=== PATIENT | female | born 1935 | race Two or more races ===

== ENCOUNTER 2017-08-23 20:08 | Inpatient (IN) | payer MEDICARE, MEDICAID ==
[~2017-08-23] VITALS: Ht 157.5 cm; Wt 79.8 kg
[2017-08-23] MEDS ORDERED: Solu-MEDROL 125mg Inj IVP ONE (20:15)
[2017-08-23] MEDS ORDERED: EPINEPHrine 1mg/1ml Amp SUBQ ONE (20:15)
[2017-08-23] MEDS ORDERED: Etomidate 40mg/20ml Inj IV ONE ×2 (20:39→21:15)
--- NOTE | 2017-08-23 20:59 | Emergency Room Report ---
History of Present Illness General Chief Complaint: Allergic Reaction Source: EMS Present Illness HPI Patient is an 82-year-old female who presented after increased tongue swelling and difficulty breathing. Patient had gradual onset of symptoms. Patient was noted to have been taking Coumadin. She was noted by EMS to have profuse bruising to her face as well as discoloration of her tongue. This happened while patient was receiving a treatment with C Pap. Patient had been given Subcutaneous epi as well as IV Benadryl by EMS. Allergies: Coded Allergies: IBUPROFEN (Verified Allergy, Unknown, 08/23/17) Patient History Past Medical History: see triage record Now: No Reviewed Nursing Documentation: PMH: Agreed, PSxH: Agreed Review of Systems All Other Systems: limited - by acuity Physical Exam Vital Signs Date Time Temp Pulse Resp B/P (MAP) Pulse Ox O2 Delivery O2 Flow Rate FiO2 08/23/17 20:10 97.8 113 28 164/47 100 Non-Rebreather 10.0 97.9 General Appearance: severe distress, Chronically Ill Head: normocephalic Eyes: bilateral eye PERRL ENT: other - tongue purple discoloration Neck: other - bruising to area beneath mandible, per EMS occurred en route Respiratory: accessory muscle use, stridor Cardiovascular #1: normal peripheral pulses, regular rate, rhythm, no edema Procedures Critical Care Time Critical Care Time Patient had a critical medical condition which untreated could potentially result in life or limb threatening injury. Total critical care time excluding procedures approximately 45 minutes. Intubation Intubation : Consent: Emergent Time of Intubation: 20:59 Intubation Method: orotracheal Tube Size (cm): 6.0 Medications: Etomidate Breath Sounds after Intubation: equal Intubation Complications: no complications, oral-unsuccessful attempt Post Intubation Xray: Yes Attempts: Other - three Patient Tolerated: Well Complications: None Medical Decision Making Diagnostic Impression: Primary Impression: Angioedema Additional Impressions: Anemia Airway compromise ER Course Patient presented for shortness of breath. Differential diagnosis included was not limited to angioedema, Puma's angina, bacterial tracheitis, anemia, pneumonia among others. Because of complexity of patient's case laboratory testing and imaging studies were ordered.The patient was noted to have initial somewhat difficulty breathing. She was given IV Benadryl as well as Pepcid. The patient was noted to have some increased difficulty breathing and was given epi subcutaneous. Patient was subsequentlyNoted to have partial airway obstruction and was intubated emergently. Initially an LMA was placed. Patient was given IV etomidate. The patient was excessively intubated with Glidescope but was unable to pass tube past cords, but maintained ventillation. The patient was subsequently intubated with a 6-0 ET tube at 21 cm's at the lip. Post procedure cxr showed adequate ETT. Patient was started on a Diprivan drip. Patient was noted to have marked bruising and edema near vocal cords and partially obstructing them. Dr. Vik Hernandez was contacted for primary care physician and stated he would contact Dr. Villagran for inpatient management . CT of neck is currently pending Labs Test 08/23/17 20:40 White Blood Count 18.1 K/UL (4.8-10.8) Red Blood Count 2.26 M/UL (4.20-5.40) Hemoglobin 6.6 G/DL (12.0-16.0) Hematocrit 20.4 % (37.0-47.0) Mean Corpuscular Volume 90 FL (80-99) Mean Corpuscular Hemoglobin 29.4 PG (27.0-31.0) Mean Corpuscular Hemoglobin Concent 32.6 G/DL (32.0-36.0) Red Cell Distribution Width 15.4 % (11.6-14.8) Platelet Count 257 K/UL (150-450) Mean Platelet Volume 7.0 FL (6.5-10.1) Neutrophils (%) (Auto) % (45.0-75.0) Lymphocytes (%) (Auto) % (20.0-45.0) Monocytes (%) (Auto) % (1.0-10.0) Eosinophils (%) (Auto) % (0.0-3.0) Basophils (%) (Auto) % (0.0-2.0) Differential Total Cells Counted 100 Neutrophils % (Manual) 87 % (45-75) Lymphocytes % (Manual) 11 % (20-45) Monocytes % (Manual) 2 % (1-10) Eosinophils % (Manual) 0 % (0-3) Basophils % (Manual) 0 % (0-2) Band Neutrophils 0 % (0-8) Platelet Estimate Adequate Platelet Morphology Normal Polychromasia 1+ Hypochromasia 2+ Anisocytosis 1+ Sodium Level 145 MMOL/L (136-145) Potassium Level 4.4 MMOL/L (3.5-5.1) Chloride Level 107 MMOL/L (98-107) Carbon Dioxide Level 29 MMOL/L (21-32) Anion Gap 9 mmol/L (5-15) Blood Urea Nitrogen 41 mg/dL (7-18) Creatinine 1.3 MG/DL (0.55-1.30) Estimat Glomerular Filtration Rate mL/min (>60) Glucose Level 170 MG/DL (74-106) Calcium Level 8.3 MG/DL (8.5-10.1) Total Bilirubin 1.2 MG/DL (0.2-1.0) Direct Bilirubin 0.3 MG/DL (0.0-0.3) Aspartate Amino Transf (AST/SGOT) 23 U/L (15-37) Alanine Aminotransferase (ALT/SGPT) 16 U/L (12-78) Alkaline Phosphatase 66 U/L (46-116) Troponin I 0.000 ng/mL (0.000-0.056) Total Protein 6.9 G/DL (6.4-8.2) Albumin 2.8 G/DL (3.4-5.0) Globulin 4.1 g/dL Albumin/Globulin Ratio 0.7 (1.0-2.7) EKG Diagnostic Results Rate: normal Rhythm: NSR ST Segments: no acute changes Last Vital Signs Date Time Temp Pulse Resp B/P (MAP) Pulse Ox O2 Delivery O2 Flow Rate FiO2 08/23/17 20:10 97.8 113 28 164/47 100 Non-Rebreather 10.0 97.9 Status: improved Disposition: ADMITTED INPATIENT Condition: Critical Referrals: SHARRON HERNANDEZ (PCP) Pradip Green Aug 23, 2017 20:59
[2017-08-23 21:05] LABS: HEMATOCRIT 20.4 % (37.0-47.0); MEAN CORPUSCULAR VOLUME 90 FL (80-99); PLATELET COUNT 257 K/UL (150-450); RED BLOOD COUNT 2.26 M/UL (4.20-5.40); RED CELL DISTRIBUTION WIDTH 15.4 % (11.6-14.8); WHITE BLOOD COUNT 18.1 K/UL (4.8-10.8)
[2017-08-23 21:16] LABS: ANION GAP 9 mmol/L (5-15); BLOOD UREA NITROGEN 41 mg/dL (7-18); CALCIUM 8.3 MG/DL (8.5-10.1); CARBON DIOXIDE 29 MMOL/L (21-32); CHLORIDE 107 MMOL/L (98-107); CREATININE 1.3 MG/DL (0.55-1.30); POTASSIUM 4.4 MMOL/L (3.5-5.1); SODIUM 145 MMOL/L (136-145)
[2017-08-23 21:24] LABS: HEMOGLOBIN 6.6 G/DL (12.0-16.0)
[2017-08-23 21:25] VITALS: BP 174/70
[2017-08-23 21:27] LABS: ALANINE AMINOTRANSFERASE 16 U/L (12-78); ALBUMIN 2.8 G/DL (3.4-5.0); ALBUMIN/GLOBULIN RATIO 0.7 (1.0-2.7); ALKALINE PHOSPHATASE 66 U/L (46-116); ASPARTATE AMINO TRANSFERASE 23 U/L (15-37); BILIRUBIN,TOTAL 1.2 MG/DL (0.2-1.0)
[2017-08-23 21:40] VITALS: BP 157/50
[2017-08-23 21:41] LABS: BILIRUBIN,DIRECT 0.3 MG/DL (0.0-0.3)
[2017-08-23] MEDS ORDERED: NORCO 5-325 TA1 EACH ORAL (21:43)
[2017-08-23] MEDS ORDERED: COUMADIN6 MG ORAL (21:43)
[2017-08-23] MEDS ORDERED: DUONEB 0.5-3(2.53 ML HHN (21:43)
[2017-08-23] MEDS ORDERED: clindamycin PO (21:43)
[2017-08-23] MEDS ORDERED: SULFAMETHOXAZO480 ML ORAL (21:43)
[2017-08-23] MEDS ORDERED: LIPITOR10 MG ORAL (21:43)
[2017-08-23] MEDS ORDERED: LEVOTHYROXINE88 MCG ORAL (21:43)
[2017-08-23] MEDS ORDERED: GABAPENTIN300 MG ORAL (21:43)
[2017-08-23] MEDS ORDERED: AMLODIPINE BESY10 MG ORAL (21:43)
[2017-08-23] MEDS ORDERED: DOCUSATE SODIU100 MG ORAL (21:43)
[2017-08-23] MEDS ORDERED: ASPIRIN81 MG ORAL (21:43)
[2017-08-23] MEDS ORDERED: WARFARIN SODIUM5 MG ORAL (21:43)
[2017-08-23] MEDS ORDERED: ACID CONTROLLER20 MG ORAL (21:43)
[2017-08-23] MEDS ORDERED: MEDROL4 MG ORAL (21:43)
[2017-08-23 21:55] VITALS: BP 166/40
[2017-08-23] MEDS ORDERED: Ampicillin/Sulbactam Sod 3 GM in NS 110 ML IVPB ONE (22:00)
[2017-08-23 22:10] VITALS: BP 135/46
[2017-08-23 22:45] VITALS: BP 110/22
[2017-08-24] VITALS (22 sets, daily range): BP systolic 78–154; BP diastolic 31–77
--- NOTE | 2017-08-24 00:26 | Emergency Room Report ---
History of Present Illness General Chief Complaint: Allergic Reaction Source: EMS Present Illness Allergies: Coded Allergies: IBUPROFEN (Verified Allergy, Unknown, 08/23/17) Patient History Now: No Nursing Documentation-PMH Hx Hypertension: Yes - Hyperlipidemia, Cellulitis Hx Gastrointestinal Problems: Yes - GERD Physical Exam Vital Signs Date Time Temp Pulse Resp B/P (MAP) Pulse Ox O2 Delivery O2 Flow Rate FiO2 08/22/17 21:55 16 166/40 08/23/17 20:10 97.8 113 100 Non-Rebreather 10.0 97.9 08/23/17 21:13 100 Procedures Central Line Central Line : Consent: Emergent Central Line Lumen: triple Maximal Sterile Barrier Tech: yes cap, yes mask, yes sterile gown, yes sterile gloves, yes large sterile sheet, yes hand hygiene, yes chlorhexidine prep Central Line Postion: femoral (R) Complications: none Central Line Post Position: sutured, good blood return Attempts: One Patient Tolerated: Well Complications: None Medical Decision Making Diagnostic Impression: Primary Impression: Angioedema Additional Impressions: Airway compromise Anemia ER Course Patient becoming hypotensive while on propofol. Only one IV access obtainable. I placed a right femoral central line. IV fluids and Levophed started Last Vital Signs Date Time Temp Pulse Resp B/P (MAP) Pulse Ox O2 Delivery O2 Flow Rate FiO2 08/23/17 23:31 40 08/23/17 23:30 96 24 08/23/17 22:45 110/22 100 08/23/17 21:55 Mechanical Ventilator 08/23/17 21:25 97.9 10.0 97.9 Status: improved Disposition: ADMITTED INPATIENT Condition: Critical Referrals: SHARRON HERNANDEZ (PCP) SHANON MONTIEL M.D. Aug 24, 2017 00:26
[2017-08-24] MEDS ORDERED: Levophed 4mg/4mL Inj IV ONE ×2 (00:30→00:53)
[2017-08-24] MEDS ORDERED: Unasyn 3gm Inj ONE (00:30)
[2017-08-24] MEDS ORDERED: Phytonadione 10 MG in D5W 55 ML IVPB ONE (01:30)
[2017-08-24] MEDS ORDERED: Phytonadione 10 mg/mL 1ml amp ONE (01:33)
[2017-08-24] MEDS: D5NS 1,000 ML IV SCH ×2 (06:58→20:25)
[2017-08-24] MEDS: Pantoprazole Inj IVP SCH (08:57)
--- NOTE | 2017-08-24 09:46 | Diagnostic Imaging Report ---
Indication: Post intubation Technique: One view of the chest Comparison: none Findings: There is an endotracheal tube in place, tip projected being approximately 5 cm above the howard. Lungs and pleural spaces are clear. The heart size is normal. The aorta is calcified. There is mild thoracic scoliotic deformity Impression: Satisfactory endotracheal intubation No acute cardiopulmonary process
--- NOTE | 2017-08-24 11:16 | Diagnostic Imaging Report ---
Indication: Neck swelling Technique: IV administration nonionic contrast. Spiral acquisitions obtained through the neck. Multiplanar reconstructions were generated. Total dose length product 702.11 mGycm. CTDIvol(s) 21.21 mGy. Dose reduction achieved using automated exposure control Comparison: none Findings: There is an endotracheal tube in place, tip in the mid to distal trachea in good position. There is also an oral airway in place, the distal lumen of which appears to be filled with secretions. This somewhat limits assessment of the airway. Is abnormal material in the posterior nasopharynx likely represents secretions. There is diffuse thickening of the soft tissue surrounding the hypopharynx and oropharynx. This is particularly prominent on the right. There is thickening of the right-sided tonsils. No definite abscess demonstrated. There is also stranding of the fat extending from the right peritonsillar region to the superficial soft tissues inferior to the right parotid gland there is within the area of inflammation but does not appear enlarged.. The right submandibular gland. There is also some edema of the anterior facial soft tissues. No cervical mass or adenopathy. The included thyroid appears small but otherwise unremarkable. The lungs demonstrate diffuse patchy groundglass and confluent opacities as well as nodular opacities. Small amount of fluid is seen within the thoracic esophagus. There is near complete opacification of both maxillary sinuses. There is some ethmoid sinus disease. The included intracranial structures appear unremarkable. There is suggestion of trace pleural fluid on the right. Impression: Swelling of the upper airway, somewhat circumferential but predominantly involving the right palatine tonsils, with evidence of soft tissue cellulitis extending laterally through the submandibular gland and involving the right lateral neck superficial soft tissues inferior to the parotid gland. Edema also extends into the anterior facial soft tissues. No definite abscess demonstrated Secretions in the posterior nasopharynx No definite cervical mass or adenopathy Endotracheal tube and oral airway device was present, the distal lumen of the latter appearing to be filled with secretions Bilateral pulmonary groundglass opacities, confluent opacities, and nodularity suspicious for infectious process Bilateral sinus disease Small amount of fluid within the thoracic esophagus, nonspecific This agrees with the preliminary interpretation provided overnight by [employer] teleradiology service. The CT scanner at [facility] is accredited by the [employer] and the scans are performed using protocols designed to limit radiation exposure to as low as reasonably achievable to attain images of sufficient resolution adequate for diagnostic evaluation.
--- NOTE | 2017-08-24 15:50 | GI Initial Consult Note ---
Lawler,Mae Bacilio N.P. 08/24/17 1550: History of Present Illness General Date patient seen: Aug 24, 2017 Time patient seen: 15:49 Reason for Hospitalization: Allergic Reaction Referring physician: CULLEN CATALAN Reason for Consultation: ANEMIA Present Illness HPI Patient is an 82-year-old female who presented after increased tongue swelling and difficulty breathing. Patient had gradual onset of symptoms. Patient was noted to have been taking Coumadin. She was noted by EMS to have profuse bruising to her face as well as discoloration of her tongue. This happened while patient was receiving a treatment with C Pap. Patient had been given Subcutaneous epi as well as IV Benadryl by EMS. GI consulted for anemia. ROS limited, all information obtained from medical record. Discussion with RN. Pt seen in ICU, lethargic, intubated on restraints. Sleeping NAD with no active s/sx of N/VD. Per report had an allergic reaction with compromised her airway. Abdomen soft, non distended. Ecchymosis noted on body, see deckhand. Pt presents today with anemia low Hgb and elevated total bilirubin. Unknown history of endoscopy / colonoscopy. Home Meds Reported Medications Warfarin Sod* (WARFARIN SOD*) 5 Mg Tablet, 5 MG ORAL DAILY, TAB 08/23/17 Sulfamethoxazole/Trimethoprim (Sulfamethoxazole-Tmp Susp) 473 Ml Oral.susp, 20 ML ORAL TWICE A DAY, ML 08/23/17 Hydrocodone Bit/Acetaminophen 5-325* (NORCO 5-325*) 1 Each Tablet, 1 TAB ORAL Q6H PRN for For Pain, #10 TAB 0 Refills 08/23/17 Atorvastatin Calcium* (LIPITOR*) 10 Mg Tablet, 10 MG ORAL BEDTIME, TAB 08/23/17 Levothyroxine Sodium* (LEVOTHYROXINE SODIUM*) 88 Mcg Tablet, 88 MCG ORAL DAILY, TAB Take in the morning on an empty stomach, at least 30 minutes before food. 08/23/17 Famotidine (ACID CONTROLLER) 20 Mg Tablet, 20 MG ORAL TWICE A DAY, TAB 08/23/17 Docusate Sodium* (DOCUSATE SODIUM*) 100 Mg Capsule, 100 MG ORAL TWICE A DAY, CAP 08/23/17 Aspirin* (ASPIRIN*) 81 Mg Tab.chew, 81 MG ORAL DAILY, TAB 08/23/17 Amlodipine Besylate* (AMLODIPINE BESYLATE*) 10 Mg Tablet, 10 MG ORAL DAILY, TAB 08/23/17 Gabapentin* (GABAPENTIN*) 300 Mg Capsule, 300 MG ORAL THREE TIMES A DAY, CAP 0 Refills 08/23/17 Warfarin Sod* (COUMADIN*) 6 Mg Tablet, 6 MG ORAL DAILY, TAB 08/23/17 [clindamycin] No Conflict Check, 300 MG PO BID for 7 Days 08/23/17 Ipratropium/Albuterol Sulfate (DuoNeb 0.5-3(2.5)mg/3ml) 3 Ml Ampul.neb, 3 ML HHN Q4HR, EA 08/23/17 Methylprednisolone* (MEDROL*) 4 Mg Tablet, 4 MG ORAL DAILY, #10 TAB 0 Refills 08/23/17 Med list reviewed/reconciled: Yes Allergies: Coded Allergies: IBUPROFEN (Verified Allergy, Unknown, 08/23/17) Patient History Limited by: medical condition History Provided By: Medical Record PMH Narrative Past Medical History: see triage record Now: No Reviewed Nursing Documentation: PMH: Agreed, PSxH: Agreed Review of Systems All Other Systems: limited Physical Exam Vital Signs Date Time Temp Pulse Resp B/P (MAP) Pulse Ox O2 Delivery O2 Flow Rate FiO2 08/22/17 21:55 16 166/40 08/23/17 20:10 97.8 113 100 Non-Rebreather 10.0 97.9 08/23/17 21:13 100 Labs Laboratory Tests Test 08/23/17 20:40 08/23/17 23:35 08/23/17 23:59 White Blood Count 18.1 K/UL (4.8-10.8) H Red Blood Count 2.26 M/UL (4.20-5.40) L Hemoglobin 6.6 G/DL (12.0-16.0) *L Hematocrit 20.4 % (37.0-47.0) L Mean Corpuscular Volume 90 FL (80-99) Mean Corpuscular Hemoglobin 29.4 PG (27.0-31.0) Mean Corpuscular Hemoglobin Concent 32.6 G/DL (32.0-36.0) Red Cell Distribution Width 15.4 % (11.6-14.8) H Platelet Count 257 K/UL (150-450) Mean Platelet Volume 7.0 FL (6.5-10.1) Neutrophils (%) (Auto) % (45.0-75.0) Lymphocytes (%) (Auto) % (20.0-45.0) Monocytes (%) (Auto) % (1.0-10.0) Eosinophils (%) (Auto) % (0.0-3.0) Basophils (%) (Auto) % (0.0-2.0) Differential Total Cells Counted 100 Neutrophils % (Manual) 87 % (45-75) H Lymphocytes % (Manual) 11 % (20-45) L Monocytes % (Manual) 2 % (1-10) Eosinophils % (Manual) 0 % (0-3) Basophils % (Manual) 0 % (0-2) Band Neutrophils 0 % (0-8) Platelet Estimate Adequate Platelet Morphology Normal Polychromasia 1+ Hypochromasia 2+ Anisocytosis 1+ Sodium Level 145 MMOL/L (136-145) Potassium Level 4.4 MMOL/L (3.5-5.1) Chloride Level 107 MMOL/L (98-107) Carbon Dioxide Level 29 MMOL/L (21-32) Anion Gap 9 mmol/L (5-15) Blood Urea Nitrogen 41 mg/dL (7-18) H Creatinine 1.3 MG/DL (0.55-1.30) Estimat Glomerular Filtration Rate mL/min (>60) Glucose Level 170 MG/DL (74-106) H Calcium Level 8.3 MG/DL (8.5-10.1) L Total Bilirubin 1.2 MG/DL (0.2-1.0) H Direct Bilirubin 0.3 MG/DL (0.0-0.3) Aspartate Amino Transf (AST/SGOT) 23 U/L (15-37) Alanine Aminotransferase (ALT/SGPT) 16 U/L (12-78) Alkaline Phosphatase 66 U/L (46-116) Troponin I 0.000 ng/mL (0.000-0.056) Total Protein 6.9 G/DL (6.4-8.2) Albumin 2.8 G/DL (3.4-5.0) L Globulin 4.1 g/dL Albumin/Globulin Ratio 0.7 (1.0-2.7) L Triglycerides Level 102 MG/DL (30-150) Arterial Blood pH 7.308 (7.350-7.450) Arterial Blood Partial Pressure CO2 34.8 mmHg (35.0-45.0) L Arterial Blood Partial Pressure O2 132.8 mmHg (75.0-100.0) H Arterial Blood HCO3 17.0 mmol/L (22.0-26.0) L Arterial Blood Oxygen Saturation 97.7 % (92.0-98.0) Arterial Blood Base Excess -8.5 Chuy Test Positive Activated Partial Thromboplast Time 117 SEC (23-33) H General Appearance: no apparent distress Neck: supple Respiratory: other - intubated Cardiovascular: normal rate Gastrointestinal: soft Neurologic: alert Skin: normal color, no rash Lymphatic: normal inspection, no adenopathy Current Medications Current Medications Medications (Trade) Dose Ordered Sig/[place] Route PRN Reason Start Time Stop Time Status Last Admin Dose Admin Dextrose/Sodium Chloride 1,000 ml @ 60 mls/hr [id number] IV 08/24/17 04:45 09/23/17 04:44 08/24/17 06:58 Norepinephrine Bitartrate 8 mg/ Dextrose 250 ml @ 0 mls/hr Q24H IV 08/24/17 00:30 09/23/17 00:29 08/24/17 01:10 Pantoprazole (Protonix) 40 mg DAILY IVP 08/24/17 09:00 09/23/17 08:59 08/24/17 08:57 Propofol 100 ml @ 0 mls/hr Q24H IV 08/23/17 21:15 08/25/17 21:14 08/23/17 21:44 GI: Plan Problems: (1) Angioedema (2) Anemia (3) Allergic reaction caused by a drug Plan will consider GI procedures pending work up anemia work up maintain NPO + IVFs hold blood thinners >> fu coags OB stool r/o GI bleed monitor H&H, prn transfusions >> 1 unit today ppi fu labs will follow with additional recs Discussed with Dr. Hernandez. Thank you for this patient referral, we will follow. RAJ HERNANDEZ 08/26/17 1018: History of Present Illness General Reason for Hospitalization: Allergic Reaction Present Illness Home Meds Reported Medications Warfarin Sod* (WARFARIN SOD*) 5 Mg Tablet, 5 MG ORAL DAILY, TAB 08/23/17 Sulfamethoxazole/Trimethoprim (Sulfamethoxazole-Tmp Susp) 473 Ml Oral.susp, 20 ML ORAL TWICE A DAY, ML 08/23/17 Hydrocodone Bit/Acetaminophen 5-325* (NORCO 5-325*) 1 Each Tablet, 1 TAB ORAL Q6H PRN for For Pain, #10 TAB 0 Refills 08/23/17 Atorvastatin Calcium* (LIPITOR*) 10 Mg Tablet, 10 MG ORAL BEDTIME, TAB 08/23/17 Levothyroxine Sodium* (LEVOTHYROXINE SODIUM*) 88 Mcg Tablet, 88 MCG ORAL DAILY, TAB Take in the morning on an empty stomach, at least 30 minutes before food. 08/23/17 Famotidine (ACID CONTROLLER) 20 Mg Tablet, 20 MG ORAL TWICE A DAY, TAB 08/23/17 Docusate Sodium* (DOCUSATE SODIUM*) 100 Mg Capsule, 100 MG ORAL TWICE A DAY, CAP 08/23/17 Aspirin* (ASPIRIN*) 81 Mg Tab.chew, 81 MG ORAL DAILY, TAB 08/23/17 Amlodipine Besylate* (AMLODIPINE BESYLATE*) 10 Mg Tablet, 10 MG ORAL DAILY, TAB 08/23/17 Gabapentin* (GABAPENTIN*) 300 Mg Capsule, 300 MG ORAL THREE TIMES A DAY, CAP 0 Refills 08/23/17 Warfarin Sod* (COUMADIN*) 6 Mg Tablet, 6 MG ORAL DAILY, TAB 08/23/17 [clindamycin] No Conflict Check, 300 MG PO BID for 7 Days 08/23/17 Ipratropium/Albuterol Sulfate (DuoNeb 0.5-3(2.5)mg/3ml) 3 Ml Ampul.neb, 3 ML HHN Q4HR, EA 08/23/17 Methylprednisolone* (MEDROL*) 4 Mg Tablet, 4 MG ORAL DAILY, #10 TAB 0 Refills 08/23/17 Allergies: Coded Allergies: IBUPROFEN (Verified Allergy, Unknown, 08/23/17) GI: Plan Plan The patient was seen and examined at bedside and all new and available data was reviewed in the patients chart. I agree with the above findings, impression and plan. (Patient seen earlier today. Signature stamp does not reflect patient encounter time.). - MD Nuris Alvarez Anh Bacilio N.PNicola Aug 24, 2017 15:50 RAJ HERNANDEZ Aug 26, 2017 10:18
--- NOTE | 2017-08-24 16:47 | Cardiology Report ---
APPROVED REPORT EKG Measurement Heart [id number] Normal sinus rhythm Normal ECG
[2017-08-24 17:12] LABS: HEMATOCRIT 12.7 % (37.0-47.0); MEAN CORPUSCULAR VOLUME 89 FL (80-99); PLATELET COUNT 215 K/UL (150-450); RED BLOOD COUNT 1.42 M/UL (4.20-5.40); RED CELL DISTRIBUTION WIDTH 16.2 % (11.6-14.8); WHITE BLOOD COUNT 19.9 K/UL (4.8-10.8)
[2017-08-24 17:21] LABS: ANION GAP 10 mmol/L (5-15); BLOOD UREA NITROGEN 55 mg/dL (7-18); CALCIUM 7.9 MG/DL (8.5-10.1); CARBON DIOXIDE 23 MMOL/L (21-32); CHLORIDE 113 MMOL/L (98-107); CREATININE 1.3 MG/DL (0.55-1.30); POTASSIUM 4.4 MMOL/L (3.5-5.1); SODIUM 146 MMOL/L (136-145)
[2017-08-24 17:27] LABS: HEMOGLOBIN 4.2 G/DL (12.0-16.0)
[2017-08-24 17:36] LABS: INR 1.4 (0.9-1.1)
[2017-08-24 17:39] LABS: ALANINE AMINOTRANSFERASE 27 U/L (12-78); ALBUMIN 2.1 G/DL (3.4-5.0); ALBUMIN/GLOBULIN RATIO 0.7 (1.0-2.7); ALKALINE PHOSPHATASE 45 U/L (46-116); ASPARTATE AMINO TRANSFERASE 87 U/L (15-37); BILIRUBIN,TOTAL 1.1 MG/DL (0.2-1.0); FERRITIN 50 NG/ML (8-388)
[2017-08-24 17:50] LABS: % IRON SATURATION 11 % (15-50); IRON 26 ug/dL (50-175); TOTAL IRON BINDING CAPACITY 228 ug/dL (250-450)
[2017-08-24 18:08] LABS: BILIRUBIN,DIRECT 0.3 MG/DL (0.0-0.3)
[2017-08-24] MEDS: Acetaminophen 650 MG SUPP RECTAL PRN (18:13)
--- NOTE | 2017-08-24 18:30 | Infectious Diseases Prog Note ---
Assessment/Plan Problems: (1) HCAP (healthcare-associated pneumonia) Assessment & Plan: will start zosyn and vancomycin, and send sputum culture , monitor CXR (2) Cellulitis of neck Assessment & Plan: with no evidence of neck abcsess, will start zosyn empiric coverage , recommend ENT consult (3) Sepsis Assessment & Plan: with leukocytosis due to the above, will start vancomycin and zosyn, pending blood culture (4) Acute respiratory failure Assessment & Plan: due to the above, intubated on mechanical ventilation, monitor ABG and CXR , consult shaper and presser (5) Fever Assessment & Plan: due to the above, will start wide spectrum antibiotics, continue tylenol PRN (6) Coagulopathy Assessment & Plan: with diffuse bleeding , suspect due to Coumadin, on hold, transfused PRBC as needed, check DIC profile (7) 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 Assessment & Plan: with MSSA and gram negative rods, recommend music engraver consult and vascular study for further eval , already on vancomycin and zosyn Subjective Allergies: Coded Allergies: IBUPROFEN (Verified Allergy, Unknown, 08/23/17) Objective Vital Signs Last 24 Hour Vital Signs Date Time Temp Pulse Resp B/P (MAP) Pulse Ox O2 Delivery O2 Flow Rate FiO2 08/24/17 18:13 100.5 08/24/17 17:00 100.5 107 18 135/43 100 Mechanical Ventilator 40 100.5 08/24/17 16:55 99 18 40 08/24/17 16:00 40 08/24/17 16:00 95 18 143/48 100 Mechanical Ventilator 40 08/24/17 16:00 93 08/24/17 15:00 94 18 150/40 100 Mechanical Ventilator 40 08/24/17 14:48 97 18 40 08/24/17 14:00 93 18 133/41 100 Mechanical Ventilator 40 08/24/17 13:10 106 18 40 08/24/17 13:00 96 18 141/47 96 Mechanical Ventilator 40 08/24/17 12:00 40 08/24/17 12:00 98.6 99 22 138/45 100 Mechanical Ventilator 40 98.6 08/24/17 12:00 95 08/24/17 11:27 108 18 40 08/24/17 11:00 102 21 145/54 100 Mechanical Ventilator 40 08/24/17 10:00 96 21 132/39 100 Mechanical Ventilator 40 08/24/17 09:29 100 20 40 08/24/17 09:00 98 21 139/39 100 Mechanical Ventilator 40 08/24/17 08:00 97.9 96 24 139/43 100 Mechanical Ventilator 40 97.9 08/24/17 08:00 89 08/24/17 08:00 40 08/24/17 06:51 75 18 40 08/24/17 04:53 78 18 40 08/24/17 04:00 72 08/24/17 03:10 97.6 68 18 83/31 100 Mechanical Ventilator 97.6 08/24/17 03:10 67 08/24/17 03:10 40 08/24/17 03:00 97.9 76 21 115/44 100 Mechanical Ventilator 08/24/17 02:45 76 21 115/44 100 Mechanical Ventilator 08/24/17 02:33 80 22 40 08/24/17 02:08 75 18 142/47 100 Mechanical Ventilator 08/24/17 01:50 73 12 126/48 100 Mechanical Ventilator 08/24/17 01:18 97.9 73 18 118/43 100 Mechanical Ventilator 97.9 08/24/17 01:10 106/39 08/24/17 00:47 90 22 40 08/24/17 00:15 18 78/40 08/24/17 00:10 78 18 78/40 100 18 23:31 40 18 23:30 96 24 100 18 22:45 95 20 110/22 100 18 22:10 86 20 135/46 100 18 22:10 20 135/46 18 21:55 90 16 166/40 99 Mechanical Ventilator 08/23/17 21:44 19 174/70 18 21:40 101 25 157/50 100 18 21:40 25 157/50 18 21:25 19 174/70 18 21:25 97.9 95 19 174/70 100 Non-Rebreather 10.0 100 97.9 18 21:13 99 25 100 18 20:10 97.8 113 28 164/47 100 Non-Rebreather 10.0 97.9 Height (Feet): 5 Height (Inches): 2.00 Weight (Pounds): 169 Laboratory Tests Test 08/23/17 20:40 08/23/17 23:35 08/23/17 23:59 08/24/17 16:10 White Blood Count 18.1 K/UL (4.8-10.8) H 19.9 K/UL (4.8-10.8) H Red Blood Count 2.26 M/UL (4.20-5.40) L 1.42 M/UL (4.20-5.40) L Hemoglobin 6.6 G/DL (12.0-16.0) *L 4.2 G/DL (12.0-16.0) Hematocrit 20.4 % (37.0-47.0) L 12.7 % (37.0-47.0) #L Mean Corpuscular Volume 90 FL (80-99) 89 FL (80-99) Mean Corpuscular Hemoglobin 29.4 PG (27.0-31.0) 29.6 PG (27.0-31.0) Mean Corpuscular Hemoglobin Concent 32.6 G/DL (32.0-36.0) 33.1 G/DL (32.0-36.0) Red Cell Distribution Width 15.4 % (11.6-14.8) H 16.2 % (11.6-14.8) H Platelet Count 257 K/UL (150-450) 215 K/UL (150-450) Mean Platelet Volume 7.0 FL (6.5-10.1) 7.5 FL (6.5-10.1) Neutrophils (%) (Auto) % (45.0-75.0) % (45.0-75.0) Lymphocytes (%) (Auto) % (20.0-45.0) % (20.0-45.0) Monocytes (%) (Auto) % (1.0-10.0) % (1.0-10.0) Eosinophils (%) (Auto) % (0.0-3.0) % (0.0-3.0) Basophils (%) (Auto) % (0.0-2.0) % (0.0-2.0) Differential Total Cells Counted 100 Neutrophils % (Manual) 87 % (45-75) H Pending Lymphocytes % (Manual) 11 % (20-45) L Pending Monocytes % (Manual) 2 % (1-10) Eosinophils % (Manual) 0 % (0-3) Basophils % (Manual) 0 % (0-2) Band Neutrophils 0 % (0-8) Platelet Estimate Adequate Pending Platelet Morphology Normal Pending Polychromasia 1+ Hypochromasia 2+ Anisocytosis 1+ Sodium Level 145 MMOL/L (136-145) 146 MMOL/L (136-145) H Potassium Level 4.4 MMOL/L (3.5-5.1) 4.4 MMOL/L (3.5-5.1) Chloride Level 107 MMOL/L (98-107) 113 MMOL/L (98-107) H Carbon Dioxide Level 29 MMOL/L (21-32) 23 MMOL/L (21-32) Anion Gap 9 mmol/L (5-15) 10 mmol/L (5-15) Blood Urea Nitrogen 41 mg/dL (7-18) H 55 mg/dL (7-18) H Creatinine 1.3 MG/DL (0.55-1.30) 1.3 MG/DL (0.55-1.30) Estimat Glomerular Filtration Rate mL/min (>60) mL/min (>60) Glucose Level 170 MG/DL (74-106) H 177 MG/DL (74-106) H Calcium Level 8.3 MG/DL (8.5-10.1) L 7.9 MG/DL (8.5-10.1) L Total Bilirubin 1.2 MG/DL (0.2-1.0) H 1.1 MG/DL (0.2-1.0) H Direct Bilirubin 0.3 MG/DL (0.0-0.3) 0.3 MG/DL (0.0-0.3) Aspartate Amino Transf (AST/SGOT) 23 U/L (15-37) 87 U/L (15-37) H Alanine Aminotransferase (ALT/SGPT) 16 U/L (12-78) 27 U/L (12-78) Alkaline Phosphatase 66 U/L (46-116) 45 U/L (46-116) L Troponin I 0.000 ng/mL (0.000-0.056) Total Protein 6.9 G/DL (6.4-8.2) 5.3 G/DL (6.4-8.2) L Albumin 2.8 G/DL (3.4-5.0) L 2.1 G/DL (3.4-5.0) L Globulin 4.1 g/dL 3.2 g/dL Albumin/Globulin Ratio 0.7 (1.0-2.7) L 0.7 (1.0-2.7) L Triglycerides Level 102 MG/DL (30-150) Arterial Blood pH 7.308 (7.350-7.450) Arterial Blood Partial Pressure CO2 34.8 mmHg (35.0-45.0) L Arterial Blood Partial Pressure O2 132.8 mmHg (75.0-100.0) H Arterial Blood HCO3 17.0 mmol/L (22.0-26.0) L Arterial Blood Oxygen Saturation 97.7 % (92.0-98.0) Arterial Blood Base Excess -8.5 Chuy Test Positive Activated Partial Thromboplast Time 117 SEC (23-33) H 26 SEC (23-33) Reticulocyte Count Pending Prothrombin Time 14.2 SEC (9.30-11.50) H Prothromb Time International Ratio 1.4 (0.9-1.1) H Iron Level 26 ug/dL (50-175) L Total Iron Binding Capacity 228 ug/dL (250-450) L Percent Iron Saturation 11 % (15-50) L Unsaturated Iron Binding 202 ug/dL (112-346) Ferritin 50 NG/ML (8-388) Vitamin B12 Level 377 PG/ML (193-986) Folate 11.9 NG/ML (8.6-58.9) Thyroid Stimulating Hormone (TSH) 0.399 uiU/mL (0.358-3.740) Free Thyroxine 1.24 NG/DL (0.76-1.46) Current Medications Medications (Trade) Dose Ordered Sig/Chester Route PRN Reason Start Time Stop Time Status Last Admin Dose Admin Acetaminophen (Tylenol) 500 mg Q6H PRN RECTAL Mild Pain/Temp > 100.5 08/24/17 18:30 09/23/17 18:29 08/24/17 18:13 Dextrose/Sodium Chloride 1,000 ml @ 60 mls/hr [id number] IV 08/24/17 04:45 09/23/17 04:44 08/24/17 06:58 Pantoprazole (Protonix) 40 mg DAILY IVP 08/24/17 09:00 09/23/17 08:59 08/24/17 08:57 Noni Gonzalez M.D. Aug 24, 2017 18:30
[2017-08-24] MEDS ORDERED: Vancomycin 1.5 GM/D5W 250ML IVPB ONE (20:00)
[2017-08-24] MEDS: Piperacillin/Tazobactam 3.375 GM in D5W 110 ML IVPB SCH (22:00)
--- NOTE | 2017-08-24 23:06 | History and Physical ---
History of Present Illness General Date patient seen: Aug 24, 2017 Reason for Hospitalization: Allergic Reaction Present Illness HPI This is an 82-year-old female who presented after increased tongue swelling and difficulty breathing. Patient had gradual onset of symptoms. Patient was noted to have been taking Coumadin. She was noted by EMS to have profuse bruising to her face as well as discoloration of her tongue. This happened while patient was on CPAP at her SNF. Patient had been given Subcutaneous epi as well as IV Benadryl by EMS and brought to the ED. She was then subsequently intubated for airway protection and admitted to the ICU. Allergies: Coded Allergies: IBUPROFEN (Verified Allergy, Unknown, 08/23/17) Medication History Scheduled Amlodipine Besylate* (Amlodipine Besylate*), 10 MG ORAL DAILY, (Reported) Aspirin* (Aspirin*), 81 MG ORAL DAILY, (Reported) Atorvastatin Calcium* (Lipitor*), 10 MG ORAL BEDTIME, (Reported) Docusate Sodium* (Docusate Sodium*), 100 MG ORAL TWICE A DAY, (Reported) Famotidine (Acid Controller), 20 MG ORAL TWICE A DAY, (Reported) Gabapentin* (Gabapentin*), 300 MG ORAL THREE TIMES A DAY, (Reported) Ipratropium/Albuterol Sulfate (DuoNeb 0.5-3(2.5)mg/3ml), 3 ML HHN Q4HR, ( Reported) Levothyroxine Sodium* (Levothyroxine Sodium*), 88 MCG ORAL DAILY, (Reported) Methylprednisolone* (Medrol*), 4 MG ORAL DAILY, (Reported) Sulfamethoxazole/Trimethoprim (Sulfamethoxazole-Tmp Susp), 20 ML ORAL TWICE A DAY, (Reported) Warfarin Sod* (Coumadin*), 6 MG ORAL DAILY, (Reported) Warfarin Sod* (Warfarin Sod*), 5 MG ORAL DAILY, (Reported) [clindamycin], 300 MG PO BID, (Reported) Scheduled PRN Hydrocodone Bit/Acetaminophen 5-325* ([place] 5-325*), 1 TAB ORAL Q6H PRN for For Pain, (Reported) Patient History History Provided By: Medical Record Healthcare decision maker pt herself Resuscitation status Full Code Advanced Directive on File No Review of Systems ROS Narrative unable to obtain given patient's condition Physical Exam General Appearance: WD/WN, lethargic HEENT: normocephalic, atraumatic Neck: supple Respiratory/Chest: on vent Cardiovascular/Chest: normal rate, regular rhythm Abdomen: non tender, soft Neurologic: disoriented Last 24 Hour Vital Signs Date Time Temp Pulse Resp B/P (MAP) Pulse Ox O2 Delivery O2 Flow Rate FiO2 08/24/17 21:02 108 18 30 08/24/17 19:21 93 16 40 08/24/17 19:00 100.2 98 18 151/48 100 Mechanical Ventilator 40 100.2 08/24/17 18:43 100.4 08/24/17 18:13 100.5 08/24/17 18:00 97 18 154/55 100 Mechanical Ventilator 40 08/24/17 17:00 100.5 107 18 135/43 100 Mechanical Ventilator 40 100.5 08/24/17 16:55 99 18 40 08/24/17 16:00 40 08/24/17 16:00 95 18 143/48 100 Mechanical Ventilator 40 08/24/17 16:00 93 08/24/17 15:00 94 18 150/40 100 Mechanical Ventilator 40 08/24/17 14:48 97 18 40 08/24/17 14:00 93 18 133/41 100 Mechanical Ventilator 40 08/24/17 13:10 106 18 40 08/24/17 13:00 96 18 141/47 96 Mechanical Ventilator 40 08/24/17 12:00 40 08/24/17 12:00 98.6 99 22 138/45 100 Mechanical Ventilator 40 98.6 08/24/17 12:00 95 08/24/17 11:27 108 18 40 08/24/17 11:00 102 21 145/54 100 Mechanical Ventilator 40 08/24/17 10:00 96 21 132/39 100 Mechanical Ventilator 40 08/24/17 09:29 100 20 40 08/24/17 09:00 98 21 139/39 100 Mechanical Ventilator 40 08/24/17 08:00 97.9 96 24 139/43 100 Mechanical Ventilator 40 97.9 08/24/17 08:00 89 08/24/17 08:00 40 08/24/17 06:51 75 18 40 08/24/17 04:53 78 18 40 08/24/17 04:00 72 08/24/17 03:10 97.6 68 18 83/31 100 Mechanical Ventilator 97.6 08/24/17 03:10 67 08/24/17 03:10 40 08/24/17 03:00 97.9 76 21 115/44 100 Mechanical Ventilator 08/24/17 02:45 76 21 115/44 100 Mechanical Ventilator 08/24/17 02:33 80 22 40 08/24/17 02:08 75 18 142/47 100 Mechanical Ventilator 08/24/17 01:50 73 12 126/48 100 Mechanical Ventilator 08/24/17 01:18 97.9 73 18 118/43 100 Mechanical Ventilator 97.9 08/24/17 01:10 106/39 08/24/17 00:47 90 22 40 08/24/17 00:15 18 78/40 08/24/17 00:10 78 18 78/40 100 08/23/17 23:31 40 08/23/17 23:30 96 24 100 Intake and Output 08/23/17 08/24/17 19:00 07:00 Intake Total 0 ml Output Total 10 ml Balance -10 ml Intake Oral 0 ml Output Urine Total 10 ml Laboratory Tests Test 08/23/17 23:35 08/23/17 23:59 08/24/17 16:10 08/24/17 19:00 Arterial Blood pH 7.308 (7.350-7.450) Arterial Blood Partial Pressure CO2 34.8 mmHg (35.0-45.0) L Arterial Blood Partial Pressure O2 132.8 mmHg (75.0-100.0) H Arterial Blood HCO3 17.0 mmol/L (22.0-26.0) L Arterial Blood Oxygen Saturation 97.7 % (92.0-98.0) Arterial Blood Base Excess -8.5 Chuy Test Positive Activated Partial Thromboplast Time 117 SEC (23-33) H 26 SEC (23-33) White Blood Count 19.9 K/UL (4.8-10.8) H Red Blood Count 1.42 M/UL (4.20-5.40) L Hemoglobin 4.2 G/DL (12.0-16.0) Hematocrit 12.7 % (37.0-47.0) #L Mean Corpuscular Volume 89 FL (80-99) Mean Corpuscular Hemoglobin 29.6 PG (27.0-31.0) Mean Corpuscular Hemoglobin Concent 33.1 G/DL (32.0-36.0) Red Cell Distribution Width 16.2 % (11.6-14.8) H Platelet Count 215 K/UL (150-450) Mean Platelet Volume 7.5 FL (6.5-10.1) Neutrophils (%) (Auto) % (45.0-75.0) Lymphocytes (%) (Auto) % (20.0-45.0) Monocytes (%) (Auto) % (1.0-10.0) Eosinophils (%) (Auto) % (0.0-3.0) Basophils (%) (Auto) % (0.0-2.0) Differential Total Cells Counted 100 Neutrophils % (Manual) 89 % (45-75) H Lymphocytes % (Manual) 8 % (20-45) L Monocytes % (Manual) 3 % (1-10) Eosinophils % (Manual) 0 % (0-3) Basophils % (Manual) 0 % (0-2) Band Neutrophils 0 % (0-8) Platelet Estimate Adequate Platelet Morphology Normal Polychromasia 1+ Hypochromasia 3+ Anisocytosis 2+ Reticulocyte Count 2.4 % (0.0-2.0) H Prothrombin Time 14.2 SEC (9.30-11.50) H Prothromb Time International Ratio 1.4 (0.9-1.1) H Sodium Level 146 MMOL/L (136-145) H Potassium Level 4.4 MMOL/L (3.5-5.1) Chloride Level 113 MMOL/L (98-107) H Carbon Dioxide Level 23 MMOL/L (21-32) Anion Gap 10 mmol/L (5-15) Blood Urea Nitrogen 55 mg/dL (7-18) H Creatinine 1.3 MG/DL (0.55-1.30) Estimat Glomerular Filtration Rate mL/min (>60) Glucose Level 177 MG/DL (74-106) H Calcium Level 7.9 MG/DL (8.5-10.1) L Iron Level 26 ug/dL (50-175) L Total Iron Binding Capacity 228 ug/dL (250-450) L Percent Iron Saturation 11 % (15-50) L Unsaturated Iron Binding 202 ug/dL (112-346) Ferritin 50 NG/ML (8-388) Total Bilirubin 1.1 MG/DL (0.2-1.0) H Direct Bilirubin 0.3 MG/DL (0.0-0.3) Aspartate Amino Transf (AST/SGOT) 87 U/L (15-37) H Alanine Aminotransferase (ALT/SGPT) 27 U/L (12-78) Alkaline Phosphatase 45 U/L (46-116) L Total Protein 5.3 G/DL (6.4-8.2) L Albumin 2.1 G/DL (3.4-5.0) L Globulin 3.2 g/dL Albumin/Globulin Ratio 0.7 (1.0-2.7) L Vitamin B12 Level 377 PG/ML (193-986) Folate 11.9 NG/ML (8.6-58.9) Thyroid Stimulating Hormone (TSH) 0.399 uiU/mL (0.358-3.740) Free Thyroxine 1.24 NG/DL (0.76-1.46) Fibrinogen 371 mg/dL (200-400) Fibrin Degradation Products, Quant Pending Test 08/24/17 19:44 08/24/17 22:50 Arterial Blood pH 7.446 (7.350-7.450) Arterial Blood Partial Pressure CO2 32.0 mmHg (35.0-45.0) L Arterial Blood Partial Pressure O2 101.8 mmHg (75.0-100.0) H Arterial Blood HCO3 21.5 mmol/L (22.0-26.0) L Arterial Blood Oxygen Saturation 96.9 % (92.0-98.0) Arterial Blood Base Excess -2.5 Chuy Test Positive Lactic Acid Level Pending Height (Feet): 5 Height (Inches): 2.00 Weight (Pounds): 169 Medications Current Medications Medications (Trade) Dose Ordered Sig/Chester Route PRN Reason Start Time Stop Time Status Last Admin Dose Admin Acetaminophen (Tylenol) 500 mg Q6H PRN RECTAL Mild Pain/Temp > 100.5 08/24/17 18:30 09/23/17 18:29 08/24/17 18:13 Dextrose/Sodium Chloride 1,000 ml @ 60 mls/hr [id number] IV 08/24/17 04:45 09/23/17 04:44 08/24/17 20:25 Pantoprazole (Protonix) 40 mg DAILY IVP 08/24/17 09:00 09/23/17 08:59 08/24/17 08:57 Piperacillin Sod/ Tazobactam Sod 3.375 gm/Dextrose 110 ml @ 27.5 mls/hr EVERY 8 HOURS IVPB 08/24/17 22:00 08/29/17 23:59 08/24/17 22:00 Vancomycin HCl (Vanco rx to dose) 1 ea DAILY PRN MISC Per rx protocol 08/24/17 18:30 09/23/17 18:29 Vancomycin HCl 750 mg/Dextrose 275 ml @ 183.708 mls/hr Q24H IVPB 08/25/17 20:00 08/30/17 23:59 Assessment/Plan Problem List: (1) Angioedema ICD Codes: T78.3XXA - Angioneurotic edema, initial encounter SNOMED: 90823640 (2) Airway compromise ICD Codes: J98.8 - Other specified respiratory disorders SNOMED: 81392380 (3) Cellulitis of neck ICD Codes: L03.221 - Cellulitis of neck SNOMED: 82799543 (4) Acute respiratory failure ICD Codes: J96.00 - Acute respiratory failure, unspecified whether with hypoxia or hypercapnia SNOMED: 49107214 (5) Coagulopathy ICD Codes: D68.9 - Coagulation defect, unspecified SNOMED: 40729499 (6) HCAP (healthcare-associated pneumonia) ICD Codes: J18.9 - Pneumonia, unspecified organism SNOMED: 182722311 (7) Sepsis ICD Codes: A41.9 - Sepsis, unspecified organism SNOMED: 99551742 (8) Anemia ICD Codes: D64.9 - Anemia, unspecified SNOMED: 670500771 Assessment/Plan pulmonary consulted. Cardio following. ID consulted. abx per ID. cont ICU care. DVT ppx. already on anticoagulation. CULLEN ZUNIGA Aug 24, 2017 23:06
[2017-08-25] VITALS (24 sets, daily range): BP systolic 116–161; BP diastolic 42–124
--- NOTE | 2017-08-25 00:16 | Progress Note ---
DATE: 08/24/2017 HISTORY: This is an 82-year-old female, came to the emergency room for having dysphagia, unable to swallow, having epiglottis and and feeling short of breath and generalized weakness. The patient is currently awake, intubated last night in the ER. The patient unable to swallow, claims allergic to ibuprofen. She has no fever. No chills. PAST MEDICAL HISTORY: Significant for atrial fibrillation and hypertension. ALLERGIES: NKA. MEDICATIONS: See the list. PHYSICAL EXAMINATION: GENERAL: This is an elderly female, who is currently in bed, has bruises on the right side of the neck because of Coumadin. VITAL SIGNS: Blood pressure is , pulse 102, saturation 100% and respirations 18. SKIN: Good skin turgor. HEENT: Eyes are open. NECK: Supple. She has bruises on the neck. CHEST: Bilateral few crackles. CARDIOVASCULAR: Regular rhythm, tachycardia. ABDOMEN: Soft. Positive bowel sounds. EXTREMITIES: No swelling. GENITOURINARY: Deferred. LABORATORY AND DIAGNOSTIC DATA: White count is 18,000. BUN 18 and creatinine 1.3, glucose is normal, sodium 140, and potassium is 4.4. ASSESSMENT AND PLAN: 1. Epiglottitis secondary to allergic reaction, possible allergic reaction. 2. Pneumonia. 3. Sepsis. 4. Hypercoagulable state. 5. Hypertension. We will currently hold Coumadin. Discussed with charge nurse. Continue ventilator. Consider ENT consult. Continue antibiotics. Nephrology is also on case. Vik Maria M.D. DR: OTILIA JOB#: [id number] CC:
--- NOTE | 2017-08-25 01:16 | Consultation ---
DATE OF CONSULTATION: 08/24/2017 INFECTIOUS DISEASES CONSULTATION CONSULTING PHYSICIAN: Noni Gonzalez M.D. REQUESTING PHYSICIAN: Allen Barreto M.D. REASON FOR CONSULTATION: Bilateral pneumonia with sepsis, leukocytosis, and possible neck cellulitis. Recommendation for antibiotics treatment and further management HISTORY OF PRESENT ILLNESS: The patient is an 82-year-old female who was recently at the custodial facility was sent to [facility] for increased tongue and throat swelling with difficulty breathing. The patient is on Coumadin for long time and she was noted to have significant bruises in the submandibular area and her left neck site with discoloration of her tongue so she was intubated on the scene by paramedics and was brought into the emergency room. She received subcutaneous epinephrine and IV Benadryl on the way to the ER. The patient had a CT scan of the neck and chest which showed significant subcutaneous tissue swelling involving the submandibular area and the left neck deep tissue side. She also had bilateral ground-glass infiltration in both lungs morrison so Infectious Diseases consultation was requested for antibiotics treatment of her pneumonia and sepsis since she had significant leukocytosis and possible neck cellulitis. As of note, the patient is intubated and cannot provide any history. History was mainly obtained from the medical record and the nursing staff. REVIEW OF SYSTEMS: Unable to obtain at this point. The patient is poor historian, cannot provide any history. PAST MEDICAL HISTORY: Unclear from the record yet. FAMILY HISTORY: Unable to obtain. PAST SURGICAL HISTORY: Not on record. SOCIAL HISTORY: The patient was recently at the custodial. No recent drugs, tobacco, or alcohol. ALLERGIES: She is allergic to ibuprofen only. MEDICATIONS: The patient received epinephrine in the field, prednisolone, and Unasyn in the emergency room. For the rest of her medications, please refer to MAR. PHYSICAL EXAMINATION: VITAL SIGNS: Temperature 100.5, pulse 107, respirations 18, blood / 80 , saturation 100% on FiO2 of 40 on mechanical ventilation. GENERAL: Elderly female, lying in bed, pale looking and lethargic, intubated on mechanical ventilation, alert and responsive to verbal commands, not in acute distress. HEENT: She had facial bruises and swelling mainly on the left side and submandibular area. Pupils reactive to light equally. Pale sclera. Unable to assess oral mucosa due to ET tube. NECK: Swollen with significant hematoma and bruises involving the right and left side of the neck which seems to be bigger than the right side with bruises and hematoma. Unable to appreciate lymphadenopathy. No restriction in range of motion. CARDIOVASCULAR: She is tachycardic. S1 and S2 normal. No murmur LUNGS: Diminished breathing sound on the bases with crackles. No wheezing. Normal breathing effort. ABDOMEN: Soft, nontender, nondistended. Multiple bruises on the skin. Right femoral central line in place. No hematoma around it. EXTREMITIES: She had significant ulceration on the left foot big toe and the second and third toe dry ulcers with no drainage or foul smell. No significant edema or cyanosis. LABORATORY DATA: White count of 19.9, hemoglobin 4.2, and platelet count of 215. BUN of 55 and creatinine 1.3. IMAGING: Chest x-ray showed satisfactory endotracheal intubation, no acute cardiopulmonary process. CT scan of the chest showed swelling of the upper airway circumferential predominantly involving the right palatine tonsils with evidence of soft tissue cellulitis extending laterally through the submandibular gland and involving the right lateral neck superficial soft tissue inferior to the parotid gland, edema also extends into the anterior facial soft tissue, no definite abscess demonstrated, secretion in the posterior nasopharynx, no definite cervical mass or adenopathy, endotracheal tube and oral airway device was present, the distal lumen of the later appearing to be filled with secretion, bilateral pulmonary ground-glass opacities, confluent opacities, and nodularity, suspicious for infectious process with bilateral sinus disease. ASSESSMENT AND RECOMMENDATION: 1. Healthcare-acquired pneumonia with bilateral ground-glass opacities and infiltrates. We will start Zosyn and vancomycin and send sputum culture if she produces any. We will monitor chest x-ray. 2. Possible cellulitis of the neck with no evidence of abscess on CT scan. We will start Zosyn empiric coverage. Recommend ENT consult. The patient was intubated to protect airway. 3. Sepsis due to the above with leukocytosis. We will start vancomycin and Zosyn and send blood culture. 4. Acute respiratory failure due to airway compromise due to hematoma and bruises, intubated on mechanical ventilation. Monitor ABG and chest x-ray. Consult electrical wirer. 5. Fever due to the above. We will start wide-spectrum antibiotics. Continue Tylenol as needed. 6. Coagulopathy with diffuse bleeding, suspect due to Coumadin which is on hold. Transfuse blood as needed. We will check DIC profile. Thank you for the consult. ID will continue to follow. Noni Gonzalez M.D. DR: Percy JOB#: [id number] CC: EVERARDO
[2017-08-25] MEDS: Piperacillin/Tazobactam 3.375 GM in D5W 110 ML IVPB SCH ×3 (06:25→22:00)
[2017-08-25] MEDS: Pantoprazole Inj IVP SCH (08:26)
[2017-08-25 08:36] LABS: HEMATOCRIT 26.9 % (37.0-47.0); HEMOGLOBIN 9.3 G/DL (12.0-16.0); MEAN CORPUSCULAR VOLUME 88 FL (80-99); PLATELET COUNT 179 K/UL (150-450); RED BLOOD COUNT 3.06 M/UL (4.20-5.40); RED CELL DISTRIBUTION WIDTH 13.4 % (11.6-14.8); WHITE BLOOD COUNT 21.4 K/UL (4.8-10.8)
[2017-08-25 08:39] LABS: INR 1.3 (0.9-1.1)
[2017-08-25 08:45] LABS: ANION GAP 8 mmol/L (5-15); BLOOD UREA NITROGEN 46 mg/dL (7-18); CALCIUM 7.8 MG/DL (8.5-10.1); CARBON DIOXIDE 25 MMOL/L (21-32); CHLORIDE 113 MMOL/L (98-107); CREATININE 0.9 MG/DL (0.55-1.30); POTASSIUM 3.5 MMOL/L (3.5-5.1); SODIUM 146 MMOL/L (136-145)
[2017-08-25] MEDS ORDERED: Dyna-Hex 2% Top Sol 2oz TOPIC ONE (10:30)
--- NOTE | 2017-08-25 12:01 | Diagnostic Imaging Report ---
Indication: Dyspnea Technique: One view of the chest Comparison: 08/23/2017 Findings: There is interim development of interstitial and airspace disease in the left perihilar region and left midlung periphery. Stable satisfactory position of endotracheal tube. The heart size is normal. Impression: Developing left lung infiltrates versus edema, over one day Other findings as noted
--- NOTE | 2017-08-25 13:04 | GI Progress Note ---
Assessment/Plan Problems: (1) Coagulopathy ICD Codes: D68.9 - Coagulation defect, unspecified SNOMED: 73265184 (2) Allergic reaction caused by a drug ICD Codes: T78.40XA - Allergy, unspecified, initial encounter SNOMED: 450315768 (3) Anemia ICD Codes: D64.9 - Anemia, unspecified SNOMED: 231344129 (4) Airway compromise ICD Codes: J98.8 - Other specified respiratory disorders SNOMED: 78771975 Status: unchanged Status Narrative Discussed with Dr. Dyson. Assessment/Plan anemia work up >> iron deficiency >> venofer maintain NPO + IVFs no NGT per primary hold blood thinners >> fu coags OB stool r/o GI bleed monitor H&H, prn transfusions ppi fu labs The patient was seen and examined at bedside and all new and available data was reviewed in the patients chart. I agree with the above findings, impression and plan. (Patient seen earlier today. Signature stamp does not reflect patient encounter time.). - Nelly Dyson MD Subjective Subjective limited Objective Last 24 Hour Vital Signs Date Time Temp Pulse Resp B/P (MAP) Pulse Ox O2 Delivery O2 Flow Rate FiO2 08/25/17 12:00 98.9 98 20 153/79 98 Mechanical Ventilator 30 98.9 08/25/17 11:00 75 17 155/60 98 Mechanical Ventilator 30 08/25/17 10:42 77 13 30 08/25/17 10:00 89 16 156/71 100 Mechanical Ventilator 30 08/25/17 09:58 99 08/25/17 09:58 78 20 30 08/25/17 09:58 30 08/25/17 09:05 81 18 30 08/25/17 09:00 79 16 148/50 100 Mechanical Ventilator 30 08/25/17 08:31 73 08/25/17 08:00 30 08/25/17 08:00 86 18 150/58 98 Mechanical Ventilator 30 08/25/17 07:00 98.6 71 18 136/58 98 Mechanical Ventilator 30 98.6 08/25/17 07:00 79 11 144/59 98 Mechanical Ventilator 30 08/25/17 06:46 79 18 30 08/25/17 06:00 82 18 149/54 96 Mechanical Ventilator 30 08/25/17 05:21 101 21 30 08/25/17 05:00 93 18 155/94 95 Mechanical Ventilator 30 08/25/17 04:00 88 08/25/17 04:00 98.6 93 19 116/94 96 Mechanical Ventilator 30 98.6 08/25/17 04:00 30 08/25/17 03:00 88 18 143/48 96 Mechanical Ventilator 30 08/25/17 02:23 95 18 30 08/25/17 02:00 93 18 127/46 95 Mechanical Ventilator 30 08/25/17 01:24 109 25 30 08/25/17 01:00 104 21 140/45 99 Mechanical Ventilator 30 08/25/17 00:00 112 08/25/17 00:00 30 08/25/17 00:00 99.0 110 16 136/43 98 Mechanical Ventilator 30 99.0 08/24/17 23:09 111 19 30 08/24/17 23:00 109 16 145/49 98 Mechanical Ventilator 30 08/24/17 22:00 99.8 106 16 94/77 98 Mechanical Ventilator 30 99.8 08/24/17 21:02 108 18 30 08/24/17 21:00 103 16 148/48 98 Mechanical Ventilator 30 08/24/17 20:00 30 08/24/17 20:00 96 08/24/17 20:00 100.1 103 18 153/50 100 Mechanical Ventilator 40 100.1 08/24/17 19:21 93 16 40 08/24/17 19:00 100.2 98 18 151/48 100 Mechanical Ventilator 40 100.2 08/24/17 18:43 100.4 08/24/17 18:13 100.5 08/24/17 18:00 97 18 154/55 100 Mechanical Ventilator 40 08/24/17 17:00 100.5 107 18 135/43 100 Mechanical Ventilator 40 100.5 08/24/17 16:55 99 18 40 08/24/17 16:00 40 08/24/17 16:00 95 18 143/48 100 Mechanical Ventilator 40 08/24/17 16:00 93 08/24/17 15:00 94 18 150/40 100 Mechanical Ventilator 40 08/24/17 14:48 97 18 40 08/24/17 14:00 93 18 133/41 100 Mechanical Ventilator 40 08/24/17 13:10 106 18 40 Intake and Output 08/24/17 08/25/17 19:00 07:00 Intake Total 720 ml 847.5 ml Output Total 355 ml 600 ml Balance 365 ml 247.5 ml IV Total 720 ml 847.5 ml Output Urine Total 355 ml 600 ml Laboratory Tests Test 08/24/17 16:10 08/24/17 19:00 08/24/17 19:44 08/24/17 22:50 White Blood Count 19.9 K/UL (4.8-10.8) H Red Blood Count 1.42 M/UL (4.20-5.40) L Hemoglobin 4.2 G/DL (12.0-16.0) Hematocrit 12.7 % (37.0-47.0) #L Mean Corpuscular Volume 89 FL (80-99) Mean Corpuscular Hemoglobin 29.6 PG (27.0-31.0) Mean Corpuscular Hemoglobin Concent 33.1 G/DL (32.0-36.0) Red Cell Distribution Width 16.2 % (11.6-14.8) H Platelet Count 215 K/UL (150-450) Mean Platelet Volume 7.5 FL (6.5-10.1) Neutrophils (%) (Auto) % (45.0-75.0) Lymphocytes (%) (Auto) % (20.0-45.0) Monocytes (%) (Auto) % (1.0-10.0) Eosinophils (%) (Auto) % (0.0-3.0) Basophils (%) (Auto) % (0.0-2.0) Differential Total Cells Counted 100 Neutrophils % (Manual) 89 % (45-75) H Lymphocytes % (Manual) 8 % (20-45) L Monocytes % (Manual) 3 % (1-10) Eosinophils % (Manual) 0 % (0-3) Basophils % (Manual) 0 % (0-2) Band Neutrophils 0 % (0-8) Platelet Estimate Adequate Platelet Morphology Normal Polychromasia 1+ Hypochromasia 3+ Anisocytosis 2+ Reticulocyte Count 2.4 % (0.0-2.0) H Prothrombin Time 14.2 SEC (9.30-11.50) H Prothromb Time International Ratio 1.4 (0.9-1.1) H Activated Partial Thromboplast Time 26 SEC (23-33) Sodium Level 146 MMOL/L (136-145) H Potassium Level 4.4 MMOL/L (3.5-5.1) Chloride Level 113 MMOL/L (98-107) H Carbon Dioxide Level 23 MMOL/L (21-32) Anion Gap 10 mmol/L (5-15) Blood Urea Nitrogen 55 mg/dL (7-18) H Creatinine 1.3 MG/DL (0.55-1.30) Estimat Glomerular Filtration Rate mL/min (>60) Glucose Level 177 MG/DL (74-106) H Calcium Level 7.9 MG/DL (8.5-10.1) L Iron Level 26 ug/dL (50-175) L Total Iron Binding Capacity 228 ug/dL (250-450) L Percent Iron Saturation 11 % (15-50) L Unsaturated Iron Binding 202 ug/dL (112-346) Ferritin 50 NG/ML (8-388) Total Bilirubin 1.1 MG/DL (0.2-1.0) H Direct Bilirubin 0.3 MG/DL (0.0-0.3) Aspartate Amino Transf (AST/SGOT) 87 U/L (15-37) H Alanine Aminotransferase (ALT/SGPT) 27 U/L (12-78) Alkaline Phosphatase 45 U/L (46-116) L Total Protein 5.3 G/DL (6.4-8.2) L Albumin 2.1 G/DL (3.4-5.0) L Globulin 3.2 g/dL Albumin/Globulin Ratio 0.7 (1.0-2.7) L Vitamin B12 Level 377 PG/ML (193-986) Folate 11.9 NG/ML (8.6-58.9) Thyroid Stimulating Hormone (TSH) 0.399 uiU/mL (0.358-3.740) Free Thyroxine 1.24 NG/DL (0.76-1.46) Fibrinogen 371 mg/dL (200-400) Fibrin Degradation Products, Quant Pending Arterial Blood pH 7.446 (7.350-7.450) Arterial Blood Partial Pressure CO2 32.0 mmHg (35.0-45.0) L Arterial Blood Partial Pressure O2 101.8 mmHg (75.0-100.0) H Arterial Blood HCO3 21.5 mmol/L (22.0-26.0) L Arterial Blood Oxygen Saturation 96.9 % (92.0-98.0) Arterial Blood Base Excess -2.5 Chuy Test Positive Lactic Acid Level 3.10 mmol/L (0.66-2.22) H Test 08/25/17 08:00 08/25/17 09:11 White Blood Count 21.4 K/UL (4.8-10.8) H Red Blood Count 3.06 M/UL (4.20-5.40) L Hemoglobin 9.3 G/DL (12.0-16.0) #L Hematocrit 26.9 % (37.0-47.0) #L Mean Corpuscular Volume 88 FL (80-99) Mean Corpuscular Hemoglobin 30.4 PG (27.0-31.0) Mean Corpuscular Hemoglobin Concent 34.6 G/DL (32.0-36.0) Red Cell Distribution Width 13.4 % (11.6-14.8) Platelet Count 179 K/UL (150-450) Mean Platelet Volume 7.5 FL (6.5-10.1) Neutrophils (%) (Auto) % (45.0-75.0) Lymphocytes (%) (Auto) % (20.0-45.0) Monocytes (%) (Auto) % (1.0-10.0) Eosinophils (%) (Auto) % (0.0-3.0) Basophils (%) (Auto) % (0.0-2.0) Differential Total Cells Counted 100 Neutrophils % (Manual) 99 % (45-75) H Lymphocytes % (Manual) 1 % (20-45) L Monocytes % (Manual) 0 % (1-10) L Eosinophils % (Manual) 0 % (0-3) Basophils % (Manual) 0 % (0-2) Band Neutrophils 0 % (0-8) Nucleated Red Blood Cells 2 /100 WBC Platelet Estimate Adequate Platelet Morphology Normal Macrocytosis 1+ Prothrombin Time 13.4 SEC (9.30-11.50) H Prothromb Time International Ratio 1.3 (0.9-1.1) H Sodium Level 146 MMOL/L (136-145) H Potassium Level 3.5 MMOL/L (3.5-5.1) Chloride Level 113 MMOL/L (98-107) H Carbon Dioxide Level 25 MMOL/L (21-32) Anion Gap 8 mmol/L (5-15) Blood Urea Nitrogen 46 mg/dL (7-18) H Creatinine 0.9 MG/DL (0.55-1.30) Estimat Glomerular Filtration Rate mL/min (>60) Glucose Level 160 MG/DL (74-106) H Lactic Acid Level 1.50 mmol/L (0.66-2.22) Calcium Level 7.8 MG/DL (8.5-10.1) L Arterial Blood pH 7.506 (7.350-7.450) Arterial Blood Partial Pressure CO2 27.8 mmHg (35.0-45.0) L Arterial Blood Partial Pressure O2 71.5 mmHg (75.0-100.0) L Arterial Blood HCO3 21.5 mmol/L (22.0-26.0) L Arterial Blood Oxygen Saturation 94.9 % (92.0-98.0) Arterial Blood Base Excess -0.9 Chuy Test Positive Height (Feet): 5 Height (Inches): 2.00 Weight (Pounds): 174 General Appearance: no apparent distress Cardiovascular: normal rate Respiratory/Chest: normal breath sounds, no respiratory distress, other - mech vent Abdominal Exam: normal bowel sounds, non tender, soft Extremities: non-tender Mae Lawler NFrancisco Aug 25, 2017 13:04 RAJ DYSON Aug 26, 2017 10:19
[2017-08-25] MEDS: D5NS 1,000 ML IV SCH (13:24)
--- NOTE | 2017-08-25 16:07 | Cardiac Electrophysiology PN ---
Subjective Subjective [id number] Objective Last 24 Hour Vital Signs Date Time Temp Pulse Resp B/P (MAP) Pulse Ox O2 Delivery O2 Flow Rate FiO2 08/25/17 15:00 84 18 154/42 98 Mechanical Ventilator 30 08/25/17 14:45 75 20 30 08/25/17 14:00 97 17 154/124 97 Mechanical Ventilator 30 08/25/17 13:53 30 08/25/17 13:00 92 17 159/61 97 Mechanical Ventilator 30 08/25/17 12:30 80 16 30 08/25/17 12:00 98.9 98 20 153/79 98 Mechanical Ventilator 30 98.9 08/25/17 12:00 89 08/25/17 11:00 75 17 155/60 98 Mechanical Ventilator 30 08/25/17 10:42 77 13 30 08/25/17 10:00 89 16 156/71 100 Mechanical Ventilator 30 08/25/17 09:58 99 08/25/17 09:58 78 20 30 08/25/17 09:58 30 08/25/17 09:05 81 18 30 08/25/17 09:00 79 16 148/50 100 Mechanical Ventilator 30 08/25/17 08:31 73 08/25/17 08:00 30 08/25/17 08:00 86 18 150/58 98 Mechanical Ventilator 30 08/25/17 07:00 98.6 71 18 136/58 98 Mechanical Ventilator 30 98.6 08/25/17 07:00 79 11 144/59 98 Mechanical Ventilator 30 08/25/17 06:46 79 18 30 08/25/17 06:00 82 18 149/54 96 Mechanical Ventilator 30 08/25/17 05:21 101 21 30 08/25/17 05:00 93 18 155/94 95 Mechanical Ventilator 30 08/25/17 04:00 88 08/25/17 04:00 98.6 93 19 116/94 96 Mechanical Ventilator 30 98.6 08/25/17 04:00 30 08/25/17 03:00 88 18 143/48 96 Mechanical Ventilator 30 08/25/17 02:23 95 18 30 08/25/17 02:00 93 18 127/46 95 Mechanical Ventilator 30 08/25/17 01:24 109 25 30 08/25/17 01:00 104 21 140/45 99 Mechanical Ventilator 30 08/25/17 00:00 112 08/25/17 00:00 30 08/25/17 00:00 99.0 110 16 136/43 98 Mechanical Ventilator 30 99.0 08/24/17 23:09 111 19 30 08/24/17 23:00 109 16 145/49 98 Mechanical Ventilator 30 08/24/17 22:00 99.8 106 16 94/77 98 Mechanical Ventilator 30 99.8 08/24/17 21:02 108 18 30 08/24/17 21:00 103 16 148/48 98 Mechanical Ventilator 30 08/24/17 20:00 30 08/24/17 20:00 96 08/24/17 20:00 100.1 103 18 153/50 100 Mechanical Ventilator 40 100.1 08/24/17 19:21 93 16 40 08/24/17 19:00 100.2 98 18 151/48 100 Mechanical Ventilator 40 100.2 08/24/17 18:43 100.4 08/24/17 18:13 100.5 08/24/17 18:00 97 18 154/55 100 Mechanical Ventilator 40 08/24/17 17:00 100.5 107 18 135/43 100 Mechanical Ventilator 40 100.5 08/24/17 16:55 99 18 40 Intake and Output 08/24/17 08/25/17 19:00 07:00 Intake Total 720 ml 847.5 ml Output Total 355 ml 600 ml Balance 365 ml 247.5 ml IV Total 720 ml 847.5 ml Output Urine Total 355 ml 600 ml Laboratory Tests Test 08/24/17 16:10 08/24/17 19:00 08/24/17 19:44 08/24/17 22:50 White Blood Count 19.9 K/UL (4.8-10.8) H Red Blood Count 1.42 M/UL (4.20-5.40) L Hemoglobin 4.2 G/DL (12.0-16.0) Hematocrit 12.7 % (37.0-47.0) #L Mean Corpuscular Volume 89 FL (80-99) Mean Corpuscular Hemoglobin 29.6 PG (27.0-31.0) Mean Corpuscular Hemoglobin Concent 33.1 G/DL (32.0-36.0) Red Cell Distribution Width 16.2 % (11.6-14.8) H Platelet Count 215 K/UL (150-450) Mean Platelet Volume 7.5 FL (6.5-10.1) Neutrophils (%) (Auto) % (45.0-75.0) Lymphocytes (%) (Auto) % (20.0-45.0) Monocytes (%) (Auto) % (1.0-10.0) Eosinophils (%) (Auto) % (0.0-3.0) Basophils (%) (Auto) % (0.0-2.0) Differential Total Cells Counted 100 Neutrophils % (Manual) 89 % (45-75) H Lymphocytes % (Manual) 8 % (20-45) L Monocytes % (Manual) 3 % (1-10) Eosinophils % (Manual) 0 % (0-3) Basophils % (Manual) 0 % (0-2) Band Neutrophils 0 % (0-8) Platelet Estimate Adequate Platelet Morphology Normal Polychromasia 1+ Hypochromasia 3+ Anisocytosis 2+ Reticulocyte Count 2.4 % (0.0-2.0) H Prothrombin Time 14.2 SEC (9.30-11.50) H Prothromb Time International Ratio 1.4 (0.9-1.1) H Activated Partial Thromboplast Time 26 SEC (23-33) Sodium Level 146 MMOL/L (136-145) H Potassium Level 4.4 MMOL/L (3.5-5.1) Chloride Level 113 MMOL/L (98-107) H Carbon Dioxide Level 23 MMOL/L (21-32) Anion Gap 10 mmol/L (5-15) Blood Urea Nitrogen 55 mg/dL (7-18) H Creatinine 1.3 MG/DL (0.55-1.30) Estimat Glomerular Filtration Rate mL/min (>60) Glucose Level 177 MG/DL (74-106) H Calcium Level 7.9 MG/DL (8.5-10.1) L Iron Level 26 ug/dL (50-175) L Total Iron Binding Capacity 228 ug/dL (250-450) L Percent Iron Saturation 11 % (15-50) L Unsaturated Iron Binding 202 ug/dL (112-346) Ferritin 50 NG/ML (8-388) Total Bilirubin 1.1 MG/DL (0.2-1.0) H Direct Bilirubin 0.3 MG/DL (0.0-0.3) Aspartate Amino Transf (AST/SGOT) 87 U/L (15-37) H Alanine Aminotransferase (ALT/SGPT) 27 U/L (12-78) Alkaline Phosphatase 45 U/L (46-116) L Total Protein 5.3 G/DL (6.4-8.2) L Albumin 2.1 G/DL (3.4-5.0) L Globulin 3.2 g/dL Albumin/Globulin Ratio 0.7 (1.0-2.7) L Vitamin B12 Level 377 PG/ML (193-986) Folate 11.9 NG/ML (8.6-58.9) Thyroid Stimulating Hormone (TSH) 0.399 uiU/mL (0.358-3.740) Free Thyroxine 1.24 NG/DL (0.76-1.46) Fibrinogen 371 mg/dL (200-400) Fibrin Degradation Products, Quant Pending Arterial Blood pH 7.446 (7.350-7.450) Arterial Blood Partial Pressure CO2 32.0 mmHg (35.0-45.0) L Arterial Blood Partial Pressure O2 101.8 mmHg (75.0-100.0) H Arterial Blood HCO3 21.5 mmol/L (22.0-26.0) L Arterial Blood Oxygen Saturation 96.9 % (92.0-98.0) Arterial Blood Base Excess -2.5 Chuy Test Positive Lactic Acid Level 3.10 mmol/L (0.66-2.22) H Test 08/25/17 08:00 08/25/17 09:11 White Blood Count 21.4 K/UL (4.8-10.8) H Red Blood Count 3.06 M/UL (4.20-5.40) L Hemoglobin 9.3 G/DL (12.0-16.0) #L Hematocrit 26.9 % (37.0-47.0) #L Mean Corpuscular Volume 88 FL (80-99) Mean Corpuscular Hemoglobin 30.4 PG (27.0-31.0) Mean Corpuscular Hemoglobin Concent 34.6 G/DL (32.0-36.0) Red Cell Distribution Width 13.4 % (11.6-14.8) Platelet Count 179 K/UL (150-450) Mean Platelet Volume 7.5 FL (6.5-10.1) Neutrophils (%) (Auto) % (45.0-75.0) Lymphocytes (%) (Auto) % (20.0-45.0) Monocytes (%) (Auto) % (1.0-10.0) Eosinophils (%) (Auto) % (0.0-3.0) Basophils (%) (Auto) % (0.0-2.0) Differential Total Cells Counted 100 Neutrophils % (Manual) 99 % (45-75) H Lymphocytes % (Manual) 1 % (20-45) L Monocytes % (Manual) 0 % (1-10) L Eosinophils % (Manual) 0 % (0-3) Basophils % (Manual) 0 % (0-2) Band Neutrophils 0 % (0-8) Nucleated Red Blood Cells 2 /100 WBC Platelet Estimate Adequate Platelet Morphology Normal Macrocytosis 1+ Prothrombin Time 13.4 SEC (9.30-11.50) H Prothromb Time International Ratio 1.3 (0.9-1.1) H Sodium Level 146 MMOL/L (136-145) H Potassium Level 3.5 MMOL/L (3.5-5.1) Chloride Level 113 MMOL/L (98-107) H Carbon Dioxide Level 25 MMOL/L (21-32) Anion Gap 8 mmol/L (5-15) Blood Urea Nitrogen 46 mg/dL (7-18) H Creatinine 0.9 MG/DL (0.55-1.30) Estimat Glomerular Filtration Rate mL/min (>60) Glucose Level 160 MG/DL (74-106) H Lactic Acid Level 1.50 mmol/L (0.66-2.22) Calcium Level 7.8 MG/DL (8.5-10.1) L Arterial Blood pH 7.506 (7.350-7.450) Arterial Blood Partial Pressure CO2 27.8 mmHg (35.0-45.0) L Arterial Blood Partial Pressure O2 71.5 mmHg (75.0-100.0) L Arterial Blood HCO3 21.5 mmol/L (22.0-26.0) L Arterial Blood Oxygen Saturation 94.9 % (92.0-98.0) Arterial Blood Base Excess -0.9 Chuy Test Positive Microbiology Date/Time Source Procedure Growth Status 08/24/17 05:30 Foot Left Gram Stain - Final Resulted 08/24/17 05:30 Wound Culture - Preliminary Staphylococcus Aureus Resulted Hao Edmondson MD Aug 25, 2017 16:07
[2017-08-25] MEDS: Acetaminophen 650 MG SUPP RECTAL PRN (16:35)
--- NOTE | 2017-08-25 16:46 | Consultation ---
DATE OF CONSULTATION: 08/25/2017 PULMONARY CONSULTATION HISTORY OF PRESENT ILLNESS: This is an 82-year-old female, who was admitted to this hospital night before last with complaints of tongue swelling and difficulty breathing. The patient is a [place] [facility] resident and has been taking Coumadin. Paramedics were called when the patient was noted to have significant bruising on her submandibular area as well as discoloration of her tongue. The patient was also receiving treatment with a CPAP machine. She was given subcutaneous epinephrine as well as Benadryl by EMS. She was subsequently intubated. PAST MEDICAL HISTORY: Notable for hypertension, GERD, and hyperlipidemia. MEDICATIONS: List of the patient's home medications include Coumadin, Bactrim, [place], Lipitor, Synthroid, Pepcid, Colace, aspirin, Norvasc, Neurontin, Coumadin, and clindamycin. ALLERGIES: Past history notable for allergies to ibuprofen. SOCIAL HISTORY: The patient is a [place] [facility] resident. REVIEW OF SYSTEMS: Not obtainable. PHYSICAL EXAMINATION: GENERAL: Reveals an obese 82-year-old female. HEENT: Remarkable for bruising noted in the submandibular area and midline over the trachea. The patient also has enlarged and discolored tongue. The patient is intubated. CHEST: Clear breath sounds bilaterally. ABDOMEN: Soft. NEUROLOGIC: Nonfocal. DIAGNOSTIC DATA: CT of the neck shows swelling of the upper airway involving the right palatine tonsil. X-ray of chest is normal. LABORATORY DATA: Lab testing shows hemoglobin initially of 6.6, now it is 9.3 and white count 21,000. Platelet count is normal. ABG shows pH 7.44, pCO2 32, and pO2 101. Chemistries unremarkable except sodium 146 and creatinine of 0.9. Coags show INR 1.3. IMPRESSION: 1. Soft tissue swelling in the neck area with compromised airway. 2. Respiratory failure with airway compromise. 3. Marked subcutaneous bruising. 4. Coumadin use. 5. Hypertension. 6. GERD. 7. senior care resident. 8. Anemia. 9. Leukocytosis. DISCUSSION: I am unclear as to the etiology of her compromised airway. I suspect she had bleeding in the neck area, possibly due to trauma due to CPAP in the presence of Coumadin. At this time, I will keep her intubated and begin the weaning process. She is awake and responsive she will wean. However, I recommend ENT evaluation before extubation given her compromised airway. We will follow carefully. Toño Underwood M.D. DR: JONNIE JOB#: [id number] CC:
[2017-08-25] MEDS: Vancomycin 1gm/D5W 275ml IVPB SCH ×2 (19:39)
[2017-08-25] MEDS ORDERED: Vancomycin 750mg/D5W 275ml IVPB SCH ×2 (20:00)
--- NOTE | 2017-08-25 20:39 | Infectious Diseases Prog Note ---
Assessment/Plan Problems: (1) HCAP (healthcare-associated pneumonia) Assessment & Plan: with left lung infiltrates and B/L ground glass opacities , continue zosyn and vancomycin, monitor CXR (2) Cellulitis of neck Assessment & Plan: with no evidence of neck abcsess, already on zosyn empiric coverage , recommend ENT consult (3) Sepsis Assessment & Plan: with leukocytosis due to the above, and possible steroids related , continue vancomycin and zosyn, pending blood culture, monitor CBC (4) Acute respiratory failure Assessment & Plan: due to the above, intubated on mechanical ventilation, monitor ABG and CXR , 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 (5) Fever Assessment & Plan: due to the above, continue wide spectrum antibiotics, and tylenol PRN (6) Coagulopathy Assessment & Plan: with diffuse bleeding , suspect due to Coumadin, on hold, transfused PRBC as needed, check DIC profile (7) 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 Assessment & Plan: with MSSA and gram negative rods, recommend duct cleaner consult and vascular study for further eval , already on vancomycin and zosyn Subjective ROS Limited/Unobtainable: Yes Allergies: Coded Allergies: IBUPROFEN (Verified Allergy, Unknown, 08/23/17) Subjective she is still intubated on mechanical ventilation, alert, and responsive, had low grade fever. Objective Vital Signs Last 24 Hour Vital Signs Date Time Temp Pulse Resp B/P (MAP) Pulse Ox O2 Delivery O2 Flow Rate FiO2 08/25/17 19:30 69 18 30 08/25/17 19:00 73 19 155/54 99 Mechanical Ventilator 30 08/25/17 18:00 75 18 141/53 98 Mechanical Ventilator 30 08/25/17 17:00 78 17 158/53 98 Mechanical Ventilator 30 08/25/17 16:49 94 19 30 08/25/17 16:00 99.3 77 18 148/45 100 Mechanical Ventilator 30 99.3 08/25/17 16:00 30 08/25/17 15:23 81 08/25/17 15:00 84 18 154/42 98 Mechanical Ventilator 30 08/25/17 14:45 75 20 30 08/25/17 14:00 97 17 154/124 97 Mechanical Ventilator 30 08/25/17 13:53 30 08/25/17 13:00 92 17 159/61 97 Mechanical Ventilator 30 08/25/17 12:30 80 16 30 08/25/17 12:00 98.9 98 20 153/79 98 Mechanical Ventilator 30 98.9 08/25/17 12:00 89 08/25/17 11:00 75 17 155/60 98 Mechanical Ventilator 30 08/25/17 10:42 77 13 30 08/25/17 10:00 89 16 156/71 100 Mechanical Ventilator 30 08/25/17 09:58 99 08/25/17 09:58 78 20 30 08/25/17 09:58 30 08/25/17 09:05 81 18 30 08/25/17 09:00 79 16 148/50 100 Mechanical Ventilator 30 08/25/17 08:31 73 08/25/17 08:00 30 08/25/17 08:00 86 18 150/58 98 Mechanical Ventilator 30 08/25/17 07:00 98.6 71 18 136/58 98 Mechanical Ventilator 30 98.6 08/25/17 07:00 79 11 144/59 98 Mechanical Ventilator 30 08/25/17 06:46 79 18 30 08/25/17 06:00 82 18 149/54 96 Mechanical Ventilator 30 08/25/17 05:21 101 21 30 08/25/17 05:00 93 18 155/94 95 Mechanical Ventilator 30 08/25/17 04:00 88 08/25/17 04:00 98.6 93 19 116/94 96 Mechanical Ventilator 30 98.6 08/25/17 04:00 30 08/25/17 03:00 88 18 143/48 96 Mechanical Ventilator 30 08/25/17 02:23 95 18 30 08/25/17 02:00 93 18 127/46 95 Mechanical Ventilator 30 08/25/17 01:24 109 25 30 08/25/17 01:00 104 21 140/45 99 Mechanical Ventilator 30 08/25/17 00:00 112 08/25/17 00:00 30 08/25/17 00:00 99.0 110 16 136/43 98 Mechanical Ventilator 30 99.0 08/24/17 23:09 111 19 30 08/24/17 23:00 109 16 145/49 98 Mechanical Ventilator 30 08/24/17 22:00 99.8 106 16 94/77 98 Mechanical Ventilator 30 99.8 08/24/17 21:02 108 18 30 08/24/17 21:00 103 16 148/48 98 Mechanical Ventilator 30 Height (Feet): 5 Height (Inches): 2.00 Weight (Pounds): 174 General Appearance: no acute distress, other - neck hematoma with bruises HEENT: normocephalic, anicteric, mucous membranes moist, PERRL, supple, no JVD , other - tongue swelling, with submandibular hematoma Respiratory/Chest: chest wall non-tender, no respiratory distress, no accessory muscle use, decreased breath sounds, crackles/rales Cardiovascular: normal peripheral pulses, normal rate, regular rhythm, no gallop/murmur, no JVD Abdomen: normal bowel sounds, soft, non tender, no organomegaly, non distended , no mass, no scars Genitourinary: normal external genitalia Extremities: no cyanosis, no clubbing, other - left toes tips wounds , poor pulse Skin: no rash, no lesions, ulcers - hematoma and bruises on the neck Neurologic/Psychiatric: alert, responsive Lymphatic: no neck adenopathy, no groin adenopathy Microbiology Date/Time Source Procedure Growth Status 08/24/17 05:30 Foot Left Gram Stain - Final Resulted 08/24/17 05:30 Wound Culture - Preliminary Staphylococcus Aureus Resulted Laboratory Tests Test 08/24/17 22:50 08/25/17 08:00 08/25/17 09:11 08/25/17 18:59 Lactic Acid Level 3.10 mmol/L (0.66-2.22) H 1.50 mmol/L (0.66-2.22) White Blood Count 21.4 K/UL (4.8-10.8) H Red Blood Count 3.06 M/UL (4.20-5.40) L Hemoglobin 9.3 G/DL (12.0-16.0) #L Hematocrit 26.9 % (37.0-47.0) #L Mean Corpuscular Volume 88 FL (80-99) Mean Corpuscular Hemoglobin 30.4 PG (27.0-31.0) Mean Corpuscular Hemoglobin Concent 34.6 G/DL (32.0-36.0) Red Cell Distribution Width 13.4 % (11.6-14.8) Platelet Count 179 K/UL (150-450) Mean Platelet Volume 7.5 FL (6.5-10.1) Neutrophils (%) (Auto) % (45.0-75.0) Lymphocytes (%) (Auto) % (20.0-45.0) Monocytes (%) (Auto) % (1.0-10.0) Eosinophils (%) (Auto) % (0.0-3.0) Basophils (%) (Auto) % (0.0-2.0) Differential Total Cells Counted 100 Neutrophils % (Manual) 99 % (45-75) H Lymphocytes % (Manual) 1 % (20-45) L Monocytes % (Manual) 0 % (1-10) L Eosinophils % (Manual) 0 % (0-3) Basophils % (Manual) 0 % (0-2) Band Neutrophils 0 % (0-8) Nucleated Red Blood Cells 2 /100 WBC Platelet Estimate Adequate Platelet Morphology Normal Macrocytosis 1+ Prothrombin Time 13.4 SEC (9.30-11.50) H Prothromb Time International Ratio 1.3 (0.9-1.1) H Sodium Level 146 MMOL/L (136-145) H Potassium Level 3.5 MMOL/L (3.5-5.1) Chloride Level 113 MMOL/L (98-107) H Carbon Dioxide Level 25 MMOL/L (21-32) Anion Gap 8 mmol/L (5-15) Blood Urea Nitrogen 46 mg/dL (7-18) H Creatinine 0.9 MG/DL (0.55-1.30) Estimat Glomerular Filtration Rate mL/min (>60) Glucose Level 160 MG/DL (74-106) H Calcium Level 7.8 MG/DL (8.5-10.1) L Arterial Blood pH 7.506 (7.350-7.450) Arterial Blood Partial Pressure CO2 27.8 mmHg (35.0-45.0) L Arterial Blood Partial Pressure O2 71.5 mmHg (75.0-100.0) L Arterial Blood HCO3 21.5 mmol/L (22.0-26.0) L Arterial Blood Oxygen Saturation 94.9 % (92.0-98.0) Arterial Blood Base Excess -0.9 Chuy Test Positive Troponin I 0.952 ng/mL (0.000-0.056) Current Medications Medications (Trade) Dose Ordered Sig/Chester Route PRN Reason Start Time Stop Time Status Last Admin Dose Admin Acetaminophen (Tylenol) 500 mg Q6H PRN RECTAL Mild Pain/Temp > 100.5 08/24/17 18:30 09/23/17 18:29 08/25/17 16:35 Chlorhexidine Gluconate (Caroline-Hex 2%) 1 applic DAILY@2000 TOPIC 08/25/17 20:00 09/24/17 19:59 Dextrose/Sodium Chloride 1,000 ml @ 60 mls/hr [id number] IV 08/24/17 04:45 09/23/17 04:44 08/25/17 13:24 Hydralazine HCl (Apresoline) 10 mg Q2H PRN IV SBP > 170 08/25/17 16:15 09/24/17 16:14 Iron Sucrose 100 mg/Sodium Chloride 60 ml @ 240 mls/hr BEDTIME IV 08/25/17 21:00 08/27/17 21:14 Pantoprazole (Protonix) 40 mg DAILY IVP 08/24/17 09:00 09/23/17 08:59 08/25/17 08:26 Piperacillin Sod/ Tazobactam Sod 3.375 gm/Dextrose 110 ml @ 27.5 mls/hr EVERY 8 HOURS IVPB 08/24/17 22:00 08/29/17 23:59 08/25/17 13:23 Vancomycin HCl (Vanco rx to dose) 1 ea DAILY PRN MISC Per rx protocol 08/24/17 18:30 09/23/17 18:29 Vancomycin HCl 1 gm/Dextrose 275 ml @ 183.708 mls/hr Q24H IVPB 08/25/17 20:00 08/30/17 19:59 08/25/17 19:39 Noni Gonzalez M.D. Aug 25, 2017 20:39
[2017-08-25] MEDS: Dyna-Hex 2% Top Sol 2oz TOPIC SCH (21:08)
[2017-08-25] MEDS: Iron Sucrose 100 MG in NS 55 ML IV SCH (21:08)
--- NOTE | 2017-08-25 23:31 | Progress Note ---
DATE: 08/25/2017 SUBJECTIVE: This is an 82 years old female, who is in the intensive care unit on ventilator. Opening her eyes, looks comfortable. The patient is clinically better. OBJECTIVE: VITAL SIGNS: Her blood pressure is 112/70, pulse 60, respirations, no fever. HEENT: NAD. CHEST: Bilateral few crackles. CARDIOVASCULAR: Regular rhythm. No gallop. No murmur. ABDOMEN: Soft. EXTREMITIES: CCE. NEUROLOGICAL: No focal deficit. ASSESSMENT AND PLAN: 1. Acute epiglottitis. 2. Allergic reaction. 3. Pneumonia. 4. Sepsis. 5. Coagulopathy. We will currently continue current treatment. Weaning protocols. Continue oxygen, bronchodilator treatments. Pulmonary and Cardiology on case. Vik Maria M.D. DR: ZOIE JOB#: [id number] CC:
--- NOTE | 2017-08-25 23:31 | Consultation ---
DATE OF CONSULTATION: 08/25/2017 CARDIOLOGY CONSULTATION CONSULTING PHYSICIAN: Hao Edmondson M.D. REFERRING PHYSICIAN: Allen Barreto M.D. REASON FOR CONSULTATION: Management of hypertension and atrial fibrillation. HISTORY OF PRESENT ILLNESS: The patient is an 82-year-old lady with history of hypertension and paroxysmal atrial fibrillation, who was sent to [facility] for increased tongue and throat swelling with difficulty breathing. The patient was on Coumadin and was noted to have significant bruise in submandibular area as well as neck as well as discoloration of the tongue. The patient was intubated at the scene by the paramedics to protect her airway and brought to the emergency room. The patient received epinephrine and IV Benadryl on the way to the emergency room and CT of the neck and chest showed significant subcutaneous tissue swelling especially of submandibular area and left neck deep tissue area. She however was in sinus rhythm. The patient also had ground-glass infiltration bilaterally on both sides and started on IV antibiotic after she was evaluated by Dr. Gonzalez, the Infectious Diseases. PAST MEDICAL HISTORY: Per records include hypertension and atrial fibrillation from the notes from Dr. Maria as well as history of dysphagia and hyperlipidemia from the patient's [facility] as well as cellulitis of lower extremities. Her INR on 08/12/2017 was 4.58. Her INR on 08/05/2017 was 1.55. ALLERGIES: She is allergic to ibuprofen. SOCIAL HISTORY: She lives in [facility]. Does not smoke or drink alcohol. FAMILY HISTORY: Noncontributory. REVIEW OF SYSTEMS: Cannot be obtained as the patient is on the vent in ICU. PHYSICAL EXAMINATION: VITAL SIGNS: Show blood pressure of 154/42, pulse 84, respirations 18, and she is afebrile. HEAD AND NECK: Showed no JVD. She is orally intubated with significant ecchymosis on the tongue as well as her upper chest and submandibular area. LUNGS: Coarse rhonchi. ABDOMEN: Obese. EXTREMITIES: A 1+ pitting edema as well as significant ecchymosis in both arms. LABORATORY DATA: Her labs show hemoglobin as low as 4.2 yesterday and after 3 units of blood transfusion, today it is 9.3, white count is 21.4, and platelet count is 179,000. Sodium 142, potassium 3.5, BUN of 46, and creatinine of 0.9. Her initial troponin was negative. ASSESSMENT AND PLAN: 1. Paroxysmal atrial fibrillation. Her EKG showed normal sinus rhythm and she has remained in normal sinus rhythm while in the hospital. I did not see the diagnosis of atrial fibrillation in her [facility] records, however, the patient has also been on Coumadin for that reason. Lower extremity Doppler showed no evidence of DVT. Keep the patient off antihypertensives at this time. 2. Hypertension. Blood pressure is as high as 154/124. Right now, it is 154/42. Hold off on blood pressure medication as the patient is at risk of septic shock. 3. Elevated INR with significant bleeding . The patient received 3 units of blood transfusion. Her INR on 08/24/2017 was 1.4 and currently it is 1.3. 4. Respiratory failure. The patient is on a ventilator to protect her airway. 5. Pneumonia, on IV antibiotic per Dr. Gonzalez. Thank you very much, Dr. Barreto, for allowing me to participate in the care of this patient. Please do not hesitate to contact me for any questions regarding my evaluation. Hao Edmonsdon M.D. DR: Jessica JOB#: [id number] CC:
[2017-08-26] VITALS (24 sets, daily range): BP systolic 137–171; BP diastolic 41–95
[2017-08-26 03:48] LABS: HEMATOCRIT 25.7 % (37.0-47.0); HEMOGLOBIN 9.1 G/DL (12.0-16.0); MEAN CORPUSCULAR VOLUME 88 FL (80-99); PLATELET COUNT 167 K/UL (150-450); RED BLOOD COUNT 2.91 M/UL (4.20-5.40); RED CELL DISTRIBUTION WIDTH 14.2 % (11.6-14.8); WHITE BLOOD COUNT 19.1 K/UL (4.8-10.8)
[2017-08-26 04:14] LABS: ALANINE AMINOTRANSFERASE 58 U/L (12-78); ALBUMIN 2.4 G/DL (3.4-5.0); ALBUMIN/GLOBULIN RATIO 0.6 (1.0-2.7); ALKALINE PHOSPHATASE 59 U/L (46-116); ANION GAP 7 mmol/L (5-15); ASPARTATE AMINO TRANSFERASE 153 U/L (15-37); BILIRUBIN,TOTAL 2.2 MG/DL (0.2-1.0); BLOOD UREA NITROGEN 26 mg/dL (7-18); CALCIUM 7.9 MG/DL (8.5-10.1); CARBON DIOXIDE 30 MMOL/L (21-32); CHLORIDE 106 MMOL/L (98-107); CREATININE 0.9 MG/DL (0.55-1.30); POTASSIUM 3.1 MMOL/L (3.5-5.1); SODIUM 143 MMOL/L (136-145)
[2017-08-26 04:32] LABS: BILIRUBIN,DIRECT 0.4 MG/DL (0.0-0.3)
[2017-08-26] MEDS: Piperacillin/Tazobactam 3.375 GM in D5W 110 ML IVPB SCH ×3 (06:02→21:48)
[2017-08-26] MEDS: D5NS 1,000 ML IV SCH ×2 (06:03→22:24)
[2017-08-26] MEDS: Pantoprazole Inj IVP SCH (09:44)
--- NOTE | 2017-08-26 09:44 | Nephrology Progress Note ---
Assessment/Plan Problem List: (1) Angioedema (2) Airway compromise (3) Cellulitis of neck (4) Acute respiratory failure (5) Coagulopathy (6) HCAP (healthcare-associated pneumonia) (7) Sepsis (8) Anemia Plan cont vent settings per pulmonary recs. f/u abg. abx per ID. monitor closely in icu. Subjective Subjective late entry for 08/25 - remains on vent. Had low grade fever. Alert. Objective Objective Last 24 Hour Vital Signs Date Time Temp Pulse Resp B/P (MAP) Pulse Ox O2 Delivery O2 Flow Rate FiO2 08/26/17 09:00 75 16 154/51 98 Mechanical Ventilator 30 08/26/17 08:57 80 18 30 08/26/17 08:22 97 08/26/17 08:17 30 08/26/17 08:00 69 08/26/17 08:00 98.9 65 16 152/49 100 Mechanical Ventilator 30 98.9 08/26/17 08:00 30 08/26/17 07:11 88 18 30 08/26/17 07:00 55 16 149/66 100 Mechanical Ventilator 30 08/26/17 06:00 68 16 153/50 100 Mechanical Ventilator 30 08/26/17 05:10 78 18 30 08/26/17 05:00 98.7 74 19 143/49 98 Mechanical Ventilator 30 98.7 08/26/17 04:00 76 19 169/57 98 Mechanical Ventilator 30 08/26/17 04:00 75 08/26/17 04:00 30 08/26/17 03:28 96 23 30 08/26/17 03:00 79 19 160/55 100 Mechanical Ventilator 30 08/26/17 02:00 71 17 139/41 98 Mechanical Ventilator 30 08/26/17 01:11 64 18 30 08/26/17 01:00 78 19 162/50 97 Mechanical Ventilator 30 08/26/17 00:00 72 21 137/44 98 Mechanical Ventilator 30 08/25/17 23:09 67 18 30 08/25/17 23:00 74 18 151/61 100 Mechanical Ventilator 30 08/25/17 22:00 70 18 145/47 98 Mechanical Ventilator 30 08/25/17 21:24 103 24 30 08/25/17 21:00 89 19 161/52 98 Mechanical Ventilator 30 08/25/17 20:00 98.9 84 18 156/49 98 Mechanical Ventilator 30 98.9 08/25/17 20:00 73 08/25/17 20:00 30 08/25/17 19:30 69 18 30 08/25/17 19:00 73 19 155/54 99 Mechanical Ventilator 30 08/25/17 18:00 75 18 141/53 98 Mechanical Ventilator 30 08/25/17 17:00 78 17 158/53 98 Mechanical Ventilator 30 08/25/17 16:49 94 19 30 08/25/17 16:00 99.3 77 18 148/45 100 Mechanical Ventilator 30 99.3 08/25/17 16:00 30 08/25/17 15:23 81 08/25/17 15:00 84 18 154/42 98 Mechanical Ventilator 30 08/25/17 14:45 75 20 30 08/25/17 14:00 97 17 154/124 97 Mechanical Ventilator 30 08/25/17 13:53 30 08/25/17 13:00 92 17 159/61 97 Mechanical Ventilator 30 08/25/17 12:30 80 16 30 08/25/17 12:00 98.9 98 20 153/79 98 Mechanical Ventilator 30 98.9 08/25/17 12:00 89 08/25/17 11:00 75 17 155/60 98 Mechanical Ventilator 30 08/25/17 10:42 77 13 30 08/25/17 10:00 89 16 156/71 100 Mechanical Ventilator 30 08/25/17 09:58 99 08/25/17 09:58 78 20 30 08/25/17 09:58 30 Intake and Output 08/25/17 08/26/17 19:00 07:00 Intake Total 912.5 ml 1645.0 ml Output Total 840 ml 1400 ml Balance 72.5 ml 245.0 ml IV Total 912.5 ml 1645.0 ml Output Urine Total 840 ml 1400 ml # Bowel Movements 4 Laboratory Tests 08/25/17 18:59: Troponin I 0.952H 08/25/17 21:30: Stool Occult Blood [Pending] 08/26/17 03:00: Troponin I 0.846H, White Blood Count 19.1H, Red Blood Count 2.91L, Hemoglobin 9.1L, Hematocrit 25.7L, Mean Corpuscular Volume 88, Mean Corpuscular Hemoglobin 31.2H, Mean Corpuscular Hemoglobin Concent 35.3, Red Cell Distribution Width 14.2, Platelet Count 167, Mean Platelet Volume 7.5, Neutrophils (%) (Auto) , Lymphocytes (%) (Auto) , Monocytes (%) (Auto) , Eosinophils (%) (Auto) , Basophils (%) (Auto) , Prothrombin Time 20.8H, Prothromb Time International Ratio 2.0H, Sodium Level 143, Potassium Level 3.1L, Chloride Level 106, Carbon Dioxide Level 30, Anion Gap 7, Blood Urea Nitrogen 26H, Creatinine 0.9, Estimat Glomerular Filtration Rate , Glucose Level 134H, Calcium Level 7.9L, Total Bilirubin 2.2H, Direct Bilirubin 0.4H, Aspartate Amino Transf (AST/SGOT) 153H, Alanine Aminotransferase (ALT/SGPT) 58, Alkaline Phosphatase 59, Pro-B-Type Natriuretic Peptide 1544H, Total Protein 6.2L, Albumin 2.4L, Globulin 3.8, Albumin/Globulin Ratio 0.6L, Thyroid Stimulating Hormone (TSH) 1.016, Free Thyroxine 1.03 Height (Feet): 5 Height (Inches): 2.00 Weight (Pounds): 172 General Appearance: no apparent distress Cardiovascular: normal rate, regular rhythm Respiratory/Chest: decreased breath sounds Abdomen: non tender, soft Extremities: trace edema Neurologic: alert CULLEN ZUNIGA Aug 26, 2017 09:44
--- NOTE | 2017-08-26 10:31 | Pulmonology Progress Note ---
Assessment/Plan Assessment/Plan 1. Soft tissue swelling in the neck area with compromised airway. 2. Respiratory failure with airway compromise. 3. Marked subcutaneous bruising. 4. Coumadin use. 5. Hypertension. 6. GERD. 7. detention resident. 8. Anemia. 9. Leukocytosis. DISCUSSION: I am unclear as to the etiology of her compromised airway. I suspect she had bleeding in the neck area, possibly due to trauma due to CPAP in the presence of Coumadin. At this time, I will keep her intubated and begin the weaning process. She is awake and responsive. I recommend ENT evaluation before extubation given her compromised airway. I will follow carefully. Subjective Interval Events: Remains intubated. Tongue remains swollen Constitutional: Reports: no symptoms HEENT: Repors: no symptoms Respiratory: Reports: no symptoms Cardiovascular: Reports: no symptoms Gastrointestinal/Abdominal: Reports: no symptoms Genitourinary: Reports: no symptoms Allergies: Coded Allergies: IBUPROFEN (Verified Allergy, Unknown, 08/23/17) Objective Last 24 Hour Vital Signs Date Time Temp Pulse Resp B/P (MAP) Pulse Ox O2 Delivery O2 Flow Rate FiO2 08/26/17 10:00 68 16 160/49 98 Mechanical Ventilator 30 08/26/17 09:00 75 16 154/51 98 Mechanical Ventilator 30 08/26/17 08:57 80 18 30 08/26/17 08:22 97 08/26/17 08:17 30 08/26/17 08:00 69 08/26/17 08:00 98.9 65 16 152/49 100 Mechanical Ventilator 30 98.9 08/26/17 08:00 30 08/26/17 07:11 88 18 30 08/26/17 07:00 55 16 149/66 100 Mechanical Ventilator 30 08/26/17 06:00 68 16 153/50 100 Mechanical Ventilator 30 08/26/17 05:10 78 18 30 08/26/17 05:00 98.7 74 19 143/49 98 Mechanical Ventilator 30 98.7 08/26/17 04:00 76 19 169/57 98 Mechanical Ventilator 30 08/26/17 04:00 75 08/26/17 04:00 30 08/26/17 03:28 96 23 30 08/26/17 03:00 79 19 160/55 100 Mechanical Ventilator 30 08/26/17 02:00 71 17 139/41 98 Mechanical Ventilator 30 08/26/17 01:11 64 18 30 08/26/17 01:00 78 19 162/50 97 Mechanical Ventilator 30 08/26/17 00:00 72 21 137/44 98 Mechanical Ventilator 30 08/25/17 23:09 67 18 30 08/25/17 23:00 74 18 151/61 100 Mechanical Ventilator 30 08/25/17 22:00 70 18 145/47 98 Mechanical Ventilator 30 08/25/17 21:24 103 24 30 08/25/17 21:00 89 19 161/52 98 Mechanical Ventilator 30 08/25/17 20:00 98.9 84 18 156/49 98 Mechanical Ventilator 30 98.9 08/25/17 20:00 73 08/25/17 20:00 30 08/25/17 19:30 69 18 30 08/25/17 19:00 73 19 155/54 99 Mechanical Ventilator 30 08/25/17 18:00 75 18 141/53 98 Mechanical Ventilator 30 08/25/17 17:00 78 17 158/53 98 Mechanical Ventilator 30 08/25/17 16:49 94 19 30 08/25/17 16:00 99.3 77 18 148/45 100 Mechanical Ventilator 30 99.3 08/25/17 16:00 30 08/25/17 15:23 81 08/25/17 15:00 84 18 154/42 98 Mechanical Ventilator 30 08/25/17 14:45 75 20 30 08/25/17 14:00 97 17 154/124 97 Mechanical Ventilator 30 08/25/17 13:53 30 08/25/17 13:00 92 17 159/61 97 Mechanical Ventilator 30 08/25/17 12:30 80 16 30 08/25/17 12:00 98.9 98 20 153/79 98 Mechanical Ventilator 30 98.9 08/25/17 12:00 89 08/25/17 11:00 75 17 155/60 98 Mechanical Ventilator 30 08/25/17 10:42 77 13 30 Intake and Output 08/25/17 08/26/17 19:00 07:00 Intake Total 912.5 ml 1645.0 ml Output Total 840 ml 1400 ml Balance 72.5 ml 245.0 ml IV Total 912.5 ml 1645.0 ml Output Urine Total 840 ml 1400 ml # Bowel Movements 4 General Appearance: no acute distress HEENT: normocephalic, mucous membranes moist, other - Has swelling of the tongue And bruising in the sub mandibular area Respiratory/Chest: chest wall non-tender, lungs clear Cardiovascular: normal peripheral pulses, normal rate Abdomen: normal bowel sounds, soft, non tender Extremities: no cyanosis Microbiology Date/Time Source Procedure Growth Status 08/24/17 18:30 Blood Blood Culture - Preliminary NO GROWTH AFTER 24 HOURS Resulted 08/24/17 17:30 Blood Blood Culture - Preliminary NO GROWTH AFTER 24 HOURS Resulted 08/24/17 00:18 Nasal Nares MRSA Culture - Final NO METHICILLIN RESISTANT STAPH AUREUS... Complete 08/24/17 05:30 Foot Left Gram Stain - Final Resulted 08/24/17 05:30 Wound Culture - Preliminary Staphylococcus Aureus Resulted Laboratory Tests 08/25/17 18:59: Troponin I 0.952H 08/25/17 21:30: Stool Occult Blood [Pending] 08/26/17 03:00: Troponin I 0.846H, White Blood Count 19.1H, Red Blood Count 2.91L, Hemoglobin 9.1L, Hematocrit 25.7L, Mean Corpuscular Volume 88, Mean Corpuscular Hemoglobin 31.2H, Mean Corpuscular Hemoglobin Concent 35.3, Red Cell Distribution Width 14.2, Platelet Count 167, Mean Platelet Volume 7.5, Neutrophils (%) (Auto) , Lymphocytes (%) (Auto) , Monocytes (%) (Auto) , Eosinophils (%) (Auto) , Basophils (%) (Auto) , Prothrombin Time 20.8H, Prothromb Time International Ratio 2.0H, Sodium Level 143, Potassium Level 3.1L, Chloride Level 106, Carbon Dioxide Level 30, Anion Gap 7, Blood Urea Nitrogen 26H, Creatinine 0.9, Estimat Glomerular Filtration Rate , Glucose Level 134H, Calcium Level 7.9L, Total Bilirubin 2.2H, Direct Bilirubin 0.4H, Aspartate Amino Transf (AST/SGOT) 153H, Alanine Aminotransferase (ALT/SGPT) 58, Alkaline Phosphatase 59, Pro-B-Type Natriuretic Peptide 1544H, Total Protein 6.2L, Albumin 2.4L, Globulin 3.8, Albumin/Globulin Ratio 0.6L, Thyroid Stimulating Hormone (TSH) 1.016, Free Thyroxine 1.03 Current Medications Medications (Trade) Dose Ordered Sig/Chester Route PRN Reason Start Time Stop Time Status Last Admin Dose Admin Acetaminophen (Tylenol) 500 mg Q6H PRN RECTAL Mild Pain/Temp > 100.5 08/24/17 18:30 09/23/17 18:29 08/25/17 16:35 Chlorhexidine Gluconate (Caroline-Hex 2%) 1 applic DAILY@2000 TOPIC 08/25/17 20:00 09/24/17 19:59 08/25/17 21:08 Dextrose/Sodium Chloride 1,000 ml @ 60 mls/hr [id number] IV 08/24/17 04:45 09/23/17 04:44 08/26/17 06:03 Hydralazine HCl (Apresoline) 10 mg Q2H PRN IV SBP > 170 08/25/17 16:15 09/24/17 16:14 Iron Sucrose 100 mg/Sodium Chloride 60 ml @ 240 mls/hr BEDTIME IV 08/25/17 21:00 08/27/17 21:14 08/25/17 21:08 Pantoprazole (Protonix) 40 mg DAILY IVP 08/24/17 09:00 09/23/17 08:59 08/26/17 09:44 Piperacillin Sod/ Tazobactam Sod 3.375 gm/Dextrose 110 ml @ 27.5 mls/hr EVERY 8 HOURS IVPB 08/24/17 22:00 08/29/17 23:59 08/26/17 06:02 Vancomycin HCl (Vanco rx to dose) 1 ea DAILY PRN MISC Per rx protocol 08/24/17 18:30 09/23/17 18:29 Vancomycin HCl 1 gm/Dextrose 275 ml @ 183.708 mls/hr Q24H IVPB 08/25/17 20:00 08/30/17 19:59 08/25/17 19:39 Toño Underwood MD Aug 26, 2017 10:31
--- NOTE | 2017-08-26 11:41 | Diagnostic Imaging Report ---
Indication: Dyspnea Technique: One view of the chest Comparison: 08/25/2017 Findings: Bilateral left greater than right interstitial and airspace opacities appear minimally improved. Endotracheal tube remains. Heart size is normal. Pleural spaces remain clear. Impression: Slight improvement of bilateral left greater than right interstitial and airspace opacities, over one day
--- NOTE | 2017-08-26 11:47 | GI Progress Note ---
Assessment/Plan Problems: (1) Coagulopathy ICD Codes: D68.9 - Coagulation defect, unspecified SNOMED: 92016272 (2) Allergic reaction caused by a drug ICD Codes: T78.40XA - Allergy, unspecified, initial encounter SNOMED: 679638994 (3) Anemia ICD Codes: D64.9 - Anemia, unspecified SNOMED: 943207080 (4) Airway compromise ICD Codes: J98.8 - Other specified respiratory disorders SNOMED: 84748636 Status: stable Status Narrative Discussed with Dr. Dyson. Assessment/Plan anemia work up >> iron deficiency >> venofer maintain NPO + IVFs no NGT per primary hold blood thinners >> fu coags OB stool r/o GI bleed pending x 3 monitor H&H, prn transfusions ppi fu labs will require EGD/colonoscopy when respiratory status stable The patient was seen and examined at bedside and all new and available data was reviewed in the patients chart. I agree with the above findings, impression and plan. (Patient seen earlier today. Signature stamp does not reflect patient encounter time.). - Nelly Dyson MD Subjective Subjective limited Objective Last 24 Hour Vital Signs Date Time Temp Pulse Resp B/P (MAP) Pulse Ox O2 Delivery O2 Flow Rate FiO2 08/26/17 11:30 30 08/26/17 11:24 87 18 30 08/26/17 11:00 77 16 155/55 98 Mechanical Ventilator 30 08/26/17 10:00 68 16 160/49 98 Mechanical Ventilator 30 08/26/17 09:00 75 16 154/51 98 Mechanical Ventilator 30 08/26/17 08:57 80 18 30 08/26/17 08:22 97 08/26/17 08:17 30 08/26/17 08:00 69 08/26/17 08:00 98.9 65 16 152/49 100 Mechanical Ventilator 30 98.9 08/26/17 08:00 30 08/26/17 07:11 88 18 30 08/26/17 07:00 55 16 149/66 100 Mechanical Ventilator 30 08/26/17 06:00 68 16 153/50 100 Mechanical Ventilator 30 08/26/17 05:10 78 18 30 08/26/17 05:00 98.7 74 19 143/49 98 Mechanical Ventilator 30 98.7 08/26/17 04:00 76 19 169/57 98 Mechanical Ventilator 30 08/26/17 04:00 75 08/26/17 04:00 30 08/26/17 03:28 96 23 30 08/26/17 03:00 79 19 160/55 100 Mechanical Ventilator 30 08/26/17 02:00 71 17 139/41 98 Mechanical Ventilator 30 08/26/17 01:11 64 18 30 08/26/17 01:00 78 19 162/50 97 Mechanical Ventilator 30 08/26/17 00:00 72 21 137/44 98 Mechanical Ventilator 30 08/25/17 23:09 67 18 30 08/25/17 23:00 74 18 151/61 100 Mechanical Ventilator 30 08/25/17 22:00 70 18 145/47 98 Mechanical Ventilator 30 08/25/17 21:24 103 24 30 08/25/17 21:00 89 19 161/52 98 Mechanical Ventilator 30 08/25/17 20:00 98.9 84 18 156/49 98 Mechanical Ventilator 30 98.9 08/25/17 20:00 73 08/25/17 20:00 30 08/25/17 19:30 69 18 30 08/25/17 19:00 73 19 155/54 99 Mechanical Ventilator 30 08/25/17 18:00 75 18 141/53 98 Mechanical Ventilator 30 08/25/17 17:00 78 17 158/53 98 Mechanical Ventilator 30 08/25/17 16:49 94 19 30 08/25/17 16:00 99.3 77 18 148/45 100 Mechanical Ventilator 30 99.3 08/25/17 16:00 30 08/25/17 15:23 81 08/25/17 15:00 84 18 154/42 98 Mechanical Ventilator 30 08/25/17 14:45 75 20 30 08/25/17 14:00 97 17 154/124 97 Mechanical Ventilator 30 08/25/17 13:53 30 08/25/17 13:00 92 17 159/61 97 Mechanical Ventilator 30 08/25/17 12:30 80 16 30 08/25/17 12:00 98.9 98 20 153/79 98 Mechanical Ventilator 30 98.9 08/25/17 12:00 89 Intake and Output 08/25/17 08/26/17 19:00 07:00 Intake Total 912.5 ml 1645.0 ml Output Total 840 ml 1400 ml Balance 72.5 ml 245.0 ml IV Total 912.5 ml 1645.0 ml Output Urine Total 840 ml 1400 ml # Bowel Movements 4 Laboratory Tests Test 08/25/17 18:59 08/25/17 21:30 08/26/17 03:00 08/26/17 10:50 Troponin I 0.952 ng/mL (0.000-0.056) 0.846 ng/mL (0.000-0.056) Stool Occult Blood Pending White Blood Count 19.1 K/UL (4.8-10.8) H Red Blood Count 2.91 M/UL (4.20-5.40) L Hemoglobin 9.1 G/DL (12.0-16.0) L Hematocrit 25.7 % (37.0-47.0) L Mean Corpuscular Volume 88 FL (80-99) Mean Corpuscular Hemoglobin 31.2 PG (27.0-31.0) H Mean Corpuscular Hemoglobin Concent 35.3 G/DL (32.0-36.0) Red Cell Distribution Width 14.2 % (11.6-14.8) Platelet Count 167 K/UL (150-450) Mean Platelet Volume 7.5 FL (6.5-10.1) Neutrophils (%) (Auto) % (45.0-75.0) Lymphocytes (%) (Auto) % (20.0-45.0) Monocytes (%) (Auto) % (1.0-10.0) Eosinophils (%) (Auto) % (0.0-3.0) Basophils (%) (Auto) % (0.0-2.0) Prothrombin Time 20.8 SEC (9.30-11.50) H Prothromb Time International Ratio 2.0 (0.9-1.1) H Sodium Level 143 MMOL/L (136-145) Potassium Level 3.1 MMOL/L (3.5-5.1) L Chloride Level 106 MMOL/L (98-107) Carbon Dioxide Level 30 MMOL/L (21-32) Anion Gap 7 mmol/L (5-15) Blood Urea Nitrogen 26 mg/dL (7-18) H Creatinine 0.9 MG/DL (0.55-1.30) Estimat Glomerular Filtration Rate mL/min (>60) Glucose Level 134 MG/DL (74-106) H Calcium Level 7.9 MG/DL (8.5-10.1) L Total Bilirubin 2.2 MG/DL (0.2-1.0) H Direct Bilirubin 0.4 MG/DL (0.0-0.3) H Aspartate Amino Transf (AST/SGOT) 153 U/L (15-37) H Alanine Aminotransferase (ALT/SGPT) 58 U/L (12-78) Alkaline Phosphatase 59 U/L (46-116) Pro-B-Type Natriuretic Peptide 1544 pg/mL (0-125) H Total Protein 6.2 G/DL (6.4-8.2) L Albumin 2.4 G/DL (3.4-5.0) L Globulin 3.8 g/dL Albumin/Globulin Ratio 0.6 (1.0-2.7) L Thyroid Stimulating Hormone (TSH) 1.016 uiU/mL (0.358-3.740) Free Thyroxine 1.03 NG/DL (0.76-1.46) Arterial Blood pH 7.480 (7.350-7.450) Arterial Blood Partial Pressure CO2 36.9 mmHg (35.0-45.0) Arterial Blood Partial Pressure O2 59.4 mmHg (75.0-100.0) L Arterial Blood HCO3 26.9 mmol/L (22.0-26.0) H Arterial Blood Oxygen Saturation 91.9 % (92.0-98.0) L Arterial Blood Base Excess 3.3 Chuy Test Positive Height (Feet): 5 Height (Inches): 2.00 Weight (Pounds): 172 General Appearance: WD/WN, no apparent distress, alert Cardiovascular: normal rate Respiratory/Chest: normal breath sounds, no respiratory distress Abdominal Exam: normal bowel sounds, non tender, soft Extremities: non-tender Mae Lawler N.P. Aug 26, 2017 11:46 RAJ DYSON Aug 30, 2017 13:16
--- NOTE | 2017-08-26 13:08 | Infectious Diseases Prog Note ---
Assessment/Plan Problems: (1) HCAP (healthcare-associated pneumonia) Assessment & Plan: with left lung infiltrates and B/L ground glass opacities , improving on zosyn and vancomycin, will continue current treatment and monitor CXR (2) Cellulitis of neck Assessment & Plan: with no evidence of neck abcsess, already on zosyn empiric coverage , recommend ENT consult , keep intubated to prevent airway compromise (3) Sepsis Assessment & Plan: with leukocytosis due to the above, and possible steroids related , continue vancomycin and zosyn, pending blood culture, monitor CBC (4) Acute respiratory failure Assessment & Plan: due to the above, intubated on mechanical ventilation, monitor ABG and CXR , lead technical writer is following (5) Fever Assessment & Plan: due to the above, improving , continue wide spectrum antibiotics, and tylenol PRN (6) Coagulopathy Assessment & Plan: with diffuse bleeding , suspect due to Coumadin, on hold, transfused PRBC as needed, check DIC profile (7) 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 Assessment & Plan: with MSSA and gram negative rods, recommend sheeting puller consult and vascular study for further eval , already on vancomycin and zosyn Subjective ROS Limited/Unobtainable: Yes Allergies: Coded Allergies: IBUPROFEN (Verified Allergy, Unknown, 08/23/17) Subjective she is still intubated on mechanical ventilation, more awake and alert, responsive to verbal commands , no fever or chills , no diarrhea Objective Vital Signs Last 24 Hour Vital Signs Date Time Temp Pulse Resp B/P (MAP) Pulse Ox O2 Delivery O2 Flow Rate FiO2 08/26/17 13:00 30 08/26/17 12:36 93 18 30 08/26/17 12:00 72 08/26/17 11:30 30 08/26/17 11:24 87 18 30 08/26/17 11:00 77 16 155/55 98 Mechanical Ventilator 30 08/26/17 10:00 68 16 160/49 98 Mechanical Ventilator 30 08/26/17 09:00 75 16 154/51 98 Mechanical Ventilator 30 08/26/17 08:57 80 18 30 08/26/17 08:22 97 08/26/17 08:17 30 08/26/17 08:00 69 08/26/17 08:00 98.9 65 16 152/49 100 Mechanical Ventilator 30 98.9 08/26/17 08:00 30 08/26/17 07:11 88 18 30 08/26/17 07:00 55 16 149/66 100 Mechanical Ventilator 30 08/26/17 06:00 68 16 153/50 100 Mechanical Ventilator 30 08/26/17 05:10 78 18 30 08/26/17 05:00 98.7 74 19 143/49 98 Mechanical Ventilator 30 98.7 08/26/17 04:00 76 19 169/57 98 Mechanical Ventilator 30 08/26/17 04:00 75 08/26/17 04:00 30 08/26/17 03:28 96 23 30 08/26/17 03:00 79 19 160/55 100 Mechanical Ventilator 30 08/26/17 02:00 71 17 139/41 98 Mechanical Ventilator 30 08/26/17 01:11 64 18 30 08/26/17 01:00 78 19 162/50 97 Mechanical Ventilator 30 08/26/17 00:00 72 21 137/44 98 Mechanical Ventilator 30 08/25/17 23:09 67 18 30 08/25/17 23:00 74 18 151/61 100 Mechanical Ventilator 30 08/25/17 22:00 70 18 145/47 98 Mechanical Ventilator 30 08/25/17 21:24 103 24 30 08/25/17 21:00 89 19 161/52 98 Mechanical Ventilator 30 08/25/17 20:00 98.9 84 18 156/49 98 Mechanical Ventilator 30 98.9 08/25/17 20:00 73 08/25/17 20:00 30 08/25/17 19:30 69 18 30 08/25/17 19:00 73 19 155/54 99 Mechanical Ventilator 30 08/25/17 18:00 75 18 141/53 98 Mechanical Ventilator 30 08/25/17 17:00 78 17 158/53 98 Mechanical Ventilator 30 08/25/17 16:49 94 19 30 08/25/17 16:00 99.3 77 18 148/45 100 Mechanical Ventilator 30 99.3 08/25/17 16:00 30 08/25/17 15:23 81 08/25/17 15:00 84 18 154/42 98 Mechanical Ventilator 30 08/25/17 14:45 75 20 30 08/25/17 14:00 97 17 154/124 97 Mechanical Ventilator 30 08/25/17 13:53 30 Height (Feet): 5 Height (Inches): 2.00 Weight (Pounds): 172 General Appearance: WD/WN, no acute distress HEENT: anicteric, mucous membranes moist, PERRL, other - neck hematoma with bruises Respiratory/Chest: chest wall non-tender, no respiratory distress, no accessory muscle use, decreased breath sounds, crackles/rales Cardiovascular: normal peripheral pulses, normal rate, regular rhythm, no gallop/murmur, no JVD Abdomen: normal bowel sounds, soft, non tender, no organomegaly, non distended , no mass, no scars Extremities: no cyanosis, no clubbing, other - left foot toes tip ulcers with necrosis Skin: no rash, no lesions, ulcers, other Microbiology Date/Time Source Procedure Growth Status 08/24/17 18:30 Blood Blood Culture - Preliminary NO GROWTH AFTER 24 HOURS Resulted 08/24/17 17:30 Blood Blood Culture - Preliminary NO GROWTH AFTER 24 HOURS Resulted 08/24/17 00:18 Nasal Nares MRSA Culture - Final NO METHICILLIN RESISTANT STAPH AUREUS... Complete 08/24/17 05:30 Foot Left Gram Stain - Final Resulted 08/24/17 05:30 Wound Culture - Preliminary Staphylococcus Aureus Gram Negative Rasheed Resulted 08/24/17 00:18 Rectum VRE Culture - Final Enterococcus Faecalis - Vre Complete Laboratory Tests Test 08/25/17 18:59 08/25/17 21:30 08/26/17 03:00 08/26/17 10:50 Troponin I 0.952 ng/mL (0.000-0.056) 0.846 ng/mL (0.000-0.056) Stool Occult Blood Positive (NEGATIVE) White Blood Count 19.1 K/UL (4.8-10.8) H Red Blood Count 2.91 M/UL (4.20-5.40) L Hemoglobin 9.1 G/DL (12.0-16.0) L Hematocrit 25.7 % (37.0-47.0) L Mean Corpuscular Volume 88 FL (80-99) Mean Corpuscular Hemoglobin 31.2 PG (27.0-31.0) H Mean Corpuscular Hemoglobin Concent 35.3 G/DL (32.0-36.0) Red Cell Distribution Width 14.2 % (11.6-14.8) Platelet Count 167 K/UL (150-450) Mean Platelet Volume 7.5 FL (6.5-10.1) Neutrophils (%) (Auto) % (45.0-75.0) Lymphocytes (%) (Auto) % (20.0-45.0) Monocytes (%) (Auto) % (1.0-10.0) Eosinophils (%) (Auto) % (0.0-3.0) Basophils (%) (Auto) % (0.0-2.0) Prothrombin Time 20.8 SEC (9.30-11.50) H Prothromb Time International Ratio 2.0 (0.9-1.1) H Sodium Level 143 MMOL/L (136-145) Potassium Level 3.1 MMOL/L (3.5-5.1) L Chloride Level 106 MMOL/L (98-107) Carbon Dioxide Level 30 MMOL/L (21-32) Anion Gap 7 mmol/L (5-15) Blood Urea Nitrogen 26 mg/dL (7-18) H Creatinine 0.9 MG/DL (0.55-1.30) Estimat Glomerular Filtration Rate mL/min (>60) Glucose Level 134 MG/DL (74-106) H Calcium Level 7.9 MG/DL (8.5-10.1) L Total Bilirubin 2.2 MG/DL (0.2-1.0) H Direct Bilirubin 0.4 MG/DL (0.0-0.3) H Aspartate Amino Transf (AST/SGOT) 153 U/L (15-37) H Alanine Aminotransferase (ALT/SGPT) 58 U/L (12-78) Alkaline Phosphatase 59 U/L (46-116) Pro-B-Type Natriuretic Peptide 1544 pg/mL (0-125) H Total Protein 6.2 G/DL (6.4-8.2) L Albumin 2.4 G/DL (3.4-5.0) L Globulin 3.8 g/dL Albumin/Globulin Ratio 0.6 (1.0-2.7) L Thyroid Stimulating Hormone (TSH) 1.016 uiU/mL (0.358-3.740) Free Thyroxine 1.03 NG/DL (0.76-1.46) Arterial Blood pH 7.480 (7.350-7.450) Arterial Blood Partial Pressure CO2 36.9 mmHg (35.0-45.0) Arterial Blood Partial Pressure O2 59.4 mmHg (75.0-100.0) L Arterial Blood HCO3 26.9 mmol/L (22.0-26.0) H Arterial Blood Oxygen Saturation 91.9 % (92.0-98.0) L Arterial Blood Base Excess 3.3 Chuy Test Positive Test 08/26/17 11:20 Troponin I 0.590 ng/mL (0.000-0.056) Current Medications Medications (Trade) Dose Ordered Sig/[place] Route PRN Reason Start Time Stop Time Status Last Admin Dose Admin Acetaminophen (Tylenol) 500 mg Q6H PRN RECTAL Mild Pain/Temp > 100.5 08/24/17 18:30 09/23/17 18:29 08/25/17 16:35 Chlorhexidine Gluconate (Caroline-Hex 2%) 1 applic DAILY@2000 TOPIC 08/25/17 20:00 09/24/17 19:59 08/25/17 21:08 Dextrose/Sodium Chloride 1,000 ml @ 60 mls/hr [id number] IV 08/24/17 04:45 09/23/17 04:44 08/26/17 06:03 Hydralazine HCl (Apresoline) 10 mg Q2H PRN IV SBP > 170 08/25/17 16:15 09/24/17 16:14 Iron Sucrose 100 mg/Sodium Chloride 60 ml @ 240 mls/hr BEDTIME IV 08/25/17 21:00 08/27/17 21:14 08/25/17 21:08 Pantoprazole (Protonix) 40 mg BID IVP 08/26/17 18:00 09/23/17 08:59 Piperacillin Sod/ Tazobactam Sod 3.375 gm/Dextrose 110 ml @ 27.5 mls/hr EVERY 8 HOURS IVPB 08/24/17 22:00 08/29/17 23:59 08/26/17 06:02 Vancomycin HCl (Vanco rx to dose) 1 ea DAILY PRN MISC Per rx protocol 08/24/17 18:30 09/23/17 18:29 Vancomycin HCl 1 gm/Dextrose 275 ml @ 183.708 mls/hr Q24H IVPB 08/25/17 20:00 08/30/17 19:59 08/25/17 19:39 Noni Gonzalez M.D. Aug 26, 2017 13:07
--- NOTE | 2017-08-26 13:43 | Wound Care Consultation ---
Wound Assessment Wound Assessment #1: Wound Number: 1 Wound Present on Admission: Yes New Wound: No Status Change of Wound: No Wound Location Body Site Modif: mid Wound Location Body Site: other - sacrococcygeal Wound Type: pressure ulcer Zev Test: Does not Zev Pressure Ulcer Stage: I Wound Length: 4.5 Wound Width: 4.0 Percent of Wound [place]/Red: 100 Wound Drainage Amount: None Wound Drainage Odor: None/Absent Tissue Surrounding Wound: Intact Wound General Appearance: Reddened Wound Assessment #2: Wound Number: 2 Wound Present on Admission: Yes New Wound: No Status Change of Wound: No Wound Location Body Site Modif: left Wound Location Body Site: toe - 1st Wound Type: pressure ulcer Zev Test: Does not Zev Pressure Ulcer Stage: II Wound Thickness: Partial Thickness Wound Length: 2.0 Wound Width: 3.5 Wound Depth: less than 0.1 Percent of Wound [place]/Red: 100 Wound Drainage Amount: None Wound Drainage Odor: None/Absent Tissue Surrounding Wound: Erythemic Wound General Appearance: Reddened, Draining Wound Assessment #3: Wound Number: 3 Wound Present on Admission: Yes New Wound: No Status Change of Wound: No Wound Location Body Site Modif: left Wound Location Body Site: toe - 2nd Wound Type: pressure ulcer Zev Test: Does not Zev Pressure Ulcer Stage: Unstageable Wound Thickness: Full Thickness Wound Length: 1.5 Wound Width: 1.5 Wound Depth: utd Percent of Wound [place]/Red: 30 Percent of Wound Bed Yellow/Wh: 20 Percent of Wound Black/Brown: 50 Wound Drainage Description: Serosanguineous Wound Drainage Amount: Scant Wound Drainage Odor: None/Absent Tissue Surrounding Wound: Macerated Wound General Appearance: Reddened - yellow, black, Draining Wound Assessment #4: Wound Number: 4 Wound Present on Admission: Yes New Wound: No Status Change of Wound: No Wound Location Body Site Modif: left Wound Location Body Site: toe - 3rd Wound Type: pressure ulcer Zev Test: Does not Zev Pressure Ulcer Stage: Unstageable Wound Thickness: Full Thickness Wound Length: 1.5 Wound Width: 1.5 Wound Depth: utd Percent of Wound [place]/Red: 30 Percent of Wound Bed Yellow/Wh: 70 Wound Drainage Description: Serosanguineous Wound Drainage Amount: Scant Wound Drainage Odor: None/Absent Tissue Surrounding Wound: Macerated Wound General Appearance: Reddened - yellow, Draining Wound Comment #1 Left 1st toe stage II pressure ulcer #2 Left 2nd toe unstageable pressure ulcer #3 Left 3rd toe unstageable pressure ulcer #4 Sacrococcygeal stage I pressure ulcer Recommendation -Local wound care per protocol -Keep clean and dry -Turn and reposition -Optimize nutrition -Low air loss mattress -Offload both heels -Heel protector on both heels -Assess and f/u accordingly for any changes ARCHANA CAIN RN Aug 26, 2017 13:43
--- NOTE | 2017-08-26 16:13 | Cardiac Electrophysiology PN ---
Assessment/Plan Assessment/Plan 1. Paroxysmal atrial fibrillation per records. In sinus rhythm. Was on Coumadin. Lower extremity Doppler showed no evidence of DVT. Keep the patient off antihypertensives at this time. 2. Hypertension. Blood pressure was as high as 154/124. 3. Elevated INR with significant bleeding The patient received 3 units of blood transfusion. Her INR on 08/24/2017 was 1.4 and currently it is 1.3. 4. Respiratory failure. The patient is on a ventilator to protect her airway.Extubation pending ENT clearance 5. Pneumonia, on IV antibiotic per Dr. Gonzalez. DW RN at bedside Subjective Subjective In ICU alert and responsive on the vent. RN at bedside. Got total of 3 units of prbc Objective Last 24 Hour Vital Signs Date Time Temp Pulse Resp B/P (MAP) Pulse Ox O2 Delivery O2 Flow Rate FiO2 08/26/17 16:00 80 08/26/17 14:58 173/85 08/26/17 14:55 86 18 30 08/26/17 14:00 73 17 145/44 98 Mechanical Ventilator 30 08/26/17 13:00 30 08/26/17 13:00 71 16 142/42 98 Mechanical Ventilator 30 08/26/17 12:36 93 18 30 08/26/17 12:00 98.8 70 16 144/42 98 Mechanical Ventilator 30 98.8 08/26/17 12:00 72 08/26/17 11:30 30 08/26/17 11:24 87 18 30 08/26/17 11:00 77 16 155/55 98 Mechanical Ventilator 30 08/26/17 10:00 68 16 160/49 98 Mechanical Ventilator 30 08/26/17 09:00 75 16 154/51 98 Mechanical Ventilator 30 08/26/17 08:57 80 18 30 08/26/17 08:22 97 08/26/17 08:17 30 08/26/17 08:00 69 08/26/17 08:00 98.9 65 16 152/49 100 Mechanical Ventilator 30 98.9 08/26/17 08:00 30 08/26/17 07:11 88 18 30 08/26/17 07:00 55 16 149/66 100 Mechanical Ventilator 30 08/26/17 06:00 68 16 153/50 100 Mechanical Ventilator 30 08/26/17 05:10 78 18 30 08/26/17 05:00 98.7 74 19 143/49 98 Mechanical Ventilator 30 98.7 08/26/17 04:00 76 19 169/57 98 Mechanical Ventilator 30 08/26/17 04:00 75 08/26/17 04:00 30 08/26/17 03:28 96 23 30 08/26/17 03:00 79 19 160/55 100 Mechanical Ventilator 30 08/26/17 02:00 71 17 139/41 98 Mechanical Ventilator 30 08/26/17 01:11 64 18 30 08/26/17 01:00 78 19 162/50 97 Mechanical Ventilator 30 08/26/17 00:00 72 21 137/44 98 Mechanical Ventilator 30 08/25/17 23:09 67 18 30 08/25/17 23:00 74 18 151/61 100 Mechanical Ventilator 30 08/25/17 22:00 70 18 145/47 98 Mechanical Ventilator 30 08/25/17 21:24 103 24 30 08/25/17 21:00 89 19 161/52 98 Mechanical Ventilator 30 08/25/17 20:00 98.9 84 18 156/49 98 Mechanical Ventilator 30 98.9 08/25/17 20:00 73 08/25/17 20:00 30 08/25/17 19:30 69 18 30 08/25/17 19:00 73 19 155/54 99 Mechanical Ventilator 30 08/25/17 18:00 75 18 141/53 98 Mechanical Ventilator 30 08/25/17 17:00 78 17 158/53 98 Mechanical Ventilator 30 08/25/17 16:49 94 19 30 Intake and Output 08/25/17 08/26/17 19:00 07:00 Intake Total 912.5 ml 1645.0 ml Output Total 840 ml 1400 ml Balance 72.5 ml 245.0 ml IV Total 912.5 ml 1645.0 ml Output Urine Total 840 ml 1400 ml # Bowel Movements 4 Laboratory Tests Test 08/25/17 18:59 08/25/17 21:30 08/26/17 03:00 08/26/17 10:50 Troponin I 0.952 ng/mL (0.000-0.056) 0.846 ng/mL (0.000-0.056) Stool Occult Blood Positive (NEGATIVE) White Blood Count 19.1 K/UL (4.8-10.8) H Red Blood Count 2.91 M/UL (4.20-5.40) L Hemoglobin 9.1 G/DL (12.0-16.0) L Hematocrit 25.7 % (37.0-47.0) L Mean Corpuscular Volume 88 FL (80-99) Mean Corpuscular Hemoglobin 31.2 PG (27.0-31.0) H Mean Corpuscular Hemoglobin Concent 35.3 G/DL (32.0-36.0) Red Cell Distribution Width 14.2 % (11.6-14.8) Platelet Count 167 K/UL (150-450) Mean Platelet Volume 7.5 FL (6.5-10.1) Neutrophils (%) (Auto) % (45.0-75.0) Lymphocytes (%) (Auto) % (20.0-45.0) Monocytes (%) (Auto) % (1.0-10.0) Eosinophils (%) (Auto) % (0.0-3.0) Basophils (%) (Auto) % (0.0-2.0) Prothrombin Time 20.8 SEC (9.30-11.50) H Prothromb Time International Ratio 2.0 (0.9-1.1) H Sodium Level 143 MMOL/L (136-145) Potassium Level 3.1 MMOL/L (3.5-5.1) L Chloride Level 106 MMOL/L (98-107) Carbon Dioxide Level 30 MMOL/L (21-32) Anion Gap 7 mmol/L (5-15) Blood Urea Nitrogen 26 mg/dL (7-18) H Creatinine 0.9 MG/DL (0.55-1.30) Estimat Glomerular Filtration Rate mL/min (>60) Glucose Level 134 MG/DL (74-106) H Calcium Level 7.9 MG/DL (8.5-10.1) L Total Bilirubin 2.2 MG/DL (0.2-1.0) H Direct Bilirubin 0.4 MG/DL (0.0-0.3) H Aspartate Amino Transf (AST/SGOT) 153 U/L (15-37) H Alanine Aminotransferase (ALT/SGPT) 58 U/L (12-78) Alkaline Phosphatase 59 U/L (46-116) Pro-B-Type Natriuretic Peptide 1544 pg/mL (0-125) H Total Protein 6.2 G/DL (6.4-8.2) L Albumin 2.4 G/DL (3.4-5.0) L Globulin 3.8 g/dL Albumin/Globulin Ratio 0.6 (1.0-2.7) L Thyroid Stimulating Hormone (TSH) 1.016 uiU/mL (0.358-3.740) Free Thyroxine 1.03 NG/DL (0.76-1.46) Arterial Blood pH 7.480 (7.350-7.450) Arterial Blood Partial Pressure CO2 36.9 mmHg (35.0-45.0) Arterial Blood Partial Pressure O2 59.4 mmHg (75.0-100.0) L Arterial Blood HCO3 26.9 mmol/L (22.0-26.0) H Arterial Blood Oxygen Saturation 91.9 % (92.0-98.0) L Arterial Blood Base Excess 3.3 Chuy Test Positive Test 08/26/17 11:20 Troponin I 0.590 ng/mL (0.000-0.056) Microbiology Date/Time Source Procedure Growth Status 08/24/17 18:30 Blood Blood Culture - Preliminary NO GROWTH AFTER 24 HOURS Resulted 08/24/17 17:30 Blood Blood Culture - Preliminary NO GROWTH AFTER 24 HOURS Resulted 08/24/17 00:18 Nasal Nares MRSA Culture - Final NO METHICILLIN RESISTANT STAPH AUREUS... Complete 08/24/17 05:30 Foot Left Gram Stain - Final Resulted 08/24/17 05:30 Wound Culture - Preliminary Staphylococcus Aureus Gram Negative Rasheed Resulted 08/24/17 00:18 Rectum VRE Culture - Final Enterococcus Faecalis - Vre Complete Objective HEAD AND NECK: No JVD. She is orally intubated with significant ecchymosis on the tongue as well as her upper chest and submandibular area. LUNGS: Coarse rhonchi. ABDOMEN: Obese. EXTREMITIES: 1+ pitting edema as well as significant ecchymosis in both arms. Hao Edmondson MD Aug 26, 2017 16:13
--- NOTE | 2017-08-26 16:14 | Consultation ---
DATE OF CONSULTATION: 08/25/2017 NOTE: POOR AUDIO HEMATOLOGY/ONCOLOGY CONSULTATION CONSULTING PHYSICIAN: Cristiano Roberts M.D. REQUESTING PHYSICIAN: Allen Barreto M.D. REASON FOR CONSULTATION: Evaluation of anemia. IDENTIFYING DATA: Dear Dr. Barreto, The patient is a pleasant 82-year-old female with past medical history significant for [facility] resident who has been having tongue swelling, at this time presents with bilateral pneumonia, sepsis, leukocytosis, possible at this time presents for antibiotic treatment. She has been seen by ID Service, Dr. Gonzalez as well as Pulmonary team and Dr. Maria. The patient is a poor historian, unable to obtain further history. submandibular area. She has since been intubated. She received subcutaneous epinephrine had bilateral ground-glass opacifications. She has been on antibiotics, noted to be anemic with hemoglobin between 4 and 5, and Hematology Service was consulted for further evaluation and treatment. PAST MEDICAL HISTORY: As noted above. PAST SURGICAL HISTORY: Difficult to obtain. MEDICATIONS: Reviewed. ALLERGIES: Ibuprofen only. FAMILY HISTORY: Difficult to obtain. SOCIAL HISTORY: She is a [facility] resident. No alcohol, tobacco, or illicit drug use. REVIEW OF SYSTEMS: Difficult to obtain. Poor historian. PHYSICAL EXAMINATION: VITAL SIGNS: Reviewed. GENERAL: No distress. PULMONARY: Decreased breath sounds. Some crackles at the bases. CARDIOVASCULAR: Regular rate. No S3 or S4. ABDOMEN: Soft, nontender, and nondistended. EXTREMITIES: No cyanosis, swelling, or edema noted. NEUROLOGICAL: Grossly nonfocal. LABORATORY DATA: WBC of 21,000, hemoglobin 9.8, hematocrit 27, platelet count 179,000, and neutrophils 99%. Nucleated RBCs 2%. INR 1.3. Chemistry reviewed. BUN 46 and creatinine 0.9. Iron level of 26. Ferritin . Total bilirubin 1.1. Troponin 0.95. IMAGING: Neck CT reviewed shows bilateral gross opacities. Endotracheal tube in place. ASSESSMENT AND RECOMMENDATIONS: 1. Anemia, potentially secondary to gastrointestinal bleed. The patient has been on Coumadin with coagulopathy, therefore, causing exacerbating any potential bleed. Coumadin has since been discontinued. Continue to closely monitor. 2. Anemia of iron deficiency. Continue iron for five days. 3. Coagulopathy due to Coumadin use in the past. It has since been discontinued. Coumadin currently on hold. INR goal less than 1 at this moment. 4. 5. Respiratory failure, status post intubation. Currently intubated. epinephrine. 6. Bilateral pneumonia. She is on broad-spectrum antibiotics. 7. Gastroesophageal reflux disease, on antacids as needed. 8. Subcutaneous bruising, likely due to Coumadin. I appreciate the consultation. Cristiano Roberts M.D. DR: LIZ JOB#: [id number] CC:
[2017-08-26] MEDS ORDERED: Pantoprazole Inj IVP SCH (18:00)
[2017-08-26] MEDS ORDERED: Potassium Chloride 40 MEQ in Sodium Chloride 500ML 550 ML IVPB ONE (19:30)
[2017-08-26] MEDS: Dyna-Hex 2% Top Sol 2oz TOPIC SCH (20:22)
[2017-08-26] MEDS: Iron Sucrose 100 MG in NS 55 ML IV SCH (20:24)
[2017-08-26] MEDS: Vancomycin 1gm/D5W 275ml IVPB SCH ×2 (20:24)
[2017-08-26] MEDS: Acetaminophen 650 MG SUPP RECTAL PRN (23:50)
[2017-08-27] VITALS (24 sets, daily range): BP systolic 100–181; BP diastolic 40–102
--- NOTE | 2017-08-27 00:30 | Progress Note ---
DATE: 08/27/2017 SUBJECTIVE: This is an 82-year-old female. Currently, physically doing fine. More awake, tolerating weaning protocols. The patient on CPAP. OBJECTIVE: VITAL SIGNS: Stable. Blood pressure is 130/70, pulse 60, and respirations 18. No fever. HEENT: NAD. CHEST: Bilaterally clear. CARDIOVASCULAR: Regular rhythm. No gallop. No murmur. ABDOMEN: Soft. EXTREMITIES: CCE. ASSESSMENT AND PLAN: 1. Acute epiglottitis. 2. Acute pharyngitis. 3. Chronic respiratory failure. 4. Allergic to bupropion. 5. Possible pneumonia. Continue antibiotics. Continue weaning protocols. Continue pulmonary treatment. Vik Maria M.D. DR: Susannah JOB#: [id number] CC:
[2017-08-27 04:33] LABS: BASOPHILS % (AUTO) 0.6 % (0.0-2.0); EOSINOPHILS % (AUTO) 0.3 % (0.0-3.0); HEMATOCRIT 29.5 % (37.0-47.0); HEMOGLOBIN 10.4 G/DL (12.0-16.0); LYMPHOCYTES % (AUTO) 11.2 % (20.0-45.0); MEAN CORPUSCULAR VOLUME 89 FL (80-99); MONOCYTES % (AUTO) 7.1 % (1.0-10.0); NEUTROPHILS % (AUTO) 80.8 % (45.0-75.0); PLATELET COUNT 206 K/UL (150-450); RED BLOOD COUNT 3.33 M/UL (4.20-5.40); RED CELL DISTRIBUTION WIDTH 14.6 % (11.6-14.8); WHITE BLOOD COUNT 16.1 K/UL (4.8-10.8)
[2017-08-27 04:41] LABS: INR 2.7 (0.9-1.1)
[2017-08-27 05:21] LABS: ALANINE AMINOTRANSFERASE 65 U/L (12-78); ALBUMIN 2.5 G/DL (3.4-5.0); ALBUMIN/GLOBULIN RATIO 0.7 (1.0-2.7); ALKALINE PHOSPHATASE 65 U/L (46-116); ANION GAP 6 mmol/L (5-15); ASPARTATE AMINO TRANSFERASE 116 U/L (15-37); BILIRUBIN,TOTAL 2.7 MG/DL (0.2-1.0); BLOOD UREA NITROGEN 12 mg/dL (7-18); CALCIUM 8.3 MG/DL (8.5-10.1); CARBON DIOXIDE 31 MMOL/L (21-32); CHLORIDE 105 MMOL/L (98-107); CREATININE 0.8 MG/DL (0.55-1.30); POTASSIUM 3.2 MMOL/L (3.5-5.1); SODIUM 142 MMOL/L (136-145)
[2017-08-27 05:27] LABS: BILIRUBIN,DIRECT 0.3 MG/DL (0.0-0.3)
[2017-08-27] MEDS: Piperacillin/Tazobactam 3.375 GM in D5W 110 ML IVPB SCH ×3 (05:39→22:24)
[2017-08-27] MEDS ORDERED: Vancomycin 750mg/D5W 275ml IVPB SCH ×2 (08:00)
[2017-08-27] MEDS: Pantoprazole Inj IVP SCH ×2 (08:08→20:50)
--- NOTE | 2017-08-27 09:41 | Pulmonology Progress Note ---
Assessment/Plan Assessment/Plan 1. Soft tissue swelling in the neck area with compromised airway. 2. Respiratory failure with airway compromise. 3. Marked subcutaneous bruising. 4. Coumadin use. 5. Hypertension. 6. GERD. 7. assisted resident. 8. Anemia. 9. Leukocytosis. DISCUSSION: I am unclear as to the etiology of her compromised airway. I suspect she had bleeding in the neck area, possibly due to trauma due to CPAP in the presence of Coumadin. At this time, I will keep her intubated and begin the weaning process. She is awake and responsive. I recommend ENT evaluation before extubation given her compromised airway. I will follow carefully. Will place on T-tube/T-piece Will need airway exchange catheter for safe extubation Subjective Interval Events: Better; weaning Constitutional: Reports: no symptoms HEENT: Repors: no symptoms Respiratory: Reports: no symptoms Gastrointestinal/Abdominal: Reports: no symptoms Allergies: Coded Allergies: IBUPROFEN (Verified Allergy, Unknown, 08/23/17) Objective Last 24 Hour Vital Signs Date Time Temp Pulse Resp B/P (MAP) Pulse Ox O2 Delivery O2 Flow Rate FiO2 08/27/17 09:02 67 14 30 08/27/17 09:00 71 19 135/49 99 Mechanical Ventilator 30 08/27/17 08:00 98.7 81 18 148/47 97 Mechanical Ventilator 30 98.7 08/27/17 08:00 30 08/27/17 08:00 85 08/27/17 07:00 78 19 155/54 97 Mechanical Ventilator 30 08/27/17 06:40 80 15 30 08/27/17 06:00 71 19 136/40 97 Mechanical Ventilator 30 08/27/17 05:11 90 21 30 08/27/17 05:00 85 19 164/53 97 Mechanical Ventilator 30 08/27/17 04:00 88 08/27/17 04:00 30 08/27/17 04:00 99.1 85 19 164/53 97 Mechanical Ventilator 30 99.1 08/27/17 03:30 91 21 30 08/27/17 03:00 88 20 181/102 98 Mechanical Ventilator 30 08/27/17 02:00 80 18 158/50 98 Mechanical Ventilator 30 08/27/17 01:30 90 20 30 08/27/17 01:00 89 19 157/55 98 Mechanical Ventilator 30 08/27/17 00:20 99.5 08/27/17 00:00 74 08/27/17 00:00 99.5 85 17 145/56 98 Mechanical Ventilator 30 99.5 08/26/17 23:50 99.8 08/26/17 23:30 88 21 30 08/26/17 23:00 85 20 140/94 99 Mechanical Ventilator 30 08/26/17 22:00 90 18 164/61 99 Mechanical Ventilator 30 08/26/17 21:30 104 22 30 08/26/17 21:00 98 21 171/95 99 Mechanical Ventilator 30 08/26/17 20:00 99.8 97 18 164/61 98 Mechanical Ventilator 30 99.8 08/26/17 20:00 75 08/26/17 20:00 30 08/26/17 19:28 107 23 30 08/26/17 19:00 77 16 144/55 99 Mechanical Ventilator 30 08/26/17 18:00 76 17 143/53 99 Mechanical Ventilator 30 08/26/17 17:00 74 17 145/50 99 Mechanical Ventilator 30 08/26/17 16:57 125 18 30 08/26/17 16:00 80 08/26/17 16:00 98.6 80 17 156/55 98 Mechanical Ventilator 30 98.6 08/26/17 15:00 77 17 150/50 98 Mechanical Ventilator 30 08/26/17 14:58 173/85 08/26/17 14:55 86 18 30 08/26/17 14:00 73 17 145/44 98 Mechanical Ventilator 30 08/26/17 13:00 30 08/26/17 13:00 71 16 142/42 98 Mechanical Ventilator 30 08/26/17 12:36 93 18 30 08/26/17 12:00 98.8 70 16 144/42 98 Mechanical Ventilator 30 98.8 08/26/17 12:00 72 08/26/17 11:30 30 08/26/17 11:24 87 18 30 08/26/17 11:00 77 16 155/55 98 Mechanical Ventilator 30 08/26/17 10:00 68 16 160/49 98 Mechanical Ventilator 30 Intake and Output 08/26/17 08/27/17 19:00 07:00 Intake Total 830.0 ml 1890.0 ml Output Total 950 ml 1600 ml Balance -120.0 ml 290.0 ml IV Total 830.0 ml 1890.0 ml Output Urine Total 950 ml 1600 ml # Bowel Movements 3 4 General Appearance: no acute distress HEENT: normocephalic Respiratory/Chest: chest wall non-tender, lungs clear Cardiovascular: normal peripheral pulses Microbiology Date/Time Source Procedure Growth Status 08/24/17 18:30 Blood Blood Culture - Preliminary NO GROWTH AFTER 48 HOURS Resulted 08/24/17 17:30 Blood Blood Culture - Preliminary NO GROWTH AFTER 48 HOURS Resulted Laboratory Tests 08/26/17 10:50: Arterial Blood pH 7.480H, Arterial Blood Partial Pressure CO2 36.9, Arterial Blood Partial Pressure O2 59.4L, Arterial Blood HCO3 26.9H, Arterial Blood Oxygen Saturation 91.9L, Arterial Blood Base Excess 3.3, Chuy Test Positive 08/26/17 11:20: Troponin I 0.590H 08/26/17 16:00: Arterial Blood pH 7.510H, Arterial Blood Partial Pressure CO2 32.3L, Arterial Blood Partial Pressure O2 81.8, Arterial Blood HCO3 25.7, Arterial Blood Oxygen Saturation 96.1, Arterial Blood Base Excess 3.0, Chuy Test Positive 08/26/17 19:30: Vancomycin Level Trough 6.4 08/27/17 03:00: White Blood Count 16.1H, Red Blood Count 3.33L, Hemoglobin 10.4L, Hematocrit 29.5L, Mean Corpuscular Volume 89, Mean Corpuscular Hemoglobin 31.4H, Mean Corpuscular Hemoglobin Concent 35.4, Red Cell Distribution Width 14.6, Platelet Count 206, Mean Platelet Volume 7.2, Neutrophils (%) (Auto) 80.8H, Lymphocytes ( %) (Auto) 11.2L, Monocytes (%) (Auto) 7.1, Eosinophils (%) (Auto) 0.3, Basophils (%) (Auto) 0.6, Prothrombin Time 28.1H, Prothromb Time International Ratio 2.7H, Sodium Level 142, Potassium Level 3.2L, Chloride Level 105, Carbon Dioxide Level 31, Anion Gap 6, Blood Urea Nitrogen 12, Creatinine 0.8, Estimat Glomerular Filtration Rate , Glucose Level 116H, Calcium Level 8.3L, Total Bilirubin 2.7H, Direct Bilirubin 0.3, Aspartate Amino Transf (AST/SGOT) 116H, Alanine Aminotransferase (ALT/SGPT) 65, Alkaline Phosphatase 65, Total Protein 6.3L, Albumin 2.5L, Globulin 3.8, Albumin/Globulin Ratio 0.7L Current Medications Medications (Trade) Dose Ordered Sig/Chester Route PRN Reason Start Time Stop Time Status Last Admin Dose Admin Acetaminophen (Tylenol) 500 mg Q6H PRN RECTAL Mild Pain/Temp > 100.5 08/24/17 18:30 09/23/17 18:29 08/26/17 23:50 Chlorhexidine Gluconate (Caroline-Hex 2%) 1 applic DAILY@2000 TOPIC 08/25/17 20:00 09/24/17 19:59 08/26/17 20:22 Dextrose/Sodium Chloride 1,000 ml @ 60 mls/hr [id number] IV 08/24/17 04:45 09/23/17 04:44 08/26/17 22:24 Hydralazine HCl (Apresoline) 10 mg Q2H PRN IV SBP > 170 08/25/17 16:15 09/24/17 16:14 08/26/17 14:58 Iron Sucrose 100 mg/Sodium Chloride 60 ml @ 240 mls/hr BEDTIME IV 08/25/17 21:00 08/27/17 21:14 08/26/17 20:24 Pantoprazole (Protonix) 40 mg EVERY 12 HOURS IVP 08/27/17 09:00 09/23/17 08:59 08/27/17 08:08 Piperacillin Sod/ Tazobactam Sod 3.375 gm/Dextrose 110 ml @ 27.5 mls/hr EVERY 8 HOURS IVPB 08/24/17 22:00 08/29/17 23:59 08/27/17 05:39 Vancomycin HCl (Vanco rx to dose) 1 ea DAILY PRN MISC Per rx protocol 08/24/17 18:30 09/23/17 18:29 Vancomycin HCl 750 mg/Dextrose 275 ml @ 183.708 mls/hr Q12H IVPB 08/27/17 08:00 09/01/17 23:59 08/27/17 08:07 Toño Underwood MD Aug 27, 2017 09:41
--- NOTE | 2017-08-27 09:44 | Cardiac Electrophysiology PN ---
Assessment/Plan Assessment/Plan 1. Paroxysmal atrial fibrillation per records. In sinus rhythm. Was on Coumadin that was DCed Lower extremity Doppler showed no evidence of DVT. Keep off antihypertensives at this time. 2. Hypertension. Blood pressure was as high as 154/124. Better on prn hydralazine only 3. Elevated INR with significant bleeding The patient received 3 units of blood transfusion. Her INR on 08/24/2017 was 1.4 and currently it is 1.3. 4. Respiratory failure. The patient is on a ventilator to protect her airway.Extubation pending ENT clearance per Dr Underwood 5. Pneumonia, on IV antibiotic per Dr. Gonzalez. VENITA RN and Dr Underwood at bedside Subjective Subjective In ICU alert and responsive on the vent. Dr Underwood at bedside. Objective Last 24 Hour Vital Signs Date Time Temp Pulse Resp B/P (MAP) Pulse Ox O2 Delivery O2 Flow Rate FiO2 08/27/17 09:02 67 14 30 08/27/17 09:00 71 19 135/49 99 Mechanical Ventilator 30 08/27/17 08:00 98.7 81 18 148/47 97 Mechanical Ventilator 30 98.7 08/27/17 08:00 30 08/27/17 08:00 85 08/27/17 07:00 78 19 155/54 97 Mechanical Ventilator 30 08/27/17 06:40 80 15 30 08/27/17 06:00 71 19 136/40 97 Mechanical Ventilator 30 08/27/17 05:11 90 21 30 08/27/17 05:00 85 19 164/53 97 Mechanical Ventilator 30 08/27/17 04:00 88 08/27/17 04:00 30 08/27/17 04:00 99.1 85 19 164/53 97 Mechanical Ventilator 30 99.1 08/27/17 03:30 91 21 30 08/27/17 03:00 88 20 181/102 98 Mechanical Ventilator 30 08/27/17 02:00 80 18 158/50 98 Mechanical Ventilator 30 08/27/17 01:30 90 20 30 08/27/17 01:00 89 19 157/55 98 Mechanical Ventilator 30 08/27/17 00:20 99.5 08/27/17 00:00 74 08/27/17 00:00 99.5 85 17 145/56 98 Mechanical Ventilator 30 99.5 08/26/17 23:50 99.8 08/26/17 23:30 88 21 30 08/26/17 23:00 85 20 140/94 99 Mechanical Ventilator 30 08/26/17 22:00 90 18 164/61 99 Mechanical Ventilator 30 08/26/17 21:30 104 22 30 08/26/17 21:00 98 21 171/95 99 Mechanical Ventilator 30 08/26/17 20:00 99.8 97 18 164/61 98 Mechanical Ventilator 30 99.8 08/26/17 20:00 75 08/26/17 20:00 30 08/26/17 19:28 107 23 30 08/26/17 19:00 77 16 144/55 99 Mechanical Ventilator 30 08/26/17 18:00 76 17 143/53 99 Mechanical Ventilator 30 08/26/17 17:00 74 17 145/50 99 Mechanical Ventilator 30 08/26/17 16:57 125 18 30 08/26/17 16:00 80 08/26/17 16:00 98.6 80 17 156/55 98 Mechanical Ventilator 30 98.6 08/26/17 15:00 77 17 150/50 98 Mechanical Ventilator 30 08/26/17 14:58 173/85 08/26/17 14:55 86 18 30 08/26/17 14:00 73 17 145/44 98 Mechanical Ventilator 30 08/26/17 13:00 30 08/26/17 13:00 71 16 142/42 98 Mechanical Ventilator 30 08/26/17 12:36 93 18 30 08/26/17 12:00 98.8 70 16 144/42 98 Mechanical Ventilator 30 98.8 08/26/17 12:00 72 08/26/17 11:30 30 08/26/17 11:24 87 18 30 08/26/17 11:00 77 16 155/55 98 Mechanical Ventilator 30 08/26/17 10:00 68 16 160/49 98 Mechanical Ventilator 30 Intake and Output 08/26/17 08/27/17 19:00 07:00 Intake Total 830.0 ml 1890.0 ml Output Total 950 ml 1600 ml Balance -120.0 ml 290.0 ml IV Total 830.0 ml 1890.0 ml Output Urine Total 950 ml 1600 ml # Bowel Movements 3 4 Laboratory Tests Test 08/26/17 10:50 08/26/17 11:20 08/26/17 16:00 08/26/17 19:30 Arterial Blood pH 7.480 (7.350-7.450) 7.510 (7.350-7.450) Arterial Blood Partial Pressure CO2 36.9 mmHg (35.0-45.0) 32.3 mmHg (35.0-45.0) L Arterial Blood Partial Pressure O2 59.4 mmHg (75.0-100.0) L 81.8 mmHg (75.0-100.0) Arterial Blood HCO3 26.9 mmol/L (22.0-26.0) H 25.7 mmol/L (22.0-26.0) Arterial Blood Oxygen Saturation 91.9 % (92.0-98.0) L 96.1 % (92.0-98.0) Arterial Blood Base Excess 3.3 3.0 Chuy Test Positive Positive Troponin I 0.590 ng/mL (0.000-0.056) Vancomycin Level Trough 6.4 ug/mL (5.0-12.0) Test 08/27/17 03:00 White Blood Count 16.1 K/UL (4.8-10.8) H Red Blood Count 3.33 M/UL (4.20-5.40) L Hemoglobin 10.4 G/DL (12.0-16.0) L Hematocrit 29.5 % (37.0-47.0) L Mean Corpuscular Volume 89 FL (80-99) Mean Corpuscular Hemoglobin 31.4 PG (27.0-31.0) H Mean Corpuscular Hemoglobin Concent 35.4 G/DL (32.0-36.0) Red Cell Distribution Width 14.6 % (11.6-14.8) Platelet Count 206 K/UL (150-450) Mean Platelet Volume 7.2 FL (6.5-10.1) Neutrophils (%) (Auto) 80.8 % (45.0-75.0) H Lymphocytes (%) (Auto) 11.2 % (20.0-45.0) L Monocytes (%) (Auto) 7.1 % (1.0-10.0) Eosinophils (%) (Auto) 0.3 % (0.0-3.0) Basophils (%) (Auto) 0.6 % (0.0-2.0) Prothrombin Time 28.1 SEC (9.30-11.50) H Prothromb Time International Ratio 2.7 (0.9-1.1) H Sodium Level 142 MMOL/L (136-145) Potassium Level 3.2 MMOL/L (3.5-5.1) L Chloride Level 105 MMOL/L (98-107) Carbon Dioxide Level 31 MMOL/L (21-32) Anion Gap 6 mmol/L (5-15) Blood Urea Nitrogen 12 mg/dL (7-18) Creatinine 0.8 MG/DL (0.55-1.30) Estimat Glomerular Filtration Rate mL/min (>60) Glucose Level 116 MG/DL (74-106) H Calcium Level 8.3 MG/DL (8.5-10.1) L Total Bilirubin 2.7 MG/DL (0.2-1.0) H Direct Bilirubin 0.3 MG/DL (0.0-0.3) Aspartate Amino Transf (AST/SGOT) 116 U/L (15-37) H Alanine Aminotransferase (ALT/SGPT) 65 U/L (12-78) Alkaline Phosphatase 65 U/L (46-116) Total Protein 6.3 G/DL (6.4-8.2) L Albumin 2.5 G/DL (3.4-5.0) L Globulin 3.8 g/dL Albumin/Globulin Ratio 0.7 (1.0-2.7) L Microbiology Date/Time Source Procedure Growth Status 08/24/17 18:30 Blood Blood Culture - Preliminary NO GROWTH AFTER 48 HOURS Resulted 08/24/17 17:30 Blood Blood Culture - Preliminary NO GROWTH AFTER 48 HOURS Resulted Objective HEAD AND NECK: No JVD. Orally intubated.Ecchymosis on the tongue as well as her upper chest and submandibular area better. LUNGS: Coarse rhonchi. CVS: RRR. No G/R/M ABDOMEN: Obese. EXTREMITIES: 1+ pitting edema as well as significant ecchymosis in both arms. Hao Edmondson MD Aug 27, 2017 09:44
[2017-08-27] MEDS ORDERED: Potassium Chloride 40 MEQ in Sodium Chloride 500ML 550 ML IVPB ONE (12:00)
[2017-08-27] MEDS ORDERED: LORazepam Inj 2mg/ml 1ml IV PRN (13:30)
--- NOTE | 2017-08-27 13:40 | Infectious Diseases Prog Note ---
Assessment/Plan Problems: (1) HCAP (healthcare-associated pneumonia) Assessment & Plan: continue zosyn and vancomycin, empiric coverage , await sputum culture , monitor CXR (2) Cellulitis of neck Assessment & Plan: with no evidence of neck abcsess, continue zosyn empiric coverage , recommend ENT consult (3) Sepsis Assessment & Plan: with leukocytosis due to the above, on vancomycin and zosyn , pending blood culture (4) Acute respiratory failure Assessment & Plan: due to the above, intubated on mechanical ventilation, monitor ABG and CXR , consult timing machine operator (5) Fever Assessment & Plan: due to the above, continue wide spectrum antibiotics, and tylenol PRN (6) Coagulopathy Assessment & Plan: with diffuse bleeding , suspect due to Coumadin, on hold, transfused PRBC as needed, check DIC profile (7) 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 Assessment & Plan: with MSSA and Providencia rettgeri , recommend court usher consult and vascular study for further eval , already on vancomycin and zosyn Subjective Constitutional: Reports: no symptoms HEENT: Reports: no symptoms Respiratory: Reports: productive cough Breasts: Reports: no symptoms Cardiovascular: Reports: chest pain Gastrointestinal/Abdominal: Reports: no symptoms Genitourinary: Reports: no symptoms Neurologic: Reports: no symptoms Psychiatric: Reports: no symptoms Skin: Reports: no symptoms Endocrine: Reports: no symptoms Hematologic: Reports: no symptoms Musculoskeletal: Reports: no symptoms Allergies: Coded Allergies: IBUPROFEN (Verified Allergy, Unknown, 08/23/17) Subjective she is still intubated on mechanical ventilation, more awake and alert, responsive to verbal commands , no fever or chills , no diarrhea Objective Vital Signs Last 24 Hour Vital Signs Date Time Temp Pulse Resp B/P (MAP) Pulse Ox O2 Delivery O2 Flow Rate FiO2 08/27/17 12:50 124 28 30 08/27/17 12:00 80 08/27/17 12:00 98.5 78 17 163/52 98 T-piece 30 98.5 08/27/17 12:00 30 08/27/17 11:00 98 30 162/50 95 T-piece 30 08/27/17 11:00 30 08/27/17 10:15 97 08/27/17 10:00 76 20 151/57 97 Mechanical Ventilator 30 08/27/17 09:02 67 14 30 3/24/18 09:00 71 19 135/49 99 Mechanical Ventilator 30 08/27/17 08:00 98.7 81 18 148/47 97 Mechanical Ventilator 30 98.7 08/27/17 08:00 30 08/27/17 08:00 85 08/27/17 07:00 78 19 155/54 97 Mechanical Ventilator 30 08/27/17 06:40 80 15 30 08/27/17 06:00 71 19 136/40 97 Mechanical Ventilator 30 08/27/17 05:11 90 21 30 08/27/17 05:00 85 19 164/53 97 Mechanical Ventilator 30 08/27/17 04:00 88 08/27/17 04:00 30 08/27/17 04:00 99.1 85 19 164/53 97 Mechanical Ventilator 30 99.1 08/27/17 03:30 91 21 30 08/27/17 03:00 88 20 181/102 98 Mechanical Ventilator 30 08/27/17 02:00 80 18 158/50 98 Mechanical Ventilator 30 08/27/17 01:30 90 20 30 08/27/17 01:00 89 19 157/55 98 Mechanical Ventilator 30 08/27/17 00:20 99.5 08/27/17 00:00 74 08/27/17 00:00 99.5 85 17 145/56 98 Mechanical Ventilator 30 99.5 08/26/17 23:50 99.8 08/26/17 23:30 88 21 30 08/26/17 23:00 85 20 140/94 99 Mechanical Ventilator 30 08/26/17 22:00 90 18 164/61 99 Mechanical Ventilator 30 08/26/17 21:30 104 22 30 08/26/17 21:00 98 21 171/95 99 Mechanical Ventilator 30 08/26/17 20:00 99.8 97 18 164/61 98 Mechanical Ventilator 30 99.8 08/26/17 20:00 75 08/26/17 20:00 30 08/26/17 19:28 107 23 30 08/26/17 19:00 77 16 144/55 99 Mechanical Ventilator 30 08/26/17 18:00 76 17 143/53 99 Mechanical Ventilator 30 08/26/17 17:00 74 17 145/50 99 Mechanical Ventilator 30 08/26/17 16:57 125 18 30 08/26/17 16:00 80 08/26/17 16:00 98.6 80 17 156/55 98 Mechanical Ventilator 30 98.6 08/26/17 15:00 77 17 150/50 98 Mechanical Ventilator 30 08/26/17 14:58 173/85 08/26/17 14:55 86 18 30 08/26/17 14:00 73 17 145/44 98 Mechanical Ventilator 30 Height (Feet): 5 Height (Inches): 2.00 Weight (Pounds): 168 General Appearance: WD/WN, no acute distress HEENT: normocephalic, atraumatic, anicteric, mucous membranes moist, PERRL Respiratory/Chest: chest wall non-tender, no respiratory distress, no accessory muscle use, decreased breath sounds, crackles/rales Cardiovascular: normal peripheral pulses, normal rate, regular rhythm, no gallop/murmur, no JVD Abdomen: normal bowel sounds, soft, non tender, no organomegaly, non distended , no mass, no scars Extremities: no cyanosis, no clubbing Skin: no rash, no lesions, no ulcers Neurologic/Psychiatric: alert, oriented x 3, responsive Lymphatic: no neck adenopathy, no groin adenopathy Musculoskeletal: normal muscle bulk Microbiology Date/Time Source Procedure Growth Status 08/24/17 18:30 Blood Blood Culture - Preliminary NO GROWTH AFTER 48 HOURS Resulted 08/24/17 17:30 Blood Blood Culture - Preliminary NO GROWTH AFTER 48 HOURS Resulted Laboratory Tests Test 08/26/17 16:00 08/26/17 19:30 08/27/17 03:00 08/27/17 11:44 Arterial Blood pH 7.510 (7.350-7.450) 7.450 (7.350-7.450) Arterial Blood Partial Pressure CO2 32.3 mmHg (35.0-45.0) L 35.5 mmHg (35.0-45.0) Arterial Blood Partial Pressure O2 81.8 mmHg (75.0-100.0) 70.9 mmHg (75.0-100.0) L Arterial Blood HCO3 25.7 mmol/L (22.0-26.0) 24.3 mmol/L (22.0-26.0) Arterial Blood Oxygen Saturation 96.1 % (92.0-98.0) 94.7 % (92.0-98.0) Arterial Blood Base Excess 3.0 0.7 Chuy Test Positive Positive Vancomycin Level Trough 6.4 ug/mL (5.0-12.0) White Blood Count 16.1 K/UL (4.8-10.8) H Red Blood Count 3.33 M/UL (4.20-5.40) L Hemoglobin 10.4 G/DL (12.0-16.0) L Hematocrit 29.5 % (37.0-47.0) L Mean Corpuscular Volume 89 FL (80-99) Mean Corpuscular Hemoglobin 31.4 PG (27.0-31.0) H Mean Corpuscular Hemoglobin Concent 35.4 G/DL (32.0-36.0) Red Cell Distribution Width 14.6 % (11.6-14.8) Platelet Count 206 K/UL (150-450) Mean Platelet Volume 7.2 FL (6.5-10.1) Neutrophils (%) (Auto) 80.8 % (45.0-75.0) H Lymphocytes (%) (Auto) 11.2 % (20.0-45.0) L Monocytes (%) (Auto) 7.1 % (1.0-10.0) Eosinophils (%) (Auto) 0.3 % (0.0-3.0) Basophils (%) (Auto) 0.6 % (0.0-2.0) Prothrombin Time 28.1 SEC (9.30-11.50) H Prothromb Time International Ratio 2.7 (0.9-1.1) H Sodium Level 142 MMOL/L (136-145) Potassium Level 3.2 MMOL/L (3.5-5.1) L Chloride Level 105 MMOL/L (98-107) Carbon Dioxide Level 31 MMOL/L (21-32) Anion Gap 6 mmol/L (5-15) Blood Urea Nitrogen 12 mg/dL (7-18) Creatinine 0.8 MG/DL (0.55-1.30) Estimat Glomerular Filtration Rate mL/min (>60) Glucose Level 116 MG/DL (74-106) H Calcium Level 8.3 MG/DL (8.5-10.1) L Total Bilirubin 2.7 MG/DL (0.2-1.0) H Direct Bilirubin 0.3 MG/DL (0.0-0.3) Aspartate Amino Transf (AST/SGOT) 116 U/L (15-37) H Alanine Aminotransferase (ALT/SGPT) 65 U/L (12-78) Alkaline Phosphatase 65 U/L (46-116) Total Protein 6.3 G/DL (6.4-8.2) L Albumin 2.5 G/DL (3.4-5.0) L Globulin 3.8 g/dL Albumin/Globulin Ratio 0.7 (1.0-2.7) L Current Medications Medications (Trade) Dose Ordered Sig/Chester Route PRN Reason Start Time Stop Time Status Last Admin Dose Admin Acetaminophen (Tylenol) 500 mg Q6H PRN RECTAL Mild Pain/Temp > 100.5 08/24/17 18:30 09/23/17 18:29 08/26/17 23:50 Chlorhexidine Gluconate (Caroline-Hex 2%) 1 applic DAILY@2000 TOPIC 08/25/17 20:00 09/24/17 19:59 08/26/17 20:22 Dextrose/Sodium Chloride 1,000 ml @ 60 mls/hr [id number] IV 08/24/17 04:45 09/23/17 04:44 08/26/17 22:24 Hydralazine HCl (Apresoline) 10 mg Q2H PRN IV SBP > 170 08/25/17 16:15 09/24/17 16:14 08/26/17 14:58 Iron Sucrose 100 mg/Sodium Chloride 115 ml @ 460 mls/hr BEDTIME IV 08/27/17 21:00 08/27/17 21:14 Lorazepam (Ativan 2mg/ml 1ml) 0.5 mg Q6H PRN IV For Anxiety 08/27/17 13:30 09/03/17 13:29 Pantoprazole (Protonix) 40 mg EVERY 12 HOURS IVP 08/27/17 09:00 09/23/17 08:59 08/27/17 08:08 Piperacillin Sod/ Tazobactam Sod 3.375 gm/Dextrose 110 ml @ 27.5 mls/hr EVERY 8 HOURS IVPB 08/24/17 22:00 08/29/17 23:59 08/27/17 05:39 Potassium Chloride 40 meq/ Sodium Chloride 570 ml @ 285 mls/hr ONCE ONCE IVPB 08/27/17 12:00 08/27/17 13:59 08/27/17 12:39 Vancomycin HCl (Vanco rx to dose) 1 ea DAILY PRN MISC Per rx protocol 08/24/17 18:30 09/23/17 18:29 Vancomycin HCl 750 mg/Dextrose 275 ml @ 183.708 mls/hr Q12H IVPB 08/27/17 08:00 09/01/17 23:59 08/27/17 08:07 Noni Gonzalez M.D. Aug 27, 2017 13:40
[2017-08-27] MEDS: D5NS 1,000 ML IV SCH (15:33)
--- NOTE | 2017-08-27 18:48 | General Progress Note ---
Assessment/Plan Assessment/Plan Assessment - GI Bleed - Resp failure - Anemia - neck ecchymosis Recommendations - Vent care - monitor labs - correct INR - vitamin K 5 mg - endoscopy Tuesday - PPI Subjective Allergies: Coded Allergies: IBUPROFEN (Verified Allergy, Unknown, 08/23/17) Subjective Seen in ICU intubated, awake d/w RN (+) dark stools Objective Last 24 Hour Vital Signs Date Time Temp Pulse Resp B/P (MAP) Pulse Ox O2 Delivery O2 Flow Rate FiO2 08/27/17 17:02 91 21 30 08/27/17 17:00 84 18 119/54 97 Mechanical Ventilator 30 08/27/17 16:00 98.2 85 20 100/80 99 Mechanical Ventilator 30 98.2 08/27/17 16:00 79 08/27/17 15:00 82 18 138/48 99 Mechanical Ventilator 30 08/27/17 14:45 79 18 30 08/27/17 14:00 30 08/27/17 14:00 82 18 137/55 96 Mechanical Ventilator 30 08/27/17 13:00 98 30 145/50 95 T-piece 30 08/27/17 12:50 124 28 30 08/27/17 12:00 80 08/27/17 12:00 98.5 78 17 163/52 98 T-piece 30 98.5 08/27/17 12:00 30 08/27/17 11:00 98 30 162/50 95 T-piece 30 08/27/17 11:00 30 08/27/17 10:15 97 08/27/17 10:00 76 20 151/57 97 Mechanical Ventilator 30 08/27/17 09:02 67 14 30 08/27/17 09:00 71 19 135/49 99 Mechanical Ventilator 30 08/27/17 08:00 98.7 81 18 148/47 97 Mechanical Ventilator 30 98.7 08/27/17 08:00 30 08/27/17 08:00 85 08/27/17 07:00 78 19 155/54 97 Mechanical Ventilator 30 08/27/17 06:40 80 15 30 08/27/17 06:00 71 19 136/40 97 Mechanical Ventilator 30 08/27/17 05:11 90 21 30 08/27/17 05:00 85 19 164/53 97 Mechanical Ventilator 30 08/27/17 04:00 88 3/24/18 04:00 30 08/27/17 04:00 99.1 85 19 164/53 97 Mechanical Ventilator 30 99.1 08/27/17 03:30 91 21 30 08/27/17 03:00 88 20 181/102 98 Mechanical Ventilator 30 08/27/17 02:00 80 18 158/50 98 Mechanical Ventilator 30 08/27/17 01:30 90 20 30 08/27/17 01:00 89 19 157/55 98 Mechanical Ventilator 30 08/27/17 00:20 99.5 08/27/17 00:00 74 08/27/17 00:00 99.5 85 17 145/56 98 Mechanical Ventilator 30 99.5 08/26/17 23:50 99.8 08/26/17 23:30 88 21 30 08/26/17 23:00 85 20 140/94 99 Mechanical Ventilator 30 08/26/17 22:00 90 18 164/61 99 Mechanical Ventilator 30 08/26/17 21:30 104 22 30 08/26/17 21:00 98 21 171/95 99 Mechanical Ventilator 30 08/26/17 20:00 99.8 97 18 164/61 98 Mechanical Ventilator 30 99.8 08/26/17 20:00 75 08/26/17 20:00 30 08/26/17 19:28 107 23 30 08/26/17 19:00 77 16 144/55 99 Mechanical Ventilator 30 Intake and Output 08/26/17 08/27/17 19:00 07:00 Intake Total 830.0 ml 1890.0 ml Output Total 950 ml 1600 ml Balance -120.0 ml 290.0 ml IV Total 830.0 ml 1890.0 ml Output Urine Total 950 ml 1600 ml # Bowel Movements 3 4 Laboratory Tests 08/26/17 19:30: Vancomycin Level Trough 6.4 08/27/17 03:00: White Blood Count 16.1H, Red Blood Count 3.33L, Hemoglobin 10.4L, Hematocrit 29.5L, Mean Corpuscular Volume 89, Mean Corpuscular Hemoglobin 31.4H, Mean Corpuscular Hemoglobin Concent 35.4, Red Cell Distribution Width 14.6, Platelet Count 206, Mean Platelet Volume 7.2, Neutrophils (%) (Auto) 80.8H, Lymphocytes ( %) (Auto) 11.2L, Monocytes (%) (Auto) 7.1, Eosinophils (%) (Auto) 0.3, Basophils (%) (Auto) 0.6, Prothrombin Time 28.1H, Prothromb Time International Ratio 2.7H, Sodium Level 142, Potassium Level 3.2L, Chloride Level 105, Carbon Dioxide Level 31, Anion Gap 6, Blood Urea Nitrogen 12, Creatinine 0.8, Estimat Glomerular Filtration Rate , Glucose Level 116H, Calcium Level 8.3L, Total Bilirubin 2.7H, Direct Bilirubin 0.3, Aspartate Amino Transf (AST/SGOT) 116H, Alanine Aminotransferase (ALT/SGPT) 65, Alkaline Phosphatase 65, Total Protein 6.3L, Albumin 2.5L, Globulin 3.8, Albumin/Globulin Ratio 0.7L 08/27/17 11:44: Arterial Blood pH 7.450, Arterial Blood Partial Pressure CO2 35.5, Arterial Blood Partial Pressure O2 70.9L, Arterial Blood HCO3 24.3, Arterial Blood Oxygen Saturation 94.7, Arterial Blood Base Excess 0.7, Chuy Test Positive Height (Feet): 5 Height (Inches): 2.00 Weight (Pounds): 168 Objective Obese woman NCAT Neck (+) ecchymosis CTA RRR abd soft no edema EDU NUR Aug 27, 2017 18:48
[2017-08-27] MEDS ORDERED: Phytonadione 5 MG in D5W 55 ML IVPB ONE (19:45)
[2017-08-27] MEDS ORDERED: Phytonadione 10 mg/mL 1ml amp SUBQ ONE (19:45)
[2017-08-27] MEDS: Dyna-Hex 2% Top Sol 2oz TOPIC SCH (20:14)
[2017-08-27] MEDS: Vancomycin 750mg/NS 250ml IVPB SCH (20:15)
[2017-08-27] MEDS ORDERED: Iron Sucrose 100 MG in NS 110 ML IV SCH (21:00)
--- NOTE | 2017-08-27 22:10 | General Progress Note ---
Assessment/Plan Assessment/Plan 1. Anemia, potentially secondary to gastrointestinal bleed. --> The patient has been on Coumadin with coagulopathy, therefore exacerbating any potential bleed. Coumadin has since been discontinued. --> Continue to closely monitor. --> Anemia workup reviewed. --> Iron 26, TIBC 228, Ferritin 50, B12 377, Folate 11.9, TSH 0.4 --> Transfuse if hgb <7 2. Anemia of iron deficiency. Continue iron for five days. --> Dark stool found. ++Occult blood --> Monitor closely 3. Coagulopathy due to Coumadin use in the past. --> It has since been discontinued. --> Coumadin currently on hold. INR goal less than 1 at this moment. 4. Respiratory failure, status post intubation. Currently intubated. --> Give epinephrine as needed. 6. Bilateral pneumonia. She is on broad-spectrum antibiotics. 7. Gastroesophageal reflux disease, on antacids as needed. 8. Subcutaneous bruising, likely due to Coumadin. Subjective Date patient seen: Aug 26, 2017 Constitutional: Denies: no symptoms, chills, diaphoresis, fever, malaise, weakness, other HEENT: Denies: no symptoms, eye pain, blurred vision, tearing, double vision, ear pain, ear discharge, nose pain, nose congestion, throat pain, throat swelling, mouth pain, mouth swelling, other Cardiovascular: Denies: no symptoms, chest pain, edema, irregular heart rate, lightheadedness, palpitations, syncope, other Respiratory: Denies: no symptoms, cough, orthopnea, shortness of breath, SOB with excertion, SOB at rest, sputum, stridor, wheezing, other Gastrointestinal/Abdominal: Denies: no symptoms, abdomen distended, abdominal pain, black stools, tarry stools, blood in stool, constipated, diarrhea, difficulty swallowing, nausea, poor appetite, poor fluid intake, rectal bleeding , vomiting, other Genitourinary: Denies: no symptoms, burning, discharge, frequency, flank pain, hematuria, incontinence, pain, urgency, other Neurologic/Psychiatric: Denies: no symptoms, anxiety, depressed, emotional problems, headache, numbness, paresthesia, pre-existing deficit, seizure, tingling, tremors, weakness, other Hematologic/Lymphatic: Reports: anemia Allergies: Coded Allergies: IBUPROFEN (Verified Allergy, Unknown, 08/23/17) Subjective Intubated. Resting in ICU. Dark stool found. On vancomycin Objective Last 24 Hour Vital Signs Date Time Temp Pulse Resp B/P (MAP) Pulse Ox O2 Delivery O2 Flow Rate FiO2 08/27/17 21:30 79 13 30 08/27/17 20:00 30 08/27/17 19:30 81 20 30 08/27/17 19:00 75 18 140/47 100 Mechanical Ventilator 30 08/27/17 18:00 86 18 131/49 98 Mechanical Ventilator 30 08/27/17 17:02 91 21 30 08/27/17 17:00 84 18 119/54 97 Mechanical Ventilator 30 08/27/17 16:00 98.2 85 20 100/80 99 Mechanical Ventilator 30 98.2 08/27/17 16:00 79 08/27/17 15:00 82 18 138/48 99 Mechanical Ventilator 30 08/27/17 14:45 79 18 30 08/27/17 14:00 30 08/27/17 14:00 82 18 137/55 96 Mechanical Ventilator 30 08/27/17 13:00 98 30 145/50 95 T-piece 30 08/27/17 12:50 124 28 30 08/27/17 12:00 80 08/27/17 12:00 98.5 78 17 163/52 98 T-piece 30 98.5 08/27/17 12:00 30 08/27/17 11:00 98 30 162/50 95 T-piece 30 08/27/17 11:00 30 08/27/17 10:15 97 08/27/17 10:00 76 20 151/57 97 Mechanical Ventilator 30 08/27/17 09:02 67 14 30 08/27/17 09:00 71 19 135/49 99 Mechanical Ventilator 30 08/27/17 08:00 98.7 81 18 148/47 97 Mechanical Ventilator 30 98.7 08/27/17 08:00 30 08/27/17 08:00 85 08/27/17 07:00 78 19 155/54 97 Mechanical Ventilator 30 08/27/17 06:40 80 15 30 08/27/17 06:00 71 19 136/40 97 Mechanical Ventilator 30 08/27/17 05:11 90 21 30 08/27/17 05:00 85 19 164/53 97 Mechanical Ventilator 30 08/27/17 04:00 88 08/27/17 04:00 30 08/27/17 04:00 99.1 85 19 164/53 97 Mechanical Ventilator 30 99.1 08/27/17 03:30 91 21 30 08/27/17 03:00 88 20 181/102 98 Mechanical Ventilator 30 08/27/17 02:00 80 18 158/50 98 Mechanical Ventilator 30 08/27/17 01:30 90 20 30 08/27/17 01:00 89 19 157/55 98 Mechanical Ventilator 30 08/27/17 00:20 99.5 08/27/17 00:00 74 08/27/17 00:00 99.5 85 17 145/56 98 Mechanical Ventilator 30 99.5 08/26/17 23:50 99.8 08/26/17 23:30 88 21 30 08/26/17 23:00 85 20 140/94 99 Mechanical Ventilator 30 Intake and Output 08/26/17 08/27/17 19:00 07:00 Intake Total 830.0 ml 1890.0 ml Output Total 950 ml 1600 ml Balance -120.0 ml 290.0 ml IV Total 830.0 ml 1890.0 ml Output Urine Total 950 ml 1600 ml # Bowel Movements 3 4 Laboratory Tests 08/27/17 03:00: White Blood Count 16.1H, Red Blood Count 3.33L, Hemoglobin 10.4L, Hematocrit 29.5L, Mean Corpuscular Volume 89, Mean Corpuscular Hemoglobin 31.4H, Mean Corpuscular Hemoglobin Concent 35.4, Red Cell Distribution Width 14.6, Platelet Count 206, Mean Platelet Volume 7.2, Neutrophils (%) (Auto) 80.8H, Lymphocytes ( %) (Auto) 11.2L, Monocytes (%) (Auto) 7.1, Eosinophils (%) (Auto) 0.3, Basophils (%) (Auto) 0.6, Prothrombin Time 28.1H, Prothromb Time International Ratio 2.7H, Sodium Level 142, Potassium Level 3.2L, Chloride Level 105, Carbon Dioxide Level 31, Anion Gap 6, Blood Urea Nitrogen 12, Creatinine 0.8, Estimat Glomerular Filtration Rate , Glucose Level 116H, Calcium Level 8.3L, Total Bilirubin 2.7H, Direct Bilirubin 0.3, Aspartate Amino Transf (AST/SGOT) 116H, Alanine Aminotransferase (ALT/SGPT) 65, Alkaline Phosphatase 65, Total Protein 6.3L, Albumin 2.5L, Globulin 3.8, Albumin/Globulin Ratio 0.7L 08/27/17 11:44: Arterial Blood pH 7.450, Arterial Blood Partial Pressure CO2 35.5, Arterial Blood Partial Pressure O2 70.9L, Arterial Blood HCO3 24.3, Arterial Blood Oxygen Saturation 94.7, Arterial Blood Base Excess 0.7, Chuy Test Positive Height (Feet): 5 Height (Inches): 2.00 Weight (Pounds): 168 General Appearance: confused Respiratory/Chest: decreased breath sounds Abdomen: soft Cristiano Roberts MD Aug 27, 2017 22:10
--- NOTE | 2017-08-27 22:12 | General Progress Note ---
Assessment/Plan Assessment/Plan 1. Anemia, potentially secondary to gastrointestinal bleed. --> The patient has been on Coumadin with coagulopathy, therefore exacerbating any potential bleed. Coumadin has since been discontinued. --> Continue to closely monitor. --> Anemia workup reviewed. --> Iron 26, TIBC 228, Ferritin 50, B12 377, Folate 11.9, TSH 0.4 --> Transfuse if hgb <7 --> Hemoglobin levels have improved. 2. Anemia of iron deficiency. Continue iron for five days. --> Dark stool found. ++Occult blood. Consider GI recs. --> Monitor closely --> Blood transfusion not required unless symptomatic or hgb below goal. 3. Coagulopathy due to Coumadin use in the past. --> It has since been discontinued. --> Coumadin currently on hold. INR goal less than 1 at this moment. 4. Respiratory failure, status post intubation. Currently intubated. --> Give epinephrine as needed. 6. Bilateral pneumonia. She is on broad-spectrum antibiotics. 7. Gastroesophageal reflux disease, on antacids as needed. 8. Subcutaneous bruising, likely due to Coumadin. Subjective Date patient seen: Aug 27, 2017 Constitutional: Denies: no symptoms, chills, diaphoresis, fever, malaise, weakness, other HEENT: Denies: no symptoms, eye pain, blurred vision, tearing, double vision, ear pain, ear discharge, nose pain, nose congestion, throat pain, throat swelling, mouth pain, mouth swelling, other Cardiovascular: Denies: no symptoms, chest pain, edema, irregular heart rate, lightheadedness, palpitations, syncope, other Respiratory: Denies: no symptoms, cough, orthopnea, shortness of breath, SOB with excertion, SOB at rest, sputum, stridor, wheezing, other Gastrointestinal/Abdominal: Denies: no symptoms, abdomen distended, abdominal pain, black stools, tarry stools, blood in stool, constipated, diarrhea, difficulty swallowing, nausea, poor appetite, poor fluid intake, rectal bleeding , vomiting, other Genitourinary: Denies: no symptoms, burning, discharge, frequency, flank pain, hematuria, incontinence, pain, urgency, other Neurologic/Psychiatric: Denies: no symptoms, anxiety, depressed, emotional problems, headache, numbness, paresthesia, pre-existing deficit, seizure, tingling, tremors, weakness, other Hematologic/Lymphatic: Reports: anemia Allergies: Coded Allergies: IBUPROFEN (Verified Allergy, Unknown, 08/23/17) Subjective Intubated. Hemoglobin improved. ++Occult blood. On vancomycin Objective Last 24 Hour Vital Signs Date Time Temp Pulse Resp B/P (MAP) Pulse Ox O2 Delivery O2 Flow Rate FiO2 08/27/17 21:30 79 13 30 08/27/17 20:00 30 08/27/17 19:30 81 20 30 08/27/17 19:00 75 18 140/47 100 Mechanical Ventilator 30 08/27/17 18:00 86 18 131/49 98 Mechanical Ventilator 30 08/27/17 17:02 91 21 30 08/27/17 17:00 84 18 119/54 97 Mechanical Ventilator 30 08/27/17 16:00 98.2 85 20 100/80 99 Mechanical Ventilator 30 98.2 08/27/17 16:00 79 08/27/17 15:00 82 18 138/48 99 Mechanical Ventilator 30 08/27/17 14:45 79 18 30 08/27/17 14:00 30 08/27/17 14:00 82 18 137/55 96 Mechanical Ventilator 30 08/27/17 13:00 98 30 145/50 95 T-piece 30 08/27/17 12:50 124 28 30 08/27/17 12:00 80 08/27/17 12:00 98.5 78 17 163/52 98 T-piece 30 98.5 08/27/17 12:00 30 08/27/17 11:00 98 30 162/50 95 T-piece 30 08/27/17 11:00 30 08/27/17 10:15 97 08/27/17 10:00 76 20 151/57 97 Mechanical Ventilator 30 08/27/17 09:02 67 14 30 08/27/17 09:00 71 19 135/49 99 Mechanical Ventilator 30 08/27/17 08:00 98.7 81 18 148/47 97 Mechanical Ventilator 30 98.7 08/27/17 08:00 30 08/27/17 08:00 85 08/27/17 07:00 78 19 155/54 97 Mechanical Ventilator 30 08/27/17 06:40 80 15 30 08/27/17 06:00 71 19 136/40 97 Mechanical Ventilator 30 08/27/17 05:11 90 21 30 08/27/17 05:00 85 19 164/53 97 Mechanical Ventilator 30 08/27/17 04:00 88 08/27/17 04:00 30 08/27/17 04:00 99.1 85 19 164/53 97 Mechanical Ventilator 30 99.1 08/27/17 03:30 91 21 30 08/27/17 03:00 88 20 181/102 98 Mechanical Ventilator 30 08/27/17 02:00 80 18 158/50 98 Mechanical Ventilator 30 08/27/17 01:30 90 20 30 08/27/17 01:00 89 19 157/55 98 Mechanical Ventilator 30 08/27/17 00:20 99.5 08/27/17 00:00 74 08/27/17 00:00 99.5 85 17 145/56 98 Mechanical Ventilator 30 99.5 08/26/17 23:50 99.8 08/26/17 23:30 88 21 30 08/26/17 23:00 85 20 140/94 99 Mechanical Ventilator 30 Intake and Output 08/26/17 08/27/17 19:00 07:00 Intake Total 830.0 ml 1890.0 ml Output Total 950 ml 1600 ml Balance -120.0 ml 290.0 ml IV Total 830.0 ml 1890.0 ml Output Urine Total 950 ml 1600 ml # Bowel Movements 3 4 Laboratory Tests 08/27/17 03:00: White Blood Count 16.1H, Red Blood Count 3.33L, Hemoglobin 10.4L, Hematocrit 29.5L, Mean Corpuscular Volume 89, Mean Corpuscular Hemoglobin 31.4H, Mean Corpuscular Hemoglobin Concent 35.4, Red Cell Distribution Width 14.6, Platelet Count 206, Mean Platelet Volume 7.2, Neutrophils (%) (Auto) 80.8H, Lymphocytes ( %) (Auto) 11.2L, Monocytes (%) (Auto) 7.1, Eosinophils (%) (Auto) 0.3, Basophils (%) (Auto) 0.6, Prothrombin Time 28.1H, Prothromb Time International Ratio 2.7H, Sodium Level 142, Potassium Level 3.2L, Chloride Level 105, Carbon Dioxide Level 31, Anion Gap 6, Blood Urea Nitrogen 12, Creatinine 0.8, Estimat Glomerular Filtration Rate , Glucose Level 116H, Calcium Level 8.3L, Total Bilirubin 2.7H, Direct Bilirubin 0.3, Aspartate Amino Transf (AST/SGOT) 116H, Alanine Aminotransferase (ALT/SGPT) 65, Alkaline Phosphatase 65, Total Protein 6.3L, Albumin 2.5L, Globulin 3.8, Albumin/Globulin Ratio 0.7L 08/27/17 11:44: Arterial Blood pH 7.450, Arterial Blood Partial Pressure CO2 35.5, Arterial Blood Partial Pressure O2 70.9L, Arterial Blood HCO3 24.3, Arterial Blood Oxygen Saturation 94.7, Arterial Blood Base Excess 0.7, Chuy Test Positive Height (Feet): 5 Height (Inches): 2.00 Weight (Pounds): 168 General Appearance: confused Respiratory/Chest: decreased breath sounds Edema: trace edema Cristiano Roberts MD Aug 27, 2017 22:12
[2017-08-28] VITALS (24 sets, daily range): BP systolic 124–195; BP diastolic 44–100
--- NOTE | 2017-08-28 04:30 | Progress Note ---
DATE: 08/27/2017 SUBJECTIVE: This is an 82-year-old female, who came to the emergency room for acute epiglottis. The patient is currently in the ICU. Slowly improving now. OBJECTIVE: GENERAL: This is an elderly female, who is currently awake. VITAL SIGNS: Blood pressure is 132/90, pulse 68, and respirations 18. No fever. SKIN: Good skin turgor. CHEST: Bilaterally few crackles. CARDIOVASCULAR: Regular rhythm. No gallop. No murmur. ABDOMEN: Soft. EXTREMITIES: No swelling. GENITOURINARY: Deferred. ASSESSMENT: 1. Epiglottis. 2. Pneumonia. 3. Sepsis. 4. Generalized weakness. PLAN: We will currently continue antibiotics and bronchodilator treatment. Continue supportive treatment. Vik Maria M.D. DR: SALOME JOB#: [id number] CC:
[2017-08-28 05:20] LABS: BASOPHILS % (AUTO) 0.4 % (0.0-2.0); HEMATOCRIT 26.7 % (37.0-47.0); HEMOGLOBIN 9.5 G/DL (12.0-16.0); LYMPHOCYTES % (AUTO) 11.7 % (20.0-45.0); MEAN CORPUSCULAR VOLUME 89 FL (80-99); MONOCYTES % (AUTO) 8.8 % (1.0-10.0); NEUTROPHILS % (AUTO) 77.2 % (45.0-75.0); PLATELET COUNT 200 K/UL (150-450); RED CELL DISTRIBUTION WIDTH 14.8 % (11.6-14.8); WHITE BLOOD COUNT 13.1 K/UL (4.8-10.8)
[2017-08-28 05:50] LABS: ALANINE AMINOTRANSFERASE 60 U/L (12-78); ALBUMIN 2.2 G/DL (3.4-5.0); ALBUMIN/GLOBULIN RATIO 0.6 (1.0-2.7); ALKALINE PHOSPHATASE 55 U/L (46-116); ANION GAP 8 mmol/L (5-15); ASPARTATE AMINO TRANSFERASE 73 U/L (15-37); BILIRUBIN,TOTAL 2.4 MG/DL (0.2-1.0); BLOOD UREA NITROGEN 9 mg/dL (7-18); CALCIUM 7.7 MG/DL (8.5-10.1); CARBON DIOXIDE 28 MMOL/L (21-32); CHLORIDE 105 MMOL/L (98-107); CREATININE 0.8 MG/DL (0.55-1.30); POTASSIUM 2.8 MMOL/L (3.5-5.1); SODIUM 141 MMOL/L (136-145)
[2017-08-28] MEDS: Piperacillin/Tazobactam 3.375 GM in D5W 110 ML IVPB SCH ×3 (06:07→21:08)
[2017-08-28 06:52] LABS: BILIRUBIN,DIRECT 0.4 MG/DL (0.0-0.3)
[2017-08-28] MEDS: Vancomycin 750mg/NS 250ml IVPB SCH ×2 (08:05→21:06)
--- NOTE | 2017-08-28 09:33 | Diagnostic Imaging Report ---
Indication: Abnormal chest sounds Technique: XRAY Chest 1v Comparison: 08/26/2017 Findings: Endotracheal tube is present with tip again at the level of the clavicles. Cardiac mediastinal silhouette is stable. Mild bilateral interstitial opacities are again seen. Osseous structures are stable. Atherosclerotic changes are seen. Impression: Grossly stable appearance from 08/26/2017 as above.
--- NOTE | 2017-08-28 09:42 | Pulmonology Progress Note ---
Assessment/Plan Assessment/Plan 1. Soft tissue swelling in the neck area with compromised airway. Resolved 2. Respiratory failure with airway compromise. Now extubated. 3. Marked subcutaneous bruising. Improving. 4. Coumadin use. 5. Hypertension. 6. GERD. 7. jail resident. 8. Anemia. 9. Leukocytosis. DISCUSSION: I am unclear as to the etiology of her compromised airway. I suspect she had bleeding in the neck area, possibly due to trauma due to CPAP in the presence of Coumadin. She is awake and responsive. Bedisde bronchoscopy done Airwyas clear CXR clear this Am Cuff deflated; pt able to phonate Sao2 100 on t tube Will extubate Subjective Interval Events: Extubated today after bedisde bronchoscopy Constitutional: Reports: no symptoms HEENT: Repors: no symptoms Respiratory: Reports: no symptoms Cardiovascular: Reports: no symptoms Gastrointestinal/Abdominal: Reports: no symptoms Genitourinary: Reports: no symptoms Allergies: Coded Allergies: IBUPROFEN (Verified Allergy, Unknown, 08/23/17) Objective Last 24 Hour Vital Signs Date Time Temp Pulse Resp B/P (MAP) Pulse Ox O2 Delivery O2 Flow Rate FiO2 08/28/17 09:14 98 08/28/17 08:00 89 15 164/57 97 T-piece 35 08/28/17 08:00 85 08/28/17 08:00 35 08/28/17 07:24 97 T-piece 10.0 35 08/28/17 07:23 T-piece 10.0 35 08/28/17 07:18 66 13 30 08/28/17 07:00 98.8 86 20 161/55 97 Mechanical Ventilator 30 98.8 08/28/17 06:00 83 15 159/50 99 Mechanical Ventilator 30 08/28/17 05:16 78 15 30 08/28/17 05:00 76 15 169/74 99 Mechanical Ventilator 30 08/28/17 04:00 98.3 80 14 172/58 98 Mechanical Ventilator 30 98.3 08/28/17 04:00 99 08/28/17 04:00 30 08/28/17 03:30 86 19 30 08/28/17 03:00 75 15 168/58 99 Mechanical Ventilator 30 08/28/17 02:00 74 13 172/64 99 Mechanical Ventilator 30 08/28/17 01:30 88 21 30 08/28/17 01:00 64 13 161/52 99 Mechanical Ventilator 30 08/28/17 00:00 98.1 67 14 162/62 98 Mechanical Ventilator 30 98.1 08/28/17 00:00 30 08/28/17 00:00 76 08/27/17 23:30 82 16 30 08/27/17 23:00 74 14 160/45 100 Mechanical Ventilator 30 08/27/17 22:00 70 13 134/46 100 Mechanical Ventilator 30 08/27/17 21:30 79 13 30 08/27/17 21:00 74 15 152/49 100 Mechanical Ventilator 30 08/27/17 20:00 98.3 78 15 161/60 98 Mechanical Ventilator 30 98.3 08/27/17 20:00 80 08/27/17 20:00 30 08/27/17 19:30 81 20 30 08/27/17 19:00 75 18 140/47 100 Mechanical Ventilator 30 08/27/17 18:00 86 18 131/49 98 Mechanical Ventilator 30 08/27/17 17:02 91 21 30 08/27/17 17:00 84 18 119/54 97 Mechanical Ventilator 30 08/27/17 16:00 98.2 85 20 100/80 99 Mechanical Ventilator 30 98.2 08/27/17 16:00 79 08/27/17 15:00 82 18 138/48 99 Mechanical Ventilator 30 08/27/17 14:45 79 18 30 08/27/17 14:00 30 08/27/17 14:00 82 18 137/55 96 Mechanical Ventilator 30 08/27/17 13:00 98 30 145/50 95 T-piece 30 08/27/17 12:50 124 28 30 08/27/17 12:00 80 08/27/17 12:00 98.5 78 17 163/52 98 T-piece 30 98.5 08/27/17 12:00 30 08/27/17 11:00 98 30 162/50 95 T-piece 30 08/27/17 11:00 30 08/27/17 10:15 97 08/27/17 10:00 76 20 151/57 97 Mechanical Ventilator 30 Intake and Output 08/27/17 08/28/17 19:00 07:00 Intake Total 1236.416 ml 916.167 ml Output Total 1150 ml 1350 ml Balance 86.416 ml -433.833 ml IV Total 1236.416 ml 916.167 ml Output Urine Total 1150 ml 1350 ml # Voids 2 # Bowel Movements 3 General Appearance: no acute distress HEENT: normocephalic Respiratory/Chest: chest wall non-tender, lungs clear Cardiovascular: normal peripheral pulses, normal rate Abdomen: normal bowel sounds Laboratory Tests 08/27/17 11:44: Arterial Blood pH 7.450, Arterial Blood Partial Pressure CO2 35.5, Arterial Blood Partial Pressure O2 70.9L, Arterial Blood HCO3 24.3, Arterial Blood Oxygen Saturation 94.7, Arterial Blood Base Excess 0.7, Chuy Test Positive 08/28/17 05:00: White Blood Count 13.1H, Red Blood Count 3.00L, Hemoglobin 9.5L, Hematocrit 26.7L, Mean Corpuscular Volume 89, Mean Corpuscular Hemoglobin 31.6H, Mean Corpuscular Hemoglobin Concent 35.4, Red Cell Distribution Width 14.8, Platelet Count 200, Mean Platelet Volume 7.2, Neutrophils (%) (Auto) 77.2H, Lymphocytes ( %) (Auto) 11.7L, Monocytes (%) (Auto) 8.8, Eosinophils (%) (Auto) 2.0, Basophils (%) (Auto) 0.4, Prothrombin Time 31.7H, Prothromb Time International Ratio 3.0H, Activated Partial Thromboplast Time 44H, Sodium Level 141, Potassium Level 2.8L, Chloride Level 105, Carbon Dioxide Level 28, Anion Gap 8, Blood Urea Nitrogen 9, Creatinine 0.8, Estimat Glomerular Filtration Rate , Glucose Level 100, Calcium Level 7.7L, Total Bilirubin 2.4H, Direct Bilirubin 0.4H, Aspartate Amino Transf (AST/SGOT) 73H, Alanine Aminotransferase (ALT/SGPT ) 60, Alkaline Phosphatase 55, Total Protein 5.8L, Albumin 2.2L, Globulin 3.6, Albumin/Globulin Ratio 0.6L Current Medications Medications (Trade) Dose Ordered Sig/Chester Route PRN Reason Start Time Stop Time Status Last Admin Dose Admin Acetaminophen (Tylenol) 500 mg Q6H PRN RECTAL Mild Pain/Temp > 100.5 08/24/17 18:30 09/23/17 18:29 08/26/17 23:50 Chlorhexidine Gluconate (Caroline-Hex 2%) 1 applic DAILY@1999 TOPIC 08/25/17 20:00 09/24/17 19:59 08/27/17 20:14 Dextrose/Sodium Chloride 1,000 ml @ 60 mls/hr [id number] IV 08/24/17 04:45 09/23/17 04:44 08/27/17 15:33 Hydralazine HCl (Apresoline) 10 mg Q2H PRN IV SBP > 170 08/25/17 16:15 09/24/17 16:14 08/26/17 14:58 Lorazepam (Ativan 2mg/ml 1ml) 0.5 mg Q6H PRN IV For Anxiety 08/27/17 13:30 09/03/17 13:29 08/27/17 15:33 Pantoprazole (Protonix) 40 mg EVERY 12 HOURS IVP 08/27/17 09:00 09/23/17 08:59 08/27/17 20:50 Piperacillin Sod/ Tazobactam Sod 3.375 gm/Dextrose 110 ml @ 27.5 mls/hr EVERY 8 HOURS IVPB 08/24/17 22:00 09/02/17 21:59 08/28/17 06:07 Racepinephrine (S2) 0.5 ml ONCE ONCE HHN 08/28/17 09:45 08/28/17 09:46 UNV Vancomycin HCl (Vanco rx to dose) 1 ea DAILY PRN MISC Per rx protocol 08/24/17 18:30 09/23/17 18:29 Vancomycin/Sodium Chloride 250 ml @ 166.667 mls/hr Q12H IVPB 08/27/17 20:00 09/01/17 19:59 08/28/17 08:05 Toño Underwood MD Aug 28, 2017 09:42
--- NOTE | 2017-08-28 09:43 | Pre-Procedure Note/Attestation ---
Pre-Procedure Note/Attestation Complete Prior to Procedure Planned Procedure: bilateral Procedure Narrative: Bronchsocopy Indications for Procedure Pre-Operative Diagnosis: Upper airway compromise Attestation I attest that I discussed the nature of the procedure; its benefits; risks and complications; and alternatives (and the risks and benefits of such alternatives ), prior to the procedure, with the patient (or the patient's legal veterans contact representative). I attest that, if there was a reasonable possibility of needing a blood transfusion, the patient (or the patient's legal veterans contact representative) was given the [facility] standardized written summary, pursuant to the [place] Blood Safety Act ([place] Health and Safety Code # 1645, as amended). I attest that I re-evaluated the patient just prior to the surgery and that there has been no change in the patient's H&P, except as documented below: Toño Underwood MD Aug 28, 2017 09:43
[2017-08-28] MEDS ORDERED: Racemic EPINEPHrine 2.25% 0.5ml HHN ONE ×2 (09:45→09:50)
[2017-08-28] MEDS ORDERED: Hydrocortisone 100mg Inj IV ONE (09:52)
[2017-08-28] MEDS ORDERED: DiphenhydrAMINE 50mg/ml Inj IVP ONE (09:52)
[2017-08-28] MEDS: Pantoprazole Inj IVP SCH ×2 (10:32→21:05)
[2017-08-28] MEDS: D5NS 1,000 ML IV SCH (10:34)
[2017-08-28] MEDS ORDERED: D5NS 1000ml IV ONE ×2 (10:40→10:47)
[2017-08-28] MEDS ORDERED: Tubing IV Secondary IV ONE ×2 (10:40→10:47)
[2017-08-28] MEDS ORDERED: NS 275ml ONE ×3 (10:40→11:00)
[2017-08-28] MEDS ORDERED: D5W 275ml ONE (10:47)
--- NOTE | 2017-08-28 12:15 | Progress Note ---
DATE: 08/28/2017 NOTE: "POOR AUDIO QUALITY" SUBJECTIVE: This is an elderly 82-year-old female, intubated, doing fine, in no distress. The patient was supposed to be extubated yesterday, but she failed. She will need bronchoscopy. Pulmonary consult was coming today for bronchoscopy and the patient is otherwise alert, awake, and doing fine. She is on CPAP. OBJECTIVE: GENERAL: She is in no distress. VITAL SIGNS: Her current vital signs, blood pressure is 164/57, pulse 85, respiration is about 10 on T-piece. CHEST: Bilateral few crackles. CARDIOVASCULAR: Regular rhythm. No gallop. No murmur. ABDOMEN: Soft. EXTREMITIES: No swelling. GENITOURINARY: Deferred. LABORATORY EXAMINATION: White counts are 13 from 21,000 to 13,000. Hemoglobin is 9.5, hematocrit 27, platelets are 200,000. ASSESSMENT AND PLAN: 1. Sepsis. 2. Acute epiglottitis. 3. Aspiration pneumonia. 4. Encephalopathy. Potassium was low today at 2.8, we will also replace potassium 40 mEq IV x2. Consider G-tube feeding per GI. We will continue vancomycin. Continue vitamin K, lorazepam. Continue iron . Continue rest of the treatment and weaning protocols and bronchoscopy today . Dr. Underwood is for pulmonary consult. Vik Maria M.D. DR: Yogesh JOB#: [id number] CC:
--- NOTE | 2017-08-28 13:21 | General Progress Note ---
Progress Note Progress Note ENT Initial consult note dictated #[id number] Pt is stable post Pulmonary scope and extubation. RONNELL TERRY Aug 28, 2017 13:21
--- NOTE | 2017-08-28 16:15 | Operative Note - Dictated ---
DATE OF OPERATION: 08/28/2017 BRONCHOSCOPY PROCEDURE NOTE SURGEON: Toño Underwood M.D. PROCEDURE: Bronchoscopy. INDICATIONS: Upper airway compromise. PREOPERATIVE DIAGNOSIS: Rule out vocal cord edema or airway obstruction. POSTOPERATIVE DIAGNOSIS: No vocal cord edema noted. Airway is clear. PROCEDURE IN DETAIL: The procedure was discussed with the patient in detail and the patient consented the procedure herself. Using disposable bronchoscope, the bronchoscope was introduced through the right naris down to the level of the vocal cords. The vocal cords are seen to be abutting the endotracheal tube, but there was clear space around them allowing for phonation. Next, the airways were inspected. Right and left endobronchial tubes were found to be patent without obstruction. A bougie was placed into the endotracheal tube. Then, the endotracheal tube was slowly withdrawn. Subsequently, copious suctioning was performed and then bougie was removed. The patient was able to phonate successfully after extubation. O2 saturation was 96% on nasal oxygen after the procedure. Toño Underwood M.D. DR: JOSEFINA JOB#: [id number] CC:
--- NOTE | 2017-08-28 17:12 | General Progress Note ---
Assessment/Plan Assessment/Plan Assessment - GI Bleed - Resp failure - Anemia - neck ecchymosis - (L) foot ischemic changes - abnormal LFT Recommendations - More vitamin K - follow CBC and watch for ongoing bleeding - (L) foot vascular eval - defer to primary team - monitor labs - correct INR - another dose of Vitamin k, now 10 mg - May need to postpone EGD until INR lower - PPI - Check abd ultrasound and hepatitis serologies Subjective Allergies: Coded Allergies: IBUPROFEN (Verified Allergy, Unknown, 08/23/17) Subjective Seen in ICU extubated, awake d/w RN (+) dark stools INR higher, despite vitamin K last night Objective Last 24 Hour Vital Signs Date Time Temp Pulse Resp B/P (MAP) Pulse Ox O2 Delivery O2 Flow Rate FiO2 08/28/17 16:00 98.5 80 18 145/78 100 Nasal Cannula 2.0 98.5 08/28/17 16:00 83 08/28/17 15:00 78 18 124/95 100 Nasal Cannula 2.0 08/28/17 14:00 78 18 160/85 100 Nasal Cannula 2.0 08/28/17 13:32 Nasal Cannula 2.0 08/28/17 13:00 81 18 163/50 99 Nasal Cannula 2.0 08/28/17 12:00 98.9 83 17 153/44 99 Nasal Cannula 2.0 98.9 08/28/17 12:00 79 08/28/17 11:00 80 17 182/55 98 Nasal Cannula 2.0 08/28/17 10:04 68 18 100 Nasal Cannula 2.0 08/28/17 10:00 95 16 160/54 96 Nasal Cannula 2.0 08/28/17 09:54 68 18 98 Nasal Cannula 2.0 08/28/17 09:48 68 18 Nasal Cannula 2.0 08/28/17 09:34 Nasal Cannula 2.0 08/28/17 09:14 98 08/28/17 09:00 96 20 195/80 97 T-piece 35 08/28/17 08:00 89 15 164/57 97 T-piece 35 08/28/17 08:00 85 08/28/17 08:00 35 08/28/17 07:24 97 T-piece 10.0 35 08/28/17 07:23 T-piece 10.0 35 08/28/17 07:18 66 13 30 08/28/17 07:00 98.8 86 20 161/55 97 Mechanical Ventilator 30 98.8 08/28/17 06:00 83 15 159/50 99 Mechanical Ventilator 30 08/28/17 05:16 78 15 30 08/28/17 05:00 76 15 169/74 99 Mechanical Ventilator 30 08/28/17 04:00 98.3 80 14 172/58 98 Mechanical Ventilator 30 98.3 08/28/17 04:00 99 08/28/17 04:00 30 08/28/17 03:30 86 19 30 08/28/17 03:00 75 15 168/58 99 Mechanical Ventilator 30 08/28/17 02:00 74 13 172/64 99 Mechanical Ventilator 30 08/28/17 01:30 88 21 30 08/28/17 01:00 64 13 161/52 99 Mechanical Ventilator 30 08/28/17 00:00 98.1 67 14 162/62 98 Mechanical Ventilator 30 98.1 08/28/17 00:00 30 08/28/17 00:00 76 08/27/17 23:30 82 16 30 08/27/17 23:00 74 14 160/45 100 Mechanical Ventilator 30 08/27/17 22:00 70 13 134/46 100 Mechanical Ventilator 30 08/27/17 21:30 79 13 30 08/27/17 21:00 74 15 152/49 100 Mechanical Ventilator 30 08/27/17 20:00 98.3 78 15 161/60 98 Mechanical Ventilator 30 98.3 08/27/17 20:00 80 08/27/17 20:00 30 08/27/17 19:30 81 20 30 08/27/17 19:00 75 18 140/47 100 Mechanical Ventilator 30 08/27/17 18:00 86 18 131/49 98 Mechanical Ventilator 30 Intake and Output 08/27/17 08/28/17 19:00 07:00 Intake Total 1236.416 ml 916.167 ml Output Total 1150 ml 1350 ml Balance 86.416 ml -433.833 ml IV Total 1236.416 ml 916.167 ml Output Urine Total 1150 ml 1350 ml # Voids 2 # Bowel Movements 3 Laboratory Tests 08/28/17 05:00: White Blood Count 13.1H, Red Blood Count 3.00L, Hemoglobin 9.5L, Hematocrit 26.7L, Mean Corpuscular Volume 89, Mean Corpuscular Hemoglobin 31.6H, Mean Corpuscular Hemoglobin Concent 35.4, Red Cell Distribution Width 14.8, Platelet Count 200, Mean Platelet Volume 7.2, Neutrophils (%) (Auto) 77.2H, Lymphocytes ( %) (Auto) 11.7L, Monocytes (%) (Auto) 8.8, Eosinophils (%) (Auto) 2.0, Basophils (%) (Auto) 0.4, Prothrombin Time 31.7H, Prothromb Time International Ratio 3.0H, Activated Partial Thromboplast Time 44H, Sodium Level 141, Potassium Level 2.8L, Chloride Level 105, Carbon Dioxide Level 28, Anion Gap 8, Blood Urea Nitrogen 9, Creatinine 0.8, Estimat Glomerular Filtration Rate , Glucose Level 100, Calcium Level 7.7L, Total Bilirubin 2.4H, Direct Bilirubin 0.4H, Aspartate Amino Transf (AST/SGOT) 73H, Alanine Aminotransferase (ALT/SGPT ) 60, Alkaline Phosphatase 55, Total Protein 5.8L, Albumin 2.2L, Globulin 3.6, Albumin/Globulin Ratio 0.6L Height (Feet): 5 Height (Inches): 2.00 Weight (Pounds): 169 Objective Obese woman NCAT Neck (+) ecchymosis CTA RRR abd soft no edema, (+) ischemic changes in left toes with red/blue discoloration and digital ischemia EDU NUR Aug 28, 2017 17:12
[2017-08-28] MEDS ORDERED: Phytonadione 10 mg/mL 1ml amp SUBQ ONE (17:15)
--- NOTE | 2017-08-28 19:15 | Consultation ---
DATE OF CONSULTATION: 08/28/2017 HEAD, NECK SURGERY, ENT CONSULT REQUESTING PHYSICIAN: Tank Maria M.D. CONSULTING PHYSICIAN: Carlos Zaragoza M.D. INDICATION FOR CONSULTATION: The patient is an 82-year-old female, who was admitted on the 08/23/2017 with edema of her neck and mouth. It was determined to be angioedema. She was intubated. I have been following her since Tuesday when I was consulted online as to when the proper time to come in and scope her for potential removal of her endotracheal tube. When I arrived at about 1 o'clock today, it has just happened via cottage master, which is fine. She appears stable. She was seen by numerous physicians including Infectious Disease, Cardiology, and GI. She was admitted with a very high INR, which is now being controlled. 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 MEDICATIONS: Benadryl, Solu-Cortef, racemic epinephrine, vancomycin, vitamin K, lorazepam, potassium chloride, pantoprazole, piperacillin sodium, tobramycin, and acetaminophen. PHYSICAL EXAMINATION: VITAL SIGNS: This 82-year-old woman is 157.48 cm, 76.827 kg, and BMI of 31 kg/mt sq. NECK: Neck has purple coloring from some sort of bleed probably related to the over use of Coumadin, but no edema, which was evident on the CT scan a few days ago when she was intubated. Additionally, her mouth is bruised in the soft palate, which would be consistent with a traumatic intubation a few days ago. She has an ulcer on her tip of her left tongue, ventral aspect, approximately a centimeter and a half in diameter. She does not have an enlarged tonsil by palpation, which was noted on the CT scan from 08/23/2017. Neck has no palpable masses at this time and is soft and not fluctuant. She is missing many teeth. ASSESSMENT: It looks like angioedema, in which one notes that may be related to her CPAP and for coagulation control. Whatever the reason, she is more stable now. She is resting comfortably. She appears to have no issues with breathing at 1:20. PLAN: Observation, control her coagulopathy, and please reconsult me as necessary. Thank you very much for asking my opinion in the care and treatment of this patient. Carlos Zaragoza M.D. DR: KARRIE JOB#: [id number] CC:
--- NOTE | 2017-08-28 20:54 | Infectious Diseases Prog Note ---
Assessment/Plan Problems: (1) HCAP (healthcare-associated pneumonia) Assessment & Plan: continue zosyn and vancomycin, empiric coverage , await sputum culture , monitor CXR (2) Cellulitis of neck Assessment & Plan: with no evidence of neck abcsess, continue zosyn empiric coverage , was extubated , and evaluated by ENT . (3) Sepsis Assessment & Plan: with leukocytosis due to the above, on vancomycin and zosyn , pending blood culture (4) Acute respiratory failure Assessment & Plan: due to the above, intubated on mechanical ventilation, monitor ABG and CXR , consult director of database marketing (5) Fever Assessment & Plan: due to the above, continue wide spectrum antibiotics, and tylenol PRN (6) Coagulopathy Assessment & Plan: with diffuse bleeding , suspect due to Coumadin, on hold, transfused PRBC as needed, check DIC profile (7) 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 Assessment & Plan: with MSSA and Providencia rettgeri , recommend indirect sales representative consult and vascular study for further eval , already on vancomycin and zosyn Subjective Constitutional: Reports: no symptoms HEENT: Reports: no symptoms, other - throat edema , with hematoma Respiratory: Reports: no symptoms Breasts: Reports: no symptoms Cardiovascular: Reports: no symptoms Gastrointestinal/Abdominal: Reports: no symptoms Genitourinary: Reports: no symptoms Neurologic: Reports: no symptoms Psychiatric: Reports: no symptoms Skin: Reports: no symptoms Endocrine: Reports: no symptoms Hematologic: Reports: no symptoms Musculoskeletal: Reports: no symptoms Allergies: Coded Allergies: IBUPROFEN (Verified Allergy, Unknown, 08/23/17) Subjective she is still intubated on mechanical ventilation, more awake and alert, responsive to verbal commands , no fever or chills , no diarrhea Objective Vital Signs Last 24 Hour Vital Signs Date Time Temp Pulse Resp B/P (MAP) Pulse Ox O2 Delivery O2 Flow Rate FiO2 08/28/17 20:00 Room Air 21 08/28/17 20:00 95 Room Air 21 08/28/17 19:00 77 18 153/51 95 Room Air 08/28/17 18:00 84 17 167/70 95 Room Air 08/28/17 17:00 82 20 169/92 100 Nasal Cannula 2.0 08/28/17 16:00 98.5 80 18 145/78 100 Nasal Cannula 2.0 98.5 08/28/17 16:00 83 08/28/17 15:00 78 18 124/95 100 Nasal Cannula 2.0 08/28/17 14:00 78 18 160/85 100 Nasal Cannula 2.0 08/28/17 13:32 Nasal Cannula 2.0 08/28/17 13:00 81 18 163/50 99 Nasal Cannula 2.0 08/28/17 12:00 98.9 83 17 153/44 99 Nasal Cannula 2.0 98.9 08/28/17 12:00 79 08/28/17 11:00 80 17 182/55 98 Nasal Cannula 2.0 08/28/17 10:04 68 18 100 Nasal Cannula 2.0 08/28/17 10:00 95 16 160/54 96 Nasal Cannula 2.0 08/28/17 09:54 68 18 98 Nasal Cannula 2.0 08/28/17 09:48 68 18 Nasal Cannula 2.0 08/28/17 09:34 Nasal Cannula 2.0 08/28/17 09:14 98 08/28/17 09:00 96 20 195/80 97 T-piece 35 08/28/17 08:00 89 15 164/57 97 T-piece 35 08/28/17 08:00 85 08/28/17 08:00 35 08/28/17 07:24 97 T-piece 10.0 35 08/28/17 07:23 T-piece 10.0 35 08/28/17 07:18 66 13 30 08/28/17 07:00 98.8 86 20 161/55 97 Mechanical Ventilator 30 98.8 08/28/17 06:00 83 15 159/50 99 Mechanical Ventilator 30 08/28/17 05:16 78 15 30 08/28/17 05:00 76 15 169/74 99 Mechanical Ventilator 30 08/28/17 04:00 98.3 80 14 172/58 98 Mechanical Ventilator 30 98.3 08/28/17 04:00 99 08/28/17 04:00 30 08/28/17 03:30 86 19 30 08/28/17 03:00 75 15 168/58 99 Mechanical Ventilator 30 08/28/17 02:00 74 13 172/64 99 Mechanical Ventilator 30 08/28/17 01:30 88 21 30 08/28/17 01:00 64 13 161/52 99 Mechanical Ventilator 30 08/28/17 00:00 98.1 67 14 162/62 98 Mechanical Ventilator 30 98.1 08/28/17 00:00 30 08/28/17 00:00 76 08/27/17 23:30 82 16 30 08/27/17 23:00 74 14 160/45 100 Mechanical Ventilator 30 08/27/17 22:00 70 13 134/46 100 Mechanical Ventilator 30 08/27/17 21:30 79 13 30 08/27/17 21:00 74 15 152/49 100 Mechanical Ventilator 30 Height (Feet): 5 Height (Inches): 2.00 Weight (Pounds): 169 General Appearance: WD/WN, no acute distress HEENT: normocephalic, anicteric, mucous membranes moist, PERRL Respiratory/Chest: chest wall non-tender, normal breath sounds, no respiratory distress, no accessory muscle use Cardiovascular: normal peripheral pulses, normal rate, regular rhythm, no gallop/murmur, no JVD Abdomen: normal bowel sounds, soft, non tender, no organomegaly, non distended , no mass, no scars Genitourinary: normal external genitalia Extremities: no cyanosis, no clubbing, other - left toes tips ulcers Skin: no rash, no lesions, no ulcers Neurologic/Psychiatric: abnormal gait, alert Laboratory Tests Test 08/28/17 05:00 08/28/17 19:20 White Blood Count 13.1 K/UL (4.8-10.8) H Red Blood Count 3.00 M/UL (4.20-5.40) L Hemoglobin 9.5 G/DL (12.0-16.0) L Hematocrit 26.7 % (37.0-47.0) L Mean Corpuscular Volume 89 FL (80-99) Mean Corpuscular Hemoglobin 31.6 PG (27.0-31.0) H Mean Corpuscular Hemoglobin Concent 35.4 G/DL (32.0-36.0) Red Cell Distribution Width 14.8 % (11.6-14.8) Platelet Count 200 K/UL (150-450) Mean Platelet Volume 7.2 FL (6.5-10.1) Neutrophils (%) (Auto) 77.2 % (45.0-75.0) H Lymphocytes (%) (Auto) 11.7 % (20.0-45.0) L Monocytes (%) (Auto) 8.8 % (1.0-10.0) Eosinophils (%) (Auto) 2.0 % (0.0-3.0) Basophils (%) (Auto) 0.4 % (0.0-2.0) Prothrombin Time 31.7 SEC (9.30-11.50) H Prothromb Time International Ratio 3.0 (0.9-1.1) H Activated Partial Thromboplast Time 44 SEC (23-33) H Sodium Level 141 MMOL/L (136-145) Potassium Level 2.8 MMOL/L (3.5-5.1) L Chloride Level 105 MMOL/L (98-107) Carbon Dioxide Level 28 MMOL/L (21-32) Anion Gap 8 mmol/L (5-15) Blood Urea Nitrogen 9 mg/dL (7-18) Creatinine 0.8 MG/DL (0.55-1.30) Estimat Glomerular Filtration Rate mL/min (>60) Glucose Level 100 MG/DL (74-106) Calcium Level 7.7 MG/DL (8.5-10.1) L Total Bilirubin 2.4 MG/DL (0.2-1.0) H Direct Bilirubin 0.4 MG/DL (0.0-0.3) H Aspartate Amino Transf (AST/SGOT) 73 U/L (15-37) H Alanine Aminotransferase (ALT/SGPT) 60 U/L (12-78) Alkaline Phosphatase 55 U/L (46-116) Total Protein 5.8 G/DL (6.4-8.2) L Albumin 2.2 G/DL (3.4-5.0) L Globulin 3.6 g/dL Albumin/Globulin Ratio 0.6 (1.0-2.7) L Vancomycin Level Trough 12.3 ug/mL (5.0-12.0) H Current Medications Medications (Trade) Dose Ordered Sig/[place] Route PRN Reason Start Time Stop Time Status Last Admin Dose Admin Acetaminophen (Tylenol) 500 mg Q6H PRN RECTAL Mild Pain/Temp > 100.5 08/24/17 18:30 09/23/17 18:29 08/26/17 23:50 Chlorhexidine Gluconate (Caroline-Hex 2%) 1 applic DAILY@1999 TOPIC 08/25/17 20:00 09/24/17 19:59 08/27/17 20:14 Dextrose/Sodium Chloride 1,000 ml @ 60 mls/hr [id number] IV 08/24/17 04:45 09/23/17 04:44 08/28/17 10:34 Hydralazine HCl (Apresoline) 10 mg Q2H PRN IV SBP > 170 08/25/17 16:15 09/24/17 16:14 08/26/17 14:58 Lorazepam (Ativan 2mg/ml 1ml) 0.5 mg Q6H PRN IV For Anxiety 08/27/17 13:30 09/03/17 13:29 08/27/17 15:33 Pantoprazole (Protonix) 40 mg EVERY 12 HOURS IVP 08/27/17 09:00 09/23/17 08:59 08/28/17 10:32 Piperacillin Sod/ Tazobactam Sod 3.375 gm/Dextrose 110 ml @ 27.5 mls/hr EVERY 8 HOURS IVPB 08/24/17 22:00 09/02/17 21:59 08/28/17 13:42 Potassium Chloride 100 ml @ 50 mls/hr Q2H IVPB 08/28/17 17:00 08/28/17 20:59 08/28/17 19:22 Vancomycin HCl (Vanco rx to dose) 1 ea DAILY PRN MISC Per rx protocol 08/24/17 18:30 09/23/17 18:29 Vancomycin/Sodium Chloride 250 ml @ 166.667 mls/hr Q12H IVPB 08/27/17 20:00 09/01/17 19:59 08/28/17 08:05 Noni Gonzalez M.D. Aug 28, 2017 20:54
[2017-08-28] MEDS: Dyna-Hex 2% Top Sol 2oz TOPIC SCH (21:06)
--- NOTE | 2017-08-28 22:14 | Nephrology Progress Note ---
Assessment/Plan Problem List: (1) Angioedema (2) Airway compromise (3) Cellulitis of neck (4) Acute respiratory failure (5) Coagulopathy (6) HCAP (healthcare-associated pneumonia) (7) Sepsis (8) Anemia Plan cont vent settings per pulmonary recs. f/u abg. abx per ID. monitor closely in icu. Subjective Subjective late entry for 08/27 - remains on vent. awake/alert. Objective Objective Last 24 Hour Vital Signs Date Time Temp Pulse Resp B/P (MAP) Pulse Ox O2 Delivery O2 Flow Rate FiO2 08/28/17 20:00 Room Air 21 08/28/17 20:00 95 Room Air 21 08/28/17 19:00 77 18 153/51 95 Room Air 08/28/17 18:00 84 17 167/70 95 Room Air 08/28/17 17:00 82 20 169/92 100 Nasal Cannula 2.0 08/28/17 16:00 98.5 80 18 145/78 100 Nasal Cannula 2.0 98.5 08/28/17 16:00 83 08/28/17 15:00 78 18 124/95 100 Nasal Cannula 2.0 08/28/17 14:00 78 18 160/85 100 Nasal Cannula 2.0 08/28/17 13:32 Nasal Cannula 2.0 08/28/17 13:00 81 18 163/50 99 Nasal Cannula 2.0 08/28/17 12:00 98.9 83 17 153/44 99 Nasal Cannula 2.0 98.9 08/28/17 12:00 79 08/28/17 11:00 80 17 182/55 98 Nasal Cannula 2.0 08/28/17 10:04 68 18 100 Nasal Cannula 2.0 08/28/17 10:00 95 16 160/54 96 Nasal Cannula 2.0 08/28/17 09:54 68 18 98 Nasal Cannula 2.0 08/28/17 09:48 68 18 Nasal Cannula 2.0 08/28/17 09:34 Nasal Cannula 2.0 08/28/17 09:14 98 08/28/17 09:00 96 20 195/80 97 T-piece 35 08/28/17 08:00 89 15 164/57 97 T-piece 35 08/28/17 08:00 85 08/28/17 08:00 35 08/28/17 07:24 97 T-piece 10.0 35 08/28/17 07:23 T-piece 10.0 35 08/28/17 07:18 66 13 30 08/28/17 07:00 98.8 86 20 161/55 97 Mechanical Ventilator 30 98.8 08/28/17 06:00 83 15 159/50 99 Mechanical Ventilator 30 08/28/17 05:16 78 15 30 08/28/17 05:00 76 15 169/74 99 Mechanical Ventilator 30 08/28/17 04:00 98.3 80 14 172/58 98 Mechanical Ventilator 30 98.3 08/28/17 04:00 99 08/28/17 04:00 30 08/28/17 03:30 86 19 30 08/28/17 03:00 75 15 168/58 99 Mechanical Ventilator 30 08/28/17 02:00 74 13 172/64 99 Mechanical Ventilator 30 08/28/17 01:30 88 21 30 08/28/17 01:00 64 13 161/52 99 Mechanical Ventilator 30 08/28/17 00:00 98.1 67 14 162/62 98 Mechanical Ventilator 30 98.1 08/28/17 00:00 30 08/28/17 00:00 76 08/27/17 23:30 82 16 30 08/27/17 23:00 74 14 160/45 100 Mechanical Ventilator 30 Intake and Output 08/27/17 08/28/17 19:00 07:00 Intake Total 1236.416 ml 916.167 ml Output Total 1150 ml 1350 ml Balance 86.416 ml -433.833 ml IV Total 1236.416 ml 916.167 ml Output Urine Total 1150 ml 1350 ml # Voids 2 # Bowel Movements 3 Laboratory Tests 08/28/17 05:00: White Blood Count 13.1H, Red Blood Count 3.00L, Hemoglobin 9.5L, Hematocrit 26.7L, Mean Corpuscular Volume 89, Mean Corpuscular Hemoglobin 31.6H, Mean Corpuscular Hemoglobin Concent 35.4, Red Cell Distribution Width 14.8, Platelet Count 200, Mean Platelet Volume 7.2, Neutrophils (%) (Auto) 77.2H, Lymphocytes ( %) (Auto) 11.7L, Monocytes (%) (Auto) 8.8, Eosinophils (%) (Auto) 2.0, Basophils (%) (Auto) 0.4, Prothrombin Time 31.7H, Prothromb Time International Ratio 3.0H, Activated Partial Thromboplast Time 44H, Sodium Level 141, Potassium Level 2.8L, Chloride Level 105, Carbon Dioxide Level 28, Anion Gap 8, Blood Urea Nitrogen 9, Creatinine 0.8, Estimat Glomerular Filtration Rate , Glucose Level 100, Calcium Level 7.7L, Total Bilirubin 2.4H, Direct Bilirubin 0.4H, Aspartate Amino Transf (AST/SGOT) 73H, Alanine Aminotransferase (ALT/SGPT ) 60, Alkaline Phosphatase 55, Total Protein 5.8L, Albumin 2.2L, Globulin 3.6, Albumin/Globulin Ratio 0.6L 08/28/17 19:20: Vancomycin Level Trough 12.3H Height (Feet): 5 Height (Inches): 2.00 Weight (Pounds): 169 General Appearance: no apparent distress Cardiovascular: normal rate, regular rhythm Respiratory/Chest: decreased breath sounds Abdomen: non tender, soft Extremities: trace edema Neurologic: alert CULLEN ZUNIGA Aug 28, 2017 22:14
--- NOTE | 2017-08-28 22:17 | Nephrology Progress Note ---
Assessment/Plan Problem List: (1) Angioedema (2) Airway compromise (3) Cellulitis of neck (4) Acute respiratory failure (5) Coagulopathy (6) HCAP (healthcare-associated pneumonia) (7) Sepsis (8) Anemia Plan abx per ID. pulmonary following. ENT consulted. monitor labs. Subjective Subjective extubated. doing well. Objective Objective Last 24 Hour Vital Signs Date Time Temp Pulse Resp B/P (MAP) Pulse Ox O2 Delivery O2 Flow Rate FiO2 08/28/17 20:00 Room Air 21 08/28/17 20:00 95 Room Air 21 08/28/17 19:00 77 18 153/51 95 Room Air 08/28/17 18:00 84 17 167/70 95 Room Air 08/28/17 17:00 82 20 169/92 100 Nasal Cannula 2.0 08/28/17 16:00 98.5 80 18 145/78 100 Nasal Cannula 2.0 98.5 08/28/17 16:00 83 08/28/17 15:00 78 18 124/95 100 Nasal Cannula 2.0 08/28/17 14:00 78 18 160/85 100 Nasal Cannula 2.0 08/28/17 13:32 Nasal Cannula 2.0 08/28/17 13:00 81 18 163/50 99 Nasal Cannula 2.0 08/28/17 12:00 98.9 83 17 153/44 99 Nasal Cannula 2.0 98.9 08/28/17 12:00 79 08/28/17 11:00 80 17 182/55 98 Nasal Cannula 2.0 08/28/17 10:04 68 18 100 Nasal Cannula 2.0 08/28/17 10:00 95 16 160/54 96 Nasal Cannula 2.0 08/28/17 09:54 68 18 98 Nasal Cannula 2.0 08/28/17 09:48 68 18 Nasal Cannula 2.0 08/28/17 09:34 Nasal Cannula 2.0 08/28/17 09:14 98 08/28/17 09:00 96 20 195/80 97 T-piece 35 08/28/17 08:00 89 15 164/57 97 T-piece 35 08/28/17 08:00 85 08/28/17 08:00 35 08/28/17 07:24 97 T-piece 10.0 35 08/28/17 07:23 T-piece 10.0 35 08/28/17 07:18 66 13 30 08/28/17 07:00 98.8 86 20 161/55 97 Mechanical Ventilator 30 98.8 08/28/17 06:00 83 15 159/50 99 Mechanical Ventilator 30 08/28/17 05:16 78 15 30 08/28/17 05:00 76 15 169/74 99 Mechanical Ventilator 30 08/28/17 04:00 98.3 80 14 172/58 98 Mechanical Ventilator 30 98.3 08/28/17 04:00 99 08/28/17 04:00 30 08/28/17 03:30 86 19 30 08/28/17 03:00 75 15 168/58 99 Mechanical Ventilator 30 08/28/17 02:00 74 13 172/64 99 Mechanical Ventilator 30 08/28/17 01:30 88 21 30 08/28/17 01:00 64 13 161/52 99 Mechanical Ventilator 30 08/28/17 00:00 98.1 67 14 162/62 98 Mechanical Ventilator 30 98.1 08/28/17 00:00 30 08/28/17 00:00 76 08/27/17 23:30 82 16 30 08/27/17 23:00 74 14 160/45 100 Mechanical Ventilator 30 Intake and Output 08/27/17 08/28/17 19:00 07:00 Intake Total 1236.416 ml 916.167 ml Output Total 1150 ml 1350 ml Balance 86.416 ml -433.833 ml IV Total 1236.416 ml 916.167 ml Output Urine Total 1150 ml 1350 ml # Voids 2 # Bowel Movements 3 Laboratory Tests 08/28/17 05:00: White Blood Count 13.1H, Red Blood Count 3.00L, Hemoglobin 9.5L, Hematocrit 26.7L, Mean Corpuscular Volume 89, Mean Corpuscular Hemoglobin 31.6H, Mean Corpuscular Hemoglobin Concent 35.4, Red Cell Distribution Width 14.8, Platelet Count 200, Mean Platelet Volume 7.2, Neutrophils (%) (Auto) 77.2H, Lymphocytes ( %) (Auto) 11.7L, Monocytes (%) (Auto) 8.8, Eosinophils (%) (Auto) 2.0, Basophils (%) (Auto) 0.4, Prothrombin Time 31.7H, Prothromb Time International Ratio 3.0H, Activated Partial Thromboplast Time 44H, Sodium Level 141, Potassium Level 2.8L, Chloride Level 105, Carbon Dioxide Level 28, Anion Gap 8, Blood Urea Nitrogen 9, Creatinine 0.8, Estimat Glomerular Filtration Rate , Glucose Level 100, Calcium Level 7.7L, Total Bilirubin 2.4H, Direct Bilirubin 0.4H, Aspartate Amino Transf (AST/SGOT) 73H, Alanine Aminotransferase (ALT/SGPT ) 60, Alkaline Phosphatase 55, Total Protein 5.8L, Albumin 2.2L, Globulin 3.6, Albumin/Globulin Ratio 0.6L 08/28/17 19:20: Vancomycin Level Trough 12.3H Height (Feet): 5 Height (Inches): 2.00 Weight (Pounds): 169 General Appearance: no apparent distress Cardiovascular: normal rate, regular rhythm Respiratory/Chest: decreased breath sounds Abdomen: non tender, soft Extremities: non-pitting Neurologic: alert CULLEN ZUNIGA Aug 28, 2017 22:17
--- NOTE | 2017-08-28 23:59 | General Progress Note ---
Assessment/Plan Assessment/Plan 1. Anemia, potentially secondary to gastrointestinal bleed. --> The patient has been on Coumadin with coagulopathy, therefore exacerbating any potential bleed. Coumadin has since been discontinued. --> Continue to closely monitor. --> Anemia workup reviewed. --> Iron 26, TIBC 228, Ferritin 50, B12 377, Folate 11.9, TSH 0.4 --> Transfuse if hgb <7 --> Hemoglobin levels have improved. 2. Anemia of iron deficiency. Continue iron for five days. --> Dark stool found. ++Occult blood. Consider GI recs. --> Monitor closely --> Blood transfusion not required unless symptomatic or hgb below goal. 3. Coagulopathy due to Coumadin use in the past. --> It has since been discontinued. --> Coumadin currently on hold. INR goal less than 1 at this moment. 4. Respiratory failure, currently extubated --> Give epinephrine as needed. 6. Bilateral pneumonia. She is on broad-spectrum antibiotics. 7. Gastroesophageal reflux disease, on antacids as needed. 8. Subcutaneous bruising, likely due to Coumadin. 9. Leukocytosis. --> Improving Subjective Date patient seen: Aug 28, 2017 Constitutional: Denies: no symptoms, chills, diaphoresis, fever, malaise, weakness, other HEENT: Denies: no symptoms, eye pain, blurred vision, tearing, double vision, ear pain, ear discharge, nose pain, nose congestion, throat pain, throat swelling, mouth pain, mouth swelling, other Cardiovascular: Denies: no symptoms, chest pain, edema, irregular heart rate, lightheadedness, palpitations, syncope, other Respiratory: Denies: no symptoms, cough, orthopnea, shortness of breath, SOB with excertion, SOB at rest, sputum, stridor, wheezing, other Gastrointestinal/Abdominal: Denies: no symptoms, abdomen distended, abdominal pain, black stools, tarry stools, blood in stool, constipated, diarrhea, difficulty swallowing, nausea, poor appetite, poor fluid intake, rectal bleeding , vomiting, other Genitourinary: Denies: no symptoms, burning, discharge, frequency, flank pain, hematuria, incontinence, pain, urgency, other Neurologic/Psychiatric: Denies: no symptoms, anxiety, depressed, emotional problems, headache, numbness, paresthesia, pre-existing deficit, seizure, tingling, tremors, weakness, other Hematologic/Lymphatic: Reports: anemia Allergies: Coded Allergies: IBUPROFEN (Verified Allergy, Unknown, 08/23/17) Subjective Extubated. On antibiotics. Leukocytosis improved. Objective Last 24 Hour Vital Signs Date Time Temp Pulse Resp B/P (MAP) Pulse Ox O2 Delivery O2 Flow Rate FiO2 08/28/17 20:00 Nasal Cannula 2.0 28 08/28/17 20:00 95 Nasal Cannula 2.0 28 08/28/17 19:00 77 18 153/51 95 Room Air 08/28/17 18:00 84 17 167/70 95 Room Air 08/28/17 17:00 82 20 169/92 100 Nasal Cannula 2.0 08/28/17 16:00 98.5 80 18 145/78 100 Nasal Cannula 2.0 98.5 08/28/17 16:00 83 08/28/17 15:00 78 18 124/95 100 Nasal Cannula 2.0 08/28/17 14:00 78 18 160/85 100 Nasal Cannula 2.0 08/28/17 13:32 Nasal Cannula 2.0 08/28/17 13:00 81 18 163/50 99 Nasal Cannula 2.0 08/28/17 12:00 98.9 83 17 153/44 99 Nasal Cannula 2.0 98.9 08/28/17 12:00 79 08/28/17 11:00 80 17 182/55 98 Nasal Cannula 2.0 08/28/17 10:04 68 18 100 Nasal Cannula 2.0 08/28/17 10:00 95 16 160/54 96 Nasal Cannula 2.0 08/28/17 09:54 68 18 98 Nasal Cannula 2.0 08/28/17 09:48 68 18 Nasal Cannula 2.0 08/28/17 09:34 Nasal Cannula 2.0 08/28/17 09:14 98 08/28/17 09:00 96 20 195/80 97 T-piece 35 08/28/17 08:00 89 15 164/57 97 T-piece 35 08/28/17 08:00 85 08/28/17 08:00 35 08/28/17 07:24 97 T-piece 10.0 35 08/28/17 07:23 T-piece 10.0 35 08/28/17 07:18 66 13 30 08/28/17 07:00 98.8 86 20 161/55 97 Mechanical Ventilator 30 98.8 08/28/17 06:00 83 15 159/50 99 Mechanical Ventilator 30 08/28/17 05:16 78 15 30 08/28/17 05:00 76 15 169/74 99 Mechanical Ventilator 30 08/28/17 04:00 98.3 80 14 172/58 98 Mechanical Ventilator 30 98.3 08/28/17 04:00 99 08/28/17 04:00 30 08/28/17 03:30 86 19 30 08/28/17 03:00 75 15 168/58 99 Mechanical Ventilator 30 08/28/17 02:00 74 13 172/64 99 Mechanical Ventilator 30 08/28/17 01:30 88 21 30 08/28/17 01:00 64 13 161/52 99 Mechanical Ventilator 30 08/28/17 00:00 98.1 67 14 162/62 98 Mechanical Ventilator 30 98.1 08/28/17 00:00 30 08/28/17 00:00 76 Intake and Output 08/27/17 08/28/17 19:00 07:00 Intake Total 1236.416 ml 916.167 ml Output Total 1150 ml 1350 ml Balance 86.416 ml -433.833 ml IV Total 1236.416 ml 916.167 ml Output Urine Total 1150 ml 1350 ml # Voids 2 # Bowel Movements 3 Laboratory Tests 08/28/17 05:00: White Blood Count 13.1H, Red Blood Count 3.00L, Hemoglobin 9.5L, Hematocrit 26.7L, Mean Corpuscular Volume 89, Mean Corpuscular Hemoglobin 31.6H, Mean Corpuscular Hemoglobin Concent 35.4, Red Cell Distribution Width 14.8, Platelet Count 200, Mean Platelet Volume 7.2, Neutrophils (%) (Auto) 77.2H, Lymphocytes ( %) (Auto) 11.7L, Monocytes (%) (Auto) 8.8, Eosinophils (%) (Auto) 2.0, Basophils (%) (Auto) 0.4, Prothrombin Time 31.7H, Prothromb Time International Ratio 3.0H, Activated Partial Thromboplast Time 44H, Sodium Level 141, Potassium Level 2.8L, Chloride Level 105, Carbon Dioxide Level 28, Anion Gap 8, Blood Urea Nitrogen 9, Creatinine 0.8, Estimat Glomerular Filtration Rate , Glucose Level 100, Calcium Level 7.7L, Total Bilirubin 2.4H, Direct Bilirubin 0.4H, Aspartate Amino Transf (AST/SGOT) 73H, Alanine Aminotransferase (ALT/SGPT ) 60, Alkaline Phosphatase 55, Total Protein 5.8L, Albumin 2.2L, Globulin 3.6, Albumin/Globulin Ratio 0.6L 08/28/17 19:20: Vancomycin Level Trough 12.3H Height (Feet): 5 Height (Inches): 2.00 Weight (Pounds): 169 General Appearance: confused Respiratory/Chest: decreased breath sounds Abdomen: soft Cristiano Roberts MD Aug 28, 2017 23:59
[2017-08-29] VITALS (24 sets, daily range): BP systolic 79–200; BP diastolic 41–118
[2017-08-29] MEDS: D5NS 1,000 ML IV SCH ×2 (01:13→18:15)
[2017-08-29] MEDS: Piperacillin/Tazobactam 3.375 GM in D5W 110 ML IVPB SCH ×3 (05:25→22:26)
[2017-08-29 05:57] LABS: BASOPHILS % (AUTO) 0.3 % (0.0-2.0); EOSINOPHILS % (AUTO) 0.6 % (0.0-3.0); HEMATOCRIT 30.1 % (37.0-47.0); HEMOGLOBIN 10.6 G/DL (12.0-16.0); LYMPHOCYTES % (AUTO) 14.5 % (20.0-45.0); MEAN CORPUSCULAR VOLUME 91 FL (80-99); MONOCYTES % (AUTO) 8.9 % (1.0-10.0); NEUTROPHILS % (AUTO) 75.8 % (45.0-75.0); PLATELET COUNT 257 K/UL (150-450); RED CELL DISTRIBUTION WIDTH 16.8 % (11.6-14.8); WHITE BLOOD COUNT 13.4 K/UL (4.8-10.8)
[2017-08-29 06:16] LABS: INR 1.8 (0.9-1.1)
[2017-08-29 06:18] LABS: ALANINE AMINOTRANSFERASE 61 U/L (12-78); ALBUMIN 2.4 G/DL (3.4-5.0); ALBUMIN/GLOBULIN RATIO 0.6 (1.0-2.7); ALKALINE PHOSPHATASE 59 U/L (46-116); ANION GAP 7 mmol/L (5-15); ASPARTATE AMINO TRANSFERASE 58 U/L (15-37); BLOOD UREA NITROGEN 11 mg/dL (7-18); CALCIUM 8.1 MG/DL (8.5-10.1); CARBON DIOXIDE 29 MMOL/L (21-32); CHLORIDE 106 MMOL/L (98-107); CREATININE 0.8 MG/DL (0.55-1.30); SODIUM 142 MMOL/L (136-145)
[2017-08-29 06:25] LABS: BILIRUBIN,DIRECT 0.5 MG/DL (0.0-0.3)
[2017-08-29] MEDS: Vancomycin 750mg/NS 250ml IVPB SCH ×2 (08:27→22:26)
[2017-08-29] MEDS: Pantoprazole Inj IVP SCH ×2 (08:28→22:26)
--- NOTE | 2017-08-29 10:00 | GI Progress Note ---
Assessment/Plan Problems: (1) Coagulopathy ICD Codes: D68.9 - Coagulation defect, unspecified SNOMED: 31351489 (2) Allergic reaction caused by a drug ICD Codes: T78.40XA - Allergy, unspecified, initial encounter SNOMED: 383912553 (3) Anemia ICD Codes: D64.9 - Anemia, unspecified SNOMED: 684803047 (4) Airway compromise ICD Codes: J98.8 - Other specified respiratory disorders SNOMED: 73496207 Status: progressing Status Narrative Discussed with Dr. Dyson. Assessment/Plan Assessment - GI Bleed - Resp failure - Anemia - neck ecchymosis - (L) foot ischemic changes - abnormal LFT maintain NPO + IVFs no NGT per primary >> now extubated, fu ST evaluation >> consider dobhoff if failed hold blood thinners OB stool r/o GI bleed pending x 3 monitor H&H, prn transfusions ppi fu labs correct coag will require EGD/colonoscopy when respiratory status stable Subjective Subjective limited Objective Last 24 Hour Vital Signs Date Time Temp Pulse Resp B/P (MAP) Pulse Ox O2 Delivery O2 Flow Rate FiO2 08/29/17 08:00 83 20 160/51 97 Room Air 08/29/17 07:00 97.8 84 17 158/48 98 Room Air 97.8 08/29/17 06:00 84 17 159/57 96 Room Air 08/29/17 05:00 86 19 147/48 95 Room Air 08/29/17 04:00 83 19 156/60 94 Room Air 08/29/17 04:00 86 08/29/17 03:00 85 19 147/48 98 Room Air 08/29/17 02:00 87 19 145/42 97 Room Air 08/29/17 01:14 178/60 08/29/17 01:00 97.9 82 18 178/60 94 Room Air 97.9 08/29/17 00:00 78 15 187/67 98 Room Air 08/29/17 00:00 78 08/28/17 23:00 78 21 174/66 99 Room Air 08/28/17 22:00 81 17 177/97 99 Room Air 08/28/17 21:00 83 16 172/97 99 Room Air 08/28/17 20:00 97.7 79 18 153/51 95 Room Air 97.7 08/28/17 20:00 Nasal Cannula 2.0 28 08/28/17 20:00 79 08/28/17 20:00 95 Nasal Cannula 2.0 28 08/28/17 19:00 77 18 153/51 95 Room Air 08/28/17 18:00 84 17 167/70 95 Room Air 08/28/17 17:00 82 20 169/92 100 Nasal Cannula 2.0 08/28/17 16:00 98.5 80 18 145/78 100 Nasal Cannula 2.0 98.5 08/28/17 16:00 83 08/28/17 15:00 78 18 124/95 100 Nasal Cannula 2.0 08/28/17 14:00 78 18 160/85 100 Nasal Cannula 2.0 08/28/17 13:32 Nasal Cannula 2.0 08/28/17 13:00 81 18 163/50 99 Nasal Cannula 2.0 08/28/17 12:00 98.9 83 17 153/44 99 Nasal Cannula 2.0 98.9 08/28/17 12:00 79 08/28/17 11:00 80 17 182/55 98 Nasal Cannula 2.0 08/28/17 10:04 68 18 100 Nasal Cannula 2.0 08/28/17 10:00 95 16 160/54 96 Nasal Cannula 2.0 Intake and Output 08/28/17 08/29/17 19:00 07:00 Intake Total 1415.834 ml 1095.0 ml Output Total 1850 ml 400 ml Balance -434.166 ml 695.0 ml IV Total 1415.834 ml 1095.0 ml Output Urine Total 1850 ml 400 ml Laboratory Tests Test 08/28/17 19:20 08/29/17 05:00 Vancomycin Level Trough 12.3 ug/mL (5.0-12.0) H White Blood Count 13.4 K/UL (4.8-10.8) H Red Blood Count 3.30 M/UL (4.20-5.40) L Hemoglobin 10.6 G/DL (12.0-16.0) L Hematocrit 30.1 % (37.0-47.0) L Mean Corpuscular Volume 91 FL (80-99) Mean Corpuscular Hemoglobin 32.0 PG (27.0-31.0) H Mean Corpuscular Hemoglobin Concent 35.1 G/DL (32.0-36.0) Red Cell Distribution Width 16.8 % (11.6-14.8) H Platelet Count 257 K/UL (150-450) Mean Platelet Volume 7.1 FL (6.5-10.1) Neutrophils (%) (Auto) 75.8 % (45.0-75.0) H Lymphocytes (%) (Auto) 14.5 % (20.0-45.0) L Monocytes (%) (Auto) 8.9 % (1.0-10.0) Eosinophils (%) (Auto) 0.6 % (0.0-3.0) Basophils (%) (Auto) 0.3 % (0.0-2.0) Prothrombin Time 18.7 SEC (9.30-11.50) H Prothromb Time International Ratio 1.8 (0.9-1.1) H Sodium Level 142 MMOL/L (136-145) Potassium Level 3.0 MMOL/L (3.5-5.1) L Chloride Level 106 MMOL/L (98-107) Carbon Dioxide Level 29 MMOL/L (21-32) Anion Gap 7 mmol/L (5-15) Blood Urea Nitrogen 11 mg/dL (7-18) Creatinine 0.8 MG/DL (0.55-1.30) Estimat Glomerular Filtration Rate mL/min (>60) Glucose Level 82 MG/DL (74-106) Calcium Level 8.1 MG/DL (8.5-10.1) L Total Bilirubin 3.0 MG/DL (0.2-1.0) H Direct Bilirubin 0.5 MG/DL (0.0-0.3) H Aspartate Amino Transf (AST/SGOT) 58 U/L (15-37) H Alanine Aminotransferase (ALT/SGPT) 61 U/L (12-78) Alkaline Phosphatase 59 U/L (46-116) Total Protein 6.1 G/DL (6.4-8.2) L Albumin 2.4 G/DL (3.4-5.0) L Globulin 3.7 g/dL Albumin/Globulin Ratio 0.6 (1.0-2.7) L Hepatitis A IgM Antibody Pending Hepatitis B Surface Antigen Pending Hepatitis B Core IgM Antibody Pending Hepatitis C Antibody Pending Height (Feet): 5 Height (Inches): 2.00 Weight (Pounds): 177 General Appearance: WD/WN, no apparent distress, alert, overweight, other - neck edema Cardiovascular: normal rate Respiratory/Chest: normal breath sounds, no respiratory distress Abdominal Exam: normal bowel sounds, non tender, soft Extremities: non-tender Mae Lawler N.P. Aug 29, 2017 10:00
--- NOTE | 2017-08-29 12:05 | Pulmonology Progress Note ---
Assessment/Plan Assessment/Plan 1. Soft tissue swelling in the neck area with compromised airway. Resolved 2. Respiratory failure with airway compromise. Now extubated. 3. Marked subcutaneous bruising. Improving. 4. Coumadin use. 5. Hypertension. 6. GERD. 7. long-term resident. 8. Anemia. 9. Leukocytosis. DISCUSSION: I am unclear as to the etiology of her compromised airway. I suspect she had bleeding in the neck area, possibly due to trauma due to CPAP in the presence of Coumadin. She is awake and responsive. Bedside bronchoscopy done yesterday Airways clear CXR clear allow transfer out of ICU ENT note reviewed Subjective Interval Events: She is doing well post extubation day #1 Constitutional: Reports: no symptoms HEENT: Repors: no symptoms Respiratory: Reports: no symptoms Cardiovascular: Reports: no symptoms Gastrointestinal/Abdominal: Reports: no symptoms Allergies: Coded Allergies: IBUPROFEN (Verified Allergy, Unknown, 08/23/17) Objective Last 24 Hour Vital Signs Date Time Temp Pulse Resp B/P (MAP) Pulse Ox O2 Delivery O2 Flow Rate FiO2 08/29/17 10:00 83 19 160/59 95 Room Air 08/29/17 09:00 86 21 183/78 94 Room Air 08/29/17 08:00 83 20 160/51 97 Room Air 08/29/17 07:10 97 Nasal Cannula 2.0 28 08/29/17 07:10 Nasal Cannula 2.0 28 08/29/17 07:00 97.8 84 17 158/48 98 Room Air 97.8 08/29/17 06:00 84 17 159/57 96 Room Air 08/29/17 05:00 86 19 147/48 95 Room Air 08/29/17 04:00 83 19 156/60 94 Room Air 08/29/17 04:00 86 08/29/17 03:00 85 19 147/48 98 Room Air 08/29/17 02:00 87 19 145/42 97 Room Air 08/29/17 01:14 178/60 08/29/17 01:00 97.9 82 18 178/60 94 Room Air 97.9 08/29/17 00:00 78 15 187/67 98 Room Air 08/29/17 00:00 78 08/28/17 23:00 78 21 174/66 99 Room Air 08/28/17 22:00 81 17 177/97 99 Room Air 08/28/17 21:00 83 16 172/97 99 Room Air 08/28/17 20:00 97.7 79 18 153/51 95 Room Air 97.7 08/28/17 20:00 Nasal Cannula 2.0 28 08/28/17 20:00 79 08/28/17 20:00 95 Nasal Cannula 2.0 28 08/28/17 19:00 77 18 153/51 95 Room Air 08/28/17 18:00 84 17 167/70 95 Room Air 08/28/17 17:00 82 20 169/92 100 Nasal Cannula 2.0 08/28/17 16:00 98.5 80 18 145/78 100 Nasal Cannula 2.0 98.5 08/28/17 16:00 83 08/28/17 15:00 78 18 124/95 100 Nasal Cannula 2.0 08/28/17 14:00 78 18 160/85 100 Nasal Cannula 2.0 08/28/17 13:32 Nasal Cannula 2.0 08/28/17 13:00 81 18 163/50 99 Nasal Cannula 2.0 Intake and Output 08/28/17 08/29/17 19:00 07:00 Intake Total 1415.834 ml 1095.0 ml Output Total 1850 ml 400 ml Balance -434.166 ml 695.0 ml IV Total 1415.834 ml 1095.0 ml Output Urine Total 1850 ml 400 ml General Appearance: no acute distress HEENT: normocephalic Respiratory/Chest: chest wall non-tender, lungs clear Cardiovascular: normal peripheral pulses, normal rate Abdomen: normal bowel sounds, soft, non tender Laboratory Tests 08/28/17 19:20: Vancomycin Level Trough 12.3H 08/29/17 05:00: White Blood Count 13.4H, Red Blood Count 3.30L, Hemoglobin 10.6L, Hematocrit 30.1L, Mean Corpuscular Volume 91, Mean Corpuscular Hemoglobin 32.0H, Mean Corpuscular Hemoglobin Concent 35.1, Red Cell Distribution Width 16.8H, Platelet Count 257, Mean Platelet Volume 7.1, Neutrophils (%) (Auto) 75.8H, Lymphocytes (%) (Auto) 14.5L, Monocytes (%) (Auto) 8.9, Eosinophils (%) (Auto) 0.6, Basophils (%) (Auto) 0.3, Prothrombin Time 18.7H, Prothromb Time International Ratio 1.8H, Sodium Level 142, Potassium Level 3.0L, Chloride Level 106, Carbon Dioxide Level 29, Anion Gap 7, Blood Urea Nitrogen 11, Creatinine 0.8, Estimat Glomerular Filtration Rate , Glucose Level 82, Calcium Level 8.1L, Total Bilirubin 3.0H, Direct Bilirubin 0.5H, Aspartate Amino Transf (AST/SGOT) 58H, Alanine Aminotransferase (ALT/SGPT) 61, Alkaline Phosphatase 59 , Total Protein 6.1L, Albumin 2.4L, Globulin 3.7, Albumin/Globulin Ratio 0.6L, Hepatitis A IgM Antibody [Pending], Hepatitis B Surface Antigen [Pending], Hepatitis B Core IgM Antibody [Pending], Hepatitis C Antibody [Pending] Current Medications Medications (Trade) Dose Ordered Sig/[place] Route PRN Reason Start Time Stop Time Status Last Admin Dose Admin Acetaminophen (Tylenol) 500 mg Q6H PRN RECTAL Mild Pain/Temp > 100.5 08/24/17 18:30 09/23/17 18:29 08/26/17 23:50 Chlorhexidine Gluconate (Caroline-Hex 2%) 1 applic DAILY@2000 TOPIC 08/25/17 20:00 09/24/17 19:59 08/28/17 21:06 Dextrose/Sodium Chloride 1,000 ml @ 60 mls/hr [id number] IV 08/24/17 04:45 09/23/17 04:44 08/29/17 01:13 Hydralazine HCl (Apresoline) 10 mg Q2H PRN IV SBP > 170 08/25/17 16:15 09/24/17 16:14 08/29/17 01:14 Lorazepam (Ativan 2mg/ml 1ml) 0.5 mg Q6H PRN IV For Anxiety 08/27/17 13:30 09/03/17 13:29 08/27/17 15:33 Nystatin (Nystatin) 5 ml QID ORAL 08/29/17 13:00 09/05/17 12:59 UNV Pantoprazole (Protonix) 40 mg EVERY 12 HOURS IVP 08/27/17 09:00 09/23/17 08:59 08/29/17 08:28 Piperacillin Sod/ Tazobactam Sod 3.375 gm/Dextrose 110 ml @ 27.5 mls/hr EVERY 8 HOURS IVPB 08/24/17 22:00 09/02/17 21:59 08/29/17 05:25 Vancomycin HCl (Vanco rx to dose) 1 ea DAILY PRN MISC Per rx protocol 08/24/17 18:30 09/23/17 18:29 Vancomycin/Sodium Chloride 250 ml @ 166.667 mls/hr Q12H IVPB 08/27/17 20:00 09/01/17 19:59 08/29/17 08:27 Toño Underwood MD Aug 29, 2017 12:05
[2017-08-29] MEDS: Nystatin Susp 500,000 units/5ml ORAL SCH ×3 (15:00→22:32)
--- NOTE | 2017-08-29 15:28 | Infectious Diseases Prog Note ---
Assessment/Plan Problems: (1) HCAP (healthcare-associated pneumonia) Assessment & Plan: continue zosyn and vancomycin, empiric coverage for 7-10 days , monitor CXR (2) Cellulitis of neck Assessment & Plan: with no evidence of neck abcsess, continue zosyn empiric coverage for now , was extubated , and bronchoscopy didn't show any hematoma inside , and she was evaluated by ENT . (3) Sepsis Assessment & Plan: with leukocytosis due to the above, improving , on vancomycin and zosyn, blood culture remains negative (4) Acute respiratory failure Assessment & Plan: due to the above, intubated on mechanical ventilation, monitor ABG and CXR , consult building consultant (5) Fever Assessment & Plan: improved, due to the above, continue wide spectrum antibiotics, and tylenol PRN (6) Coagulopathy Assessment & Plan: with diffuse bleeding , suspect due to Coumadin, on hold, transfused PRBC as needed, check DIC profile (7) 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 Assessment & Plan: with MSSA and Providencia rettgeri , recommend pbx technician consult and vascular study for further eval , already on vancomycin and zosyn Subjective Constitutional: Reports: no symptoms HEENT: Reports: no symptoms Respiratory: Reports: productive cough Breasts: Reports: no symptoms Cardiovascular: Reports: no symptoms Gastrointestinal/Abdominal: Reports: no symptoms Genitourinary: Reports: no symptoms Neurologic: Reports: weakness Psychiatric: Reports: no symptoms Skin: Reports: ulcer Endocrine: Reports: no symptoms Hematologic: Reports: no symptoms Musculoskeletal: Reports: no symptoms Allergies: Coded Allergies: IBUPROFEN (Verified Allergy, Unknown, 08/23/17) Subjective she was extubated , more awake and alert, responsive to verbal commands , no fever or chills , no diarrhea, refusing G tube placement Objective Vital Signs Last 24 Hour Vital Signs Date Time Temp Pulse Resp B/P (MAP) Pulse Ox O2 Delivery O2 Flow Rate FiO2 08/29/17 13:00 89 19 177/51 96 Room Air 08/29/17 12:00 98.1 90 19 167/56 94 Room Air 98.1 08/29/17 12:00 88 08/29/17 11:00 81 18 148/55 94 Room Air 08/29/17 10:00 83 19 160/59 95 Room Air 08/29/17 09:00 86 21 183/78 94 Room Air 08/29/17 08:00 85 08/29/17 08:00 83 20 160/51 97 Room Air 08/29/17 07:10 97 Nasal Cannula 2.0 28 08/29/17 07:10 Nasal Cannula 2.0 28 08/29/17 07:00 97.8 84 17 158/48 98 Room Air 97.8 08/29/17 06:00 84 17 159/57 96 Room Air 08/29/17 05:00 86 19 147/48 95 Room Air 08/29/17 04:00 83 19 156/60 94 Room Air 08/29/17 04:00 86 08/29/17 03:00 85 19 147/48 98 Room Air 08/29/17 02:00 87 19 145/42 97 Room Air 08/29/17 01:14 178/60 08/29/17 01:00 97.9 82 18 178/60 94 Room Air 97.9 08/29/17 00:00 78 15 187/67 98 Room Air 08/29/17 00:00 78 08/28/17 23:00 78 21 174/66 99 Room Air 08/28/17 22:00 81 17 177/97 99 Room Air 08/28/17 21:00 83 16 172/97 99 Room Air 08/28/17 20:00 97.7 79 18 153/51 95 Room Air 97.7 08/28/17 20:00 Nasal Cannula 2.0 28 08/28/17 20:00 79 08/28/17 20:00 95 Nasal Cannula 2.0 28 08/28/17 19:00 77 18 153/51 95 Room Air 08/28/17 18:00 84 17 167/70 95 Room Air 08/28/17 17:00 82 20 169/92 100 Nasal Cannula 2.0 08/28/17 16:00 98.5 80 18 145/78 100 Nasal Cannula 2.0 98.5 08/28/17 16:00 83 Height (Feet): 5 Height (Inches): 2.00 Weight (Pounds): 177 General Appearance: WD/WN, no acute distress HEENT: normocephalic, atraumatic, anicteric, mucous membranes moist Respiratory/Chest: chest wall non-tender, no respiratory distress, no accessory muscle use, decreased breath sounds, crackles/rales Cardiovascular: normal peripheral pulses, normal rate, regular rhythm, regularly irregular, no gallop/murmur, no JVD Abdomen: normal bowel sounds, soft, non tender, no organomegaly, non distended , no mass, no scars Extremities: no cyanosis, no clubbing, other - left foot toes tips ulcers Skin: no rash, no lesions, ulcers Neurologic/Psychiatric: alert, responsive Lymphatic: no neck adenopathy, no groin adenopathy Laboratory Tests Test 08/28/17 19:20 08/29/17 05:00 Vancomycin Level Trough 12.3 ug/mL (5.0-12.0) H White Blood Count 13.4 K/UL (4.8-10.8) H Red Blood Count 3.30 M/UL (4.20-5.40) L Hemoglobin 10.6 G/DL (12.0-16.0) L Hematocrit 30.1 % (37.0-47.0) L Mean Corpuscular Volume 91 FL (80-99) Mean Corpuscular Hemoglobin 32.0 PG (27.0-31.0) H Mean Corpuscular Hemoglobin Concent 35.1 G/DL (32.0-36.0) Red Cell Distribution Width 16.8 % (11.6-14.8) H Platelet Count 257 K/UL (150-450) Mean Platelet Volume 7.1 FL (6.5-10.1) Neutrophils (%) (Auto) 75.8 % (45.0-75.0) H Lymphocytes (%) (Auto) 14.5 % (20.0-45.0) L Monocytes (%) (Auto) 8.9 % (1.0-10.0) Eosinophils (%) (Auto) 0.6 % (0.0-3.0) Basophils (%) (Auto) 0.3 % (0.0-2.0) Prothrombin Time 18.7 SEC (9.30-11.50) H Prothromb Time International Ratio 1.8 (0.9-1.1) H Sodium Level 142 MMOL/L (136-145) Potassium Level 3.0 MMOL/L (3.5-5.1) L Chloride Level 106 MMOL/L (98-107) Carbon Dioxide Level 29 MMOL/L (21-32) Anion Gap 7 mmol/L (5-15) Blood Urea Nitrogen 11 mg/dL (7-18) Creatinine 0.8 MG/DL (0.55-1.30) Estimat Glomerular Filtration Rate mL/min (>60) Glucose Level 82 MG/DL (74-106) Calcium Level 8.1 MG/DL (8.5-10.1) L Total Bilirubin 3.0 MG/DL (0.2-1.0) H Direct Bilirubin 0.5 MG/DL (0.0-0.3) H Aspartate Amino Transf (AST/SGOT) 58 U/L (15-37) H Alanine Aminotransferase (ALT/SGPT) 61 U/L (12-78) Alkaline Phosphatase 59 U/L (46-116) Total Protein 6.1 G/DL (6.4-8.2) L Albumin 2.4 G/DL (3.4-5.0) L Globulin 3.7 g/dL Albumin/Globulin Ratio 0.6 (1.0-2.7) L Hepatitis A IgM Antibody Pending Hepatitis B Surface Antigen Pending Hepatitis B Core IgM Antibody Pending Hepatitis C Antibody Pending Current Medications Medications (Trade) Dose Ordered Sig/[place] Route PRN Reason Start Time Stop Time Status Last Admin Dose Admin Acetaminophen (Tylenol) 500 mg Q6H PRN RECTAL Mild Pain/Temp > 100.5 08/24/17 18:30 09/23/17 18:29 08/26/17 23:50 Chlorhexidine Gluconate (Caroline-Hex 2%) 1 applic DAILY@2000 TOPIC 08/25/17 20:00 09/24/17 19:59 08/28/17 21:06 Dextrose/Sodium Chloride 1,000 ml @ 60 mls/hr [id number] IV 08/24/17 04:45 09/23/17 04:44 08/29/17 01:13 Hydralazine HCl (Apresoline) 10 mg Q2H PRN IV SBP > 170 08/25/17 16:15 09/24/17 16:14 08/29/17 01:14 Lorazepam (Ativan 2mg/ml 1ml) 0.5 mg Q6H PRN IV For Anxiety 08/27/17 13:30 09/03/17 13:29 08/27/17 15:33 Nystatin (Nystatin) 5 ml QID ORAL 3/26/18 13:00 09/05/17 12:59 08/29/17 15:00 Pantoprazole (Protonix) 40 mg EVERY 12 HOURS IVP 08/27/17 09:00 09/23/17 08:59 08/29/17 08:28 Piperacillin Sod/ Tazobactam Sod 3.375 gm/Dextrose 110 ml @ 27.5 mls/hr EVERY 8 HOURS IVPB 08/24/17 22:00 09/02/17 21:59 08/29/17 05:25 Vancomycin HCl (Vanco rx to dose) 1 ea DAILY PRN MISC Per rx protocol 08/24/17 18:30 09/23/17 18:29 Vancomycin/Sodium Chloride 250 ml @ 166.667 mls/hr Q12H IVPB 08/27/17 20:00 09/01/17 19:59 08/29/17 08:27 Noni Gonzalez M.D. Aug 29, 2017 15:28
--- NOTE | 2017-08-29 17:04 | Cardiac Electrophysiology PN ---
Assessment/Plan Assessment/Plan 1. Paroxysmal atrial fibrillation per records. In sinus rhythm. Was on Coumadin that was DCed Lower extremity Doppler showed no evidence of DVT. 2. Hypertension. On prn hydralazine only 3. Elevated INR with significant bleeding The patient received 3 units of blood transfusion. Her INR on 08/24/2017 was 1.4 and currently it is 1.3. 4. S/P Respiratory failure. Extubated 5. Pneumonia, on IV antibiotic per Dr. Gonzalez. DW RN at bedside Subjective Subjective In ICU alert and responsive on the vent. Extubated with no SVt or VT Objective Last 24 Hour Vital Signs Date Time Temp Pulse Resp B/P (MAP) Pulse Ox O2 Delivery O2 Flow Rate FiO2 08/29/17 16:00 97.9 91 19 144/57 94 Room Air 97.9 08/29/17 15:00 106 21 184/118 94 Room Air 08/29/17 14:00 91 19 163/56 93 Room Air 08/29/17 13:00 89 19 177/51 96 Room Air 08/29/17 12:00 98.1 90 19 167/56 94 Room Air 98.1 08/29/17 12:00 88 08/29/17 11:00 81 18 148/55 94 Room Air 08/29/17 10:00 83 19 160/59 95 Room Air 08/29/17 09:00 86 21 183/78 94 Room Air 08/29/17 08:00 85 08/29/17 08:00 83 20 160/51 97 Room Air 08/29/17 07:10 97 Nasal Cannula 2.0 28 08/29/17 07:10 Nasal Cannula 2.0 28 08/29/17 07:00 97.8 84 17 158/48 98 Room Air 97.8 08/29/17 06:00 84 17 159/57 96 Room Air 08/29/17 05:00 86 19 147/48 95 Room Air 08/29/17 04:00 83 19 156/60 94 Room Air 08/29/17 04:00 86 08/29/17 03:00 85 19 147/48 98 Room Air 08/29/17 02:00 87 19 145/42 97 Room Air 08/29/17 01:14 178/60 08/29/17 01:00 97.9 82 18 178/60 94 Room Air 97.9 08/29/17 00:00 78 15 187/67 98 Room Air 08/29/17 00:00 78 08/28/17 23:00 78 21 174/66 99 Room Air 08/28/17 22:00 81 17 177/97 99 Room Air 08/28/17 21:00 83 16 172/97 99 Room Air 08/28/17 20:00 97.7 79 18 153/51 95 Room Air 97.7 08/28/17 20:00 Nasal Cannula 2.0 28 08/28/17 20:00 79 08/28/17 20:00 95 Nasal Cannula 2.0 28 08/28/17 19:00 77 18 153/51 95 Room Air 08/28/17 18:00 84 17 167/70 95 Room Air Intake and Output 08/28/17 08/29/17 19:00 07:00 Intake Total 1415.834 ml 1095.0 ml Output Total 1850 ml 400 ml Balance -434.166 ml 695.0 ml IV Total 1415.834 ml 1095.0 ml Output Urine Total 1850 ml 400 ml Laboratory Tests Test 08/28/17 19:20 08/29/17 05:00 Vancomycin Level Trough 12.3 ug/mL (5.0-12.0) H White Blood Count 13.4 K/UL (4.8-10.8) H Red Blood Count 3.30 M/UL (4.20-5.40) L Hemoglobin 10.6 G/DL (12.0-16.0) L Hematocrit 30.1 % (37.0-47.0) L Mean Corpuscular Volume 91 FL (80-99) Mean Corpuscular Hemoglobin 32.0 PG (27.0-31.0) H Mean Corpuscular Hemoglobin Concent 35.1 G/DL (32.0-36.0) Red Cell Distribution Width 16.8 % (11.6-14.8) H Platelet Count 257 K/UL (150-450) Mean Platelet Volume 7.1 FL (6.5-10.1) Neutrophils (%) (Auto) 75.8 % (45.0-75.0) H Lymphocytes (%) (Auto) 14.5 % (20.0-45.0) L Monocytes (%) (Auto) 8.9 % (1.0-10.0) Eosinophils (%) (Auto) 0.6 % (0.0-3.0) Basophils (%) (Auto) 0.3 % (0.0-2.0) Prothrombin Time 18.7 SEC (9.30-11.50) H Prothromb Time International Ratio 1.8 (0.9-1.1) H Sodium Level 142 MMOL/L (136-145) Potassium Level 3.0 MMOL/L (3.5-5.1) L Chloride Level 106 MMOL/L (98-107) Carbon Dioxide Level 29 MMOL/L (21-32) Anion Gap 7 mmol/L (5-15) Blood Urea Nitrogen 11 mg/dL (7-18) Creatinine 0.8 MG/DL (0.55-1.30) Estimat Glomerular Filtration Rate mL/min (>60) Glucose Level 82 MG/DL (74-106) Calcium Level 8.1 MG/DL (8.5-10.1) L Total Bilirubin 3.0 MG/DL (0.2-1.0) H Direct Bilirubin 0.5 MG/DL (0.0-0.3) H Aspartate Amino Transf (AST/SGOT) 58 U/L (15-37) H Alanine Aminotransferase (ALT/SGPT) 61 U/L (12-78) Alkaline Phosphatase 59 U/L (46-116) Total Protein 6.1 G/DL (6.4-8.2) L Albumin 2.4 G/DL (3.4-5.0) L Globulin 3.7 g/dL Albumin/Globulin Ratio 0.6 (1.0-2.7) L Hepatitis A IgM Antibody Pending Hepatitis B Surface Antigen Pending Hepatitis B Core IgM Antibody Pending Hepatitis C Antibody Pending Objective HEAD AND NECK: No JVD. Ecchymosis on her upper chest and submandibular area better. LUNGS: Coarse rhonchi. CVS: RRR. No G/R/M ABDOMEN: Obese. EXTREMITIES: 1+ pitting edema as well as significant ecchymosis in both arms. Hao Edmondson MD Aug 29, 2017 17:04
--- NOTE | 2017-08-29 19:10 | Cardiology Report ---
APPROVED REPORT EXAM: Two-dimensional and M-mode echocardiogram with Doppler and color Doppler. INDICATION Hypertension/HCVD M-Mode DIMENSIONS IVSd1.5 (0.7-1.1cm)Left Atrium (MM)2.9 (1.6-4.0cm) LVDd4.0 (3.5-5.6cm)Aortic Root2.3 (2.0-3.7cm) PWd1.5 (0.7-1.1cm)Aortic Cusp Exc.1.6 (1.5-2.0cm) LVDs2.4 (2.5-4.0cm) PWs1.9 cm Normal left ventricular chamber size, systolic function and wall motion to extent visualized. Left ventricular ejection fraction estimated to be 60-65 %. Study quality precludes accurate assessment of regional wall motion. Moderate left ventricular hypertrophy by 2-D. No evidence of pericardial effusion. All other cardiac chamber sizes are within normal limits. Focal aortic valve sclerosis with adequate cusp excursion. Thickened mitral valve leaflets with normal excursion. Mitral annulus and aortic root calcification. Pulmonic valve not well visualized. Normal tricuspid valve structure. IVC measured at 2.1 cm without physiologic collapse suggestive of increased RA pressure. A color flow and spectral Doppler study was performed and revealed: Mild mitral regurgitation. Mitral diastolic velocities suggest reduced left ventricular relaxation c/w mild LV diastolic dysfunction (Grade I). Mild tricuspid regurgitation. Tricuspid systolic velocities suggests peak right ventricular systolic pressure of 41 mmHg, consistent with mild pulmonary hypertension. Trace pulmonic regurgitation present.
[2017-08-29] MEDS ORDERED: Potassium Chloride 40 MEQ in Sodium Chloride 500ML 550 ML IVPB ONE (19:30)
[2017-08-29] MEDS: Dyna-Hex 2% Top Sol 2oz TOPIC SCH (22:26)
[2017-08-30] VITALS (8 sets, daily range): BP systolic 142–181; BP diastolic 63–86
--- NOTE | 2017-08-30 00:03 | General Progress Note ---
Assessment/Plan Assessment/Plan 1. Anemia, potentially secondary to gastrointestinal bleed. --> The patient has been on Coumadin with coagulopathy, therefore exacerbating any potential bleed. Coumadin has since been discontinued. --> Continue to closely monitor and trend cbc daily. --> Anemia workup reviewed. --> Iron 26, TIBC 228, Ferritin 50, B12 377, Folate 11.9, TSH 0.4 --> Transfuse if hgb <7 2. Anemia of iron deficiency. Continue iron for five days. --> Dark stool found. ++Occult blood. Consider GI recs. --> Monitor closely --> Blood transfusion not required unless symptomatic or hgb below goal. 3. Coagulopathy due to Coumadin use in the past. --> It has since been discontinued. --> Coumadin currently on hold. INR goal less than 1 at this moment. 4. Respiratory failure, currently extubated --> Give epinephrine as needed. 6. Bilateral pneumonia. She is on broad-spectrum antibiotics. 7. Gastroesophageal reflux disease, on antacids as needed. 8. Subcutaneous bruising, likely due to Coumadin. 9. Leukocytosis. --> Improving Subjective Date patient seen: Aug 30, 2017 Constitutional: Denies: no symptoms, chills, diaphoresis, fever, malaise, weakness, other HEENT: Denies: no symptoms, eye pain, blurred vision, tearing, double vision, ear pain, ear discharge, nose pain, nose congestion, throat pain, throat swelling, mouth pain, mouth swelling, other Cardiovascular: Denies: no symptoms, chest pain, edema, irregular heart rate, lightheadedness, palpitations, syncope, other Respiratory: Denies: no symptoms, cough, orthopnea, shortness of breath, SOB with excertion, SOB at rest, sputum, stridor, wheezing, other Gastrointestinal/Abdominal: Denies: no symptoms, abdomen distended, abdominal pain, black stools, tarry stools, blood in stool, constipated, diarrhea, difficulty swallowing, nausea, poor appetite, poor fluid intake, rectal bleeding , vomiting, other Genitourinary: Denies: no symptoms, burning, discharge, frequency, flank pain, hematuria, incontinence, pain, urgency, other Neurologic/Psychiatric: Denies: no symptoms, anxiety, depressed, emotional problems, headache, numbness, paresthesia, pre-existing deficit, seizure, tingling, tremors, weakness, other Hematologic/Lymphatic: Reports: anemia Allergies: Coded Allergies: IBUPROFEN (Verified Allergy, Unknown, 08/23/17) Subjective Ongoing antibiotics. Hypertensive. H/H stable. Objective Last 24 Hour Vital Signs Date Time Temp Pulse Resp B/P (MAP) Pulse Ox O2 Delivery O2 Flow Rate FiO2 08/29/17 23:00 88 22 176/56 97 Room Air 08/29/17 22:57 200/80 08/29/17 22:00 86 19 200/80 96 Room Air 08/29/17 21:00 87 19 185/110 97 Room Air 08/29/17 20:00 85 08/29/17 20:00 98.3 85 20 181/52 97 Room Air 98.3 08/29/17 19:00 88 19 178/72 100 Room Air 08/29/17 18:00 92 21 190/74 100 Room Air 08/29/17 17:00 92 22 79/41 94 Room Air 08/29/17 16:00 97.9 91 19 144/57 94 Room Air 97.9 08/29/17 16:00 90 08/29/17 15:00 106 21 184/118 94 Room Air 08/29/17 14:00 91 19 163/56 93 Room Air 08/29/17 13:00 89 19 177/51 96 Room Air 08/29/17 12:00 98.1 90 19 167/56 94 Room Air 98.1 08/29/17 12:00 88 08/29/17 11:00 81 18 148/55 94 Room Air 08/29/17 10:00 83 19 160/59 95 Room Air 08/29/17 09:00 86 21 183/78 94 Room Air 08/29/17 08:00 85 08/29/17 08:00 83 20 160/51 97 Room Air 08/29/17 07:10 97 Nasal Cannula 2.0 28 08/29/17 07:10 Nasal Cannula 2.0 28 08/29/17 07:00 97.8 84 17 158/48 98 Room Air 97.8 08/29/17 06:00 84 17 159/57 96 Room Air 08/29/17 05:00 86 19 147/48 95 Room Air 08/29/17 04:00 83 19 156/60 94 Room Air 08/29/17 04:00 86 08/29/17 03:00 85 19 147/48 98 Room Air 08/29/17 02:00 87 19 145/42 97 Room Air 08/29/17 01:14 178/60 08/29/17 01:00 97.9 82 18 178/60 94 Room Air 97.9 Intake and Output 08/29/17 08/30/17 19:00 07:00 Intake Total 1663.335 ml 654.167 ml Output Total 400 ml Balance 1263.335 ml 654.167 ml Intake Oral 0 ml IV Total 1663.335 ml 654.167 ml Output Urine Total 400 ml # Voids 1 # Bowel Movements 3 Laboratory Tests 08/29/17 05:00: White Blood Count 13.4H, Red Blood Count 3.30L, Hemoglobin 10.6L, Hematocrit 30.1L, Mean Corpuscular Volume 91, Mean Corpuscular Hemoglobin 32.0H, Mean Corpuscular Hemoglobin Concent 35.1, Red Cell Distribution Width 16.8H, Platelet Count 257, Mean Platelet Volume 7.1, Neutrophils (%) (Auto) 75.8H, Lymphocytes (%) (Auto) 14.5L, Monocytes (%) (Auto) 8.9, Eosinophils (%) (Auto) 0.6, Basophils (%) (Auto) 0.3, Prothrombin Time 18.7H, Prothromb Time International Ratio 1.8H, Sodium Level 142, Potassium Level 3.0L, Chloride Level 106, Carbon Dioxide Level 29, Anion Gap 7, Blood Urea Nitrogen 11, Creatinine 0.8, Estimat Glomerular Filtration Rate , Glucose Level 82, Calcium Level 8.1L, Total Bilirubin 3.0H, Direct Bilirubin 0.5H, Aspartate Amino Transf (AST/SGOT) 58H, Alanine Aminotransferase (ALT/SGPT) 61, Alkaline Phosphatase 59 , Total Protein 6.1L, Albumin 2.4L, Globulin 3.7, Albumin/Globulin Ratio 0.6L, Hepatitis A IgM Antibody [Pending], Hepatitis B Surface Antigen [Pending], Hepatitis B Core IgM Antibody [Pending], Hepatitis C Antibody [Pending] Height (Feet): 5 Height (Inches): 2.00 Weight (Pounds): 177 General Appearance: agitated Respiratory/Chest: decreased breath sounds Abdomen: soft Cristiano Roberts MD Aug 30, 2017 00:03
[2017-08-30] MEDS ORDERED: LORazepam Inj 2mg/ml 1ml IV PRN (01:30)
[2017-08-30] MEDS: D5NS 1,000 ML IV SCH ×2 (03:09→17:16)
--- NOTE | 2017-08-30 03:16 | Progress Note ---
DATE: 08/29/2017 SUBJECTIVE: This is an elderly 82-year-old female, was extubated this morning, doing fine. Failed swallow evaluation. She has an ulcer on the tongue where she probably looks bitter in the tongue and unable to put the NG tube. The patient currently alert and awake. Doing better. Shortness of breath has improved. OBJECTIVE: VITAL SIGNS: Her current blood pressure is 100/40, pulse 60, respirations 18, and no fever. CHEST: Bilateral few crackles and wheezing. CARDIOVASCULAR: Regular rhythm. No gallop. No murmur. ABDOMEN: Soft. Positive bowel sounds. EXTREMITIES: CCE. NEUROLOGIC: Generalized weakness. ASSESSMENT: 1. Epiglottitis. 2. Mouth ulcer. 3. Failure to thrive. 4. Dysphagia. 5. Acute respiratory failure. PLAN: We will continue bronchodilator treatment. Discussed with GI . Continue bronchodilator treatments. Continue antibiotics. iVk Maria M.D. DR: SALOME JOB#: [id number] CC:
[2017-08-30] MEDS: Piperacillin/Tazobactam 3.375 GM in D5W 110 ML IVPB SCH ×3 (06:25→22:26)
[2017-08-30] MEDS ORDERED: Acetaminophen 650 MG SUPP RECTAL PRN (06:30)
[2017-08-30 06:49] LABS: BASOPHILS % (AUTO) 0.3 % (0.0-2.0); EOSINOPHILS % (AUTO) 1.9 % (0.0-3.0); HEMATOCRIT 35.5 % (37.0-47.0); HEMOGLOBIN 12.2 G/DL (12.0-16.0); LYMPHOCYTES % (AUTO) 9.2 % (20.0-45.0); MEAN CORPUSCULAR VOLUME 94 FL (80-99); MONOCYTES % (AUTO) 6.8 % (1.0-10.0); NEUTROPHILS % (AUTO) 81.9 % (45.0-75.0); PLATELET COUNT 328 K/UL (150-450); RED CELL DISTRIBUTION WIDTH 21.2 % (11.6-14.8); WHITE BLOOD COUNT 15.2 K/UL (4.8-10.8)
[2017-08-30 07:03] LABS: ALANINE AMINOTRANSFERASE 79 U/L (12-78); ALBUMIN 2.7 G/DL (3.4-5.0); ALBUMIN/GLOBULIN RATIO 0.7 (1.0-2.7); ALKALINE PHOSPHATASE 68 U/L (46-116); ANION GAP 10 mmol/L (5-15); ASPARTATE AMINO TRANSFERASE 59 U/L (15-37); BILIRUBIN,TOTAL 3.7 MG/DL (0.2-1.0); BLOOD UREA NITROGEN 14 mg/dL (7-18); CALCIUM 8.5 MG/DL (8.5-10.1); CARBON DIOXIDE 27 MMOL/L (21-32); CHLORIDE 106 MMOL/L (98-107); POTASSIUM 3.2 MMOL/L (3.5-5.1); SODIUM 143 MMOL/L (136-145)
[2017-08-30 07:05] LABS: BILIRUBIN,DIRECT 0.8 MG/DL (0.0-0.3)
[2017-08-30 08:25] LABS: INR 1.1 (0.9-1.1)
--- NOTE | 2017-08-30 08:31 | Diagnostic Imaging Report ---
Indication: Abnormal liver function tests Technique: [place]-scale and duplex images of the upper abdomen were obtained Comparison: none Findings: Gallbladder demonstrates multiple gallstones. No gallbladder wall thickening or pericholecystic fluid Sonographic Saavedra's sign is negative. Common bile duct measures 3 mm in diameter. No intrahepatic biliary ductal dilatation. Liver demonstrates normal echogenicity, no focal abnormality. Portal vein and hepatic veins are patent. Pancreas is unremarkable. Spleen is unremarkable. Left kidney measures 9.9 cm in length. Right kidney measures 10.8 cm length. Both kidneys demonstrate normal echogenicity. There is no hydronephrosis. The right kidney demonstrates multiple cysts . Abdominal aorta is partially obscured by bowel gas, visualized portions are non-aneurysmal . Impression: Cholelithiasis. Negative for dilated ducts No other acute or significant abnormality No nonvisualization of portions of the abdominal aorta Incidental finding of right renal cysts
--- NOTE | 2017-08-30 08:32 | Pulmonology Progress Note ---
Assessment/Plan Assessment/Plan 1. Soft tissue swelling in the neck area with compromised airway. Resolved 2. Respiratory failure with airway compromise. Now extubated. 3. Marked subcutaneous bruising. Improving. 4. Coumadin use. 5. Hypertension. 6. GERD. 7. shelter resident. 8. Anemia. 9. Leukocytosis. DISCUSSION: I am unclear as to the etiology of her compromised airway. I suspect she had bleeding in the neck area, possibly due to trauma due to CPAP in the presence of Coumadin. She is awake and responsive. Bedside bronchoscopy done Airways clear CXR clear Resume coumadin or stop? ENT note reviewed Subjective Interval Events: Doing well; now on tele Constitutional: Reports: no symptoms HEENT: Repors: no symptoms Respiratory: Reports: no symptoms Cardiovascular: Reports: no symptoms Gastrointestinal/Abdominal: Reports: no symptoms Allergies: Coded Allergies: IBUPROFEN (Verified Allergy, Unknown, 08/23/17) Objective Last 24 Hour Vital Signs Date Time Temp Pulse Resp B/P (MAP) Pulse Ox O2 Delivery O2 Flow Rate FiO2 08/30/17 04:36 95 167/83 08/30/17 04:00 82 08/30/17 04:00 97.9 87 20 181/70 97 Room Air 97.9 08/30/17 01:00 97.7 96 23 156/72 96 Room Air 97.7 08/30/17 01:00 90 08/30/17 00:07 88 08/30/17 00:05 98.0 88 21 176/86 98 Room Air 98.0 08/29/17 23:00 88 22 176/56 97 Room Air 08/29/17 22:57 200/80 08/29/17 22:00 86 19 200/80 96 Room Air 08/29/17 21:00 87 19 185/110 97 Room Air 08/29/17 20:00 85 08/29/17 20:00 98.3 85 20 181/52 97 Room Air 98.3 08/29/17 19:00 88 19 178/72 100 Room Air 08/29/17 18:00 92 21 190/74 100 Room Air 08/29/17 17:00 92 22 79/41 94 Room Air 08/29/17 16:00 97.9 91 19 144/57 94 Room Air 97.9 08/29/17 16:00 90 08/29/17 15:00 106 21 184/118 94 Room Air 08/29/17 14:00 91 19 163/56 93 Room Air 08/29/17 13:00 89 19 177/51 96 Room Air 08/29/17 12:00 98.1 90 19 167/56 94 Room Air 98.1 08/29/17 12:00 88 08/29/17 11:00 81 18 148/55 94 Room Air 08/29/17 10:00 83 19 160/59 95 Room Air 08/29/17 09:00 86 21 183/78 94 Room Air Intake and Output 08/29/17 08/30/17 19:00 07:00 Intake Total 1663.335 ml 972.667 ml Output Total 400 ml 700 ml Balance 1263.335 ml 272.667 ml Intake Oral 0 ml IV Total 1663.335 ml 972.667 ml Output Urine Total 400 ml 700 ml # Voids 1 2 # Bowel Movements 3 General Appearance: no acute distress HEENT: normocephalic Respiratory/Chest: chest wall non-tender Cardiovascular: normal peripheral pulses Abdomen: normal bowel sounds Laboratory Tests 08/30/17 05:35: White Blood Count 15.2H, Red Blood Count 3.80L, Hemoglobin 12.2, Hematocrit 35.5L, Mean Corpuscular Volume 94, Mean Corpuscular Hemoglobin 32.0H, Mean Corpuscular Hemoglobin Concent 34.3, Red Cell Distribution Width 21.2H, Platelet Count 328, Mean Platelet Volume 6.8, Neutrophils (%) (Auto) 81.9H, Lymphocytes (%) (Auto) 9.2L, Monocytes (%) (Auto) 6.8, Eosinophils (%) (Auto) 1.9, Basophils (%) (Auto) 0.3, Prothrombin Time [Pending], Prothromb Time International Ratio [Pending], Activated Partial Thromboplast Time [Pending], Sodium Level 143, Potassium Level 3.2L, Chloride Level 106, Carbon Dioxide Level 27, Anion Gap 10, Blood Urea Nitrogen 14, Creatinine 1.0, Estimat Glomerular Filtration Rate , Glucose Level 100, Calcium Level 8.5, Total Bilirubin 3.7H, Direct Bilirubin 0.8H, Aspartate Amino Transf (AST/SGOT) 59H, Alanine Aminotransferase (ALT/SGPT) 79H, Alkaline Phosphatase 68, Total Protein 6.8, Albumin 2.7L, Globulin 4.1, Albumin/Globulin Ratio 0.7L Current Medications Medications (Trade) Dose Ordered Sig/Chester Route PRN Reason Start Time Stop Time Status Last Admin Dose Admin Acetaminophen (Tylenol) 500 mg Q6H PRN RECTAL Mild Pain/Temp > 100.5 08/30/17 06:30 09/23/17 18:29 Chlorhexidine Gluconate (Caroline-Hex 2%) 1 applic DAILY@2000 TOPIC 08/30/17 20:00 09/24/17 19:59 Dextrose/Sodium Chloride 1,000 ml @ 60 mls/hr [id number] IV 08/30/17 01:30 09/23/17 04:44 08/30/17 03:09 Hydralazine HCl (Apresoline) 10 mg Q2H PRN IV SBP > 170 08/30/17 02:15 09/24/17 16:14 Lorazepam (Ativan 2mg/ml 1ml) 0.5 mg Q6H PRN IV For Anxiety 08/30/17 01:30 09/03/17 13:29 Nystatin (Nystatin) 5 ml QID ORAL 08/30/17 09:00 09/05/17 12:59 Pantoprazole (Protonix) 40 mg EVERY 12 HOURS IVP 08/30/17 09:00 09/23/17 08:59 Piperacillin Sod/ Tazobactam Sod 3.375 gm/Dextrose 110 ml @ 27.5 mls/hr EVERY 8 HOURS IVPB 08/30/17 06:00 09/02/17 21:59 08/30/17 06:25 Vancomycin HCl (Vanco rx to dose) 1 ea DAILY PRN MISC Per rx protocol 08/30/17 09:00 09/23/17 18:29 Vancomycin/Sodium Chloride 250 ml @ 166.667 mls/hr Q12H IVPB 08/30/17 08:00 09/01/17 19:59 Toño Underwood MD Aug 30, 2017 08:32
[2017-08-30] MEDS: Nystatin Susp 500,000 units/5ml ORAL SCH ×4 (08:39→21:06)
[2017-08-30] MEDS: Pantoprazole Inj IVP SCH ×2 (08:40→21:06)
[2017-08-30] MEDS: Vancomycin 750mg/NS 250ml 250 ML IVPB SCH ×2 (08:40→20:31)
--- NOTE | 2017-08-30 14:00 | GI Progress Note ---
Assessment/Plan Problems: (1) Coagulopathy ICD Codes: D68.9 - Coagulation defect, unspecified SNOMED: 55627451 (2) Allergic reaction caused by a drug ICD Codes: T78.40XA - Allergy, unspecified, initial encounter SNOMED: 025959076 (3) Anemia ICD Codes: D64.9 - Anemia, unspecified SNOMED: 737666195 (4) Airway compromise ICD Codes: J98.8 - Other specified respiratory disorders SNOMED: 89310375 Status: progressing Status Narrative Discussed with Dr. Dyson. Assessment/Plan Assessment - GI Bleed - Resp failure - Anemia - neck ecchymosis - (L) foot ischemic changes - abnormal LFT ST evaluation reviewed OB positive hepatitis panel negative abdominal U/S reviewed >> Cholelithiasis. Negative for dilated ducts dobhoff/NGT refused by patient >> diet per ST strict aspiration precautions hold blood thinners OB stool r/o GI bleed pending x 3 monitor H&H, prn transfusions ppi fu labs correct coag will consider EGD/colonoscopy The patient was seen and examined at bedside and all new and available data was reviewed in the patients chart. I agree with the above findings, impression and plan. (Patient seen earlier today. Signature stamp does not reflect patient encounter time.). - Nelly Dyson MD Subjective Subjective limited Objective Last 24 Hour Vital Signs Date Time Temp Pulse Resp B/P (MAP) Pulse Ox O2 Delivery O2 Flow Rate FiO2 08/30/17 12:00 97.9 90 19 163/74 96 Room Air 97.9 08/30/17 12:00 98 08/30/17 08:00 97.6 87 19 165/82 97 Room Air 97.6 08/30/17 08:00 97 08/30/17 04:36 95 167/83 08/30/17 04:00 82 08/30/17 04:00 97.9 87 20 181/70 97 Room Air 97.9 08/30/17 01:00 97.7 96 23 156/72 96 Room Air 97.7 08/30/17 01:00 90 08/30/17 00:07 88 08/30/17 00:05 98.0 88 21 176/86 98 Room Air 98.0 08/29/17 23:00 88 22 176/56 97 Room Air 08/29/17 22:57 200/80 08/29/17 22:00 86 19 200/80 96 Room Air 08/29/17 21:00 87 19 185/110 97 Room Air 08/29/17 20:00 85 08/29/17 20:00 98.3 85 20 181/52 97 Room Air 98.3 08/29/17 19:00 88 19 178/72 100 Room Air 08/29/17 18:00 92 21 190/74 100 Room Air 08/29/17 17:00 92 22 79/41 94 Room Air 08/29/17 16:00 97.9 91 19 144/57 94 Room Air 97.9 08/29/17 16:00 90 08/29/17 15:00 106 21 184/118 94 Room Air 08/29/17 14:00 91 19 163/56 93 Room Air Intake and Output 08/29/17 08/30/17 19:00 07:00 Intake Total 1663.335 ml 972.667 ml Output Total 400 ml 700 ml Balance 1263.335 ml 272.667 ml Intake Oral 0 ml IV Total 1663.335 ml 972.667 ml Output Urine Total 400 ml 700 ml # Voids 1 2 # Bowel Movements 3 Laboratory Tests Test 08/30/17 05:35 White Blood Count 15.2 K/UL (4.8-10.8) H Red Blood Count 3.80 M/UL (4.20-5.40) L Hemoglobin 12.2 G/DL (12.0-16.0) Hematocrit 35.5 % (37.0-47.0) L Mean Corpuscular Volume 94 FL (80-99) Mean Corpuscular Hemoglobin 32.0 PG (27.0-31.0) H Mean Corpuscular Hemoglobin Concent 34.3 G/DL (32.0-36.0) Red Cell Distribution Width 21.2 % (11.6-14.8) H Platelet Count 328 K/UL (150-450) Mean Platelet Volume 6.8 FL (6.5-10.1) Neutrophils (%) (Auto) 81.9 % (45.0-75.0) H Lymphocytes (%) (Auto) 9.2 % (20.0-45.0) L Monocytes (%) (Auto) 6.8 % (1.0-10.0) Eosinophils (%) (Auto) 1.9 % (0.0-3.0) Basophils (%) (Auto) 0.3 % (0.0-2.0) Prothrombin Time 12.0 SEC (9.30-11.50) H Prothromb Time International Ratio 1.1 (0.9-1.1) Activated Partial Thromboplast Time 28 SEC (23-33) Sodium Level 143 MMOL/L (136-145) Potassium Level 3.2 MMOL/L (3.5-5.1) L Chloride Level 106 MMOL/L (98-107) Carbon Dioxide Level 27 MMOL/L (21-32) Anion Gap 10 mmol/L (5-15) Blood Urea Nitrogen 14 mg/dL (7-18) Creatinine 1.0 MG/DL (0.55-1.30) Estimat Glomerular Filtration Rate mL/min (>60) Glucose Level 100 MG/DL (74-106) Calcium Level 8.5 MG/DL (8.5-10.1) Total Bilirubin 3.7 MG/DL (0.2-1.0) H Direct Bilirubin 0.8 MG/DL (0.0-0.3) H Aspartate Amino Transf (AST/SGOT) 59 U/L (15-37) H Alanine Aminotransferase (ALT/SGPT) 79 U/L (12-78) H Alkaline Phosphatase 68 U/L (46-116) Total Protein 6.8 G/DL (6.4-8.2) Albumin 2.7 G/DL (3.4-5.0) L Globulin 4.1 g/dL Albumin/Globulin Ratio 0.7 (1.0-2.7) L Height (Feet): 5 Height (Inches): 2.00 Weight (Pounds): 139 General Appearance: no apparent distress Cardiovascular: normal rate Respiratory/Chest: normal breath sounds, no respiratory distress Abdominal Exam: normal bowel sounds, non tender, soft Extremities: normal range of motion Mae Lawler N.Jarrett Aug 30, 2017 14:00 RAJ DYSON Sep 01, 2017 14:02
--- NOTE | 2017-08-30 14:14 | Infectious Diseases Prog Note ---
Assessment/Plan Problems: (1) HCAP (healthcare-associated pneumonia) Assessment & Plan: improving on zosyn and vancomycin, will continue empiric coverage for 7-10 days , monitor CXR (2) Cellulitis of neck Assessment & Plan: no evidence of neck abcsess on CT neck, already on zosyn empiric coverage for now , bronchoscopy didn't show any hematoma inside her airway, and she was evaluated by ENT . (3) Sepsis Assessment & Plan: with leukocytosis due to the above, improving , on vancomycin and zosyn, blood culture remains negative (4) Acute respiratory failure Assessment & Plan: due to the above, intubated on mechanical ventilation, monitor ABG and CXR , consult curriculum designer (5) Fever Assessment & Plan: improved, due to the above, continue wide spectrum antibiotics, and tylenol PRN (6) Coagulopathy Assessment & Plan: with diffuse bleeding , suspect due to Coumadin, on hold, transfused PRBC as needed, check DIC profile (7) 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 Assessment & Plan: with MSSA and Providencia rettgeri , recommend sheet metal supervisor consult and vascular study for further eval , already on vancomycin and zosyn Subjective Constitutional: Reports: no symptoms HEENT: Reports: no symptoms Respiratory: Reports: no symptoms Breasts: Reports: no symptoms Cardiovascular: Reports: no symptoms Gastrointestinal/Abdominal: Reports: no symptoms Genitourinary: Reports: no symptoms Neurologic: Reports: no symptoms Psychiatric: Reports: no symptoms Skin: Reports: ulcer, other - bruises Endocrine: Reports: no symptoms Hematologic: Reports: no symptoms Musculoskeletal: Reports: no symptoms Allergies: Coded Allergies: IBUPROFEN (Verified Allergy, Unknown, 08/23/17) Subjective she was extubated , more awake and alert, responsive to verbal commands , no fever or chills , no diarrhea, refusing G tube placement Objective Vital Signs Last 24 Hour Vital Signs Date Time Temp Pulse Resp B/P (MAP) Pulse Ox O2 Delivery O2 Flow Rate FiO2 08/30/17 12:00 97.9 90 19 163/74 96 Room Air 97.9 08/30/17 12:00 98 08/30/17 08:00 97.6 87 19 165/82 97 Room Air 97.6 08/30/17 08:00 97 08/30/17 04:36 95 167/83 08/30/17 04:00 82 08/30/17 04:00 97.9 87 20 181/70 97 Room Air 97.9 08/30/17 01:00 97.7 96 23 156/72 96 Room Air 97.7 08/30/17 01:00 90 08/30/17 00:07 88 08/30/17 00:05 98.0 88 21 176/86 98 Room Air 98.0 08/29/17 23:00 88 22 176/56 97 Room Air 08/29/17 22:57 200/80 08/29/17 22:00 86 19 200/80 96 Room Air 08/29/17 21:00 87 19 185/110 97 Room Air 08/29/17 20:00 85 08/29/17 20:00 98.3 85 20 181/52 97 Room Air 98.3 08/29/17 19:00 88 19 178/72 100 Room Air 08/29/17 18:00 92 21 190/74 100 Room Air 08/29/17 17:00 92 22 79/41 94 Room Air 08/29/17 16:00 97.9 91 19 144/57 94 Room Air 97.9 08/29/17 16:00 90 08/29/17 15:00 106 21 184/118 94 Room Air Height (Feet): 5 Height (Inches): 2.00 Weight (Pounds): 139 General Appearance: WD/WN, no acute distress HEENT: normocephalic, atraumatic, anicteric, mucous membranes moist, PERRL Respiratory/Chest: chest wall non-tender, lungs clear, normal breath sounds, no respiratory distress, no accessory muscle use Cardiovascular: normal peripheral pulses, normal rate, regular rhythm, no gallop/murmur, no JVD Abdomen: normal bowel sounds, soft, non tender, no organomegaly, non distended , no mass, no scars Extremities: no cyanosis, no clubbing Skin: no rash, no lesions, ulcers, other - bruises Neurologic/Psychiatric: alert, responsive Lymphatic: no neck adenopathy, no groin adenopathy Laboratory Tests Test 08/30/17 05:35 White Blood Count 15.2 K/UL (4.8-10.8) H Red Blood Count 3.80 M/UL (4.20-5.40) L Hemoglobin 12.2 G/DL (12.0-16.0) Hematocrit 35.5 % (37.0-47.0) L Mean Corpuscular Volume 94 FL (80-99) Mean Corpuscular Hemoglobin 32.0 PG (27.0-31.0) H Mean Corpuscular Hemoglobin Concent 34.3 G/DL (32.0-36.0) Red Cell Distribution Width 21.2 % (11.6-14.8) H Platelet Count 328 K/UL (150-450) Mean Platelet Volume 6.8 FL (6.5-10.1) Neutrophils (%) (Auto) 81.9 % (45.0-75.0) H Lymphocytes (%) (Auto) 9.2 % (20.0-45.0) L Monocytes (%) (Auto) 6.8 % (1.0-10.0) Eosinophils (%) (Auto) 1.9 % (0.0-3.0) Basophils (%) (Auto) 0.3 % (0.0-2.0) Prothrombin Time 12.0 SEC (9.30-11.50) H Prothromb Time International Ratio 1.1 (0.9-1.1) Activated Partial Thromboplast Time 28 SEC (23-33) Sodium Level 143 MMOL/L (136-145) Potassium Level 3.2 MMOL/L (3.5-5.1) L Chloride Level 106 MMOL/L (98-107) Carbon Dioxide Level 27 MMOL/L (21-32) Anion Gap 10 mmol/L (5-15) Blood Urea Nitrogen 14 mg/dL (7-18) Creatinine 1.0 MG/DL (0.55-1.30) Estimat Glomerular Filtration Rate mL/min (>60) Glucose Level 100 MG/DL (74-106) Calcium Level 8.5 MG/DL (8.5-10.1) Total Bilirubin 3.7 MG/DL (0.2-1.0) H Direct Bilirubin 0.8 MG/DL (0.0-0.3) H Aspartate Amino Transf (AST/SGOT) 59 U/L (15-37) H Alanine Aminotransferase (ALT/SGPT) 79 U/L (12-78) H Alkaline Phosphatase 68 U/L (46-116) Total Protein 6.8 G/DL (6.4-8.2) Albumin 2.7 G/DL (3.4-5.0) L Globulin 4.1 g/dL Albumin/Globulin Ratio 0.7 (1.0-2.7) L Current Medications Medications (Trade) Dose Ordered Sig/Chester Route PRN Reason Start Time Stop Time Status Last Admin Dose Admin Acetaminophen (Tylenol) 500 mg Q6H PRN RECTAL Mild Pain/Temp > 100.5 08/30/17 06:30 09/23/17 18:29 Chlorhexidine Gluconate (Caroline-Hex 2%) 1 applic DAILY@2000 TOPIC 08/30/17 20:00 09/24/17 19:59 Dextrose/Sodium Chloride 1,000 ml @ 60 mls/hr [id number] IV 08/30/17 01:30 09/23/17 04:44 08/30/17 03:09 Hydralazine HCl (Apresoline) 10 mg Q2H PRN IV SBP > 170 08/30/17 02:15 09/24/17 16:14 Lorazepam (Ativan 2mg/ml 1ml) 0.5 mg Q6H PRN IV For Anxiety 08/30/17 01:30 09/03/17 13:29 Nystatin (Nystatin) 5 ml QID ORAL 08/30/17 09:00 09/05/17 12:59 08/30/17 13:05 Pantoprazole (Protonix) 40 mg EVERY 12 HOURS IVP 08/30/17 09:00 09/23/17 08:59 08/30/17 08:40 Piperacillin Sod/ Tazobactam Sod 3.375 gm/Dextrose 110 ml @ 27.5 mls/hr EVERY 8 HOURS IVPB 08/30/17 06:00 09/02/17 21:59 08/30/17 13:13 Vancomycin HCl (Vanco rx to dose) 1 ea DAILY PRN MISC Per rx protocol 08/30/17 09:00 09/23/17 18:29 Vancomycin/Sodium Chloride 250 ml @ 166.667 mls/hr Q12H IVPB 08/30/17 08:00 09/01/17 19:59 08/30/17 08:40 Noni Gonzalez M.D. Aug 30, 2017 14:14
[2017-08-30] MEDS ORDERED: Tubing IV Secondary IV ONE ×2 (15:31→16:30)
[2017-08-30] MEDS ORDERED: NS 275ml ONE (15:31)
[2017-08-30] MEDS ORDERED: D5NS 1000ml IV ONE ×2 (15:31→16:30)
--- NOTE | 2017-08-30 16:19 | Cardiac Electrophysiology PN ---
Assessment/Plan Assessment/Plan 1. Paroxysmal atrial fibrillation per records. In sinus rhythm. Was on Coumadin that was DCed Lower extremity Doppler showed no evidence of DVT. 2. Hypertension. On prn hydralazine only 3. Elevated INR with significant bleeding The patient received 3 units of blood transfusion. Her INR on 08/24/2017 was 1.4 and currently it is 1.3. 4. S/P Respiratory failure. Extubated 5. Pneumonia, on IV antibiotic per Dr. Gonzalez. VENITA RN Subjective Subjective Transferred to tele today. No SVT or VT. Comfortable in NAD Objective Last 24 Hour Vital Signs Date Time Temp Pulse Resp B/P (MAP) Pulse Ox O2 Delivery O2 Flow Rate FiO2 08/30/17 12:00 97.9 90 19 163/74 96 Room Air 97.9 08/30/17 12:00 98 08/30/17 08:00 97.6 87 19 165/82 97 Room Air 97.6 08/30/17 08:00 97 08/30/17 04:36 95 167/83 08/30/17 04:00 82 08/30/17 04:00 97.9 87 20 181/70 97 Room Air 97.9 08/30/17 01:00 97.7 96 23 156/72 96 Room Air 97.7 08/30/17 01:00 90 08/30/17 00:07 88 08/30/17 00:05 98.0 88 21 176/86 98 Room Air 98.0 08/29/17 23:00 88 22 176/56 97 Room Air 08/29/17 22:57 200/80 08/29/17 22:00 86 19 200/80 96 Room Air 08/29/17 21:00 87 19 185/110 97 Room Air 08/29/17 20:00 85 08/29/17 20:00 98.3 85 20 181/52 97 Room Air 98.3 08/29/17 19:00 88 19 178/72 100 Room Air 08/29/17 18:00 92 21 190/74 100 Room Air 08/29/17 17:00 92 22 79/41 94 Room Air Intake and Output 08/29/17 08/30/17 19:00 07:00 Intake Total 1663.335 ml 972.667 ml Output Total 400 ml 700 ml Balance 1263.335 ml 272.667 ml Intake Oral 0 ml IV Total 1663.335 ml 972.667 ml Output Urine Total 400 ml 700 ml # Voids 1 2 # Bowel Movements 3 Laboratory Tests Test 08/30/17 05:35 White Blood Count 15.2 K/UL (4.8-10.8) H Red Blood Count 3.80 M/UL (4.20-5.40) L Hemoglobin 12.2 G/DL (12.0-16.0) Hematocrit 35.5 % (37.0-47.0) L Mean Corpuscular Volume 94 FL (80-99) Mean Corpuscular Hemoglobin 32.0 PG (27.0-31.0) H Mean Corpuscular Hemoglobin Concent 34.3 G/DL (32.0-36.0) Red Cell Distribution Width 21.2 % (11.6-14.8) H Platelet Count 328 K/UL (150-450) Mean Platelet Volume 6.8 FL (6.5-10.1) Neutrophils (%) (Auto) 81.9 % (45.0-75.0) H Lymphocytes (%) (Auto) 9.2 % (20.0-45.0) L Monocytes (%) (Auto) 6.8 % (1.0-10.0) Eosinophils (%) (Auto) 1.9 % (0.0-3.0) Basophils (%) (Auto) 0.3 % (0.0-2.0) Prothrombin Time 12.0 SEC (9.30-11.50) H Prothromb Time International Ratio 1.1 (0.9-1.1) Activated Partial Thromboplast Time 28 SEC (23-33) Sodium Level 143 MMOL/L (136-145) Potassium Level 3.2 MMOL/L (3.5-5.1) L Chloride Level 106 MMOL/L (98-107) Carbon Dioxide Level 27 MMOL/L (21-32) Anion Gap 10 mmol/L (5-15) Blood Urea Nitrogen 14 mg/dL (7-18) Creatinine 1.0 MG/DL (0.55-1.30) Estimat Glomerular Filtration Rate mL/min (>60) Glucose Level 100 MG/DL (74-106) Calcium Level 8.5 MG/DL (8.5-10.1) Total Bilirubin 3.7 MG/DL (0.2-1.0) H Direct Bilirubin 0.8 MG/DL (0.0-0.3) H Aspartate Amino Transf (AST/SGOT) 59 U/L (15-37) H Alanine Aminotransferase (ALT/SGPT) 79 U/L (12-78) H Alkaline Phosphatase 68 U/L (46-116) Total Protein 6.8 G/DL (6.4-8.2) Albumin 2.7 G/DL (3.4-5.0) L Globulin 4.1 g/dL Albumin/Globulin Ratio 0.7 (1.0-2.7) L Objective HEAD AND NECK: No JVD. Ecchymosis on her upper chest and submandibular area better. LUNGS: Coarse rhonchi. CVS: RRR. No G/R/M ABDOMEN: Obese. EXTREMITIES: 1+ pitting edema as well as significant ecchymosis in both arms. Hao Edmondson MD Aug 30, 2017 16:19
[2017-08-30] MEDS: Dyna-Hex 2% Top Sol 2oz TOPIC SCH (21:06)
--- NOTE | 2017-08-30 23:42 | Nephrology Progress Note ---
Assessment/Plan Problem List: (1) Angioedema (2) Airway compromise (3) Cellulitis of neck (4) Acute respiratory failure (5) Coagulopathy (6) HCAP (healthcare-associated pneumonia) (7) Sepsis (8) Anemia Plan abx per ID. pulmonary following. ENT consulted. monitor labs. d/c planning. Subjective Subjective tx'd to tele. comfortable. Objective Objective Last 24 Hour Vital Signs Date Time Temp Pulse Resp B/P (MAP) Pulse Ox O2 Delivery O2 Flow Rate FiO2 08/30/17 20:00 97.7 79 20 142/63 94 Room Air 97.7 08/30/17 16:00 98.1 82 21 155/76 98 Room Air 98.1 08/30/17 16:00 94 08/30/17 12:00 97.9 90 19 163/74 96 Room Air 97.9 08/30/17 12:00 98 08/30/17 08:00 97.6 87 19 165/82 97 Room Air 97.6 08/30/17 08:00 97 08/30/17 04:36 95 167/83 08/30/17 04:00 82 08/30/17 04:00 97.9 87 20 181/70 97 Room Air 97.9 08/30/17 01:00 97.7 96 23 156/72 96 Room Air 97.7 08/30/17 01:00 90 08/30/17 00:07 88 08/30/17 00:05 98.0 88 21 176/86 98 Room Air 98.0 Intake and Output 08/29/17 08/30/17 19:00 07:00 Intake Total 1663.335 ml 972.667 ml Output Total 400 ml 700 ml Balance 1263.335 ml 272.667 ml Intake Oral 0 ml IV Total 1663.335 ml 972.667 ml Output Urine Total 400 ml 700 ml # Voids 1 2 # Bowel Movements 3 Laboratory Tests 08/30/17 05:35: White Blood Count 15.2H, Red Blood Count 3.80L, Hemoglobin 12.2, Hematocrit 35.5L, Mean Corpuscular Volume 94, Mean Corpuscular Hemoglobin 32.0H, Mean Corpuscular Hemoglobin Concent 34.3, Red Cell Distribution Width 21.2H, Platelet Count 328, Mean Platelet Volume 6.8, Neutrophils (%) (Auto) 81.9H, Lymphocytes (%) (Auto) 9.2L, Monocytes (%) (Auto) 6.8, Eosinophils (%) (Auto) 1.9, Basophils (%) (Auto) 0.3, Prothrombin Time 12.0H, Prothromb Time International Ratio 1.1, Activated Partial Thromboplast Time 28, Sodium Level 143, Potassium Level 3.2L, Chloride Level 106, Carbon Dioxide Level 27, Anion Gap 10, Blood Urea Nitrogen 14, Creatinine 1.0, Estimat Glomerular Filtration Rate , Glucose Level 100, Calcium Level 8.5, Total Bilirubin 3.7H, Direct Bilirubin 0.8H, Aspartate Amino Transf (AST/SGOT) 59H, Alanine Aminotransferase (ALT/SGPT) 79H, Alkaline Phosphatase 68, Total Protein 6.8, Albumin 2.7L, Globulin 4.1, Albumin/Globulin Ratio 0.7L Height (Feet): 5 Height (Inches): 2.00 Weight (Pounds): 139 General Appearance: no apparent distress Cardiovascular: normal rate, regular rhythm Respiratory/Chest: lungs clear Abdomen: non tender, soft CULLEN ZUNIGA Aug 30, 2017 23:42
--- NOTE | 2017-08-30 23:42 | Nephrology Progress Note ---
Assessment/Plan Problem List: (1) Angioedema (2) Airway compromise (3) Cellulitis of neck (4) Acute respiratory failure (5) Coagulopathy (6) HCAP (healthcare-associated pneumonia) (7) Sepsis (8) Anemia Plan abx per ID. pulmonary following. ENT following. monitor labs. transfer out of ICU. Subjective Subjective late entry for 08/29 - extubated. alert. Objective Objective Last 24 Hour Vital Signs Date Time Temp Pulse Resp B/P (MAP) Pulse Ox O2 Delivery O2 Flow Rate FiO2 08/30/17 20:00 97.7 79 20 142/63 94 Room Air 97.7 08/30/17 16:00 98.1 82 21 155/76 98 Room Air 98.1 08/30/17 16:00 94 08/30/17 12:00 97.9 90 19 163/74 96 Room Air 97.9 08/30/17 12:00 98 08/30/17 08:00 97.6 87 19 165/82 97 Room Air 97.6 08/30/17 08:00 97 08/30/17 04:36 95 167/83 08/30/17 04:00 82 08/30/17 04:00 97.9 87 20 181/70 97 Room Air 97.9 08/30/17 01:00 97.7 96 23 156/72 96 Room Air 97.7 08/30/17 01:00 90 08/30/17 00:07 88 08/30/17 00:05 98.0 88 21 176/86 98 Room Air 98.0 Intake and Output 08/29/17 08/30/17 19:00 07:00 Intake Total 1663.335 ml 972.667 ml Output Total 400 ml 700 ml Balance 1263.335 ml 272.667 ml Intake Oral 0 ml IV Total 1663.335 ml 972.667 ml Output Urine Total 400 ml 700 ml # Voids 1 2 # Bowel Movements 3 Laboratory Tests 08/30/17 05:35: White Blood Count 15.2H, Red Blood Count 3.80L, Hemoglobin 12.2, Hematocrit 35.5L, Mean Corpuscular Volume 94, Mean Corpuscular Hemoglobin 32.0H, Mean Corpuscular Hemoglobin Concent 34.3, Red Cell Distribution Width 21.2H, Platelet Count 328, Mean Platelet Volume 6.8, Neutrophils (%) (Auto) 81.9H, Lymphocytes (%) (Auto) 9.2L, Monocytes (%) (Auto) 6.8, Eosinophils (%) (Auto) 1.9, Basophils (%) (Auto) 0.3, Prothrombin Time 12.0H, Prothromb Time International Ratio 1.1, Activated Partial Thromboplast Time 28, Sodium Level 143, Potassium Level 3.2L, Chloride Level 106, Carbon Dioxide Level 27, Anion Gap 10, Blood Urea Nitrogen 14, Creatinine 1.0, Estimat Glomerular Filtration Rate , Glucose Level 100, Calcium Level 8.5, Total Bilirubin 3.7H, Direct Bilirubin 0.8H, Aspartate Amino Transf (AST/SGOT) 59H, Alanine Aminotransferase (ALT/SGPT) 79H, Alkaline Phosphatase 68, Total Protein 6.8, Albumin 2.7L, Globulin 4.1, Albumin/Globulin Ratio 0.7L Height (Feet): 5 Height (Inches): 2.00 Weight (Pounds): 139 General Appearance: no apparent distress Cardiovascular: normal rate, regular rhythm Respiratory/Chest: decreased breath sounds Abdomen: non tender, soft EARLENECULLEN CHAPIN Aug 30, 2017 23:42
[2017-08-31] VITALS (7 sets, daily range): BP systolic 141–179; BP diastolic 60–77
--- NOTE | 2017-08-31 05:00 | Progress Note ---
DATE: 08/30/2017 SUBJECTIVE: This is an elderly female, sitting in the bed comfortable, extubated, and short of breath is improved. Waiting for swallow evaluation. was placed. OBJECTIVE: VITAL SIGNS: Blood pressure 130/70, pulse 60, no fever. CHEST: Bilateral few crackles. CARDIOVASCULAR: Regular rhythm. ABDOMEN: Soft. EXTREMITIES: CCE. ASSESSMENT AND PLAN: 1. Acute epiglottitis. 2. . 3. Pneumonia. 4. Depression. Continue NG-tube feeding. Continue treatment, IV antibiotics and bronchodilator treatments. Vik Maria M.D. DR: HARDIK JOB#: [id number] CC:
[2017-08-31] MEDS: Piperacillin/Tazobactam 3.375 GM in D5W 110 ML IVPB SCH ×2 (05:37→13:22)
[2017-08-31] MEDS: Nystatin Susp 500,000 units/5ml ORAL SCH ×4 (08:01→22:00)
[2017-08-31] MEDS: Vancomycin 750mg/NS 250ml 250 ML IVPB SCH (08:01)
[2017-08-31] MEDS: Pantoprazole Inj IVP SCH ×2 (08:02→22:00)
[2017-08-31 08:32] LABS: BASOPHILS % (AUTO) 0.3 % (0.0-2.0); EOSINOPHILS % (AUTO) 2.9 % (0.0-3.0); HEMATOCRIT 31.6 % (37.0-47.0); HEMOGLOBIN 10.7 G/DL (12.0-16.0); LYMPHOCYTES % (AUTO) 6.1 % (20.0-45.0); MEAN CORPUSCULAR VOLUME 95 FL (80-99); NEUTROPHILS % (AUTO) 82.7 % (45.0-75.0); PLATELET COUNT 283 K/UL (150-450); RED BLOOD COUNT 3.33 M/UL (4.20-5.40); RED CELL DISTRIBUTION WIDTH 20.9 % (11.6-14.8); WHITE BLOOD COUNT 14.1 K/UL (4.8-10.8)
[2017-08-31 08:37] LABS: ANION GAP 11 mmol/L (5-15); BLOOD UREA NITROGEN 24 mg/dL (7-18); CARBON DIOXIDE 26 MMOL/L (21-32); CHLORIDE 109 MMOL/L (98-107); CREATININE 2.7 MG/DL (0.55-1.30); POTASSIUM 3.2 MMOL/L (3.5-5.1); SODIUM 145 MMOL/L (136-145)
--- NOTE | 2017-08-31 09:23 | Pulmonology Progress Note ---
Assessment/Plan Assessment/Plan 1. Soft tissue swelling in the neck area with compromised airway. Resolved 2. Respiratory failure with airway compromise. Now extubated. 3. Marked subcutaneous bruising. Improving. 4. Coumadin use. 5. Hypertension. 6. GERD. 7. long term resident. 8. Anemia. 9. Leukocytosis. DISCUSSION: I am unclear as to the etiology of her compromised airway. I suspect she had bleeding in the neck area, possibly due to trauma due to CPAP in the presence of Coumadin. She is awake and responsive. Bedside bronchoscopy done Airways clear CXR clear Resume coumadin or stop? ENT note reviewed Subjective Interval Events: None Constitutional: Reports: no symptoms HEENT: Repors: no symptoms Respiratory: Reports: no symptoms Cardiovascular: Reports: no symptoms Gastrointestinal/Abdominal: Reports: no symptoms Genitourinary: Reports: no symptoms Allergies: Coded Allergies: IBUPROFEN (Verified Allergy, Unknown, 08/23/17) Objective Last 24 Hour Vital Signs Date Time Temp Pulse Resp B/P (MAP) Pulse Ox O2 Delivery O2 Flow Rate FiO2 08/31/17 08:00 97.2 71 21 151/70 98 Room Air 97.2 08/31/17 04:00 86 08/31/17 04:00 97.7 81 20 163/62 96 Room Air 97.7 08/31/17 01:13 84 150/77 08/31/17 00:00 88 08/31/17 00:00 97.9 84 20 179/68 94 Room Air 97.9 08/30/17 20:00 97.7 79 20 142/63 94 Room Air 97.7 08/30/17 20:00 82 08/30/17 16:00 98.1 82 21 155/76 98 Room Air 98.1 08/30/17 16:00 94 08/30/17 12:00 97.9 90 19 163/74 96 Room Air 97.9 08/30/17 12:00 98 Intake and Output 08/30/17 08/31/17 19:00 07:00 Intake Total 1285.834 ml 692.500 ml Balance 1285.834 ml 692.500 ml Intake Oral 280 ml IV Total 1005.834 ml 692.500 ml # Bowel Movements 1 1 General Appearance: no acute distress HEENT: normocephalic Respiratory/Chest: chest wall non-tender, lungs clear Cardiovascular: normal peripheral pulses, normal rate Abdomen: normal bowel sounds Laboratory Tests 08/31/17 06:20: White Blood Count 14.1H, Red Blood Count 3.33L, Hemoglobin 10.7L, Hematocrit 31.6L, Mean Corpuscular Volume 95, Mean Corpuscular Hemoglobin 32.1H, Mean Corpuscular Hemoglobin Concent 33.8, Red Cell Distribution Width 20.9H, Platelet Count 283, Mean Platelet Volume 7.2, Neutrophils (%) (Auto) 82.7H, Lymphocytes (%) (Auto) 6.1L, Monocytes (%) (Auto) 8.0, Eosinophils (%) (Auto) 2.9, Basophils (%) (Auto) 0.3, Sodium Level 145, Potassium Level 3.2L, Chloride Level 109H, Carbon Dioxide Level 26, Anion Gap 11, Blood Urea Nitrogen 24H, Creatinine 2.7#H, Estimat Glomerular Filtration Rate , Glucose Level 103, Calcium Level 8.0L Current Medications Medications (Trade) Dose Ordered Sig/Chester Route PRN Reason Start Time Stop Time Status Last Admin Dose Admin Acetaminophen (Tylenol) 500 mg Q6H PRN RECTAL Mild Pain/Temp > 100.5 08/30/17 06:30 09/23/17 18:29 Chlorhexidine Gluconate (Caroline-Hex 2%) 1 applic DAILY@2000 TOPIC 08/30/17 20:00 09/24/17 19:59 08/30/17 21:06 Dextrose/Sodium Chloride 1,000 ml @ 60 mls/hr [id number] IV 08/30/17 01:30 09/23/17 04:44 08/30/17 17:16 Hydralazine HCl (Apresoline) 10 mg Q2H PRN IV SBP > 170 08/30/17 02:15 09/24/17 16:14 Lorazepam (Ativan 2mg/ml 1ml) 0.5 mg Q6H PRN IV For Anxiety 08/30/17 01:30 09/03/17 13:29 Nystatin (Nystatin) 5 ml QID ORAL 08/30/17 09:00 09/05/17 12:59 08/31/17 08:01 Pantoprazole (Protonix) 40 mg EVERY 12 HOURS IVP 08/30/17 09:00 09/23/17 08:59 08/31/17 08:02 Piperacillin Sod/ Tazobactam Sod 3.375 gm/Dextrose 110 ml @ 27.5 mls/hr EVERY 8 HOURS IVPB 08/30/17 06:00 09/02/17 21:59 08/31/17 05:37 Vancomycin HCl (Vanco rx to dose) 1 ea DAILY PRN MISC Per rx protocol 08/30/17 09:00 09/23/17 18:29 Vancomycin/Sodium Chloride 250 ml @ 166.667 mls/hr Q12H IVPB 08/30/17 08:00 09/01/17 19:59 08/31/17 08:01 Toño Underwood MD Aug 31, 2017 09:23
[2017-08-31] MEDS: D5NS 1,000 ML IV SCH (10:29)
--- NOTE | 2017-08-31 10:52 | GI Progress Note ---
Assessment/Plan Problems: (1) Coagulopathy ICD Codes: D68.9 - Coagulation defect, unspecified SNOMED: 23270194 (2) Allergic reaction caused by a drug ICD Codes: T78.40XA - Allergy, unspecified, initial encounter SNOMED: 724092473 (3) Anemia ICD Codes: D64.9 - Anemia, unspecified SNOMED: 472444754 (4) Airway compromise ICD Codes: J98.8 - Other specified respiratory disorders SNOMED: 54892698 Status: progressing Status Narrative Discussed with Dr. Dyson. Assessment/Plan Assessment - GI Bleed - Resp failure - Anemia - neck ecchymosis - (L) foot ischemic changes - abnormal LFT ST evaluation reviewed OB positive hepatitis panel negative abdominal U/S reviewed >> Cholelithiasis. Negative for dilated ducts dobhoff/NGT refused by patient >> diet per ST strict aspiration precautions hold blood thinners addition OB stool monitor H&H, prn transfusions ppi fu labs correct coag will consider EGD/colonoscopy The patient was seen and examined at bedside and all new and available data was reviewed in the patients chart. I agree with the above findings, impression and plan. (Patient seen earlier today. Signature stamp does not reflect patient encounter time.). - Nelly Dyson MD Subjective Subjective limited Objective Last 24 Hour Vital Signs Date Time Temp Pulse Resp B/P (MAP) Pulse Ox O2 Delivery O2 Flow Rate FiO2 08/31/17 08:00 97.2 71 21 151/70 98 Room Air 97.2 08/31/17 08:00 67 08/31/17 04:00 86 08/31/17 04:00 97.7 81 20 163/62 96 Room Air 97.7 08/31/17 01:13 84 150/77 08/31/17 00:00 88 08/31/17 00:00 97.9 84 20 179/68 94 Room Air 97.9 08/30/17 20:00 97.7 79 20 142/63 94 Room Air 97.7 08/30/17 20:00 82 08/30/17 16:00 98.1 82 21 155/76 98 Room Air 98.1 08/30/17 16:00 94 08/30/17 12:00 97.9 90 19 163/74 96 Room Air 97.9 08/30/17 12:00 98 Intake and Output 3/27/18 3/28/18 19:00 07:00 Intake Total 1285.834 ml 692.500 ml Balance 1285.834 ml 692.500 ml Intake Oral 280 ml IV Total 1005.834 ml 692.500 ml # Bowel Movements 1 1 Laboratory Tests Test 08/31/17 06:20 White Blood Count 14.1 K/UL (4.8-10.8) H Red Blood Count 3.33 M/UL (4.20-5.40) L Hemoglobin 10.7 G/DL (12.0-16.0) L Hematocrit 31.6 % (37.0-47.0) L Mean Corpuscular Volume 95 FL (80-99) Mean Corpuscular Hemoglobin 32.1 PG (27.0-31.0) H Mean Corpuscular Hemoglobin Concent 33.8 G/DL (32.0-36.0) Red Cell Distribution Width 20.9 % (11.6-14.8) H Platelet Count 283 K/UL (150-450) Mean Platelet Volume 7.2 FL (6.5-10.1) Neutrophils (%) (Auto) 82.7 % (45.0-75.0) H Lymphocytes (%) (Auto) 6.1 % (20.0-45.0) L Monocytes (%) (Auto) 8.0 % (1.0-10.0) Eosinophils (%) (Auto) 2.9 % (0.0-3.0) Basophils (%) (Auto) 0.3 % (0.0-2.0) Sodium Level 145 MMOL/L (136-145) Potassium Level 3.2 MMOL/L (3.5-5.1) L Chloride Level 109 MMOL/L (98-107) H Carbon Dioxide Level 26 MMOL/L (21-32) Anion Gap 11 mmol/L (5-15) Blood Urea Nitrogen 24 mg/dL (7-18) H Creatinine 2.7 MG/DL (0.55-1.30) #H Estimat Glomerular Filtration Rate mL/min (>60) Glucose Level 103 MG/DL (74-106) Calcium Level 8.0 MG/DL (8.5-10.1) L Height (Feet): 5 Height (Inches): 2.00 Weight (Pounds): 180 General Appearance: WD/WN, no apparent distress, alert Cardiovascular: normal rate Respiratory/Chest: normal breath sounds, no respiratory distress Abdominal Exam: normal bowel sounds, non tender, soft Extremities: normal range of motion, non-tender Mae Lawler N.P. Aug 31, 2017 10:52 RAJ DYSON Sep 01, 2017 14:05
--- NOTE | 2017-08-31 11:54 | Consultation ---
History of Present Illness General Date patient seen: Aug 30, 2017 Chief Complaint: Allergic Reaction Referring physician: CULLEN CATALAN Reason for Consultation: ANEMIA Present Illness HPI 82-year-old female who presented after increased tongue swelling and difficulty breathing. The pt became progressively more disorganized and confused/ the pt has been refusing wound care and complaining of pain. the pt is spitting out her food. the pts respond time is delaying. the pt is uncooperative and pw memory impairment. She has waxing and waning of consciousness. Allergies: Coded Allergies: IBUPROFEN (Verified Allergy, Unknown, 08/23/17) Medication History Scheduled Amlodipine Besylate* (Amlodipine Besylate*), 10 MG ORAL DAILY, (Reported) Aspirin* (Aspirin*), 81 MG ORAL DAILY, (Reported) Atorvastatin Calcium* (Lipitor*), 10 MG ORAL BEDTIME, (Reported) Docusate Sodium* (Docusate Sodium*), 100 MG ORAL TWICE A DAY, (Reported) Famotidine (Acid Controller), 20 MG ORAL TWICE A DAY, (Reported) Gabapentin* (Gabapentin*), 300 MG ORAL THREE TIMES A DAY, (Reported) Ipratropium/Albuterol Sulfate (DuoNeb 0.5-3(2.5)mg/3ml), 3 ML HHN Q4HR, ( Reported) Levothyroxine Sodium* (Levothyroxine Sodium*), 88 MCG ORAL DAILY, (Reported) Methylprednisolone* (Medrol*), 4 MG ORAL DAILY, (Reported) Sulfamethoxazole/Trimethoprim (Sulfamethoxazole-Tmp Susp), 20 ML ORAL TWICE A DAY, (Reported) Warfarin Sod* (Coumadin*), 6 MG ORAL DAILY, (Reported) Warfarin Sod* (Warfarin Sod*), 5 MG ORAL DAILY, (Reported) [clindamycin], 300 MG PO BID, (Reported) Scheduled PRN Hydrocodone Bit/Acetaminophen 5-325* (Varney 5-325*), 1 TAB ORAL Q6H PRN for For Pain, (Reported) Patient History Limited by: medical condition History Provided By: Patient, Medical Record, PMD Healthcare decision maker pt herself Resuscitation status Full Code Advanced Directive on File No Past Medical/Surgical History Past Medical/Surgical History: (1) Tracheitis (2) Pneumonia (3) Anemia (4) Angioedema (5) Airway compromise (6) Allergic reaction caused by a drug (7) Cellulitis of neck (8) Acute respiratory failure (9) Fever (10) Coagulopathy (11) Sepsis (12) HCAP (healthcare-associated pneumonia) (13) 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 Review of Systems Psychiatric: Reports: prior hx, anxiety, emotional problems - diso ROS Narrative disorganized behavior. Physical Exam General Appearance: no apparent distress, alert, confused - the pt knows the month year and place however she is confused Last 24 Hour Vital Signs Date Time Temp Pulse Resp B/P (MAP) Pulse Ox O2 Delivery O2 Flow Rate FiO2 08/31/17 08:00 97.2 71 21 151/70 98 Room Air 97.2 08/31/17 08:00 67 08/31/17 04:00 86 08/31/17 04:00 97.7 81 20 163/62 96 Room Air 97.7 08/31/17 01:13 84 150/77 08/31/17 00:00 88 08/31/17 00:00 97.9 84 20 179/68 94 Room Air 97.9 08/30/17 20:00 97.7 79 20 142/63 94 Room Air 97.7 08/30/17 20:00 82 08/30/17 16:00 98.1 82 21 155/76 98 Room Air 98.1 08/30/17 16:00 94 08/30/17 12:00 97.9 90 19 163/74 96 Room Air 97.9 08/30/17 12:00 98 Intake and Output 08/30/17 08/31/17 19:00 07:00 Intake Total 1285.834 ml 692.500 ml Balance 1285.834 ml 692.500 ml Intake Oral 280 ml IV Total 1005.834 ml 692.500 ml # Bowel Movements 1 1 Laboratory Tests Test 08/31/17 06:20 White Blood Count 14.1 K/UL (4.8-10.8) H Red Blood Count 3.33 M/UL (4.20-5.40) L Hemoglobin 10.7 G/DL (12.0-16.0) L Hematocrit 31.6 % (37.0-47.0) L Mean Corpuscular Volume 95 FL (80-99) Mean Corpuscular Hemoglobin 32.1 PG (27.0-31.0) H Mean Corpuscular Hemoglobin Concent 33.8 G/DL (32.0-36.0) Red Cell Distribution Width 20.9 % (11.6-14.8) H Platelet Count 283 K/UL (150-450) Mean Platelet Volume 7.2 FL (6.5-10.1) Neutrophils (%) (Auto) 82.7 % (45.0-75.0) H Lymphocytes (%) (Auto) 6.1 % (20.0-45.0) L Monocytes (%) (Auto) 8.0 % (1.0-10.0) Eosinophils (%) (Auto) 2.9 % (0.0-3.0) Basophils (%) (Auto) 0.3 % (0.0-2.0) Sodium Level 145 MMOL/L (136-145) Potassium Level 3.2 MMOL/L (3.5-5.1) L Chloride Level 109 MMOL/L (98-107) H Carbon Dioxide Level 26 MMOL/L (21-32) Anion Gap 11 mmol/L (5-15) Blood Urea Nitrogen 24 mg/dL (7-18) H Creatinine 2.7 MG/DL (0.55-1.30) #H Estimat Glomerular Filtration Rate mL/min (>60) Glucose Level 103 MG/DL (74-106) Calcium Level 8.0 MG/DL (8.5-10.1) L Height (Feet): 5 Height (Inches): 2.00 Weight (Pounds): 180 Medications Current Medications Medications (Trade) Dose Ordered Sig/Chester Route PRN Reason Start Time Stop Time Status Last Admin Dose Admin Acetaminophen (Tylenol) 500 mg Q6H PRN RECTAL Mild Pain/Temp > 100.5 08/30/17 06:30 09/23/17 18:29 Chlorhexidine Gluconate (Caroline-Hex 2%) 1 applic DAILY@2000 TOPIC 08/30/17 20:00 09/24/17 19:59 08/30/17 21:06 Dextrose/Sodium Chloride 1,000 ml @ 60 mls/hr [id number] IV 08/30/17 01:30 09/23/17 04:44 08/31/17 10:29 Hydralazine HCl (Apresoline) 10 mg Q2H PRN IV SBP > 170 08/30/17 02:15 09/24/17 16:14 Lorazepam (Ativan 2mg/ml 1ml) 0.5 mg Q6H PRN IV For Anxiety 08/30/17 01:30 09/03/17 13:29 Nystatin (Nystatin) 5 ml QID ORAL 08/30/17 09:00 09/05/17 12:59 08/31/17 08:01 Olanzapine (ZyPREXA) 2.5 mg BEDTIME ORAL 08/31/17 21:00 09/30/17 20:59 UNV Olanzapine (ZyPREXA) 2.5 mg BID ORAL 08/31/17 18:00 09/30/17 17:59 UNV Pantoprazole (Protonix) 40 mg EVERY 12 HOURS IVP 08/30/17 09:00 09/23/17 08:59 08/31/17 08:02 Piperacillin Sod/ Tazobactam Sod 3.375 gm/Dextrose 110 ml @ 27.5 mls/hr EVERY 8 HOURS IVPB 08/30/17 06:00 09/02/17 21:59 08/31/17 05:37 Vancomycin HCl (Vanco rx to dose) 1 ea DAILY PRN MISC Per rx protocol 08/30/17 09:00 09/23/17 18:29 Vancomycin/Sodium Chloride 250 ml @ 166.667 mls/hr Q12H IVPB 08/30/17 08:00 09/01/17 19:59 08/31/17 08:01 Assessment/Plan Status: unchanged Assessment/Plan encephalopathy psychotic d/o -zyprexa 2.5mg po bid -redirect the pt -the pt needs assistance with feeding -ativan prn please administer prior to wound care Syl Winters M.D. Aug 31, 2017 11:54
[2017-08-31] MEDS ORDERED: LORazepam Inj 2mg/ml 1ml IV PRN (12:00)
[2017-08-31] MEDS: OLANZapine 2.5mg tab ORAL SCH ×2 (13:21→22:00)
--- NOTE | 2017-08-31 14:23 | Infectious Diseases Prog Note ---
Assessment/Plan Problems: (1) HCAP (healthcare-associated pneumonia) Assessment & Plan: improving on zosyn and vancomycin, will continue zosyn empiric coverage for 7-10 days, stop vancomycin since no MRSA in the nares (2) Cellulitis of neck Assessment & Plan: no evidence of neck abcsess on CT neck, already on zosyn empiric coverage for now , bronchoscopy didn't show any hematoma inside her airway, and she was evaluated by ENT . keep off anticoagulation for now (3) Sepsis Assessment & Plan: with leukocytosis due to the above, improving , blood culture remained negative, will stop vancomycin (4) Acute respiratory failure Assessment & Plan: due to the above, intubated on mechanical ventilation, monitor ABG and CXR , consult road packer operator (5) Fever Assessment & Plan: improved, due to the above, continue wide spectrum antibiotics, and tylenol PRN (6) Coagulopathy Assessment & Plan: with diffuse bleeding , suspect due to Coumadin, on hold, transfused PRBC as needed, check DIC profile (7) 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 Assessment & Plan: with MSSA and Providencia rettgeri , recommend crown and bridge technician consult and vascular study for further eval , already on vancomycin and zosyn (8) BESSIE (acute kidney injury) Assessment & Plan: suspect dehydration, will stop vancomycin and order trough level, recommend hydration, and close monitor of renal functions, nephrology team is following Subjective Constitutional: Reports: no symptoms HEENT: Reports: no symptoms Respiratory: Reports: no symptoms Breasts: Reports: no symptoms Cardiovascular: Reports: no symptoms Gastrointestinal/Abdominal: Reports: no symptoms Genitourinary: Reports: no symptoms Neurologic: Reports: no symptoms Psychiatric: Reports: no symptoms Skin: Reports: ulcer Endocrine: Reports: no symptoms Hematologic: Reports: no symptoms Musculoskeletal: Reports: no symptoms Allergies: Coded Allergies: IBUPROFEN (Verified Allergy, Unknown, 08/23/17) Subjective she was extubated , more awake and alert, responsive to verbal commands , no fever or chills , no diarrhea, refusing G tube placement Objective Vital Signs Last 24 Hour Vital Signs Date Time Temp Pulse Resp B/P (MAP) Pulse Ox O2 Delivery O2 Flow Rate FiO2 08/31/17 12:00 97.1 90 22 172/68 98 Room Air 97.1 08/31/17 12:00 88 08/31/17 08:00 97.2 71 21 151/70 98 Room Air 97.2 08/31/17 08:00 67 08/31/17 04:00 86 08/31/17 04:00 97.7 81 20 163/62 96 Room Air 97.7 08/31/17 01:13 84 150/77 08/31/17 00:00 88 08/31/17 00:00 97.9 84 20 179/68 94 Room Air 97.9 08/30/17 20:00 97.7 79 20 142/63 94 Room Air 97.7 08/30/17 20:00 82 08/30/17 16:00 98.1 82 21 155/76 98 Room Air 98.1 08/30/17 16:00 94 Height (Feet): 5 Height (Inches): 2.00 Weight (Pounds): 180 General Appearance: WD/WN, no acute distress HEENT: normocephalic, atraumatic, anicteric, mucous membranes moist, PERRL Respiratory/Chest: chest wall non-tender, lungs clear, normal breath sounds, no respiratory distress, no accessory muscle use Cardiovascular: normal peripheral pulses, normal rate, regular rhythm, no gallop/murmur, no JVD Abdomen: normal bowel sounds, soft, non tender, no organomegaly, non distended , no mass, no scars Extremities: no cyanosis, no clubbing Skin: no rash, no lesions, ulcers - on the left foot toes tip Neurologic/Psychiatric: alert, oriented x 3, responsive Lymphatic: no neck adenopathy, no groin adenopathy Laboratory Tests Test 08/31/17 06:20 White Blood Count 14.1 K/UL (4.8-10.8) H Red Blood Count 3.33 M/UL (4.20-5.40) L Hemoglobin 10.7 G/DL (12.0-16.0) L Hematocrit 31.6 % (37.0-47.0) L Mean Corpuscular Volume 95 FL (80-99) Mean Corpuscular Hemoglobin 32.1 PG (27.0-31.0) H Mean Corpuscular Hemoglobin Concent 33.8 G/DL (32.0-36.0) Red Cell Distribution Width 20.9 % (11.6-14.8) H Platelet Count 283 K/UL (150-450) Mean Platelet Volume 7.2 FL (6.5-10.1) Neutrophils (%) (Auto) 82.7 % (45.0-75.0) H Lymphocytes (%) (Auto) 6.1 % (20.0-45.0) L Monocytes (%) (Auto) 8.0 % (1.0-10.0) Eosinophils (%) (Auto) 2.9 % (0.0-3.0) Basophils (%) (Auto) 0.3 % (0.0-2.0) Sodium Level 145 MMOL/L (136-145) Potassium Level 3.2 MMOL/L (3.5-5.1) L Chloride Level 109 MMOL/L (98-107) H Carbon Dioxide Level 26 MMOL/L (21-32) Anion Gap 11 mmol/L (5-15) Blood Urea Nitrogen 24 mg/dL (7-18) H Creatinine 2.7 MG/DL (0.55-1.30) #H Estimat Glomerular Filtration Rate mL/min (>60) Glucose Level 103 MG/DL (74-106) Calcium Level 8.0 MG/DL (8.5-10.1) L Current Medications Medications (Trade) Dose Ordered Sig/Chester Route PRN Reason Start Time Stop Time Status Last Admin Dose Admin Acetaminophen (Tylenol) 500 mg Q6H PRN RECTAL Mild Pain/Temp > 100.5 08/30/17 06:30 09/23/17 18:29 Chlorhexidine Gluconate (Caroline-Hex 2%) 1 applic DAILY@2000 TOPIC 08/30/17 20:00 09/24/17 19:59 08/30/17 21:06 Dextrose/Sodium Chloride 1,000 ml @ 60 mls/hr [id number] IV 08/30/17 01:30 09/23/17 04:44 08/31/17 10:29 Hydralazine HCl (Apresoline) 10 mg Q2H PRN IV SBP > 170 08/30/17 02:15 09/24/17 16:14 Lorazepam (Ativan 2mg/ml 1ml) 1 mg Q6H PRN IV For Anxiety 08/31/17 12:00 09/07/17 11:59 Nystatin (Nystatin) 5 ml QID ORAL 08/30/17 09:00 4/2/18 12:59 08/31/17 13:21 Olanzapine (ZyPREXA) 2.5 mg BID@0600,1400 ORAL 08/31/17 14:00 09/30/17 13:59 08/31/17 13:21 Olanzapine (ZyPREXA) 2.5 mg QHS ORAL 08/31/17 21:00 09/30/17 20:59 Pantoprazole (Protonix) 40 mg EVERY 12 HOURS IVP 08/30/17 09:00 09/23/17 08:59 08/31/17 08:02 Piperacillin Sod/ Tazobactam Sod 3.375 gm/Dextrose 110 ml @ 27.5 mls/hr EVERY 8 HOURS IVPB 08/30/17 06:00 09/02/17 21:59 08/31/17 13:22 Noni Gonzalez M.D. Aug 31, 2017 14:23
--- NOTE | 2017-08-31 15:22 | Cardiac Electrophysiology PN ---
Assessment/Plan Assessment/Plan 1. Paroxysmal atrial fibrillation. In sinus rhythm. Was on Coumadin that was DCed Lower extremity Doppler showed no evidence of DVT. 2. Hypertension. On prn hydralazine only 3. Elevated INR with significant bleeding s/p 3 units of blood transfusion. Her INR on 08/24/2017 was 1.4 and currently it is 1.3. 4. S/P Respiratory failure. Extubated 5. Pneumonia, on IV antibiotic per Dr. Gonzalez. VENITA RN Subjective Subjective On tele with no events. No SVT or VT Objective Last 24 Hour Vital Signs Date Time Temp Pulse Resp B/P (MAP) Pulse Ox O2 Delivery O2 Flow Rate FiO2 08/31/17 12:00 97.1 90 22 172/68 98 Room Air 97.1 08/31/17 12:00 88 08/31/17 08:00 97.2 71 21 151/70 98 Room Air 97.2 08/31/17 08:00 67 08/31/17 04:00 86 08/31/17 04:00 97.7 81 20 163/62 96 Room Air 97.7 08/31/17 01:13 84 150/77 08/31/17 00:00 88 08/31/17 00:00 97.9 84 20 179/68 94 Room Air 97.9 08/30/17 20:00 97.7 79 20 142/63 94 Room Air 97.7 08/30/17 20:00 82 08/30/17 16:00 98.1 82 21 155/76 98 Room Air 98.1 08/30/17 16:00 94 Intake and Output 08/30/17 08/31/17 19:00 07:00 Intake Total 1285.834 ml 692.500 ml Balance 1285.834 ml 692.500 ml Intake Oral 280 ml IV Total 1005.834 ml 692.500 ml # Bowel Movements 1 1 Laboratory Tests Test 08/31/17 06:20 08/31/17 14:15 White Blood Count 14.1 K/UL (4.8-10.8) H Red Blood Count 3.33 M/UL (4.20-5.40) L Hemoglobin 10.7 G/DL (12.0-16.0) L Hematocrit 31.6 % (37.0-47.0) L Mean Corpuscular Volume 95 FL (80-99) Mean Corpuscular Hemoglobin 32.1 PG (27.0-31.0) H Mean Corpuscular Hemoglobin Concent 33.8 G/DL (32.0-36.0) Red Cell Distribution Width 20.9 % (11.6-14.8) H Platelet Count 283 K/UL (150-450) Mean Platelet Volume 7.2 FL (6.5-10.1) Neutrophils (%) (Auto) 82.7 % (45.0-75.0) H Lymphocytes (%) (Auto) 6.1 % (20.0-45.0) L Monocytes (%) (Auto) 8.0 % (1.0-10.0) Eosinophils (%) (Auto) 2.9 % (0.0-3.0) Basophils (%) (Auto) 0.3 % (0.0-2.0) Sodium Level 145 MMOL/L (136-145) Potassium Level 3.2 MMOL/L (3.5-5.1) L Chloride Level 109 MMOL/L (98-107) H Carbon Dioxide Level 26 MMOL/L (21-32) Anion Gap 11 mmol/L (5-15) Blood Urea Nitrogen 24 mg/dL (7-18) H Creatinine 2.7 MG/DL (0.55-1.30) #H Estimat Glomerular Filtration Rate mL/min (>60) Glucose Level 103 MG/DL (74-106) Calcium Level 8.0 MG/DL (8.5-10.1) L Vancomycin Level Trough Pending Objective HEAD AND NECK: No JVD. Upper chest and submandibular Ecchymosis LUNGS: Coarse rhonchi. CVS: RRR. No G/R/M ABDOMEN: Obese. EXTREMITIES: 1+ pitting edema Hao Edmondson MD Aug 31, 2017 15:22
--- NOTE | 2017-08-31 18:35 | Nephrology Progress Note ---
Assessment/Plan Problem List: (1) Angioedema (2) Airway compromise (3) Cellulitis of neck (4) Acute respiratory failure (5) Coagulopathy (6) HCAP (healthcare-associated pneumonia) (7) Sepsis (8) Anemia Plan abx per ID. pulmonary following. ENT consulted. monitor labs. d[facility]c to [facility]. Subjective Subjective late entry for patient was seen earlier today. Pending discharge to [facility]. No fever. Comfortable. Objective Objective Last 24 Hour Vital Signs Date Time Temp Pulse Resp B/P (MAP) Pulse Ox O2 Delivery O2 Flow Rate FiO2 08/31/17 16:00 78 08/31/17 16:00 97.7 78 20 141/62 97 Room Air 97.7 08/31/17 12:00 97.1 90 22 172/68 98 Room Air 97.1 08/31/17 12:00 88 08/31/17 08:00 97.2 71 21 151/70 98 Room Air 97.2 08/31/17 08:00 67 08/31/17 04:00 86 08/31/17 04:00 97.7 81 20 163/62 96 Room Air 97.7 08/31/17 01:13 84 150/77 08/31/17 00:00 88 08/31/17 00:00 97.9 84 20 179/68 94 Room Air 97.9 08/30/17 20:00 97.7 79 20 142/63 94 Room Air 97.7 08/30/17 20:00 82 Intake and Output 08/30/17 08/31/17 19:00 07:00 Intake Total 1285.834 ml 692.500 ml Balance 1285.834 ml 692.500 ml Intake Oral 280 ml IV Total 1005.834 ml 692.500 ml # Bowel Movements 1 1 Laboratory Tests 08/31/17 06:20: White Blood Count 14.1H, Red Blood Count 3.33L, Hemoglobin 10.7L, Hematocrit 31.6L, Mean Corpuscular Volume 95, Mean Corpuscular Hemoglobin 32.1H, Mean Corpuscular Hemoglobin Concent 33.8, Red Cell Distribution Width 20.9H, Platelet Count 283, Mean Platelet Volume 7.2, Neutrophils (%) (Auto) 82.7H, Lymphocytes (%) (Auto) 6.1L, Monocytes (%) (Auto) 8.0, Eosinophils (%) (Auto) 2.9, Basophils (%) (Auto) 0.3, Sodium Level 145, Potassium Level 3.2L, Chloride Level 109H, Carbon Dioxide Level 26, Anion Gap 11, Blood Urea Nitrogen 24H, Creatinine 2.7#H, Estimat Glomerular Filtration Rate , Glucose Level 103, Calcium Level 8.0L 08/31/17 14:15: Vancomycin Level Trough 38.3H Height (Feet): 5 Height (Inches): 2.00 Weight (Pounds): 180 General Appearance: no apparent distress Cardiovascular: normal rate, regular rhythm Respiratory/Chest: lungs clear Abdomen: non tender, soft Extremities: non-pitting Neurologic: alert CULLEN ZUNIGA Aug 31, 2017 18:35
[2017-08-31] MEDS: Dyna-Hex 2% Top Sol 2oz TOPIC SCH (22:00)
[2017-08-31] MEDS ORDERED: Zosyn 2.25gm inj ONE (22:38)
[2017-08-31] MEDS: Zosyn 2.25 gm in D5W 55ml IV SCH (22:41)
--- NOTE | 2017-08-31 23:42 | General Progress Note ---
Assessment/Plan Assessment/Plan 1. Anemia, potentially secondary to gastrointestinal bleed. --> The patient has been on Coumadin with coagulopathy, therefore exacerbating any potential bleed. Coumadin has since been discontinued. --> Continue to closely monitor and trend cbc daily. --> Anemia workup reviewed. --> Iron 26, TIBC 228, Ferritin 50, B12 377, Folate 11.9, TSH 0.4 --> Transfuse if hgb <7 2. Anemia of iron deficiency. Continue iron for five days. --> Dark stool found. ++Occult blood. Consider GI recs. --> Monitor closely --> Blood transfusion not required unless symptomatic or hgb below goal. 3. Coagulopathy due to Coumadin use in the past. --> It has since been discontinued. --> Coumadin currently on hold. INR goal less than 1 at this moment. 4. Respiratory failure, currently extubated --> Give epinephrine as needed. 6. Bilateral pneumonia. She is on broad-spectrum antibiotics. 7. Gastroesophageal reflux disease, on antacids as needed. 8. Subcutaneous bruising, likely due to Coumadin. 9. Leukocytosis. --> Improving Subjective Date patient seen: Aug 30, 2017 Constitutional: Denies: no symptoms, chills, diaphoresis, fever, malaise, weakness, other HEENT: Denies: no symptoms, eye pain, blurred vision, tearing, double vision, ear pain, ear discharge, nose pain, nose congestion, throat pain, throat swelling, mouth pain, mouth swelling, other Cardiovascular: Denies: no symptoms, chest pain, edema, irregular heart rate, lightheadedness, palpitations, syncope, other Respiratory: Denies: no symptoms, cough, orthopnea, shortness of breath, SOB with excertion, SOB at rest, sputum, stridor, wheezing, other Gastrointestinal/Abdominal: Denies: no symptoms, abdomen distended, abdominal pain, black stools, tarry stools, blood in stool, constipated, diarrhea, difficulty swallowing, nausea, poor appetite, poor fluid intake, rectal bleeding , vomiting, other Genitourinary: Denies: no symptoms, burning, discharge, frequency, flank pain, hematuria, incontinence, pain, urgency, other Neurologic/Psychiatric: Denies: no symptoms, anxiety, depressed, emotional problems, headache, numbness, paresthesia, pre-existing deficit, seizure, tingling, tremors, weakness, other Hematologic/Lymphatic: Reports: anemia Allergies: Coded Allergies: IBUPROFEN (Verified Allergy, Unknown, 08/23/17) Subjective Sob improved. Wbc count downtrending. H/H stable. Objective Last 24 Hour Vital Signs Date Time Temp Pulse Resp B/P (MAP) Pulse Ox O2 Delivery O2 Flow Rate FiO2 08/31/17 16:00 78 08/31/17 16:00 97.7 78 20 141/62 97 Room Air 97.7 08/31/17 12:00 97.1 90 22 172/68 98 Room Air 97.1 08/31/17 12:00 88 08/31/17 08:00 97.2 71 21 151/70 98 Room Air 97.2 08/31/17 08:00 67 08/31/17 04:00 86 08/31/17 04:00 97.7 81 20 163/62 96 Room Air 97.7 08/31/17 01:13 84 150/77 08/31/17 00:00 88 08/31/17 00:00 97.9 84 20 179/68 94 Room Air 97.9 Intake and Output 08/30/17 08/31/17 19:00 07:00 Intake Total 1285.834 ml 692.500 ml Balance 1285.834 ml 692.500 ml Intake Oral 280 ml IV Total 1005.834 ml 692.500 ml # Bowel Movements 1 1 Laboratory Tests 08/31/17 06:20: White Blood Count 14.1H, Red Blood Count 3.33L, Hemoglobin 10.7L, Hematocrit 31.6L, Mean Corpuscular Volume 95, Mean Corpuscular Hemoglobin 32.1H, Mean Corpuscular Hemoglobin Concent 33.8, Red Cell Distribution Width 20.9H, Platelet Count 283, Mean Platelet Volume 7.2, Neutrophils (%) (Auto) 82.7H, Lymphocytes (%) (Auto) 6.1L, Monocytes (%) (Auto) 8.0, Eosinophils (%) (Auto) 2.9, Basophils (%) (Auto) 0.3, Sodium Level 145, Potassium Level 3.2L, Chloride Level 109H, Carbon Dioxide Level 26, Anion Gap 11, Blood Urea Nitrogen 24H, Creatinine 2.7#H, Estimat Glomerular Filtration Rate , Glucose Level 103, Calcium Level 8.0L 08/31/17 14:15: Vancomycin Level Trough 38.3H Height (Feet): 5 Height (Inches): 2.00 Weight (Pounds): 180 General Appearance: confused Respiratory/Chest: decreased breath sounds Abdomen: soft Cristiano Roberts MD Aug 31, 2017 23:42
--- NOTE | 2017-08-31 23:43 | General Progress Note ---
Assessment/Plan Assessment/Plan 1. Anemia, potentially secondary to gastrointestinal bleed. Was on coumadin and now has been discontinued (further anticoag management per cards) --> also need to rule out hemolysis, bili was elevated as was retic count, ldh, we re-order these again --> Continue to closely monitor and trend cbc daily. --> Anemia workup reviewed. --> Iron 26, TIBC 228, Ferritin 50, B12 377, Folate 11.9, TSH 0.4 --> Transfuse if hgb <7 2. Anemia of iron deficiency. s/p iron therapy for total of 5 days --> Dark stool found. ++Occult blood. Consider GI recs. --> Monitor closely --> Blood transfusion not required unless symptomatic or hgb below goal. 3. Coagulopathy due to Coumadin use in the past. --> It has since been discontinued. inr improved --> Coumadin currently on hold. Further management as per cards 4. Respiratory failure, currently extubated 6. Bilateral pneumonia. She is on broad-spectrum antibiotics. 7. Gastroesophageal reflux disease, on antacids as needed. 8. Subcutaneous bruising, likely due to Coumadin. 9. Leukocytosis. --> Improving on antibiotics. Subjective Date patient seen: Aug 31, 2017 Constitutional: Denies: no symptoms, chills, diaphoresis, fever, malaise, weakness, other HEENT: Denies: no symptoms, eye pain, blurred vision, tearing, double vision, ear pain, ear discharge, nose pain, nose congestion, throat pain, throat swelling, mouth pain, mouth swelling, other Cardiovascular: Denies: no symptoms, chest pain, edema, irregular heart rate, lightheadedness, palpitations, syncope, other Respiratory: Denies: no symptoms, cough, orthopnea, shortness of breath, SOB with excertion, SOB at rest, sputum, stridor, wheezing, other Gastrointestinal/Abdominal: Denies: no symptoms, abdomen distended, abdominal pain, black stools, tarry stools, blood in stool, constipated, diarrhea, difficulty swallowing, nausea, poor appetite, poor fluid intake, rectal bleeding , vomiting, other Genitourinary: Denies: no symptoms, burning, discharge, frequency, flank pain, hematuria, incontinence, pain, urgency, other Neurologic/Psychiatric: Denies: no symptoms, anxiety, depressed, emotional problems, headache, numbness, paresthesia, pre-existing deficit, seizure, tingling, tremors, weakness, other Hematologic/Lymphatic: Reports: anemia Allergies: Coded Allergies: IBUPROFEN (Verified Allergy, Unknown, 08/23/17) Subjective Extubated. Afebrile. H/H stable. Leukocytosis. Objective Last 24 Hour Vital Signs Date Time Temp Pulse Resp B/P (MAP) Pulse Ox O2 Delivery O2 Flow Rate FiO2 08/31/17 16:00 78 08/31/17 16:00 97.7 78 20 141/62 97 Room Air 97.7 08/31/17 12:00 97.1 90 22 172/68 98 Room Air 97.1 08/31/17 12:00 88 08/31/17 08:00 97.2 71 21 151/70 98 Room Air 97.2 08/31/17 08:00 67 08/31/17 04:00 86 08/31/17 04:00 97.7 81 20 163/62 96 Room Air 97.7 08/31/17 01:13 84 150/77 08/31/17 00:00 88 08/31/17 00:00 97.9 84 20 179/68 94 Room Air 97.9 Intake and Output 08/30/17 08/31/17 19:00 07:00 Intake Total 1285.834 ml 692.500 ml Balance 1285.834 ml 692.500 ml Intake Oral 280 ml IV Total 1005.834 ml 692.500 ml # Bowel Movements 1 1 Laboratory Tests 08/31/17 06:20: White Blood Count 14.1H, Red Blood Count 3.33L, Hemoglobin 10.7L, Hematocrit 31.6L, Mean Corpuscular Volume 95, Mean Corpuscular Hemoglobin 32.1H, Mean Corpuscular Hemoglobin Concent 33.8, Red Cell Distribution Width 20.9H, Platelet Count 283, Mean Platelet Volume 7.2, Neutrophils (%) (Auto) 82.7H, Lymphocytes (%) (Auto) 6.1L, Monocytes (%) (Auto) 8.0, Eosinophils (%) (Auto) 2.9, Basophils (%) (Auto) 0.3, Sodium Level 145, Potassium Level 3.2L, Chloride Level 109H, Carbon Dioxide Level 26, Anion Gap 11, Blood Urea Nitrogen 24H, Creatinine 2.7#H, Estimat Glomerular Filtration Rate , Glucose Level 103, Calcium Level 8.0L 08/31/17 14:15: Vancomycin Level Trough 38.3H Height (Feet): 5 Height (Inches): 2.00 Weight (Pounds): 180 Respiratory/Chest: decreased breath sounds Abdomen: soft Cristiano Roberts MD Aug 31, 2017 23:43
[2017-09-01] VITALS: BP 158/82
[2017-09-01 04:00] VITALS: BP 163/77
[2017-09-01] MEDS: D5NS 1,000 ML IV SCH ×2 (04:31→21:18)
[2017-09-01] MEDS ORDERED: Zosyn 2.25gm inj ONE (06:31)
[2017-09-01] MEDS: OLANZapine 2.5mg tab ORAL SCH ×3 (06:39→21:19)
[2017-09-01] MEDS: Zosyn 2.25 gm in D5W 55ml IV SCH (06:40)
[2017-09-01 08:00] VITALS: BP 166/70
[2017-09-01 08:44] LABS: HEMATOCRIT 30.3 % (37.0-47.0); HEMOGLOBIN 10.2 G/DL (12.0-16.0); MEAN CORPUSCULAR VOLUME 96 FL (80-99); PLATELET COUNT 282 K/UL (150-450); RED BLOOD COUNT 3.17 M/UL (4.20-5.40); RED CELL DISTRIBUTION WIDTH 21.1 % (11.6-14.8); WHITE BLOOD COUNT 14.5 K/UL (4.8-10.8)
[2017-09-01] MEDS: Pantoprazole Inj IVP SCH ×2 (08:44→21:18)
[2017-09-01] MEDS: Nystatin Susp 500,000 units/5ml ORAL SCH ×4 (08:44→21:19)
--- NOTE | 2017-09-01 08:46 | Progress Note ---
DATE: 08/31/2017 SUBJECTIVE: The patient is an 82-year-old female, eating some soft diet, pureed diet. She is still complaining of pain. No fever. No chills. OBJECTIVE: VITAL SIGNS: Stable. CHEST: Bilateral few crackles. CARDIOVASCULAR: Regular rhythm. ABDOMEN: Soft. EXTREMITIES: CCE. NEUROLOGICAL: Generalized weakness. ASSESSMENT: 1. Acute epiglottitis. 2. Acute respiratory failure. 3. Aspiration pneumonia. 4. Multiple bruises. 5. Coagulopathy. PLAN: We will continue current treatment, antibiotics and bronchodilator treatments. [place] evaluation. Discussed with charge nurse and case hardener. Vik Maria M.D. DR: Susannah JOB#: [id number] CC:
[2017-09-01 09:04] LABS: ANION GAP 11 mmol/L (5-15); BLOOD UREA NITROGEN 33 mg/dL (7-18); CARBON DIOXIDE 26 MMOL/L (21-32); CHLORIDE 107 MMOL/L (98-107); CREATININE 3.9 MG/DL (0.55-1.30); POTASSIUM 2.8 MMOL/L (3.5-5.1); SODIUM 144 MMOL/L (136-145)
[2017-09-01 09:38] LABS: BILIRUBIN,TOTAL 2.7 MG/DL (0.2-1.0)
--- NOTE | 2017-09-01 10:01 | GI Progress Note ---
Assessment/Plan Problems: (1) Coagulopathy ICD Codes: D68.9 - Coagulation defect, unspecified SNOMED: 44293655 (2) Allergic reaction caused by a drug ICD Codes: T78.40XA - Allergy, unspecified, initial encounter SNOMED: 209403306 (3) Anemia ICD Codes: D64.9 - Anemia, unspecified SNOMED: 717855937 (4) Airway compromise ICD Codes: J98.8 - Other specified respiratory disorders SNOMED: 30068387 Status: stable Status Narrative Discussed with Dr. Dyson. Assessment/Plan Assessment - GI Bleed - Resp failure - Anemia - neck ecchymosis - (L) foot ischemic changes - abnormal LFT ST evaluation reviewed OB positive hepatitis panel negative abdominal U/S reviewed >> Cholelithiasis. Negative for dilated ducts dobhoff/NGT refused by patient >> diet per ST, tolerating strict aspiration precautions hold blood thinners addition OB stool pending monitor H&H, prn transfusions ppi fu labs correct coag will consider EGD/colonoscopy Subjective Gastrointestinal/Abdominal: Reports: no symptoms Subjective tolerating diet Objective Last 24 Hour Vital Signs Date Time Temp Pulse Resp B/P (MAP) Pulse Ox O2 Delivery O2 Flow Rate FiO2 09/01/17 08:00 79 09/01/17 04:00 71 09/01/17 04:00 97.5 86 21 163/77 96 Room Air 97.5 09/01/17 00:00 97.1 82 20 158/82 94 Room Air 97.1 09/01/17 00:00 78 08/31/17 20:00 97.3 75 20 146/60 98 Room Air 97.3 08/31/17 20:00 81 08/31/17 16:00 78 08/31/17 16:00 97.7 78 20 141/62 97 Room Air 97.7 08/31/17 12:00 97.1 90 22 172/68 98 Room Air 97.1 08/31/17 12:00 88 Intake and Output 08/31/17 09/01/17 19:00 07:00 Intake Total 1520.834 ml 60 ml Balance 1520.834 ml 60 ml Intake Oral 620 ml IV Total 900.834 ml 60 ml # Voids 3 # Bowel Movements 1 Laboratory Tests Test 08/31/17 14:15 09/01/17 03:30 09/01/17 07:50 Vancomycin Level Trough 38.3 ug/mL (5.0-12.0) H Stool Occult Blood Pending White Blood Count 14.5 K/UL (4.8-10.8) H Red Blood Count 3.17 M/UL (4.20-5.40) L Hemoglobin 10.2 G/DL (12.0-16.0) L Hematocrit 30.3 % (37.0-47.0) L Mean Corpuscular Volume 96 FL (80-99) Mean Corpuscular Hemoglobin 32.3 PG (27.0-31.0) H Mean Corpuscular Hemoglobin Concent 33.8 G/DL (32.0-36.0) Red Cell Distribution Width 21.1 % (11.6-14.8) H Platelet Count 282 K/UL (150-450) Mean Platelet Volume 7.1 FL (6.5-10.1) Neutrophils (%) (Auto) % (45.0-75.0) Lymphocytes (%) (Auto) % (20.0-45.0) Monocytes (%) (Auto) % (1.0-10.0) Eosinophils (%) (Auto) % (0.0-3.0) Basophils (%) (Auto) % (0.0-2.0) Neutrophils % (Manual) Pending Lymphocytes % (Manual) Pending Platelet Estimate Pending Platelet Morphology Pending Reticulocyte Count Pending Haptoglobin Pending Sodium Level 144 MMOL/L (136-145) Potassium Level 2.8 MMOL/L (3.5-5.1) L Chloride Level 107 MMOL/L (98-107) Carbon Dioxide Level 26 MMOL/L (21-32) Anion Gap 11 mmol/L (5-15) Blood Urea Nitrogen 33 mg/dL (7-18) H Creatinine 3.9 MG/DL (0.55-1.30) H Estimat Glomerular Filtration Rate mL/min (>60) Glucose Level 111 MG/DL (74-106) H Calcium Level 8.0 MG/DL (8.5-10.1) L Total Bilirubin 2.7 MG/DL (0.2-1.0) H Direct Bilirubin 0.8 MG/DL (0.0-0.3) H Lactate Dehydrogenase 599 U/L (81-234) H Folate Pending Homocystine Pending Height (Feet): 5 Height (Inches): 2.00 Weight (Pounds): 176 General Appearance: WD/WN, no apparent distress, alert, overweight, other - neck ecchymosis Cardiovascular: normal rate Respiratory/Chest: normal breath sounds, no respiratory distress Abdominal Exam: normal bowel sounds, non tender, soft Extremities: normal range of motion, non-tender Mae Lawler N.P. Sep 01, 2017 10:01
--- NOTE | 2017-09-01 11:07 | Pulmonology Progress Note ---
Assessment/Plan Assessment/Plan 1. Soft tissue swelling in the neck area with compromised airway. Resolved 2. Respiratory failure with airway compromise. Now extubated. 3. Marked subcutaneous bruising. Improving. 4. Coumadin use. 5. Hypertension. 6. GERD. 7. care home resident. 8. Anemia. 9. Leukocytosis. DISCUSSION: I am unclear as to the etiology of her compromised airway. I suspect she had bleeding in the neck area, possibly due to trauma due to CPAP in the presence of Coumadin. She is awake and responsive. Doing well ENT note reviewed Subjective Interval Events: Doing well Constitutional: Reports: no symptoms HEENT: Repors: no symptoms Respiratory: Reports: no symptoms Cardiovascular: Reports: no symptoms Gastrointestinal/Abdominal: Reports: no symptoms Allergies: Coded Allergies: IBUPROFEN (Verified Allergy, Unknown, 08/23/17) Objective Last 24 Hour Vital Signs Date Time Temp Pulse Resp B/P (MAP) Pulse Ox O2 Delivery O2 Flow Rate FiO2 09/01/17 08:00 97.9 76 20 166/70 95 Room Air 97.9 09/01/17 08:00 79 09/01/17 04:00 71 09/01/17 04:00 97.5 86 21 163/77 96 Room Air 97.5 09/01/17 00:00 97.1 82 20 158/82 94 Room Air 97.1 09/01/17 00:00 78 08/31/17 20:00 97.3 75 20 146/60 98 Room Air 97.3 08/31/17 20:00 81 08/31/17 16:00 78 08/31/17 16:00 97.7 78 20 141/62 97 Room Air 97.7 08/31/17 12:00 97.1 90 22 172/68 98 Room Air 97.1 08/31/17 12:00 88 Intake and Output 08/31/17 09/01/17 19:00 07:00 Intake Total 1520.834 ml 60 ml Balance 1520.834 ml 60 ml Intake Oral 620 ml IV Total 900.834 ml 60 ml # Voids 3 # Bowel Movements 1 General Appearance: no acute distress HEENT: normocephalic Respiratory/Chest: chest wall non-tender, lungs clear Cardiovascular: normal peripheral pulses, normal rate Abdomen: normal bowel sounds Laboratory Tests 08/31/17 14:15: Vancomycin Level Trough 38.3H 09/01/17 03:30: Stool Occult Blood Negative 09/01/17 07:50: White Blood Count 14.5H, Red Blood Count 3.17L, Hemoglobin 10.2L, Hematocrit 30.3L, Mean Corpuscular Volume 96, Mean Corpuscular Hemoglobin 32.3H, Mean Corpuscular Hemoglobin Concent 33.8, Red Cell Distribution Width 21.1H, Platelet Count 282, Mean Platelet Volume 7.1, Neutrophils (%) (Auto) , Lymphocytes (%) (Auto) , Monocytes (%) (Auto) , Eosinophils (%) (Auto) , Basophils (%) (Auto) , Differential Total Cells Counted 100, Neutrophils % ( Manual) 84H, Lymphocytes % (Manual) 7L, Monocytes % (Manual) 6, Eosinophils % ( Manual) 3, Basophils % (Manual) 0, Band Neutrophils 0, Platelet Estimate Adequate, Platelet Morphology Normal, Polychromasia 1+, Hypochromasia 1+, Anisocytosis 2+, Reticulocyte Count 3.9H, Haptoglobin [Pending], Sodium Level 144, Potassium Level 2.8L, Chloride Level 107, Carbon Dioxide Level 26, Anion Gap 11, Blood Urea Nitrogen 33H, Creatinine 3.9H, Estimat Glomerular Filtration Rate , Glucose Level 111H, Calcium Level 8.0L, Total Bilirubin 2.7H, Direct Bilirubin 0.8H, Lactate Dehydrogenase 599H, Folate 14.2, Homocystine [Pending] Current Medications Medications (Trade) Dose Ordered Sig/[place]ster Route PRN Reason Start Time Stop Time Status Last Admin Dose Admin Acetaminophen (Tylenol) 650 mg Q4H PRN ORAL Mild Pain/Temp > 100.5 09/01/17 03:30 10/01/17 03:29 Chlorhexidine Gluconate (Caroline-Hex 2%) 1 applic DAILY@2000 TOPIC 08/30/17 20:00 09/24/17 19:59 08/31/17 22:00 Dextrose/Sodium Chloride 1,000 ml @ 60 mls/hr [id number] IV 08/30/17 01:30 09/23/17 04:44 09/01/17 04:31 Hydralazine HCl (Apresoline) 10 mg Q2H PRN IV SBP > 170 08/30/17 02:15 09/24/17 16:14 Lorazepam (Ativan 2mg/ml 1ml) 1 mg Q6H PRN IV For Anxiety 08/31/17 12:00 09/07/17 11:59 Nystatin (Nystatin) 5 ml QID ORAL 08/30/17 09:00 09/05/17 12:59 09/01/17 08:44 Olanzapine (ZyPREXA) 2.5 mg BID@0600,1400 ORAL 08/31/17 14:00 09/30/17 13:59 09/01/17 06:39 Olanzapine (ZyPREXA) 2.5 mg QHS ORAL 08/31/17 21:00 09/30/17 20:59 08/31/17 22:00 Pantoprazole (Protonix) 40 mg EVERY 12 HOURS IVP 08/30/17 09:00 09/23/17 08:59 09/01/17 08:44 Piperacillin Sod/ Tazobactam Sod 3.375 gm/Dextrose 110 ml @ 27.5 mls/hr Q12HR@0600,1800 IVPB 09/01/17 18:00 09/08/17 17:59 Toño Underwood MD Sep 01, 2017 11:07
[2017-09-01 12:00] VITALS: BP 151/72
--- NOTE | 2017-09-01 14:25 | Infectious Diseases Prog Note ---
Assessment/Plan Problems: (1) HCAP (healthcare-associated pneumonia) Assessment & Plan: improving on zosyn and vancomycin, will continue zosyn empiric coverage for 10 days (2) Cellulitis of neck Assessment & Plan: no evidence of neck abcsess on CT neck, already on zosyn empiric coverage for now , bronchoscopy didn't show any hematoma inside her airway, and she was evaluated by ENT . 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 Assessment & Plan: with MSSA and Providencia rettgeri , recommend jig grinder consult and vascular study for further eval , already on vancomycin and zosyn (8) BESSIE (acute kidney injury) Assessment & Plan: suspect dehydration, keep off vancomycin since trough level is high , continue hydration, with close monitor of renal functions, nephrology team is following Subjective Constitutional: Reports: no symptoms HEENT: Reports: no symptoms Respiratory: Reports: productive cough Breasts: Reports: no symptoms Cardiovascular: Reports: no symptoms Gastrointestinal/Abdominal: Reports: no symptoms Genitourinary: Reports: no symptoms Neurologic: Reports: no symptoms Psychiatric: Reports: no symptoms Skin: Reports: ulcer Endocrine: Reports: no symptoms Hematologic: Reports: no symptoms Musculoskeletal: Reports: no symptoms Allergies: Coded Allergies: IBUPROFEN (Verified Allergy, Unknown, 08/23/17) Subjective she was extubated , more awake and alert, responsive to verbal commands , no fever or chills , no diarrhea, refusing G tube placement Objective Vital Signs Last 24 Hour Vital Signs Date Time Temp Pulse Resp B/P (MAP) Pulse Ox O2 Delivery O2 Flow Rate FiO2 09/01/17 12:55 97.3 09/01/17 12:00 97.1 84 20 151/72 95 Room Air 2.0 28 97.1 88 09/01/17 12:00 81 09/01/17 11:56 97.3 09/01/17 08:00 97.9 76 20 166/70 95 Room Air 97.9 09/01/17 08:00 79 09/01/17 04:00 71 09/01/17 04:00 97.5 86 21 163/77 96 Room Air 97.5 09/01/17 00:00 97.1 82 20 158/82 94 Room Air 97.1 09/01/17 00:00 78 08/31/17 20:00 97.3 75 20 146/60 98 Room Air 97.3 08/31/17 20:00 81 08/31/17 16:00 78 08/31/17 16:00 97.7 78 20 141/62 97 Room Air 97.7 Height (Feet): 5 Height (Inches): 2.00 Weight (Pounds): 176 General Appearance: WD/WN, no acute distress HEENT: normocephalic, atraumatic, anicteric, mucous membranes moist Respiratory/Chest: chest wall non-tender, no respiratory distress, no accessory muscle use, decreased breath sounds, expiratory wheezing Cardiovascular: normal peripheral pulses, normal rate, regular rhythm, no gallop/murmur, no JVD Abdomen: normal bowel sounds, soft, non tender, no organomegaly, non distended , no mass, no scars Extremities: no cyanosis, no clubbing Skin: no rash, no lesions, ulcers Neurologic/Psychiatric: alert, responsive Lymphatic: no neck adenopathy, no groin adenopathy Laboratory Tests Test 09/01/17 03:30 09/01/17 07:50 Stool Occult Blood Negative (NEGATIVE) White Blood Count 14.5 K/UL (4.8-10.8) H Red Blood Count 3.17 M/UL (4.20-5.40) L Hemoglobin 10.2 G/DL (12.0-16.0) L Hematocrit 30.3 % (37.0-47.0) L Mean Corpuscular Volume 96 FL (80-99) Mean Corpuscular Hemoglobin 32.3 PG (27.0-31.0) H Mean Corpuscular Hemoglobin Concent 33.8 G/DL (32.0-36.0) Red Cell Distribution Width 21.1 % (11.6-14.8) H Platelet Count 282 K/UL (150-450) Mean Platelet Volume 7.1 FL (6.5-10.1) Neutrophils (%) (Auto) % (45.0-75.0) Lymphocytes (%) (Auto) % (20.0-45.0) Monocytes (%) (Auto) % (1.0-10.0) Eosinophils (%) (Auto) % (0.0-3.0) Basophils (%) (Auto) % (0.0-2.0) Differential Total Cells Counted 100 Neutrophils % (Manual) 84 % (45-75) H Lymphocytes % (Manual) 7 % (20-45) L Monocytes % (Manual) 6 % (1-10) Eosinophils % (Manual) 3 % (0-3) Basophils % (Manual) 0 % (0-2) Band Neutrophils 0 % (0-8) Other Cell Type Pathologist comment Platelet Estimate Adequate Platelet Morphology Normal Polychromasia 1+ Hypochromasia 1+ Anisocytosis 2+ Reticulocyte Count 3.9 % (0.0-2.0) H Haptoglobin Pending Sodium Level 144 MMOL/L (136-145) Potassium Level 2.8 MMOL/L (3.5-5.1) L Chloride Level 107 MMOL/L (98-107) Carbon Dioxide Level 26 MMOL/L (21-32) Anion Gap 11 mmol/L (5-15) Blood Urea Nitrogen 33 mg/dL (7-18) H Creatinine 3.9 MG/DL (0.55-1.30) H Estimat Glomerular Filtration Rate mL/min (>60) Glucose Level 111 MG/DL (74-106) H Calcium Level 8.0 MG/DL (8.5-10.1) L Total Bilirubin 2.7 MG/DL (0.2-1.0) H Direct Bilirubin 0.8 MG/DL (0.0-0.3) H Lactate Dehydrogenase 599 U/L (81-234) H Folate 14.2 NG/ML (8.6-58.9) Homocystine Pending Current Medications Medications (Trade) Dose Ordered Sig/[place] Route PRN Reason Start Time Stop Time Status Last Admin Dose Admin Acetaminophen (Tylenol) 650 mg Q4H PRN ORAL Mild Pain/Temp > 100.5 09/01/17 03:30 10/01/17 03:29 09/01/17 11:56 Chlorhexidine Gluconate (Caroline-Hex 2%) 1 applic DAILY@2000 TOPIC 08/30/17 20:00 09/24/17 19:59 08/31/17 22:00 Dextrose/Sodium Chloride 1,000 ml @ 60 mls/hr [id number] IV 08/30/17 01:30 09/23/17 04:44 09/01/17 04:31 Hydralazine HCl (Apresoline) 10 mg Q2H PRN IV SBP > 170 08/30/17 02:15 09/24/17 16:14 Lorazepam (Ativan 2mg/ml 1ml) 1 mg Q6H PRN IV For Anxiety 08/31/17 12:00 09/07/17 11:59 09/01/17 11:55 Nystatin (Nystatin) 5 ml QID ORAL 08/30/17 09:00 09/05/17 12:59 09/01/17 13:08 Olanzapine (ZyPREXA) 2.5 mg BID@0600,1400 ORAL 08/31/17 14:00 09/30/17 13:59 09/01/17 13:08 Olanzapine (ZyPREXA) 2.5 mg QHS ORAL 08/31/17 21:00 09/30/17 20:59 08/31/17 22:00 Pantoprazole (Protonix) 40 mg EVERY 12 HOURS IVP 08/30/17 09:00 09/23/17 08:59 09/01/17 08:44 Piperacillin Sod/ Tazobactam Sod 3.375 gm/Dextrose 110 ml @ 27.5 mls/hr Q12HR@0600,1800 IVPB 09/01/17 18:00 09/08/17 17:59 Noni Gonzalez M.D. Sep 01, 2017 14:25
--- NOTE | 2017-09-01 15:15 | Cardiac Electrophysiology PN ---
Assessment/Plan Assessment/Plan 1. ?Paroxysmal atrial fibrillation. In sinus rhythm. Was on Coumadin that was DCed Lower extremity Doppler showed no evidence of DVT. 2. Hypertension. On prn hydralazine only 3. Elevated INR with significant bleeding s/p 3 units of blood transfusion. Her INR on 08/26/2017 was 3.0 and currently it is 1.1 4. S/P Respiratory failure. Extubated 5. Pneumonia, on IV antibiotic per Dr. Gonzalez. VENITA RN Subjective Subjective On tele with no events. No SVT or VT. Had low K today. Objective Last 24 Hour Vital Signs Date Time Temp Pulse Resp B/P (MAP) Pulse Ox O2 Delivery O2 Flow Rate FiO2 09/01/17 12:55 97.3 09/01/17 12:00 97.1 84 20 151/72 95 Room Air 2.0 28 97.1 88 09/01/17 12:00 81 09/01/17 11:56 97.3 09/01/17 08:00 97.9 76 20 166/70 95 Room Air 97.9 09/01/17 08:00 79 09/01/17 04:00 71 09/01/17 04:00 97.5 86 21 163/77 96 Room Air 97.5 09/01/17 00:00 97.1 82 20 158/82 94 Room Air 97.1 09/01/17 00:00 78 08/31/17 20:00 97.3 75 20 146/60 98 Room Air 97.3 08/31/17 20:00 81 08/31/17 16:00 78 08/31/17 16:00 97.7 78 20 141/62 97 Room Air 97.7 Intake and Output 08/31/17 09/01/17 19:00 07:00 Intake Total 1520.834 ml 60 ml Balance 1520.834 ml 60 ml Intake Oral 620 ml IV Total 900.834 ml 60 ml # Voids 3 # Bowel Movements 1 Laboratory Tests Test 09/01/17 03:30 09/01/17 07:50 Stool Occult Blood Negative (NEGATIVE) White Blood Count 14.5 K/UL (4.8-10.8) H Red Blood Count 3.17 M/UL (4.20-5.40) L Hemoglobin 10.2 G/DL (12.0-16.0) L Hematocrit 30.3 % (37.0-47.0) L Mean Corpuscular Volume 96 FL (80-99) Mean Corpuscular Hemoglobin 32.3 PG (27.0-31.0) H Mean Corpuscular Hemoglobin Concent 33.8 G/DL (32.0-36.0) Red Cell Distribution Width 21.1 % (11.6-14.8) H Platelet Count 282 K/UL (150-450) Mean Platelet Volume 7.1 FL (6.5-10.1) Neutrophils (%) (Auto) % (45.0-75.0) Lymphocytes (%) (Auto) % (20.0-45.0) Monocytes (%) (Auto) % (1.0-10.0) Eosinophils (%) (Auto) % (0.0-3.0) Basophils (%) (Auto) % (0.0-2.0) Differential Total Cells Counted 100 Neutrophils % (Manual) 84 % (45-75) H Lymphocytes % (Manual) 7 % (20-45) L Monocytes % (Manual) 6 % (1-10) Eosinophils % (Manual) 3 % (0-3) Basophils % (Manual) 0 % (0-2) Band Neutrophils 0 % (0-8) Other Cell Type Pathologist comment Platelet Estimate Adequate Platelet Morphology Normal Polychromasia 1+ Hypochromasia 1+ Anisocytosis 2+ Reticulocyte Count 3.9 % (0.0-2.0) H Haptoglobin Pending Sodium Level 144 MMOL/L (136-145) Potassium Level 2.8 MMOL/L (3.5-5.1) L Chloride Level 107 MMOL/L (98-107) Carbon Dioxide Level 26 MMOL/L (21-32) Anion Gap 11 mmol/L (5-15) Blood Urea Nitrogen 33 mg/dL (7-18) H Creatinine 3.9 MG/DL (0.55-1.30) H Estimat Glomerular Filtration Rate mL/min (>60) Glucose Level 111 MG/DL (74-106) H Calcium Level 8.0 MG/DL (8.5-10.1) L Total Bilirubin 2.7 MG/DL (0.2-1.0) H Direct Bilirubin 0.8 MG/DL (0.0-0.3) H Lactate Dehydrogenase 599 U/L (81-234) H Folate 14.2 NG/ML (8.6-58.9) Homocystine Pending Objective HEAD AND NECK: No JVD. Chest and submandibular Ecchymosis better LUNGS: Clear CVS: RRR. No G/R/M ABDOMEN: Obese. EXTREMITIES: 1+ pitting edema Hao Edmondson MD Sep 01, 2017 15:15
[2017-09-01 16:00] VITALS: BP 134/56
[2017-09-01] MEDS: Piperacillin/Tazobactam 3.375 GM in D5W 110 ML IVPB SCH (17:54)
[2017-09-01 20:00] VITALS: BP 163/70
--- NOTE | 2017-09-01 20:45 | Progress Note ---
DATE: 09/01/2017 SUBJECTIVE: This is an 82-year-old female who is comfortably sitting in the bed. Her are improving. OBJECTIVE: VITAL SIGNS: Blood pressure 100/40, pulse 60. No fever. SKIN: Good skin turgor. CHEST: Bilateral few crackles. CARDIOVASCULAR: rhythm. No gallop. No murmur. ABDOMEN: Soft. EXTREMITIES: No CCE. ASSESSMENT: 1. Acute respiratory failure. 2. Aspiration pneumonia. 3. Epiglottitis. 4. Coagulopathy. 5. AFib. PLAN: We will currently continue antibiotic and bronchodilator treatments. ID and Pulmonary are on the case. Vik Maria M.D. DR: Yogesh JOB#: [id number] CC:
[2017-09-01] MEDS: Dyna-Hex 2% Top Sol 2oz TOPIC SCH (21:17)
--- NOTE | 2017-09-01 21:53 | General Progress Note ---
Assessment/Plan Status: stable, progressing Assessment/Plan encephalopathy psychotic d/o -zyprexa 2.5mg po bid -redirect the pt -the pt needs assistance with feeding -ativan prn please administer prior to wound care Subjective Date patient seen: Sep 01, 2017 Neurologic/Psychiatric: Reports: anxiety, depressed Allergies: Coded Allergies: IBUPROFEN (Verified Allergy, Unknown, 08/23/17) Subjective the pt is somewhat confused and needs assistance with feeding Objective Last 24 Hour Vital Signs Date Time Temp Pulse Resp B/P (MAP) Pulse Ox O2 Delivery O2 Flow Rate FiO2 09/01/17 20:00 97.9 80 18 163/70 97 Room Air 97.9 88 09/01/17 16:00 97.2 83 20 134/56 98 Room Air 2.0 28 97.2 88 09/01/17 16:00 84 09/01/17 12:55 97.3 09/01/17 12:00 97.1 84 20 151/72 95 Room Air 2.0 28 97.1 88 09/01/17 12:00 81 09/01/17 11:56 97.3 09/01/17 08:00 97.9 76 20 166/70 95 Room Air 97.9 09/01/17 08:00 79 09/01/17 04:00 71 09/01/17 04:00 97.5 86 21 163/77 96 Room Air 97.5 09/01/17 00:00 97.1 82 20 158/82 94 Room Air 97.1 09/01/17 00:00 78 Intake and Output 08/31/17 09/01/17 19:00 07:00 Intake Total 1520.834 ml 60 ml Balance 1520.834 ml 60 ml Intake Oral 620 ml IV Total 900.834 ml 60 ml # Voids 3 # Bowel Movements 1 Laboratory Tests 09/01/17 03:30: Stool Occult Blood Negative 09/01/17 07:50: White Blood Count 14.5H, Red Blood Count 3.17L, Hemoglobin 10.2L, Hematocrit 30.3L, Mean Corpuscular Volume 96, Mean Corpuscular Hemoglobin 32.3H, Mean Corpuscular Hemoglobin Concent 33.8, Red Cell Distribution Width 21.1H, Platelet Count 282, Mean Platelet Volume 7.1, Neutrophils (%) (Auto) , Lymphocytes (%) (Auto) , Monocytes (%) (Auto) , Eosinophils (%) (Auto) , Basophils (%) (Auto) , Differential Total Cells Counted 100, Neutrophils % ( Manual) 84H, Lymphocytes % (Manual) 7L, Monocytes % (Manual) 6, Eosinophils % ( Manual) 3, Basophils % (Manual) 0, Band Neutrophils 0, Other Cell Type Pathologist comment, Platelet Estimate Adequate, Platelet Morphology Normal, Polychromasia 1+, Hypochromasia 1+, Anisocytosis 2+, Reticulocyte Count 3.9H, Haptoglobin [Pending], Sodium Level 144, Potassium Level 2.8L, Chloride Level 107, Carbon Dioxide Level 26, Anion Gap 11, Blood Urea Nitrogen 33H, Creatinine 3.9H, Estimat Glomerular Filtration Rate , Glucose Level 111H, Calcium Level 8.0L, Total Bilirubin 2.7H, Direct Bilirubin 0.8H, Lactate Dehydrogenase 599H, Folate 14.2, Homocystine [Pending] Height (Feet): 5 Height (Inches): 2.00 Weight (Pounds): 176 General Appearance: WD/WN, no apparent distress, alert, confused Syl Winters M.D. Sep 01, 2017 21:53
--- NOTE | 2017-09-01 23:46 | General Progress Note ---
Assessment/Plan Assessment/Plan 1. Anemia, potentially secondary to gastrointestinal bleed. --> Was on coumadin and now has been discontinued (further anticoag management per cards) --> also need to rule out hemolysis, LDH 599, Bili 2.7 --> both levels elevated --> Continue to closely monitor and trend cbc daily. --> Anemia workup reviewed. --> Iron 26, TIBC 228, Ferritin 50, B12 377, Folate 11.9, TSH 0.4 --> Transfuse if hgb <7 2. Anemia of iron deficiency. s/p iron therapy for total of 5 days --> Dark stool found. ++Occult blood. Consider GI recs. --> Monitor closely --> Blood transfusion not required unless symptomatic or hgb below goal. 3. Coagulopathy due to Coumadin use in the past. --> It has since been discontinued. inr improved --> Coumadin currently on hold. Further management as per cards 4. Respiratory failure, currently extubated 6. Bilateral pneumonia. She is on broad-spectrum antibiotics. 7. Gastroesophageal reflux disease, on antacids as needed. 8. Subcutaneous bruising, likely due to Coumadin. 9. Leukocytosis. --> Improving on antibiotics. Subjective Date patient seen: Sep 01, 2017 Constitutional: Denies: no symptoms, chills, diaphoresis, fever, malaise, weakness, other HEENT: Denies: no symptoms, eye pain, blurred vision, tearing, double vision, ear pain, ear discharge, nose pain, nose congestion, throat pain, throat swelling, mouth pain, mouth swelling, other Cardiovascular: Denies: no symptoms, chest pain, edema, irregular heart rate, lightheadedness, palpitations, syncope, other Respiratory: Denies: no symptoms, cough, orthopnea, shortness of breath, SOB with excertion, SOB at rest, sputum, stridor, wheezing, other Gastrointestinal/Abdominal: Denies: no symptoms, abdomen distended, abdominal pain, black stools, tarry stools, blood in stool, constipated, diarrhea, difficulty swallowing, nausea, poor appetite, poor fluid intake, rectal bleeding , vomiting, other Genitourinary: Denies: no symptoms, burning, discharge, frequency, flank pain, hematuria, incontinence, pain, urgency, other Neurologic/Psychiatric: Denies: no symptoms, anxiety, depressed, emotional problems, headache, numbness, paresthesia, pre-existing deficit, seizure, tingling, tremors, weakness, other Hematologic/Lymphatic: Reports: anemia Allergies: Coded Allergies: IBUPROFEN (Verified Allergy, Unknown, 08/23/17) Subjective Confused. No fever or chills. Wbc count elevated. Objective Last 24 Hour Vital Signs Date Time Temp Pulse Resp B/P (MAP) Pulse Ox O2 Delivery O2 Flow Rate FiO2 09/01/17 20:00 76 09/01/17 20:00 97.9 80 18 163/70 97 Room Air 97.9 88 09/01/17 16:00 97.2 83 20 134/56 98 Room Air 2.0 28 97.2 88 09/01/17 16:00 84 09/01/17 12:55 97.3 09/01/17 12:00 97.1 84 20 151/72 95 Room Air 2.0 28 97.1 88 09/01/17 12:00 81 09/01/17 11:56 97.3 09/01/17 08:00 97.9 76 20 166/70 95 Room Air 97.9 09/01/17 08:00 79 09/01/17 04:00 71 09/01/17 04:00 97.5 86 21 163/77 96 Room Air 97.5 09/01/17 00:00 97.1 82 20 158/82 94 Room Air 97.1 09/01/17 00:00 78 Intake and Output 08/31/17 09/01/17 19:00 07:00 Intake Total 1520.834 ml 60 ml Balance 1520.834 ml 60 ml Intake Oral 620 ml IV Total 900.834 ml 60 ml # Voids 3 # Bowel Movements 1 Laboratory Tests 09/01/17 03:30: Stool Occult Blood Negative 09/01/17 07:50: White Blood Count 14.5H, Red Blood Count 3.17L, Hemoglobin 10.2L, Hematocrit 30.3L, Mean Corpuscular Volume 96, Mean Corpuscular Hemoglobin 32.3H, Mean Corpuscular Hemoglobin Concent 33.8, Red Cell Distribution Width 21.1H, Platelet Count 282, Mean Platelet Volume 7.1, Neutrophils (%) (Auto) , Lymphocytes (%) (Auto) , Monocytes (%) (Auto) , Eosinophils (%) (Auto) , Basophils (%) (Auto) , Differential Total Cells Counted 100, Neutrophils % ( Manual) 84H, Lymphocytes % (Manual) 7L, Monocytes % (Manual) 6, Eosinophils % ( Manual) 3, Basophils % (Manual) 0, Band Neutrophils 0, Other Cell Type Pathologist comment, Platelet Estimate Adequate, Platelet Morphology Normal, Polychromasia 1+, Hypochromasia 1+, Anisocytosis 2+, Reticulocyte Count 3.9H, Haptoglobin [Pending], Sodium Level 144, Potassium Level 2.8L, Chloride Level 107, Carbon Dioxide Level 26, Anion Gap 11, Blood Urea Nitrogen 33H, Creatinine 3.9H, Estimat Glomerular Filtration Rate , Glucose Level 111H, Calcium Level 8.0L, Total Bilirubin 2.7H, Direct Bilirubin 0.8H, Lactate Dehydrogenase 599H, Folate 14.2, Homocystine [Pending] Height (Feet): 5 Height (Inches): 2.00 Weight (Pounds): 176 General Appearance: confused Respiratory/Chest: lungs clear Abdomen: soft Cristiano Roberts MD Sep 01, 2017 23:46
[2017-09-02] VITALS: BP 164/66
[2017-09-02] MEDS: Piperacillin/Tazobactam 3.375 GM in D5W 110 ML IVPB SCH ×2 (05:49→17:21)
[2017-09-02] MEDS: OLANZapine 2.5mg tab ORAL SCH ×3 (05:50→21:15)
[2017-09-02 07:11] LABS: BASOPHILS % (AUTO) 0.7 % (0.0-2.0); EOSINOPHILS % (AUTO) 4.5 % (0.0-3.0); LYMPHOCYTES % (AUTO) 7.1 % (20.0-45.0); MEAN CORPUSCULAR VOLUME 96 FL (80-99); MONOCYTES % (AUTO) 7.3 % (1.0-10.0); NEUTROPHILS % (AUTO) 80.4 % (45.0-75.0); PLATELET COUNT 261 K/UL (150-450); RED BLOOD COUNT 2.82 M/UL (4.20-5.40); WHITE BLOOD COUNT 10.9 K/UL (4.8-10.8)
[2017-09-02 07:25] LABS: INR 1.1 (0.9-1.1)
[2017-09-02 07:49] LABS: ALANINE AMINOTRANSFERASE 41 U/L (12-78); ALBUMIN 2.1 G/DL (3.4-5.0); ALBUMIN/GLOBULIN RATIO 0.6 (1.0-2.7); ALKALINE PHOSPHATASE 48 U/L (46-116); ANION GAP 11 mmol/L (5-15); ASPARTATE AMINO TRANSFERASE 28 U/L (15-37); BILIRUBIN,TOTAL 1.6 MG/DL (0.2-1.0); BLOOD UREA NITROGEN 37 mg/dL (7-18); CALCIUM 7.5 MG/DL (8.5-10.1); CARBON DIOXIDE 22 MMOL/L (21-32); CHLORIDE 115 MMOL/L (98-107); CREATININE 4.2 MG/DL (0.55-1.30); POTASSIUM 3.9 MMOL/L (3.5-5.1); SODIUM 148 MMOL/L (136-145)
[2017-09-02 07:50] LABS: BILIRUBIN,DIRECT 0.5 MG/DL (0.0-0.3)
[2017-09-02 08:00] VITALS: BP 183/74
[2017-09-02] MEDS: Nystatin Susp 500,000 units/5ml ORAL SCH ×4 (08:18→21:15)
[2017-09-02] MEDS: Pantoprazole Inj IVP SCH (08:19)
--- NOTE | 2017-09-02 08:56 | Diagnostic Imaging Report ---
APPROVED REPORT CPT Code: 83337 Present Symptoms Comments: BILATERAL LEGS PAIN BILATERAL: Imaging reveals a patent deep venous system bilaterally. There is no evidence of thrombus within the femoral, popliteal or tibial segments. The greater saphenous veins are also within normal limits. Doppler indicates normal spontaneous flow within these segments.
[2017-09-02] MEDS ORDERED: D5NS 1000ml IV ONE (09:42)
[2017-09-02] MEDS ORDERED: Tubing IV Secondary IV ONE (09:42)
--- NOTE | 2017-09-02 11:08 | Pulmonology Progress Note ---
Assessment/Plan Assessment/Plan 1. Soft tissue swelling in the neck area with compromised airway. Resolved 2. Respiratory failure with airway compromise. Now extubated. 3. Marked subcutaneous bruising. Improving. 4. Coumadin use. 5. Hypertension. 6. GERD. 7. retirement resident. 8. Anemia. 9. Leukocytosis. DISCUSSION: I am unclear as to the etiology of her compromised airway. I suspect she had bleeding in the neck area, possibly due to trauma due to CPAP in the presence of Coumadin. She is awake and responsive. Doing well ENT note reviewed anticipated discharge home Subjective Interval Events: No new events. Constitutional: Reports: no symptoms HEENT: Repors: no symptoms Respiratory: Reports: no symptoms Cardiovascular: Reports: no symptoms Gastrointestinal/Abdominal: Reports: no symptoms Allergies: Coded Allergies: IBUPROFEN (Verified Allergy, Unknown, 08/23/17) Objective Last 24 Hour Vital Signs Date Time Temp Pulse Resp B/P (MAP) Pulse Ox O2 Delivery O2 Flow Rate FiO2 09/02/17 09:04 183/74 09/02/17 08:00 89 09/02/17 08:00 97.2 88 18 183/74 98 Room Air 97.2 09/02/17 04:00 78 09/02/17 00:00 92 09/02/17 00:00 97.9 81 20 164/66 98 Room Air 97.9 09/01/17 20:00 76 09/01/17 20:00 97.9 80 18 163/70 97 Room Air 97.9 88 09/01/17 16:00 97.2 83 20 134/56 98 Room Air 2.0 28 97.2 88 09/01/17 16:00 84 09/01/17 12:55 97.3 09/01/17 12:00 97.1 84 20 151/72 95 Room Air 2.0 28 97.1 88 09/01/17 12:00 81 09/01/17 11:56 97.3 Intake and Output 09/01/17 09/02/17 19:00 07:00 Intake Total 1260 ml 752.5 ml Balance 1260 ml 752.5 ml Intake Oral 600 ml 200 ml IV Total 660 ml 552.5 ml # Voids 2 1 # Bowel Movements 2 General Appearance: no acute distress HEENT: normocephalic Respiratory/Chest: chest wall non-tender, lungs clear Cardiovascular: normal peripheral pulses, normal rate Abdomen: normal bowel sounds Laboratory Tests 09/02/17 06:40: White Blood Count 10.9H, Red Blood Count 2.82L, Hemoglobin 9.0L, Hematocrit 27.0L, Mean Corpuscular Volume 96, Mean Corpuscular Hemoglobin 31.8H, Mean Corpuscular Hemoglobin Concent 33.1, Red Cell Distribution Width 21.0H, Platelet Count 261, Mean Platelet Volume 7.0, Neutrophils (%) (Auto) 80.4H, Lymphocytes (%) (Auto) 7.1L, Monocytes (%) (Auto) 7.3, Eosinophils (%) (Auto) 4.5H, Basophils (%) (Auto) 0.7, Prothrombin Time 11.8H, Prothromb Time International Ratio 1.1, Activated Partial Thromboplast Time 29, Sodium Level 148H, Potassium Level 3.9, Chloride Level 115H, Carbon Dioxide Level 22, Anion Gap 11, Blood Urea Nitrogen 37H, Creatinine 4.2H, Estimat Glomerular Filtration Rate , Glucose Level 99, Calcium Level 7.5L, Total Bilirubin 1.6H, Direct Bilirubin 0.5H, Aspartate Amino Transf (AST/SGOT) 28, Alanine Aminotransferase ( ALT/SGPT) 41, Alkaline Phosphatase 48, Total Protein 5.6L, Albumin 2.1L, Globulin 3.5, Albumin/Globulin Ratio 0.6L Current Medications Medications (Trade) Dose Ordered Sig/[place] Route PRN Reason Start Time Stop Time Status Last Admin Dose Admin Acetaminophen (Tylenol) 650 mg Q4H PRN ORAL Mild Pain/Temp > 100.5 09/01/17 03:30 10/01/17 03:29 09/01/17 11:56 Chlorhexidine Gluconate (Caroline-Hex 2%) 1 applic DAILY@2000 TOPIC 08/30/17 20:00 09/24/17 19:59 09/01/17 21:17 Dextrose/Sodium Chloride 1,000 ml @ 60 mls/hr [id number] IV 08/30/17 01:30 09/23/17 04:44 09/01/17 21:18 Hydralazine HCl (Apresoline) 10 mg Q2H PRN IV SBP > 170 08/30/17 02:15 09/24/17 16:14 09/02/17 09:04 Lorazepam (Ativan 2mg/ml 1ml) 1 mg Q6H PRN IV For Anxiety 08/31/17 12:00 09/07/17 11:59 09/01/17 11:55 Nystatin (Nystatin) 5 ml QID ORAL 08/30/17 09:00 09/05/17 12:59 09/02/17 08:18 Olanzapine (ZyPREXA) 2.5 mg BID@0600,1400 ORAL 08/31/17 14:00 09/30/17 13:59 09/01/17 13:08 Olanzapine (ZyPREXA) 2.5 mg QHS ORAL 08/31/17 21:00 09/30/17 20:59 09/01/17 21:19 Pantoprazole (Protonix) 40 mg BIAC ORAL 09/02/17 16:30 10/02/17 16:29 Piperacillin Sod/ Tazobactam Sod 3.375 gm/Dextrose 110 ml @ 27.5 mls/hr Q12HR@0600,1800 IVPB 09/01/17 18:00 09/08/17 17:59 09/02/17 05:49 Toño Underwood MD Sep 02, 2017 11:08
[2017-09-02 12:00] VITALS: BP 163/69
--- NOTE | 2017-09-02 13:20 | General Progress Note ---
Assessment/Plan Problem List: (1) Anemia ICD Codes: D64.9 - Anemia, unspecified SNOMED: 934723315 (2) Coagulopathy ICD Codes: D68.9 - Coagulation defect, unspecified SNOMED: 05362525 (3) 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 ICD Codes: L97.529 - Non-pressure chronic ulcer of other part of left foot with unspecified severity SNOMED: 061585874 Assessment/Plan anemia stable last stool ob was neg primary md note reviewed dc planning needs out patietn EGD and colonoscopy Subjective ROS Limited/Unobtainable: Yes Allergies: Coded Allergies: IBUPROFEN (Verified Allergy, Unknown, 08/23/17) Subjective no event Objective Last 24 Hour Vital Signs Date Time Temp Pulse Resp B/P (MAP) Pulse Ox O2 Delivery O2 Flow Rate FiO2 09/02/17 09:04 183/74 09/02/17 08:00 89 09/02/17 08:00 97.2 88 18 183/74 98 Room Air 97.2 09/02/17 04:00 78 09/02/17 00:00 92 09/02/17 00:00 97.9 81 20 164/66 98 Room Air 97.9 09/01/17 20:00 76 09/01/17 20:00 97.9 80 18 163/70 97 Room Air 97.9 88 09/01/17 16:00 97.2 83 20 134/56 98 Room Air 2.0 28 97.2 88 09/01/17 16:00 84 Intake and Output 09/01/17 09/02/17 19:00 07:00 Intake Total 1260 ml 752.5 ml Balance 1260 ml 752.5 ml Intake Oral 600 ml 200 ml IV Total 660 ml 552.5 ml # Voids 2 1 # Bowel Movements 2 Laboratory Tests 09/02/17 06:40: White Blood Count 10.9H, Red Blood Count 2.82L, Hemoglobin 9.0L, Hematocrit 27.0L, Mean Corpuscular Volume 96, Mean Corpuscular Hemoglobin 31.8H, Mean Corpuscular Hemoglobin Concent 33.1, Red Cell Distribution Width 21.0H, Platelet Count 261, Mean Platelet Volume 7.0, Neutrophils (%) (Auto) 80.4H, Lymphocytes (%) (Auto) 7.1L, Monocytes (%) (Auto) 7.3, Eosinophils (%) (Auto) 4.5H, Basophils (%) (Auto) 0.7, Prothrombin Time 11.8H, Prothromb Time International Ratio 1.1, Activated Partial Thromboplast Time 29, Sodium Level 148H, Potassium Level 3.9, Chloride Level 115H, Carbon Dioxide Level 22, Anion Gap 11, Blood Urea Nitrogen 37H, Creatinine 4.2H, Estimat Glomerular Filtration Rate , Glucose Level 99, Calcium Level 7.5L, Total Bilirubin 1.6H, Direct Bilirubin 0.5H, Aspartate Amino Transf (AST/SGOT) 28, Alanine Aminotransferase ( ALT/SGPT) 41, Alkaline Phosphatase 48, Total Protein 5.6L, Albumin 2.1L, Globulin 3.5, Albumin/Globulin Ratio 0.6L Height (Feet): 5 Height (Inches): 2.00 Weight (Pounds): 180 General Appearance: no apparent distress EENT: normal ENT inspection Neck: supple Cardiovascular: normal rate Respiratory/Chest: decreased breath sounds Abdomen: normal bowel sounds, non tender, soft Extremities: non-tender RAJ HERNANDEZ Sep 02, 2017 13:20
--- NOTE | 2017-09-02 14:15 | Pre-Procedure Note/Attestation ---
Pre-Procedure Note/Attestation Complete Prior to Procedure Planned Procedure: not applicable Procedure Narrative: PICC line placement Indications for Procedure Pre-Operative Diagnosis: Need IV access Attestation Consent obtained by the primary team. Consent verified prior to the procedure I attest that I re-evaluated the patient just prior to the surgery and that there has been no change in the patient's H&P, except as documented below: Deo Jiménez M.D. Sep 02, 2017 14:15
--- NOTE | 2017-09-02 14:23 | Diagnostic Imaging Report ---
Indications: Needs long-term IV access Technique: Procedure performed at bedside. Procedural timeout performed. Ultrasound confirms patent compressible right basilic vein. Total sterile technique, including sterile probe cover and sterile gel, sterile gloves, hand hygiene, hat, mask,, sterile gown, large sterile drape, and preparation with 2% chlorhexidine utilized. Local anesthesia with 1% lidocaine. Under real-time ultrasound guidance, puncture the basilic vein using 21-gauge needle, passage 0.018 guidewire, exchange for 5 Brazilian peel-away sheath. 5 Brazilian dual-lumen power PICC cut to 35 cm. It was inserted through the peel-away sheath. Peel-away sheath and guidewire removed. Catheter fixed to the skin. Both catheter ports aspirated and flushed. Patient tolerated procedure well, without immediate complication. Followup chest x-ray obtained, documents catheter tip position at the cavoatrial junction. There is interval increased interstitial opacification and development of small left pleural effusion and bibasilar atelectasis/consolidation. There is no pneumothorax. There is coarse calcification projecting over the right breast. IMPRESSION: Successful bedside placement of 5 Brazilian PICC under sonographic guidance, as described above. Catheter with the region of the cavoatrial junction. Catheter cleared for immediate use. Interval development of mild interstitial opacification/edema, small left pleural effusion and bibasilar atelectasis/consolidation. Coarse possible calcification noted overlying the right breast. Uncertain if this is external to the patient. Correlate with breast exam.
[2017-09-02] MEDS: D5NS 1,000 ML IV SCH (15:07)
--- NOTE | 2017-09-02 15:21 | Cardiac Electrophysiology PN ---
Assessment/Plan Assessment/Plan 1. ?Paroxysmal atrial fibrillation. Was on Coumadin that was DCed. Lower extremity Doppler showed no evidence of DVT. In sinus rhythm. 2. Hypertension. On prn hydralazine only 3. Elevated INR with significant bleeding s/p 3 units of blood transfusion. Her INR on 08/26/2017 was 3.0 and currently it is 1.1 4. S/P Respiratory failure. Extubated 5. Pneumonia, on IV antibiotic per Dr. Gonzalez. 6. Not eating. Follow up with psych 7. 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 DW RN Subjective Subjective No SVT or VT on tele. Comfortablei in NAD Objective Last 24 Hour Vital Signs Date Time Temp Pulse Resp B/P (MAP) Pulse Ox O2 Delivery O2 Flow Rate FiO2 09/02/17 09:04 183/74 09/02/17 08:00 89 09/02/17 08:00 97.2 88 18 183/74 98 Room Air 97.2 09/02/17 04:00 78 09/02/17 00:00 92 09/02/17 00:00 97.9 81 20 164/66 98 Room Air 97.9 09/01/17 20:00 76 09/01/17 20:00 97.9 80 18 163/70 97 Room Air 97.9 88 09/01/17 16:00 97.2 83 20 134/56 98 Room Air 2.0 28 97.2 88 09/01/17 16:00 84 Intake and Output 09/01/17 09/02/17 19:00 07:00 Intake Total 1260 ml 752.5 ml Balance 1260 ml 752.5 ml Intake Oral 600 ml 200 ml IV Total 660 ml 552.5 ml # Voids 2 1 # Bowel Movements 2 Laboratory Tests Test 09/02/17 06:40 White Blood Count 10.9 K/UL (4.8-10.8) H Red Blood Count 2.82 M/UL (4.20-5.40) L Hemoglobin 9.0 G/DL (12.0-16.0) L Hematocrit 27.0 % (37.0-47.0) L Mean Corpuscular Volume 96 FL (80-99) Mean Corpuscular Hemoglobin 31.8 PG (27.0-31.0) H Mean Corpuscular Hemoglobin Concent 33.1 G/DL (32.0-36.0) Red Cell Distribution Width 21.0 % (11.6-14.8) H Platelet Count 261 K/UL (150-450) Mean Platelet Volume 7.0 FL (6.5-10.1) Neutrophils (%) (Auto) 80.4 % (45.0-75.0) H Lymphocytes (%) (Auto) 7.1 % (20.0-45.0) L Monocytes (%) (Auto) 7.3 % (1.0-10.0) Eosinophils (%) (Auto) 4.5 % (0.0-3.0) H Basophils (%) (Auto) 0.7 % (0.0-2.0) Prothrombin Time 11.8 SEC (9.30-11.50) H Prothromb Time International Ratio 1.1 (0.9-1.1) Activated Partial Thromboplast Time 29 SEC (23-33) Sodium Level 148 MMOL/L (136-145) H Potassium Level 3.9 MMOL/L (3.5-5.1) Chloride Level 115 MMOL/L (98-107) H Carbon Dioxide Level 22 MMOL/L (21-32) Anion Gap 11 mmol/L (5-15) Blood Urea Nitrogen 37 mg/dL (7-18) H Creatinine 4.2 MG/DL (0.55-1.30) H Estimat Glomerular Filtration Rate mL/min (>60) Glucose Level 99 MG/DL (74-106) Calcium Level 7.5 MG/DL (8.5-10.1) L Total Bilirubin 1.6 MG/DL (0.2-1.0) H Direct Bilirubin 0.5 MG/DL (0.0-0.3) H Aspartate Amino Transf (AST/SGOT) 28 U/L (15-37) Alanine Aminotransferase (ALT/SGPT) 41 U/L (12-78) Alkaline Phosphatase 48 U/L (46-116) Total Protein 5.6 G/DL (6.4-8.2) L Albumin 2.1 G/DL (3.4-5.0) L Globulin 3.5 g/dL Albumin/Globulin Ratio 0.6 (1.0-2.7) L Objective HEAD AND NECK: No JVD. Chest and submandibular Ecchymosis better LUNGS: Clear CVS: RRR. No G/R/M ABDOMEN: Obese. EXTREMITIES: 1+ pitting edema Hao Edmondson MD Sep 02, 2017 15:21
[2017-09-02 16:00] VITALS: BP 161/69
[2017-09-02 20:00] VITALS: BP 195/76
--- NOTE | 2017-09-02 20:33 | Infectious Diseases Prog Note ---
Assessment/Plan Problems: (1) HCAP (healthcare-associated pneumonia) Assessment & Plan: improving on zosyn and vancomycin, will continue zosyn empiric coverage for 10 days (2) Cellulitis of neck Assessment & Plan: no evidence of neck abscess on CT neck, already on zosyn empiric coverage for now , bronchoscopy didn't show any hematoma inside her airway, and she was evaluated by ENT . keep off anticoagulation for now to avoid recurrent bleeding (3) Sepsis Assessment & Plan: with leukocytosis due to the above, improving , blood culture remained negative, will stop vancomycin (4) Acute respiratory failure Assessment & Plan: due to the above, resolved , merchandise appraiser is following (5) Fever Assessment & Plan: improved, due to the above, continue wide spectrum antibiotics, and tylenol PRN (6) Coagulopathy Assessment & Plan: with diffuse bleeding , suspect due to Coumadin, on hold, transfused PRBC as needed, check DIC profile (7) 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 Assessment & Plan: with MSSA and Providencia rettgeri , recommend mutual fund accountant consult and vascular study for further eval , already on vancomycin and zosyn (8) BESSIE (acute kidney injury) Assessment & Plan: suspect dehydration, keep off vancomycin since trough level is high , continue hydration, with close monitor of renal functions, nephrology team is following Subjective Constitutional: Reports: no symptoms HEENT: Reports: no symptoms Respiratory: Reports: productive cough Breasts: Reports: no symptoms Cardiovascular: Reports: no symptoms Gastrointestinal/Abdominal: Reports: no symptoms Genitourinary: Reports: no symptoms Neurologic: Reports: no symptoms Psychiatric: Reports: no symptoms Skin: Reports: ulcer Endocrine: Reports: no symptoms Hematologic: Reports: no symptoms Musculoskeletal: Reports: no symptoms Allergies: Coded Allergies: IBUPROFEN (Verified Allergy, Unknown, 08/23/17) Subjective she was extubated , more awake and alert, responsive to verbal commands , no fever or chills , no diarrhea, refusing G tube placement Objective Vital Signs Last 24 Hour Vital Signs Date Time Temp Pulse Resp B/P (MAP) Pulse Ox O2 Delivery O2 Flow Rate FiO2 09/02/17 16:00 97.2 77 18 161/69 98 Room Air 2.0 28 97.2 09/02/17 16:00 81 09/02/17 12:00 80 09/02/17 12:00 97.2 77 18 163/69 98 Room Air 97.2 09/02/17 09:04 183/74 09/02/17 08:00 89 09/02/17 08:00 97.2 88 18 183/74 98 Room Air 97.2 09/02/17 04:00 78 09/02/17 00:00 92 09/02/17 00:00 97.9 81 20 164/66 98 Room Air 97.9 Height (Feet): 5 Height (Inches): 2.00 Weight (Pounds): 180 General Appearance: WD/WN, no acute distress HEENT: normocephalic, atraumatic, anicteric, mucous membranes moist, PERRL Respiratory/Chest: chest wall non-tender, no respiratory distress, no accessory muscle use, decreased breath sounds, crackles/rales Cardiovascular: normal peripheral pulses, normal rate, regular rhythm, no gallop/murmur, no JVD Abdomen: normal bowel sounds, soft, non tender, no organomegaly, non distended , no mass, no scars Genitourinary: normal external genitalia Extremities: no cyanosis, no clubbing Skin: no rash, no lesions, ulcers Neurologic/Psychiatric: alert, responsive Laboratory Tests Test 09/02/17 06:40 White Blood Count 10.9 K/UL (4.8-10.8) H Red Blood Count 2.82 M/UL (4.20-5.40) L Hemoglobin 9.0 G/DL (12.0-16.0) L Hematocrit 27.0 % (37.0-47.0) L Mean Corpuscular Volume 96 FL (80-99) Mean Corpuscular Hemoglobin 31.8 PG (27.0-31.0) H Mean Corpuscular Hemoglobin Concent 33.1 G/DL (32.0-36.0) Red Cell Distribution Width 21.0 % (11.6-14.8) H Platelet Count 261 K/UL (150-450) Mean Platelet Volume 7.0 FL (6.5-10.1) Neutrophils (%) (Auto) 80.4 % (45.0-75.0) H Lymphocytes (%) (Auto) 7.1 % (20.0-45.0) L Monocytes (%) (Auto) 7.3 % (1.0-10.0) Eosinophils (%) (Auto) 4.5 % (0.0-3.0) H Basophils (%) (Auto) 0.7 % (0.0-2.0) Prothrombin Time 11.8 SEC (9.30-11.50) H Prothromb Time International Ratio 1.1 (0.9-1.1) Activated Partial Thromboplast Time 29 SEC (23-33) Sodium Level 148 MMOL/L (136-145) H Potassium Level 3.9 MMOL/L (3.5-5.1) Chloride Level 115 MMOL/L (98-107) H Carbon Dioxide Level 22 MMOL/L (21-32) Anion Gap 11 mmol/L (5-15) Blood Urea Nitrogen 37 mg/dL (7-18) H Creatinine 4.2 MG/DL (0.55-1.30) H Estimat Glomerular Filtration Rate mL/min (>60) Glucose Level 99 MG/DL (74-106) Calcium Level 7.5 MG/DL (8.5-10.1) L Total Bilirubin 1.6 MG/DL (0.2-1.0) H Direct Bilirubin 0.5 MG/DL (0.0-0.3) H Aspartate Amino Transf (AST/SGOT) 28 U/L (15-37) Alanine Aminotransferase (ALT/SGPT) 41 U/L (12-78) Alkaline Phosphatase 48 U/L (46-116) Total Protein 5.6 G/DL (6.4-8.2) L Albumin 2.1 G/DL (3.4-5.0) L Globulin 3.5 g/dL Albumin/Globulin Ratio 0.6 (1.0-2.7) L Current Medications Medications (Trade) Dose Ordered Sig/Chester Route PRN Reason Start Time Stop Time Status Last Admin Dose Admin Acetaminophen (Tylenol) 650 mg Q4H PRN ORAL Mild Pain/Temp > 100.5 09/01/17 03:30 10/01/17 03:29 09/01/17 11:56 Chlorhexidine Gluconate (Caroline-Hex 2%) 1 applic DAILY@2000 TOPIC 08/30/17 20:00 09/24/17 19:59 09/01/17 21:17 Dextrose/Sodium Chloride 1,000 ml @ 60 mls/hr [id number] IV 08/30/17 01:30 09/23/17 04:44 09/02/17 15:07 Hydralazine HCl (Apresoline) 10 mg Q2H PRN IV SBP > 170 08/30/17 02:15 09/24/17 16:14 09/02/17 09:04 Lorazepam (Ativan 2mg/ml 1ml) 1 mg Q6H PRN IV For Anxiety 08/31/17 12:00 09/07/17 11:59 09/01/17 11:55 Nystatin (Nystatin) 5 ml QID ORAL 08/30/17 09:00 09/05/17 12:59 09/02/17 17:21 Olanzapine (ZyPREXA) 2.5 mg BID@0600,1400 ORAL 08/31/17 14:00 09/30/17 13:59 09/02/17 15:06 Olanzapine (ZyPREXA) 2.5 mg QHS ORAL 08/31/17 21:00 09/30/17 20:59 09/01/17 21:19 Pantoprazole (Protonix) 40 mg BIAC ORAL 09/02/17 16:30 10/02/17 16:29 09/02/17 17:21 Piperacillin Sod/ Tazobactam Sod 3.375 gm/Dextrose 110 ml @ 27.5 mls/hr Q12HR@0600,1800 IVPB 09/01/17 18:00 09/08/17 17:59 09/02/17 17:21 Noni Gonzalez M.D. Sep 02, 2017 20:33
[2017-09-02] MEDS: Dyna-Hex 2% Top Sol 2oz TOPIC SCH (21:15)
--- NOTE | 2017-09-02 21:45 | Wound Nurse Progress Note ---
Wound RN Progress Note Wound Consult #1 Left 1st toe stage II pressure ulcer #2 Left 2nd toe unstageable pressure ulcer #3 Left 3rd toe unstageable pressure ulcer #4 Sacrococcygeal stage I pressure ulcer Reassessed this Pt no deterioration noted at this time. Will cont same wound care treatment and recommendation below. Recommendation -Local wound care per protocol -Keep clean and dry -Turn and reposition -Optimize nutrition -Low air loss mattress -Offload both heels -Heel protector on both heels -Assess and f/u accordingly for any changes ARCHANA CAIN RN Sep 02, 2017 21:45
--- NOTE | 2017-09-02 22:46 | General Progress Note ---
Assessment/Plan Assessment/Plan 1. Anemia, potentially secondary to gastrointestinal bleed. Anemia stable at this time. No blood transfusion needed. --> Was on coumadin and now has been discontinued (further anticoag management per cards) --> also need to rule out hemolysis, LDH 599, Bili 2.7 --> both levels elevated --> Continue to closely monitor and trend cbc daily. --> Anemia workup reviewed. --> Iron 26, TIBC 228, Ferritin 50, B12 377, Folate 11.9, TSH 0.4 --> Transfuse if hgb <7 2. Anemia of iron deficiency. s/p iron therapy for total of 5 days --> Dark stool found. ++Occult blood. Consider GI recs. --> Monitor closely --> Blood transfusion not required unless symptomatic or hgb below goal. 3. Coagulopathy due to Coumadin use in the past. --> It has since been discontinued. inr improved --> Coumadin currently on hold. Further management as per cards 4. Respiratory failure, currently extubated 6. Bilateral pneumonia. She is on broad-spectrum antibiotics. 7. Gastroesophageal reflux disease, on antacids as needed. 8. Subcutaneous bruising, likely due to Coumadin. 9. Leukocytosis. --> Improving on antibiotics. Subjective Date patient seen: Sep 02, 2017 Constitutional: Denies: no symptoms, chills, diaphoresis, fever, malaise, weakness, other HEENT: Denies: no symptoms, eye pain, blurred vision, tearing, double vision, ear pain, ear discharge, nose pain, nose congestion, throat pain, throat swelling, mouth pain, mouth swelling, other Cardiovascular: Denies: no symptoms, chest pain, edema, irregular heart rate, lightheadedness, palpitations, syncope, other Respiratory: Denies: no symptoms, cough, orthopnea, shortness of breath, SOB with excertion, SOB at rest, sputum, stridor, wheezing, other Gastrointestinal/Abdominal: Denies: no symptoms, abdomen distended, abdominal pain, black stools, tarry stools, blood in stool, constipated, diarrhea, difficulty swallowing, nausea, poor appetite, poor fluid intake, rectal bleeding , vomiting, other Genitourinary: Denies: no symptoms, burning, discharge, frequency, flank pain, hematuria, incontinence, pain, urgency, other Neurologic/Psychiatric: Denies: no symptoms, anxiety, depressed, emotional problems, headache, numbness, paresthesia, pre-existing deficit, seizure, tingling, tremors, weakness, other Hematologic/Lymphatic: Reports: anemia Allergies: Coded Allergies: IBUPROFEN (Verified Allergy, Unknown, 08/23/17) Subjective Confused. Leukocytosis improved. H/H stable. Objective Last 24 Hour Vital Signs Date Time Temp Pulse Resp B/P (MAP) Pulse Ox O2 Delivery O2 Flow Rate FiO2 09/02/17 21:38 195/76 09/02/17 16:00 97.2 77 18 161/69 98 Room Air 2.0 28 97.2 09/02/17 16:00 81 09/02/17 12:00 80 09/02/17 12:00 97.2 77 18 163/69 98 Room Air 97.2 09/02/17 09:04 183/74 09/02/17 08:00 89 09/02/17 08:00 97.2 88 18 183/74 98 Room Air 97.2 09/02/17 04:00 78 09/02/17 00:00 92 09/02/17 00:00 97.9 81 20 164/66 98 Room Air 97.9 Intake and Output 09/01/17 09/02/17 19:00 07:00 Intake Total 1260 ml 752.5 ml Balance 1260 ml 752.5 ml Intake Oral 600 ml 200 ml IV Total 660 ml 552.5 ml # Voids 2 1 # Bowel Movements 2 Laboratory Tests 09/02/17 06:40: White Blood Count 10.9H, Red Blood Count 2.82L, Hemoglobin 9.0L, Hematocrit 27.0L, Mean Corpuscular Volume 96, Mean Corpuscular Hemoglobin 31.8H, Mean Corpuscular Hemoglobin Concent 33.1, Red Cell Distribution Width 21.0H, Platelet Count 261, Mean Platelet Volume 7.0, Neutrophils (%) (Auto) 80.4H, Lymphocytes (%) (Auto) 7.1L, Monocytes (%) (Auto) 7.3, Eosinophils (%) (Auto) 4.5H, Basophils (%) (Auto) 0.7, Prothrombin Time 11.8H, Prothromb Time International Ratio 1.1, Activated Partial Thromboplast Time 29, Sodium Level 148H, Potassium Level 3.9, Chloride Level 115H, Carbon Dioxide Level 22, Anion Gap 11, Blood Urea Nitrogen 37H, Creatinine 4.2H, Estimat Glomerular Filtration Rate , Glucose Level 99, Calcium Level 7.5L, Total Bilirubin 1.6H, Direct Bilirubin 0.5H, Aspartate Amino Transf (AST/SGOT) 28, Alanine Aminotransferase ( ALT/SGPT) 41, Alkaline Phosphatase 48, Total Protein 5.6L, Albumin 2.1L, Globulin 3.5, Albumin/Globulin Ratio 0.6L Height (Feet): 5 Height (Inches): 2.00 Weight (Pounds): 180 General Appearance: confused Respiratory/Chest: decreased breath sounds Abdomen: soft Edema: trace edema Cristiano Roberts MD Sep 02, 2017 22:46
[2017-09-03] VITALS: BP 190/84
[2017-09-03] MEDS ORDERED: Lidocaine 1% Plain 30 ml INJ SCH (01:00)
[2017-09-03] MEDS ORDERED: Heparin 2000 units/Ns 1000ml INJ SCH (01:00)
--- NOTE | 2017-09-03 03:45 | Progress Note ---
DATE: 09/02/2017 SUBJECTIVE: kept on soft diet. OBJECTIVE: VITAL SIGNS: Blood pressure is 130/70, pulse 60s, no fever. HEENT: NAD. CHEST: Bilaterally clear. CARDIOVASCULAR: Regular rhythm. No gallop. No murmur. ABDOMEN: Soft. EXTREMITIES: CCE. NEUROLOGIC: Generalized weakness. ASSESSMENT: 1. Aspiration pneumonia. 2. Acute epiglottitis. 3. Coagulopathy. 4. Renal insufficiency. 5. Dehydration. PLAN: 1. Continue antibiotics. 2. Bronchodilator treatment. 3. PT/OT. 4. Supportive treatment. 5. Soft diet. 6. Vik Maria M.D. DR: Sharon JOB#: [id number] CC:
[2017-09-03 04:00] VITALS: BP 155/68
[2017-09-03] MEDS: Piperacillin/Tazobactam 3.375 GM in D5W 110 ML IVPB SCH ×2 (05:46→17:21)
[2017-09-03] MEDS: OLANZapine 2.5mg tab ORAL SCH ×3 (06:05→21:00)
[2017-09-03 08:00] VITALS: BP 156/67
--- NOTE | 2017-09-03 08:21 | General Progress Note ---
Assessment/Plan Problem List: (1) Anemia ICD Codes: D64.9 - Anemia, unspecified SNOMED: 380204339 (2) Coagulopathy ICD Codes: D68.9 - Coagulation defect, unspecified SNOMED: 18667323 (3) 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 ICD Codes: L97.529 - Non-pressure chronic ulcer of other part of left foot with unspecified severity SNOMED: 127575011 Assessment/Plan anemia stable last stool ob was neg primary md note reviewed dc planning notices fu H&H consider EGD on Tuesday if still in house on puree nectar thick diet so colonoscopy prep difficult at this time repeat speech eval on Tuesday Subjective ROS Limited/Unobtainable: Yes Allergies: Coded Allergies: IBUPROFEN (Verified Allergy, Unknown, 08/23/17) Subjective no event Objective Last 24 Hour Vital Signs Date Time Temp Pulse Resp B/P (MAP) Pulse Ox O2 Delivery O2 Flow Rate FiO2 09/03/17 04:00 98.0 70 20 155/68 96 Room Air 98.0 09/03/17 03:54 67 09/03/17 01:20 190/84 09/03/17 00:00 97.2 87 20 190/84 95 Room Air 97.2 09/03/17 00:00 86 09/02/17 21:38 195/76 09/02/17 20:00 97.3 82 20 195/76 98 Room Air 97.3 09/02/17 20:00 86 09/02/17 16:00 97.2 77 18 161/69 98 Room Air 2.0 28 97.2 09/02/17 16:00 81 09/02/17 12:00 80 09/02/17 12:00 97.2 77 18 163/69 98 Room Air 97.2 09/02/17 09:04 183/74 Intake and Output 09/02/17 09/03/17 19:00 07:00 Intake Total 840 ml Output Total 600 ml Balance 840 ml -600 ml Intake Oral 120 ml IV Total 720 ml Output Urine Total 600 ml # Voids 1 4 # Bowel Movements 1 Height (Feet): 5 Height (Inches): 2.00 Weight (Pounds): 182 General Appearance: alert EENT: normal ENT inspection Neck: supple Cardiovascular: normal rate Respiratory/Chest: decreased breath sounds Abdomen: normal bowel sounds, non tender, soft Extremities: non-tender RAJ HERNANDEZ Sep 03, 2017 08:21
[2017-09-03] MEDS: Nystatin Susp 500,000 units/5ml ORAL SCH ×4 (08:40→21:45)
[2017-09-03 12:00] VITALS: BP 163/68
--- NOTE | 2017-09-03 12:55 | Pulmonology Progress Note ---
Assessment/Plan Assessment/Plan 1. Soft tissue swelling in the neck area with compromised airway. Resolved 2. Respiratory failure with airway compromise. Now extubated. 3. Marked subcutaneous bruising. Improving. 4. Coumadin use. 5. Hypertension. 6. GERD. 7. halfway resident. 8. Anemia. 9. Leukocytosis. PLAN care noted monitor for stridor oxygen aspiration precautions respiratory care follow up imaging for change impression, plan, and exam edited and reviewed in detail care discussed with RN Subjective ROS Limited/Unobtainable: Yes Allergies: Coded Allergies: IBUPROFEN (Verified Allergy, Unknown, 08/23/17) Subjective reduced LOC care noted on oxygen resting without distress Objective Last 24 Hour Vital Signs Date Time Temp Pulse Resp B/P (MAP) Pulse Ox O2 Delivery O2 Flow Rate FiO2 09/03/17 08:00 97 09/03/17 08:00 97.8 73 22 156/67 96 Room Air 97.8 09/03/17 04:00 98.0 70 20 155/68 96 Room Air 98.0 09/03/17 03:54 67 09/03/17 01:20 190/84 09/03/17 00:00 97.2 87 20 190/84 95 Room Air 97.2 09/03/17 00:00 86 09/02/17 21:38 195/76 09/02/17 20:00 97.3 82 20 195/76 98 Room Air 97.3 09/02/17 20:00 86 09/02/17 16:00 97.2 77 18 161/69 98 Room Air 2.0 28 97.2 09/02/17 16:00 81 Intake and Output 09/02/17 09/03/17 19:00 07:00 Intake Total 840 ml Output Total 600 ml Balance 840 ml -600 ml Intake Oral 120 ml IV Total 720 ml Output Urine Total 600 ml # Voids 1 4 # Bowel Movements 1 Objective WDWN NAD reduced breath sounds bilaterally with occasional rhonchi [id number] without MRG NABS nontender no HSM mild edema gangrenous toes nonfocal Current Medications Medications (Trade) Dose Ordered Sig/Chester Route PRN Reason Start Time Stop Time Status Last Admin Dose Admin Acetaminophen (Tylenol) 650 mg Q4H PRN ORAL Mild Pain/Temp > 100.5 09/01/17 03:30 4/28/18 03:29 09/01/17 11:56 Chlorhexidine Gluconate (Caroline-Hex 2%) 1 applic DAILY@2000 TOPIC 08/30/17 20:00 09/24/17 19:59 09/02/17 21:15 Clonidine HCl (Catapres Tab) 0.1 mg Q6H PRN ORAL For High Blood Pressure 09/03/17 00:15 10/03/17 00:14 09/03/17 01:20 Heparin Sodium/ Sodium Chloride (Heparin 2000 units/Ns 1000ml premix) 2,000 unit ONCE INJ 09/03/17 01:00 09/03/17 15:00 Hydralazine HCl (Apresoline) 10 mg Q2H PRN IV SBP > 170 08/30/17 02:15 09/24/17 16:14 09/02/17 21:38 Lidocaine HCl (Xylocaine 1% 30ml) 30 ml ONCE INJ 09/03/17 01:00 10/03/17 15:00 Lorazepam (Ativan 2mg/ml 1ml) 1 mg Q6H PRN IV For Anxiety 08/31/17 12:00 09/07/17 11:59 09/01/17 11:55 Nystatin (Nystatin) 5 ml QID ORAL 08/30/17 09:00 09/05/17 12:59 09/03/17 08:40 Olanzapine (ZyPREXA) 2.5 mg BID@0600,1400 ORAL 08/31/17 14:00 09/30/17 13:59 09/03/17 06:05 Olanzapine (ZyPREXA) 2.5 mg QHS ORAL 08/31/17 21:00 09/30/17 20:59 09/02/17 21:15 Pantoprazole (Protonix) 40 mg BIAC ORAL 09/02/17 16:30 10/02/17 16:29 09/03/17 06:05 Piperacillin Sod/ Tazobactam Sod 3.375 gm/Dextrose 110 ml @ 27.5 mls/hr Q12HR@0600,1800 IVPB 09/01/17 18:00 09/08/17 17:59 09/03/17 05:46 RODRIGUEZ HAMILTON Sep 03, 2017 12:55
--- NOTE | 2017-09-03 13:26 | Cardiac Electrophysiology PN ---
Assessment/Plan Assessment/Plan 1. ?Paroxysmal atrial fibrillation. Was on Coumadin that was DCed. Lower extremity Doppler showed no evidence of DVT. In sinus rhythm. 2. Hypertension. On prn hydralazine and Clonidine 3. Elevated INR with significant bleeding s/p 3 units of blood transfusion. Her INR on 08/26/2017 was 3.0 and currently it is 1.1 4. S/P Respiratory failure. Extubated 5. Pneumonia, on IV antibiotic per Dr. Gonzalez. 6. Not eating. Follow up with psych 7. 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 DW RN Subjective Subjective No arrhythmias on tele. Comfortable in NAD. On Abx Objective Last 24 Hour Vital Signs Date Time Temp Pulse Resp B/P (MAP) Pulse Ox O2 Delivery O2 Flow Rate FiO2 09/03/17 08:00 97 09/03/17 08:00 97.8 73 22 156/67 96 Room Air 97.8 09/03/17 04:00 98.0 70 20 155/68 96 Room Air 98.0 09/03/17 03:54 67 09/03/17 01:20 190/84 09/03/17 00:00 97.2 87 20 190/84 95 Room Air 97.2 09/03/17 00:00 86 09/02/17 21:38 195/76 09/02/17 20:00 97.3 82 20 195/76 98 Room Air 97.3 09/02/17 20:00 86 09/02/17 16:00 97.2 77 18 161/69 98 Room Air 2.0 28 97.2 09/02/17 16:00 81 Intake and Output 09/02/17 09/03/17 19:00 07:00 Intake Total 840 ml Output Total 600 ml Balance 840 ml -600 ml Intake Oral 120 ml IV Total 720 ml Output Urine Total 600 ml # Voids 1 4 # Bowel Movements 1 Objective HEAD AND NECK: No JVD. Submandibular Ecchymosis better LUNGS: Clear CVS: RRR. No G/R/M ABDOMEN: Obese. EXTREMITIES: 1+ pitting edema Hao Edmondson MD Sep 03, 2017 13:26
--- NOTE | 2017-09-03 14:51 | Infectious Diseases Prog Note ---
Assessment/Plan Problems: (1) HCAP (healthcare-associated pneumonia) Assessment & Plan: improv on zosyn and vancomycin, continue zosyn empiric coverage for now since she still has productive cough , and monitor CXR (2) Cellulitis of neck Assessment & Plan: no evidence of neck abscess on CT neck, already on zosyn empiric coverage for now , bronchoscopy didn't show any hematoma inside her airway, and she was evaluated by ENT . keep off anticoagulation for now to avoid recurrent bleeding (3) Sepsis Assessment & Plan: with leukocytosis due to the above, improved , blood culture remained negative, continue zosyn (4) Acute respiratory failure Assessment & Plan: due to the above, resolved , javascript software engineer is following (5) Fever Assessment & Plan: improved, due to the above, continue wide spectrum antibiotics, and tylenol PRN (6) Coagulopathy Assessment & Plan: with diffuse bleeding , suspect due to Coumadin, on hold, transfused PRBC as needed, check DIC profile (7) 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 Assessment & Plan: with MSSA and Providencia rettgeri , recommend earthmoving labourer consult and vascular study for further eval , already on vancomycin and zosyn (8) BESSIE (acute kidney injury) Assessment & Plan: suspect dehydration, keep off vancomycin since trough level is high , continue hydration, with close monitor of renal functions, nephrology team is following Subjective Constitutional: Reports: no symptoms HEENT: Reports: no symptoms Respiratory: Reports: productive cough Breasts: Reports: no symptoms Cardiovascular: Reports: no symptoms Gastrointestinal/Abdominal: Reports: no symptoms Genitourinary: Reports: no symptoms Neurologic: Reports: no symptoms Psychiatric: Reports: no symptoms Skin: Reports: ulcer Endocrine: Reports: no symptoms Hematologic: Reports: no symptoms Musculoskeletal: Reports: no symptoms Allergies: Coded Allergies: IBUPROFEN (Verified Allergy, Unknown, 08/23/17) Subjective she was extubated , more awake and alert, responsive to verbal commands , no fever or chills , no diarrhea, refusing G tube placement Objective Vital Signs Last 24 Hour Vital Signs Date Time Temp Pulse Resp B/P (MAP) Pulse Ox O2 Delivery O2 Flow Rate FiO2 09/03/17 08:00 97 09/03/17 08:00 97.8 73 22 156/67 96 Room Air 97.8 09/03/17 04:00 98.0 70 20 155/68 96 Room Air 98.0 09/03/17 03:54 67 09/03/17 01:20 190/84 09/03/17 00:00 97.2 87 20 190/84 95 Room Air 97.2 09/03/17 00:00 86 09/02/17 21:38 195/76 09/02/17 20:00 97.3 82 20 195/76 98 Room Air 97.3 09/02/17 20:00 86 09/02/17 16:00 97.2 77 18 161/69 98 Room Air 2.0 28 97.2 09/02/17 16:00 81 Height (Feet): 5 Height (Inches): 2.00 Weight (Pounds): 182 General Appearance: WD/WN, no acute distress HEENT: normocephalic, atraumatic, anicteric, mucous membranes moist, PERRL Respiratory/Chest: chest wall non-tender, lungs clear, normal breath sounds, no respiratory distress, no accessory muscle use Cardiovascular: normal peripheral pulses, normal rate, regular rhythm, no gallop/murmur, no JVD Abdomen: normal bowel sounds, soft, non tender, no organomegaly, non distended , no mass, no scars Extremities: no cyanosis, no clubbing Skin: no rash, no lesions, ulcers - on the left foot toes Neurologic/Psychiatric: alert, oriented x 3 Lymphatic: no neck adenopathy, no groin adenopathy Current Medications Medications (Trade) Dose Ordered Sig/Chester Route PRN Reason Start Time Stop Time Status Last Admin Dose Admin Acetaminophen (Tylenol) 650 mg Q4H PRN ORAL Mild Pain/Temp > 100.5 09/01/17 03:30 10/01/17 03:29 09/01/17 11:56 Chlorhexidine Gluconate (Caroline-Hex 2%) 1 applic DAILY@2000 TOPIC 08/30/17 20:00 09/24/17 19:59 09/02/17 21:15 Clonidine HCl (Catapres Tab) 0.1 mg Q6H PRN ORAL For High Blood Pressure 09/03/17 00:15 10/03/17 00:14 09/03/17 01:20 Heparin Sodium/ Sodium Chloride (Heparin 2000 units/Ns 1000ml premix) 2,000 unit ONCE INJ 09/03/17 01:00 09/03/17 15:00 Hydralazine HCl (Apresoline) 10 mg Q2H PRN IV SBP > 170 08/30/17 02:15 09/24/17 16:14 09/02/17 21:38 Lidocaine HCl (Xylocaine 1% 30ml) 30 ml ONCE INJ 09/03/17 01:00 10/03/17 15:00 Lorazepam (Ativan 2mg/ml 1ml) 1 mg Q6H PRN IV For Anxiety 08/31/17 12:00 09/07/17 11:59 09/01/17 11:55 Nystatin (Nystatin) 5 ml QID ORAL 08/30/17 09:00 09/05/17 12:59 09/03/17 08:40 Olanzapine (ZyPREXA) 2.5 mg BID@0600,1400 ORAL 08/31/17 14:00 09/30/17 13:59 09/03/17 06:05 Olanzapine (ZyPREXA) 2.5 mg QHS ORAL 08/31/17 21:00 09/30/17 20:59 09/02/17 21:15 Pantoprazole (Protonix) 40 mg BIAC ORAL 09/02/17 16:30 10/02/17 16:29 09/03/17 06:05 Piperacillin Sod/ Tazobactam Sod 3.375 gm/Dextrose 110 ml @ 27.5 mls/hr Q12HR@0600,1800 IVPB 09/01/17 18:00 09/08/17 17:59 09/03/17 05:46 Noni Gonzalez M.D. Sep 03, 2017 14:51
[2017-09-03 16:00] VITALS: BP 166/84
[2017-09-03 20:00] VITALS: BP 150/78
[2017-09-03] MEDS ORDERED: Dyna-Hex 2% Top Sol 2oz TOPIC SCH (20:00)
[2017-09-03] MEDS: Dyna-Hex 2% Top Sol 2oz TOPIC SCH (20:00)
--- NOTE | 2017-09-03 22:03 | Nephrology Progress Note ---
Assessment/Plan Problem List: (1) Angioedema (2) Airway compromise (3) Cellulitis of neck (4) Acute respiratory failure (5) Coagulopathy (6) HCAP (healthcare-associated pneumonia) (7) Sepsis (8) Anemia Plan abx per ID. pulmonary following. ENT consulted. monitor labs. needs PICC line for retirement iv abx. d/c planning to [facility]. Subjective Subjective late entry for 09/02 - more awake and alert. No fever. Objective Objective Last 24 Hour Vital Signs Date Time Temp Pulse Resp B/P (MAP) Pulse Ox O2 Delivery O2 Flow Rate FiO2 09/03/17 16:00 97.7 84 20 166/84 97 Room Air 2.0 28 97.7 09/03/17 16:00 70 09/03/17 12:00 91 09/03/17 12:00 97.7 77 22 163/68 97 Room Air 97.7 09/03/17 08:00 97 09/03/17 08:00 97.8 73 22 156/67 96 Room Air 97.8 09/03/17 04:00 98.0 70 20 155/68 96 Room Air 98.0 09/03/17 03:54 67 09/03/17 01:20 190/84 09/03/17 00:00 97.2 87 20 190/84 95 Room Air 97.2 09/03/17 00:00 86 Intake and Output 09/02/17 09/03/17 19:00 07:00 Intake Total 840 ml Output Total 600 ml Balance 840 ml -600 ml Intake Oral 120 ml IV Total 720 ml Output Urine Total 600 ml # Voids 1 4 # Bowel Movements 1 Height (Feet): 5 Height (Inches): 2.00 Weight (Pounds): 182 General Appearance: no apparent distress Cardiovascular: normal rate, regular rhythm Respiratory/Chest: lungs clear Abdomen: non tender, soft EFRAINCULLEN Sep 03, 2017 22:03
--- NOTE | 2017-09-03 22:05 | Nephrology Progress Note ---
Assessment/Plan Problem List: (1) Angioedema (2) Airway compromise (3) Cellulitis of neck (4) Acute respiratory failure (5) Coagulopathy (6) HCAP (healthcare-associated pneumonia) (7) Sepsis (8) Anemia Plan abx per ID. pulmonary following. ENT consulted. monitor labs s/p PICC line for [employer] iv abx. d/c planning to [facility]. Subjective Subjective Poor appetite. Pending discharge to [facility]. Objective Objective Last 24 Hour Vital Signs Date Time Temp Pulse Resp B/P (MAP) Pulse Ox O2 Delivery O2 Flow Rate FiO2 09/03/17 16:00 97.7 84 20 166/84 97 Room Air 2.0 28 97.7 09/03/17 16:00 70 09/03/17 12:00 91 09/03/17 12:00 97.7 77 22 163/68 97 Room Air 97.7 09/03/17 08:00 97 09/03/17 08:00 97.8 73 22 156/67 96 Room Air 97.8 09/03/17 04:00 98.0 70 20 155/68 96 Room Air 98.0 09/03/17 03:54 67 09/03/17 01:20 190/84 09/03/17 00:00 97.2 87 20 190/84 95 Room Air 97.2 09/03/17 00:00 86 Intake and Output 09/02/17 09/03/17 19:00 07:00 Intake Total 840 ml Output Total 600 ml Balance 840 ml -600 ml Intake Oral 120 ml IV Total 720 ml Output Urine Total 600 ml # Voids 1 4 # Bowel Movements 1 Height (Feet): 5 Height (Inches): 2.00 Weight (Pounds): 182 General Appearance: no apparent distress Cardiovascular: regularly irregular Respiratory/Chest: decreased breath sounds Abdomen: non tender, soft Extremities: non-pitting Neurologic: alert CULLEN ZUNIGA Sep 03, 2017 22:05
--- NOTE | 2017-09-03 22:15 | Discharge Summary ---
DATE OF ADMISSION: 08/23/2017 PROGRESS NOTE/DISCHARGE SUMMARY REASON FOR ADMISSION: This is an 82-year-old, female, who was admitted for acute epiglottitis, aspiration pneumonia, sepsis, dehydration, coagulopathy, and renal insufficiency. The patient clinically was intubated and admitted in ICU about four days and was given IV antibiotics, IV fluid, and thin-liquid diet. The patient was extubated. Pulmonary, Cardiology, and ID consults were obtained. The patient was clinically improving. She is still on a soft diet and still needs IV antibiotics, bronchodilator treatments, and supportive treatment. The patient is currently alert, awake. Hospital course was otherwise unremarkable. When she came, she was hypotensive, hypoxic, acute respiratory failure, intubated, successfully extubated by Pulmonary, and was placed on IV steroid, IV antibiotics, sedation protocol, was successfully extubated. She did very well. She is clinically improving. She is going to be transferred to [facility] where she is going to continue treatment. DISCHARGE PHYSICAL EXAMINATION: VITAL SIGNS: Stable. HEENT: Bruises on the face as well as on the neck due to the coagulopathy. CHEST: Bilaterally few crackles. CARDIOVASCULAR: Irregular rhythm. ABDOMEN: Soft. Positive bowel sounds. EXTREMITIES: CCE. ASSESSMENT AND PLAN: 1. Aspiration pneumonia. 2. Chronic respiratory failure. 3. Mild encephalopathy. 4. Mild epiglottitis is improving. 5. Possible allergic reaction. 6. Atrial fibrillation. We will continue current treatment. Continue IV antibiotics. Continue with diet per Speech Therapy. Continue PT and OT. Continue supportive treatment. Discussed with Dr. Barreto. Vik Maria M.D. DR: Susannah JOB#: [id number] CC:
[2017-09-04] VITALS (8 sets, daily range): BP systolic 147–190; BP diastolic 64–83
--- NOTE | 2017-09-04 01:16 | General Progress Note ---
Assessment/Plan Assessment/Plan 1. Anemia, potentially secondary to gastrointestinal bleed. Anemia stable at this time. No blood transfusion needed. --> Was on coumadin and now has been discontinued (further anticoag management per cards) --> also need to rule out hemolysis, LDH 599, Bili 2.7 --> both levels elevated --> Continue to closely monitor and trend cbc daily. --> Anemia workup reviewed. --> Iron 26, TIBC 228, Ferritin 50, B12 377, Folate 11.9, TSH 0.4 --> Transfuse if hgb <7 and trend cbc 2. Anemia of iron deficiency. s/p iron therapy for total of 5 days --> Dark stool found. ++Occult blood. Consider GI recs. --> Monitor closely --> Blood transfusion not required unless symptomatic or hgb below goal. 3. Coagulopathy due to Coumadin use in the past. --> It has since been discontinued. inr improved --> Coumadin currently on hold. Further management as per cards 4. Respiratory failure, currently extubated 6. Bilateral pneumonia. She is on broad-spectrum antibiotics. 7. Gastroesophageal reflux disease, on antacids as needed. 8. Subcutaneous bruising, likely due to Coumadin. 9. Leukocytosis. --> Improving on antibiotics. Subjective Date patient seen: Sep 03, 2017 Constitutional: Denies: no symptoms, chills, diaphoresis, fever, malaise, weakness, other HEENT: Denies: no symptoms, eye pain, blurred vision, tearing, double vision, ear pain, ear discharge, nose pain, nose congestion, throat pain, throat swelling, mouth pain, mouth swelling, other Cardiovascular: Denies: no symptoms, chest pain, edema, irregular heart rate, lightheadedness, palpitations, syncope, other Respiratory: Denies: no symptoms, cough, orthopnea, shortness of breath, SOB with excertion, SOB at rest, sputum, stridor, wheezing, other Gastrointestinal/Abdominal: Denies: no symptoms, abdomen distended, abdominal pain, black stools, tarry stools, blood in stool, constipated, diarrhea, difficulty swallowing, nausea, poor appetite, poor fluid intake, rectal bleeding , vomiting, other Genitourinary: Denies: no symptoms, burning, discharge, frequency, flank pain, hematuria, incontinence, pain, urgency, other Neurologic/Psychiatric: Denies: no symptoms, anxiety, depressed, emotional problems, headache, numbness, paresthesia, pre-existing deficit, seizure, tingling, tremors, weakness, other Hematologic/Lymphatic: Reports: anemia Allergies: Coded Allergies: IBUPROFEN (Verified Allergy, Unknown, 08/23/17) Subjective On antibiotics. H/H stable. Leukocytosis improved. Objective Last 24 Hour Vital Signs Date Time Temp Pulse Resp B/P (MAP) Pulse Ox O2 Delivery O2 Flow Rate FiO2 09/03/17 16:00 97.7 84 20 166/84 97 Room Air 2.0 28 97.7 09/03/17 16:00 70 09/03/17 12:00 91 09/03/17 12:00 97.7 77 22 163/68 97 Room Air 97.7 09/03/17 08:00 97 09/03/17 08:00 97.8 73 22 156/67 96 Room Air 97.8 09/03/17 04:00 98.0 70 20 155/68 96 Room Air 98.0 09/03/17 03:54 67 09/03/17 01:20 190/84 Intake and Output 09/03/17 09/04/17 19:00 07:00 Intake Total 960 ml Output Total 500 ml Balance 460 ml Intake Oral 960 ml Output Urine Total 500 ml # Voids 1 # Bowel Movements 2 Height (Feet): 5 Height (Inches): 2.00 Weight (Pounds): 182 General Appearance: no apparent distress Respiratory/Chest: decreased breath sounds Abdomen: soft Edema: trace edema Cristiano Roberts MD Sep 04, 2017 01:16
[2017-09-04] MEDS: OLANZapine 2.5mg tab ORAL SCH ×3 (05:58→20:52)
[2017-09-04] MEDS: Piperacillin/Tazobactam 3.375 GM in D5W 110 ML IVPB SCH (05:58)
--- NOTE | 2017-09-04 08:30 | General Progress Note ---
Assessment/Plan Problem List: (1) Anemia ICD Codes: D64.9 - Anemia, unspecified SNOMED: 156491682 (2) Coagulopathy ICD Codes: D68.9 - Coagulation defect, unspecified SNOMED: 90922065 (3) 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 ICD Codes: L97.529 - Non-pressure chronic ulcer of other part of left foot with unspecified severity SNOMED: 447240221 Assessment/Plan anemia stable last stool ob was neg primary md note reviewed dc planning notices fu H&H patient was offered EGD for tomorrow and she refused on puree nectar thick diet so colonoscopy prep difficult at this time repeat speech eval on Tuesday Subjective ROS Limited/Unobtainable: Yes Allergies: Coded Allergies: IBUPROFEN (Verified Allergy, Unknown, 08/23/17) Subjective no event Objective Last 24 Hour Vital Signs Date Time Temp Pulse Resp B/P (MAP) Pulse Ox O2 Delivery O2 Flow Rate FiO2 09/04/17 04:00 97.5 84 20 157/75 99 Room Air 97.5 09/04/17 04:00 69 09/04/17 00:00 96.9 84 19 156/83 98 Room Air 96.9 09/04/17 00:00 86 09/03/17 20:00 84 09/03/17 20:00 97.0 90 20 150/78 97 Room Air 97.0 09/03/17 16:00 97.7 84 20 166/84 97 Room Air 2.0 28 97.7 09/03/17 16:00 70 09/03/17 12:00 91 09/03/17 12:00 97.7 77 22 163/68 97 Room Air 97.7 Intake and Output 09/03/17 09/04/17 19:00 07:00 Intake Total 960 ml Output Total 500 ml 350 ml Balance 460 ml -350 ml Intake Oral 960 ml Output Urine Total 500 ml 350 ml # Voids 1 # Bowel Movements 2 2 Height (Feet): 5 Height (Inches): 2.00 Weight (Pounds): 181 General Appearance: alert EENT: normal ENT inspection Neck: supple Cardiovascular: normal rate Respiratory/Chest: decreased breath sounds Abdomen: normal bowel sounds, non tender, soft Extremities: non-tender RAJ HERNANDEZ Sep 04, 2017 08:30
[2017-09-04] MEDS: Nystatin Susp 500,000 units/5ml ORAL SCH ×4 (08:32→20:52)
[2017-09-04] MEDS ORDERED: ACETAMINOPHEN325 M1 ORAL (08:59)
[2017-09-04] MEDS ORDERED: LORAZEPAM2 MG/1 M1 IV (09:00)
[2017-09-04] MEDS ORDERED: NYSTATIN100000 UN1 ORAL (09:00)
[2017-09-04] MEDS ORDERED: HYDRALAZIN20 MG/1 ML IV (09:00)
[2017-09-04] MEDS ORDERED: PROTONIX40 MG ORAL (09:01)
[2017-09-04] MEDS ORDERED: ZYPREXA2.5 MG ORAL (09:01)
[2017-09-04] MEDS ORDERED: ZOSYN 3.373.375 GM/1 IVPB (09:01)
[2017-09-04] MEDS ORDERED: CATAPRES0.1 MG ORAL (09:02)
[2017-09-04 10:59] LABS: HEMOGLOBIN 11.6 G/DL (12.0-16.0); MEAN CORPUSCULAR VOLUME 98 FL (80-99); PLATELET COUNT 316 K/UL (150-450); RED BLOOD COUNT 3.66 M/UL (4.20-5.40); RED CELL DISTRIBUTION WIDTH 20.5 % (11.6-14.8); WHITE BLOOD COUNT 14.7 K/UL (4.8-10.8)
[2017-09-04 11:07] LABS: ANION GAP 13 mmol/L (5-15); BLOOD UREA NITROGEN 42 mg/dL (7-18); CALCIUM 8.6 MG/DL (8.5-10.1); CARBON DIOXIDE 23 MMOL/L (21-32); CHLORIDE 110 MMOL/L (98-107); CREATININE 4.2 MG/DL (0.55-1.30); SODIUM 146 MMOL/L (136-145)
--- NOTE | 2017-09-04 11:53 | Pulmonology Progress Note ---
Assessment/Plan Assessment/Plan 1. Soft tissue swelling in the neck area with compromised airway. Resolved 2. Respiratory failure with airway compromise. Now extubated. 3. Marked subcutaneous bruising. Improving. 4. Coumadin use. 5. Hypertension. 6. GERD. 7. alf resident. 8. Anemia. 9. Leukocytosis. PLAN care noted no noted stridor oxygen aspiration precautions respiratory care recheck cxr for clearing follow up imaging for change impression, plan, and exam edited and reviewed in detail care discussed with RN Subjective Allergies: Coded Allergies: IBUPROFEN (Verified Allergy, Unknown, 08/23/17) Subjective reduced LOC same care noted on oxygen resting without distress Objective Last 24 Hour Vital Signs Date Time Temp Pulse Resp B/P (MAP) Pulse Ox O2 Delivery O2 Flow Rate FiO2 09/04/17 10:36 97.5 95 18 147/72 99 Room Air 97.5 09/04/17 09:19 190/80 09/04/17 09:10 97.5 83 20 190/80 99 Room Air 97.5 09/04/17 07:44 84 09/04/17 04:00 97.5 84 20 157/75 99 Room Air 97.5 09/04/17 04:00 69 09/04/17 00:00 96.9 84 19 156/83 98 Room Air 96.9 09/04/17 00:00 86 09/03/17 20:00 84 09/03/17 20:00 97.0 90 20 150/78 97 Room Air 97.0 09/03/17 16:00 97.7 84 20 166/84 97 Room Air 2.0 28 97.7 09/03/17 16:00 70 09/03/17 12:00 91 09/03/17 12:00 97.7 77 22 163/68 97 Room Air 97.7 Intake and Output 09/03/17 09/04/17 19:00 07:00 Intake Total 960 ml Output Total 500 ml 350 ml Balance 460 ml -350 ml Intake Oral 960 ml Output Urine Total 500 ml 350 ml # Voids 1 # Bowel Movements 2 2 Objective WDWN NAD reduced breath sounds bilaterally with occasional rhonchi [id number] without MRG NABS nontender no HSM mild edema gangrenous toes nonfocal Laboratory Tests 09/04/17 09:40: White Blood Count 14.7H, Red Blood Count 3.66L, Hemoglobin 11.6L, Hematocrit 36.0L, Mean Corpuscular Volume 98, Mean Corpuscular Hemoglobin 31.8H, Mean Corpuscular Hemoglobin Concent 32.4, Red Cell Distribution Width 20.5H, Platelet Count 316, Mean Platelet Volume 7.3, Neutrophils (%) (Auto) , Lymphocytes (%) (Auto) , Monocytes (%) (Auto) , Eosinophils (%) (Auto) , Basophils (%) (Auto) , Neutrophils % (Manual) [Pending], Lymphocytes % (Manual) [Pending], Platelet Estimate [Pending], Platelet Morphology [Pending], Sodium Level 146H, Potassium Level 4.0, Chloride Level 110H, Carbon Dioxide Level 23, Anion Gap 13, Blood Urea Nitrogen 42H, Creatinine 4.2H, Estimat Glomerular Filtration Rate , Glucose Level 89, Calcium Level 8.6 Current Medications Medications (Trade) Dose Ordered Sig/[place]ster Route PRN Reason Start Time Stop Time Status Last Admin Dose Admin Acetaminophen (Tylenol) 650 mg Q4H PRN ORAL Mild Pain/Temp > 100.5 09/01/17 03:30 10/01/17 03:29 09/01/17 11:56 Chlorhexidine Gluconate (Caroline-Hex 2%) 1 applic DAILY@1999 TOPIC 08/30/17 20:00 09/24/17 19:59 09/02/17 21:15 Clonidine HCl (Catapres Tab) 0.1 mg Q6H PRN ORAL For High Blood Pressure 09/03/17 00:15 10/03/17 00:14 09/03/17 01:20 Hydralazine HCl (Apresoline) 10 mg Q2H PRN IV SBP > 170 08/30/17 02:15 09/24/17 16:14 09/04/17 09:19 Lorazepam (Ativan 2mg/ml 1ml) 1 mg Q6H PRN IV For Anxiety 08/31/17 12:00 09/07/17 11:59 09/01/17 11:55 Nystatin (Nystatin) 5 ml QID ORAL 08/30/17 09:00 09/05/17 12:59 09/04/17 08:32 Olanzapine (ZyPREXA) 2.5 mg BID@0600,1400 ORAL 08/31/17 14:00 09/30/17 13:59 09/03/17 15:03 Olanzapine (ZyPREXA) 2.5 mg QHS ORAL 08/31/17 21:00 09/30/17 20:59 09/02/17 21:15 Pantoprazole (Protonix) 40 mg BIAC ORAL 09/02/17 16:30 10/02/17 16:29 09/04/17 05:58 Piperacillin Sod/ Tazobactam Sod 3.375 gm/Dextrose 110 ml @ 27.5 mls/hr Q12HR@0600,1800 IVPB 09/01/17 18:00 09/08/17 17:59 09/04/17 05:58 RODRIGUEZ HAMILTON Sep 04, 2017 11:53
[2017-09-04] MEDS ORDERED: HYDRALAZINE HCL25 M1 ORAL (16:39)
[2017-09-04] MEDS ORDERED: APRESOLINE10 MG ORAL (16:41)
[2017-09-04] MEDS: Dyna-Hex 2% Top Sol 2oz TOPIC SCH (20:00)
[2017-09-04] MEDS: HydrALAZINE 25mg tab ORAL SCH (21:03)
--- NOTE | 2017-09-04 21:45 | Progress Note ---
DATE: 09/04/2017 SUBJECTIVE: This is an elderly female, was admitted for sepsis, pneumonia, chronic respiratory failure, and coagulopathy. The patient is currently awake, doing better, shortness of breath improving. Cough is improving. Dysphagia has also improved. OBJECTIVE: VITAL SIGNS: Stable. CHEST: Bilateral few crackles and wheezing. CARDIOVASCULAR: Regular rhythm. Tachycardia. ABDOMEN: Soft. Positive bowel sounds. Nontender. EXTREMITIES: No swelling. GENITOURINARY: Deferred. LABORATORY DATA: There are no labs for today. ASSESSMENT: 1. Acute respiratory failure. 2. Aspiration pneumonia. 3. Chronic obstructive pulmonary disease. 4. Coagulopathy. 5. Encephalopathy. PLAN: We will currently continue current treatment, continue IV antibiotics, and IV bronchodilator treatments. Continue supportive treatment. Soft diet. Discussed with charge nurse. The patient will be transferred to . Vik Maria M.D. DR: Sharon JOB#: [id number] CC:
[2017-09-05] VITALS: BP 186/73
--- NOTE | 2017-09-05 00:06 | General Progress Note ---
Assessment/Plan Assessment/Plan 1. Anemia, potentially secondary to gastrointestinal bleed. --> Was on coumadin and now has been discontinued (further anticoag management per cards) --> also need to rule out hemolysis, LDH 599, Bili 2.7 --> both levels elevated --> Continue to closely monitor and trend cbc daily. --> Anemia workup reviewed. --> Iron 26, TIBC 228, Ferritin 50, B12 377, Folate 11.9, TSH 0.4 --> Transfuse if hgb <7 and trend cbc --> Anemia mild at this time. Blood transfusion not required. 2. Anemia of iron deficiency. s/p iron therapy for total of 5 days --> No occult blood in most recent draw. Has been seen by GI service. --> Monitor closely --> Blood transfusion not required unless symptomatic or hgb below goal. 3. Coagulopathy due to Coumadin use in the past. --> It has since been discontinued. inr improved --> Coumadin currently on hold. Further management as per cards 4. Respiratory failure, currently extubated 6. Bilateral pneumonia. She is on broad-spectrum antibiotics. 7. Gastroesophageal reflux disease, on antacids as needed. 8. Subcutaneous bruising, likely due to Coumadin. 9. Leukocytosis. --> Improving on antibiotics. Subjective Date patient seen: Sep 04, 2017 Constitutional: Denies: no symptoms, chills, diaphoresis, fever, malaise, weakness, other HEENT: Denies: no symptoms, eye pain, blurred vision, tearing, double vision, ear pain, ear discharge, nose pain, nose congestion, throat pain, throat swelling, mouth pain, mouth swelling, other Cardiovascular: Denies: no symptoms, chest pain, edema, irregular heart rate, lightheadedness, palpitations, syncope, other Respiratory: Denies: no symptoms, cough, orthopnea, shortness of breath, SOB with excertion, SOB at rest, sputum, stridor, wheezing, other Gastrointestinal/Abdominal: Denies: no symptoms, abdomen distended, abdominal pain, black stools, tarry stools, blood in stool, constipated, diarrhea, difficulty swallowing, nausea, poor appetite, poor fluid intake, rectal bleeding , vomiting, other Genitourinary: Denies: no symptoms, burning, discharge, frequency, flank pain, hematuria, incontinence, pain, urgency, other Neurologic/Psychiatric: Denies: no symptoms, anxiety, depressed, emotional problems, headache, numbness, paresthesia, pre-existing deficit, seizure, tingling, tremors, weakness, other Hematologic/Lymphatic: Reports: anemia Allergies: Coded Allergies: IBUPROFEN (Verified Allergy, Unknown, 08/23/17) Subjective No hematochezia. Leukocytosis. On antibiotic treatment. Objective Last 24 Hour Vital Signs Date Time Temp Pulse Resp B/P (MAP) Pulse Ox O2 Delivery O2 Flow Rate FiO2 09/04/17 21:03 168/70 09/04/17 20:00 90 09/04/17 20:00 97.7 96 17 168/70 96 Room Air 97.7 09/04/17 19:45 97.5 80 18 150/78 99 Room Air 97.5 09/04/17 16:25 190/80 09/04/17 16:18 97.5 84 18 190/80 99 Room Air 97.5 09/04/17 15:42 76 09/04/17 12:00 97.5 91 18 157/64 99 Room Air 97.5 09/04/17 11:49 95 09/04/17 10:36 97.5 95 18 147/72 99 Room Air 97.5 09/04/17 09:19 190/80 09/04/17 09:10 97.5 83 20 190/80 99 Room Air 97.5 09/04/17 07:44 84 09/04/17 04:00 97.5 84 20 157/75 99 Room Air 97.5 09/04/17 04:00 69 09/04/17 00:00 96.9 84 19 156/83 98 Room Air 96.9 09/04/17 00:00 86 Intake and Output 09/03/17 09/04/17 19:00 07:00 Intake Total 960 ml Output Total 500 ml 350 ml Balance 460 ml -350 ml Intake Oral 960 ml Output Urine Total 500 ml 350 ml # Voids 1 # Bowel Movements 2 2 Laboratory Tests 09/04/17 09:40: White Blood Count 14.7H, Red Blood Count 3.66L, Hemoglobin 11.6L, Hematocrit 36.0L, Mean Corpuscular Volume 98, Mean Corpuscular Hemoglobin 31.8H, Mean Corpuscular Hemoglobin Concent 32.4, Red Cell Distribution Width 20.5H, Platelet Count 316, Mean Platelet Volume 7.3, Neutrophils (%) (Auto) , Lymphocytes (%) (Auto) , Monocytes (%) (Auto) , Eosinophils (%) (Auto) , Basophils (%) (Auto) , Differential Total Cells Counted 100, Neutrophils % ( Manual) 83H, Lymphocytes % (Manual) 6L, Monocytes % (Manual) 7, Eosinophils % ( Manual) 4H, Basophils % (Manual) 0, Band Neutrophils 0, Platelet Estimate Adequate, Platelet Morphology Normal, Anisocytosis 2+, Sodium Level 146H, Potassium Level 4.0, Chloride Level 110H, Carbon Dioxide Level 23, Anion Gap 13 , Blood Urea Nitrogen 42H, Creatinine 4.2H, Estimat Glomerular Filtration Rate , Glucose Level 89, Calcium Level 8.6 Height (Feet): 5 Height (Inches): 2.00 Weight (Pounds): 181 General Appearance: no apparent distress Respiratory/Chest: decreased breath sounds Abdomen: soft Cristiano Roberts MD Sep 05, 2017 00:06
[2017-09-05 04:00] VITALS: BP 147/66
[2017-09-05] MEDS: OLANZapine 2.5mg tab ORAL SCH (05:55)
[2017-09-05 08:15] VITALS: BP 168/70
[2017-09-05] MEDS: HydrALAZINE 25mg tab ORAL SCH ×2 (08:16→13:17)
[2017-09-05] MEDS: Nystatin Susp 500,000 units/5ml ORAL SCH (08:16)
[2017-09-05 08:57] LABS: BASOPHILS % (AUTO) 0.9 % (0.0-2.0); EOSINOPHILS % (AUTO) 2.6 % (0.0-3.0); HEMATOCRIT 31.2 % (37.0-47.0); LYMPHOCYTES % (AUTO) 7.4 % (20.0-45.0); MEAN CORPUSCULAR VOLUME 98 FL (80-99); NEUTROPHILS % (AUTO) 82.2 % (45.0-75.0); PLATELET COUNT 261 K/UL (150-450); RED BLOOD COUNT 3.19 M/UL (4.20-5.40); RED CELL DISTRIBUTION WIDTH 20.5 % (11.6-14.8); WHITE BLOOD COUNT 12.1 K/UL (4.8-10.8)
[2017-09-05] MEDS ORDERED: HYDRALAZIN20 MG/1 ML IV (09:15)
[2017-09-05 09:18] LABS: ANION GAP 9 mmol/L (5-15); BLOOD UREA NITROGEN 42 mg/dL (7-18); CARBON DIOXIDE 25 MMOL/L (21-32); CHLORIDE 111 MMOL/L (98-107); POTASSIUM 3.7 MMOL/L (3.5-5.1); SODIUM 145 MMOL/L (136-145)
--- NOTE | 2017-09-05 09:19 | Pulmonology Progress Note ---
Assessment/Plan Assessment/Plan 1. Soft tissue swelling in the neck area with compromised airway. Resolved 2. Respiratory failure with airway compromise. Now extubated. 3. Marked subcutaneous bruising. Improving. 4. Coumadin use. 5. Hypertension. 6. GERD. 7. care home resident. 8. Anemia. 9. Leukocytosis. DISCUSSION: 1. Soft tissue swelling in the neck area with compromised airway. Resolved 2. Respiratory failure with airway compromise. Now extubated. 3. Marked subcutaneous bruising. Improving. 4. Coumadin use. 5. Hypertension. 6. GERD. 7. care home resident. 8. Anemia. 9. Leukocytosis. PLAN care noted no noted stridor oxygen aspiration precautions respiratory care Subjective Interval Events: Much better Constitutional: Reports: no symptoms HEENT: Repors: no symptoms Respiratory: Reports: no symptoms Cardiovascular: Reports: no symptoms Gastrointestinal/Abdominal: Reports: no symptoms Genitourinary: Reports: no symptoms Allergies: Coded Allergies: IBUPROFEN (Verified Allergy, Unknown, 08/23/17) Objective Last 24 Hour Vital Signs Date Time Temp Pulse Resp B/P (MAP) Pulse Ox O2 Delivery O2 Flow Rate FiO2 09/05/17 08:16 168/70 09/05/17 08:15 98.1 80 17 168/70 96 Room Air 98.1 09/05/17 07:01 98 09/05/17 04:00 96 09/05/17 04:00 98.1 90 17 147/66 96 Room Air 98.1 09/05/17 00:00 97.7 95 16 186/73 96 Room Air 97.7 09/05/17 00:00 186/73 09/05/17 00:00 93 09/04/17 21:03 168/70 09/04/17 20:00 90 09/04/17 20:00 97.7 96 17 168/70 96 Room Air 97.7 09/04/17 19:45 97.5 80 18 150/78 99 Room Air 97.5 09/04/17 16:25 190/80 09/04/17 16:18 97.5 84 18 190/80 99 Room Air 97.5 09/04/17 15:42 76 09/04/17 12:00 97.5 91 18 157/64 99 Room Air 97.5 09/04/17 11:49 95 09/04/17 10:36 97.5 95 18 147/72 99 Room Air 97.5 09/04/17 09:19 190/80 Intake and Output 09/04/17 09/05/17 19:00 07:00 Intake Total 1160 ml Balance 1160 ml Intake Oral 360 ml Other 800 ml # Voids 5 # Bowel Movements 2 General Appearance: no acute distress HEENT: normocephalic Respiratory/Chest: chest wall non-tender, lungs clear Cardiovascular: normal peripheral pulses, normal rate Abdomen: normal bowel sounds Laboratory Tests 09/04/17 09:40: White Blood Count 14.7H, Red Blood Count 3.66L, Hemoglobin 11.6L, Hematocrit 36.0L, Mean Corpuscular Volume 98, Mean Corpuscular Hemoglobin 31.8H, Mean Corpuscular Hemoglobin Concent 32.4, Red Cell Distribution Width 20.5H, Platelet Count 316, Mean Platelet Volume 7.3, Neutrophils (%) (Auto) , Lymphocytes (%) (Auto) , Monocytes (%) (Auto) , Eosinophils (%) (Auto) , Basophils (%) (Auto) , Differential Total Cells Counted 100, Neutrophils % ( Manual) 83H, Lymphocytes % (Manual) 6L, Monocytes % (Manual) 7, Eosinophils % ( Manual) 4H, Basophils % (Manual) 0, Band Neutrophils 0, Platelet Estimate Adequate, Platelet Morphology Normal, Anisocytosis 2+, Sodium Level 146H, Potassium Level 4.0, Chloride Level 110H, Carbon Dioxide Level 23, Anion Gap 13 , Blood Urea Nitrogen 42H, Creatinine 4.2H, Estimat Glomerular Filtration Rate , Glucose Level 89, Calcium Level 8.6 09/05/17 08:05: White Blood Count 12.1H, Red Blood Count 3.19L, Hemoglobin 10.0L, Hematocrit 31.2L, Mean Corpuscular Volume 98, Mean Corpuscular Hemoglobin 31.3H, Mean Corpuscular Hemoglobin Concent 32.0, Red Cell Distribution Width 20.5H, Platelet Count 261, Mean Platelet Volume 7.5, Neutrophils (%) (Auto) 82.2H, Lymphocytes (%) (Auto) 7.4L, Monocytes (%) (Auto) 7.0, Eosinophils (%) (Auto) 2.6, Basophils (%) (Auto) 0.9, Sodium Level [Pending], Potassium Level [Pending] , Chloride Level [Pending], Carbon Dioxide Level [Pending], Blood Urea Nitrogen [Pending], Creatinine [Pending], Estimat Glomerular Filtration Rate [Pending], Glucose Level [Pending], Calcium Level [Pending] Current Medications Medications (Trade) Dose Ordered Sig/[place]ster Route PRN Reason Start Time Stop Time Status Last Admin Dose Admin Acetaminophen (Tylenol) 650 mg Q4H PRN ORAL Mild Pain/Temp > 100.5 09/01/17 03:30 10/01/17 03:29 09/01/17 11:56 Chlorhexidine Gluconate (Caroline-Hex 2%) 1 applic DAILY@2000 TOPIC 08/30/17 20:00 09/24/17 19:59 09/02/17 21:15 Clonidine HCl (Catapres Tab) 0.1 mg Q6H PRN ORAL For High Blood Pressure 09/03/17 00:15 10/03/17 00:14 09/03/17 01:20 Hydralazine HCl (Apresoline) 10 mg Q2H PRN IV SBP > 170 08/30/17 02:15 09/24/17 16:14 09/05/17 00:00 Hydralazine HCl (Apresoline) 25 mg TID ORAL 09/04/17 22:00 10/04/17 21:59 09/05/17 08:16 Lorazepam (Ativan 2mg/ml 1ml) 1 mg Q6H PRN IV For Anxiety 08/31/17 12:00 09/07/17 11:59 09/01/17 11:55 Nystatin (Nystatin) 5 ml QID ORAL 08/30/17 09:00 09/05/17 12:59 09/05/17 08:16 Olanzapine (ZyPREXA) 2.5 mg BID@0600,1400 ORAL 08/31/17 14:00 09/30/17 13:59 09/05/17 05:55 Olanzapine (ZyPREXA) 2.5 mg QHS ORAL 08/31/17 21:00 09/30/17 20:59 09/04/17 20:52 Pantoprazole (Protonix) 40 mg BIAC ORAL 09/02/17 16:30 10/02/17 16:29 09/05/17 05:56 Toño Underwood MD Sep 05, 2017 09:19
--- NOTE | 2017-09-05 09:53 | General Progress Note ---
Assessment/Plan Problem List: (1) Anemia ICD Codes: D64.9 - Anemia, unspecified SNOMED: 316921737 (2) Coagulopathy ICD Codes: D68.9 - Coagulation defect, unspecified SNOMED: 09452004 (3) 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 ICD Codes: L97.529 - Non-pressure chronic ulcer of other part of left foot with unspecified severity SNOMED: 903709843 Assessment/Plan anemia stable last stool ob was neg primary md note reviewed dc planning notices fu H&H patient was offered EGD and colonoscopy again and she refused on puree nectar thick diet so colonoscopy prep difficult at this time repeat speech eval for today Subjective ROS Limited/Unobtainable: Yes Allergies: Coded Allergies: IBUPROFEN (Verified Allergy, Unknown, 08/23/17) Subjective no event Objective Last 24 Hour Vital Signs Date Time Temp Pulse Resp B/P (MAP) Pulse Ox O2 Delivery O2 Flow Rate FiO2 09/05/17 08:16 168/70 09/05/17 08:15 98.1 80 17 168/70 96 Room Air 98.1 09/05/17 07:01 98 09/05/17 04:00 96 09/05/17 04:00 98.1 90 17 147/66 96 Room Air 98.1 09/05/17 00:00 97.7 95 16 186/73 96 Room Air 97.7 09/05/17 00:00 186/73 09/05/17 00:00 93 09/04/17 21:03 168/70 09/04/17 20:00 90 09/04/17 20:00 97.7 96 17 168/70 96 Room Air 97.7 09/04/17 19:45 97.5 80 18 150/78 99 Room Air 97.5 09/04/17 16:25 190/80 09/04/17 16:18 97.5 84 18 190/80 99 Room Air 97.5 09/04/17 15:42 76 09/04/17 12:00 97.5 91 18 157/64 99 Room Air 97.5 09/04/17 11:49 95 09/04/17 10:36 97.5 95 18 147/72 99 Room Air 97.5 Intake and Output 09/04/17 09/05/17 19:00 07:00 Intake Total 1160 ml Balance 1160 ml Intake Oral 360 ml Other 800 ml # Voids 5 # Bowel Movements 2 Laboratory Tests 09/05/17 08:05: White Blood Count 12.1H, Red Blood Count 3.19L, Hemoglobin 10.0L, Hematocrit 31.2L, Mean Corpuscular Volume 98, Mean Corpuscular Hemoglobin 31.3H, Mean Corpuscular Hemoglobin Concent 32.0, Red Cell Distribution Width 20.5H, Platelet Count 261, Mean Platelet Volume 7.5, Neutrophils (%) (Auto) 82.2H, Lymphocytes (%) (Auto) 7.4L, Monocytes (%) (Auto) 7.0, Eosinophils (%) (Auto) 2.6, Basophils (%) (Auto) 0.9, Sodium Level 145, Potassium Level 3.7, Chloride Level 111H, Carbon Dioxide Level 25, Anion Gap 9, Blood Urea Nitrogen 42H, Creatinine 4.0H, Estimat Glomerular Filtration Rate , Glucose Level 96, Calcium Level 8.0L Height (Feet): 5 Height (Inches): 2.00 Weight (Pounds): 176 General Appearance: alert EENT: normal ENT inspection Neck: supple Cardiovascular: normal rate Respiratory/Chest: lungs clear Abdomen: normal bowel sounds, non tender, soft Extremities: non-tender RAJ HERNANDEZ Sep 05, 2017 09:53
--- NOTE | 2017-09-05 12:06 | Diagnostic Imaging Report ---
Indication: Shortness of breath Technique: One view of the chest Comparison: 08/28/2017 Findings: The heart remains borderline enlarged. Mild interstitial prominence persists. No focal airspace consolidation. Pleural spaces are probably clear Impression: . Mild interstitial prominence. May be chronic or indicate acute congestive changes. Correlate with clinical findings
[2017-09-05 12:07] VITALS: BP 172/80
[2017-09-05 13:17] VITALS: BP 166/67
--- NOTE | 2017-09-05 13:45 | Progress Note ---
DATE: 09/05/2017 SUBJECTIVE: The patient is an 82-year-old. Currently, sitting in the bed, comfortable. No short of breath. Sore throat is improving. OBJECTIVE: VITAL SIGNS: Blood pressure is 130/70, pulse 60. No fever. HEENT: NAD. CHEST: Bilaterally clear. CARDIOVASCULAR: rhythm. No gallop. No murmur. ABDOMEN: Soft. EXTREMITIES: CCE. NEUROLOGIC: No focal deficit. ASSESSMENT AND PLAN: 1. Sepsis. 2. Aspiration pneumonia. 3. Chronic respiratory failure is improved. 4. Coagulopathy. 5. Dysphagia. We will continue antibiotics, bronchodilator treatments, waiting for [place] transfer. Continue supportive treatment. Vik Maria M.D. DR: HARDIK JOB#: [id number] CC:
--- NOTE | 2017-09-06 13:30 | Diagnostic Imaging Report ---
Indications: Dysphagia Technique: Patient ingested multiple substances under the supervision of speech pathology. Video fluoroscopic recording performed. Total fluoroscopy time to 99.7 seconds. Total dose area product 0.67666 mGycm2 Comparison: none Findings: There is deep laryngeal penetration with ingestion of thin liquid barium. No nishant aspiration. Laryngeal penetration is also observed with ingestion of nectar thick liquid barium. Delayed pooling of honey thick liquid barium and barium puree is noted. No aspiration or penetration of either of these substances Impression: Positive for penetration of thin liquid barium and nectar thick liquid barium Please refer to speech pathology report for more detailed analysis
--- NOTE | 2017-09-06 19:38 | General Progress Note ---
Assessment/Plan Assessment/Plan 1. Anemia, potentially secondary to gastrointestinal bleed. --> Was on coumadin and now has been discontinued (further anticoag management per cards) --> also need to rule out hemolysis, LDH 599, Bili 2.7 --> both levels elevated --> Continue to closely monitor and trend cbc daily. --> Anemia workup reviewed. --> Iron 26, TIBC 228, Ferritin 50, B12 377, Folate 11.9, TSH 0.4 --> Transfuse if hgb <7 and trend cbc --> Anemia mild at this time. Blood transfusion not required. 2. Anemia of iron deficiency. s/p iron therapy for total of 5 days --> No occult blood in most recent draw. Has been seen by GI service. --> Monitor closely --> Blood transfusion not required unless symptomatic or hgb below goal. 3. Coagulopathy due to Coumadin use in the past. --> It has since been discontinued. inr improved --> Coumadin currently on hold. Further management as per cards 4. Respiratory failure, currently extubated 6. Bilateral pneumonia. She is on broad-spectrum antibiotics. 7. Gastroesophageal reflux disease, on antacids as needed. 8. Subcutaneous bruising, likely due to Coumadin. 9. Leukocytosis. --> Improving on antibiotics. Subjective Date patient seen: Sep 05, 2017 Constitutional: Denies: no symptoms, chills, diaphoresis, fever, malaise, weakness, other HEENT: Denies: no symptoms, eye pain, blurred vision, tearing, double vision, ear pain, ear discharge, nose pain, nose congestion, throat pain, throat swelling, mouth pain, mouth swelling, other Cardiovascular: Denies: no symptoms, chest pain, edema, irregular heart rate, lightheadedness, palpitations, syncope, other Respiratory: Denies: no symptoms, cough, orthopnea, shortness of breath, SOB with excertion, SOB at rest, sputum, stridor, wheezing, other Gastrointestinal/Abdominal: Denies: no symptoms, abdomen distended, abdominal pain, black stools, tarry stools, blood in stool, constipated, diarrhea, difficulty swallowing, nausea, poor appetite, poor fluid intake, rectal bleeding , vomiting, other Genitourinary: Denies: no symptoms, burning, discharge, frequency, flank pain, hematuria, incontinence, pain, urgency, other Neurologic/Psychiatric: Denies: no symptoms, anxiety, depressed, emotional problems, headache, numbness, paresthesia, pre-existing deficit, seizure, tingling, tremors, weakness, other Hematologic/Lymphatic: Reports: anemia Allergies: Coded Allergies: IBUPROFEN (Verified Allergy, Unknown, 08/23/17) Subjective No new events overnight. Pending discharge. Objective Intake and Output 09/05/17 09/06/17 19:00 07:00 Intake Total 120 ml Output Total 300 ml Balance -180 ml Intake Oral 120 ml Output Urine Total 300 ml # Bowel Movements 1 Height (Feet): 5 Height (Inches): 2.00 Weight (Pounds): 176 General Appearance: no apparent distress Respiratory/Chest: lungs clear Abdomen: soft Cristiano Roberts MD Sep 06, 2017 19:38
--- NOTE | 2017-09-07 08:25 | Discharge Summary ---
Discharge Summary Hospital Course Date of Admission Aug 23, 2017 at 20:51 Date of Discharge Sep 05, 2017 at 13:26 Admitting Diagnosis Allergic reaction HPI Ella Jara is a 82 year old female who was admitted on Aug 23, 2017 at 20:51 for Allergic Reaction Hospital Course DISCHARGE DIAGNOSIS: sepsis aspiration pneumonia acute respiratory failure requiring intubation upper airway compromise ( due to soft neck tissue swelling)-resolved possible neck cellulitis s/p bronchoscopy( no edema of vocal cord, airway clear) s/p extubation paroxysmal atrial fibrillation coagulopathy 2 to Coumadin use ( corrected, resolved) HTN acute anemia requiring blood transfusion iron deficiency anemia probable GI bleeding abnormal LFT-resolved acute kidney injury - encephalopathy dysphagia psychotic disorder Left 1st toe stage II pressure ulcer Left 2nd toe un-stageable pressure ulcer Left 3rd toe un-stageable pressure ulcer Sacrococcygeal stage I pressure ulcer Discharge Medications Continued Medications: Acetaminophen* (Acetaminophen 325MG Tablet*) 325 Mg Tablet 650 MG ORAL Q4H PRN for Mild Pain/Temp > 100.5, TAB (This prescription has been renewed) Clonidine Hcl* (Catapres*) 0.1 Mg Tablet 0.1 MG ORAL EVERY 6 HOURS PRN for ELEVATED SBP, TAB (This prescription has been renewed) Hydralazine Hcl* (Hydralazine Hcl*) 25 Mg Tablet 25 MG ORAL TID, TAB 0 Refills (This prescription has been renewed) Hydralazine Hcl (Hydralazine Hcl) 20 Mg/1 Ml Vial 10 MG IV Q2 PRN for SBP>170, VIAL (This prescription has been renewed) Lorazepam* (Lorazepam*) 2 Mg/1 Ml Vial 1 MG IV Q6HR PRN for For Anxiety, VIAL (This prescription has been renewed) Nystatin* (Nystatin*) 100,000 Unit/1 Ml Oral.susp 5 ML ORAL FOUR TIMES A DAY, ML (This prescription has been renewed) Swish in the mouth and retain for as long as possible (several minutes) before swallowing Olanzapine* (Zyprexa*) 2.5 Mg Tablet 2.5 MG ORAL BID, #30 TAB 0 Refills (This prescription has been renewed) Pantoprazole* (Protonix*) 40 Mg Tablet.dr 40 MG ORAL DAILY, TAB (This prescription has been renewed) Discontinued Medications: Hydralazine Hcl (Hydralazine Hcl) 20 Mg/1 Ml Vial 10 MG IV Q2, VIAL Hydralazine HCl (Hydralazine HCl) 10 Mg Tablet 10 MG ORAL EVERY 2 HOURS PRN for sbp>170, TAB Rbyjxnrunhyq-Nswm-Xtdxxusm,Iso (Zosyn 3.375 Gm Pre Mix-Bag) 3.375 Gm/50 Ml Froz.piggy 3.375 GM IVPB EVERY 12 HOURS, BAG Discharge Condition Upon Discharge: stable Discharge Disposition Patient was discharged to [facility] (63) Discharge Instructions Discharge Instructions Special Instructions I have been assigned to complete a D/C Summary on this account. I was not involved in the patient management Alona Felder NP ([place]) Sep 07, 2017 08:25
== END 2017-09-05 13:26 | DRG 870 ==
LOC: EDBD 20:08 → EMR 20:45 → ICU 20:51 → EDBEDREQ 22:01 → 2E 08-30 01:03
PROC: 0BH17EZ Insertion of Endotracheal Airway into Trachea, Via Natural or Artificial Opening (ICD-10-PCS; principal; 2017-08-23)
PROC: 5A1955Z Respiratory Ventilation, Greater than 96 Consecutive Hours (ICD-10-PCS; principal; 2017-08-23)
PROC: 0BJ08ZZ Inspection of Tracheobronchial Tree, Via Natural or Artificial Opening Endoscopic (ICD-10-PCS; 2017-08-28)
PROC: B548ZZA Ultrasonography of Superior Vena Cava, Guidance (ICD-10-PCS; 2017-09-02)
PROC: 02HV33Z Insertion of Infusion Device into Superior Vena Cava, Percutaneous Approach (ICD-10-PCS; 2017-09-02)
DX: A41.9 Sepsis, unspecified organism (principal); J96.21 Acute and chronic respiratory failure with hypoxia; J69.0 Pneumonitis due to inhalation of food and vomit; G93.40 Encephalopathy, unspecified; L03.221 Cellulitis of neck; D68.32 Hemorrhagic disorder due to extrinsic circulating anticoagulants; J05.10 Acute epiglottitis without obstruction; K92.2 Gastrointestinal hemorrhage, unspecified; N17.9 Acute kidney failure, unspecified; T78.3XXA Angioneurotic edema, initial encounter; T45.515A Adverse effect of anticoagulants, initial encounter; Y92.122 Bedroom in nursing home as the place of occurrence of the external cause; R23.3 Spontaneous ecchymoses; I10 Essential (primary) hypertension; K21.9 Gastro-esophageal reflux disease without esophagitis; D50.9 Iron deficiency anemia, unspecified; I48.0 Paroxysmal atrial fibrillation; Z79.01 Long term (current) use of anticoagulants; E03.9 Hypothyroidism, unspecified; F29 Unspecified psychosis not due to a substance or known physiological condition; F32.9 Major depressive disorder, single episode, unspecified; R13.10 Dysphagia, unspecified; L89.151 Pressure ulcer of sacral region, stage 1; L89.892 Pressure ulcer of other site, stage 2
CPT/HCPCS: 36415; 36569; 36600; 70491; 71045; 74230; 76700; 76937; 80048; 80053; 80202; 82247; 82248; 82270; 82607; 82728; 82746; 82803; 83010; 83090; 83540; 83550; 83605; 83615; 83880; 84439; 84443; 84478; 84484; 85007; 85025; 85044; 85060; 85362; 85384; 85610; 85730; 86705; 86709; 86803; 86850; 86870; 86880; 86900; 86901; 86920; 87040; 87070; 87081; 87181; 87205; 87340; 93005; 93306; 93970; 94002; 94003; 94640; 94664; 94760; 99291; J8499